=== PATIENT | female | born 1970 | race Caucasian/White ===

== ENCOUNTER 2018-06-18 10:34 | Inpatient (IN) ==
[2018-06-18 13:28] LABS: BASOPHILS % (AUTO) 0.4 % (0.2-1.0); EOSINOPHILS % (AUTO) 0.3 % (0.9-2.9); HEMATOCRIT 45.6 % (36.0-47.0); HEMOGLOBIN 15.3 g/dL (12.0-16.0); LYMPHOCYTES # (AUTO) 1.8 X10^3/uL (1.3-2.9); LYMPHOCYTES % (AUTO) 13.6 % (21.0-51.0); MEAN CORPUSCULAR HEMOGLOBIN 29.4 pg (27.0-34.0); MEAN CORPUSCULAR HGB CONC 33.5 g/dL (33.0-35.0); MEAN CORPUSCULAR VOLUME 87.7 fL (80.0-100.0); MEAN PLATELET VOLUME 9.3 fL (7.4-11.0); MONOCYTES # (AUTO) 0.7 x10^3/uL (0.3-0.8); MONOCYTES % (AUTO) 5.8 % (0.0-13.0); NEUTROPHILS # (AUTO) 10.3 x10^3/uL (2.2-4.8); NEUTROPHILS % (AUTO) 79.9 % (42.0-75.0); PLATELET COUNT 192 X10^3/uL (150.0-450.0); RED CELL DISTRIBUTION WIDTH 14.4 % (11.6-16.5); WHITE BLOOD COUNT 12.9 X10^3/uL (3.6-10.0)
[2018-06-18] MEDS ORDERED: VALIUM INJ IM ONE (13:30)
[2018-06-18 13:42] LABS: ALANINE AMINOTRANSFERASE 41 Units/L (12-78); ALBUMIN 3.5 g/dL (3.4-5.0); ALKALINE PHOSPHATASE 144 Units/L (46-116); ASPARTATE AMINO TRANSFERASE 19 Units/L (15-37); BLOOD UREA NITROGEN 15 mg/dL (7-18); CALCIUM 10.2 mg/dL (8.5-10.1); CARBON DIOXIDE 26.1 mmol/L (21-32); CHLORIDE 99 mmol/L (98-107); COR NA(FOR HYPERGLY) 141 mmol/L (136-145); CREATININE 0.62 mg/dL (0.55-1.02); SODIUM 135 mmol/L (136-145); TOTAL PROTEIN 7.3 g/dL (6.4-8.2); eGFR NON BLACK RACES > 60 (>60)
[2018-06-18 13:51] LABS: BILIRUBIN,URINE NEGATIVE (NEGATIVE); BLOOD/HEMOGLOBIN,URINE NEGATIVE (NEGATIVE); GLUCOSE, URINE 4+ (NEGATIVE); KETONES,URINE NEGATIVE (NEGATIVE); LEUKOCYTE ESTERASE ,URINE NEGATIVE (NEGATIVE); NITRITES,URINE NEGATIVE (NEGATIVE); PROTEIN,URINE NEGATIVE (NEGATIVE); UROBILINOGEN,URINE NORMAL (NORMAL)
[2018-06-18 13:53] LABS: APPEARANCE,URINE CLEAR (CLEAR); COLOR,URINE YELLOW (YELLOW)
[2018-06-18] MEDS: NICOTINE PATCH TD SCH (13:56)
--- NOTE | 2018-06-18 14:46 | RAD ---
History: Multiple falls and unsteady gait Study: PA and lateral chest Comparison: None Findings: The lungs are clear and the heart and mediastinum are unremarkable. There is no edema or effusion. No significant bony abnormality is demonstrated. Impression: Negative Reported By:
--- NOTE | 2018-06-18 14:49 | CT ---
Exam: Head CT without contrast History: 48-year-old female with altered mental status. Comparison: None Technique: Axial imaging was performed from the vertex to the base the skull without intravenous contrast being administered. Sagittal and coronal reformations were generated. Automated exposure control techniques were used for this exam. Findings: The posterior fossa and supratentorial region are unremarkable with no intracranial hemorrhage or extracerebral fluid collections. Ventricles are symmetric in size and position with no mass effect seen. On the bone windows, no acute abnormality is seen. Visualized aspect of the paranasal sinuses and mastoid air cells are clear. Impression: No acute intracranial abnormality is seen on this exam Reported By:
--- NOTE | 2018-06-18 15:17 | CT ---
CT lumbar spine without contrast Indication: Multiple falls, unsteady gait Comparison: None Technique: CT images of the lumbar spine were obtained without contrast. Automatic exposure control was utilized. Findings: The lumbar spine alignment is normal. No acute fracture or subluxation is identified. There is mild multilevel discogenic and facet degenerative disease, which is worst at the lumbosacral junction. No significant osseous spinal canal or neural foraminal narrowing is observed. There is mild right-sided hydroureteronephrosis, without identifiable radiopaque urinary stone, although the inferior most portions of the ureters were not included and a UVJ stone cannot be excluded. Impression: No acute osseous abnormality of the lumbar spine. Mild spondylosis. Mild right-sided hydronephrosis. No ureteral calculus is identified, although the lower ureter was not included. Reported By:
[2018-06-18] MEDS: NS 1000 ML 1,000 ML IV SCH (16:24)
[2018-06-18] MEDS: PROVERA PO SCH (18:33)
[2018-06-18] MEDS: MOBIC TAB 15 MG PO SCH (18:33)
[2018-06-18] MEDS: ZOLOFT PO SCH (21:06)
[2018-06-18] MEDS: ANCEF VIAL 1 GRAM IVP SCH (21:07)
[2018-06-18] MEDS: SNACK - Diabetic Appropriate PO SCH (21:16)
[2018-06-19] MEDS: NS 1000 ML 1,000 ML IV SCH ×2 (03:45→17:38)
[2018-06-19 05:25] LABS: BASOPHILS % (AUTO) 0.4 % (0.2-1.0); EOSINOPHILS # (AUTO) 0.1 x10^3/uL (0.0-0.2); EOSINOPHILS % (AUTO) 0.6 % (0.9-2.9); HEMATOCRIT 41.8 % (36.0-47.0); HEMOGLOBIN 13.9 g/dL (12.0-16.0); LYMPHOCYTES # (AUTO) 2.1 X10^3/uL (1.3-2.9); LYMPHOCYTES % (AUTO) 19.3 % (21.0-51.0); MEAN CORPUSCULAR HEMOGLOBIN 29.4 pg (27.0-34.0); MEAN CORPUSCULAR HGB CONC 33.2 g/dL (33.0-35.0); MEAN CORPUSCULAR VOLUME 88.6 fL (80.0-100.0); MEAN PLATELET VOLUME 9.5 fL (7.4-11.0); MONOCYTES # (AUTO) 0.9 x10^3/uL (0.3-0.8); MONOCYTES % (AUTO) 8.3 % (0.0-13.0); NEUTROPHILS # (AUTO) 7.9 x10^3/uL (2.2-4.8); NEUTROPHILS % (AUTO) 71.4 % (42.0-75.0); PLATELET COUNT 185 X10^3/uL (150.0-450.0); RED BLOOD COUNT 4.72 X10^6/uL (3.5-5.4); RED CELL DISTRIBUTION WIDTH 14.6 % (11.6-16.5)
[2018-06-19 05:47] LABS: ALANINE AMINOTRANSFERASE 33 Units/L (12-78); ALBUMIN 3.2 g/dL (3.4-5.0); ALKALINE PHOSPHATASE 184 Units/L (46-116); ASPARTATE AMINO TRANSFERASE 15 Units/L (15-37); BLOOD UREA NITROGEN 17 mg/dL (7-18); CARBON DIOXIDE 24.6 mmol/L (21-32); CHLORIDE 103 mmol/L (98-107); COR CA(FOR HYPOALB) 9.6 mg/dL (8.5-10.1); COR NA(FOR HYPERGLY) 143 mmol/L (136-145); CREATININE 0.66 mg/dL (0.55-1.02); SODIUM 137 mmol/L (136-145); TOTAL PROTEIN 6.6 g/dL (6.4-8.2); eGFR NON BLACK RACES > 60 (>60)
[2018-06-19] MEDS: ANCEF VIAL 1 GRAM IVP SCH ×3 (06:15→22:00)
[2018-06-19] MEDS: AMARYL TAB 4 MG PO SCH ×2 (06:16→17:38)
[2018-06-19] MEDS: HumuLIN R SC PRN ×2 (06:16→17:39)
--- NOTE | 2018-06-19 07:41 | DR.PROGNOT ---
Hospital Progress Notes - Progress Note for Day of: Progress Note Date: 06/19/18 - Chief Complaint Chief Complaint: pt was seen with infected pilonidal cyst noted few days ago with occasional. drainage and pain . long standing h/o of skin dimple on the lower spine,, - Past Medical Family Social History Past Med/Fam/Surg Hx: No changes since H&P Allergies: Allergies aripiprazole [From Abilify] Adverse Reaction (Verified 06/18/18 12:59) bupropion [From Wellbutrin] Adverse Reaction (Verified 06/18/18 18:05) donepezil [From Aricept] Adverse Reaction (Verified 06/18/18 12:59) moxifloxacin [From Avelox] Adverse Reaction (Verified 06/18/18 18:05) olanzapine [From Zyprexa] Adverse Reaction (Verified 06/18/18 12:59) promethazine [From Phenergan] Adverse Reaction (Verified 06/18/18 12:59) venlafaxine [From Effexor] Adverse Reaction (Verified 06/18/18 12:59) - Review Of Systems ROS: No change since H&P - Vital Signs Vital Signs: Temperature 98.4 F Pulse Rate [Right Brachial] 85 Respiratory Rate 18 Blood Pressure [Right Arm] 120/63 Blood Pressure [Left Arm] 110/56 Blood Pressure 143/63 O2 Sat by Pulse Oximetry 95 - Physical Exam Oriented: Normal Eyes: Normal Ear: Normal Respiratory: Normal Cardiovascular: Normal GI:Auscultation: Normal GI:Palpation: Normal GI: Tenderness: Normal Skin: Other (pilonidal sinus with erythema and tenderness . no abscess now.) Speech Pattern: Clear, Appropriate - Laboratory and Diagnostics Result Diagrams: 06/19/18 04:11 06/19/18 04:11 Labs: Laboratory WBC 11.0 X10^3/uL (3.6-10.0) H 06/19/18 04:11 RBC 4.72 X10^6/uL (3.5-5.4) 06/19/18 04:11 Hgb 13.9 g/dL (12.0-16.0) 06/19/18 04:11 Hct 41.8 % (36.0-47.0) 06/19/18 04:11 MCV 88.6 fL (80.0-100.0) 06/19/18 04:11 MCH 29.4 pg (27.0-34.0) 06/19/18 04:11 MCHC 33.2 g/dL (33.0-35.0) 06/19/18 04:11 RDW 14.6 % (11.6-16.5) 06/19/18 04:11 Plt Count 185 X10^3/uL (150.0-450.0) 06/19/18 04:11 Plt Count Comment Cancelled 06/18/18 13:00 MPV 9.5 fL (7.4-11.0) 06/19/18 04:11 Neut % (Auto) 71.4 % (42.0-75.0) 06/19/18 04:11 Lymph % (Auto) 19.3 % (21.0-51.0) L 06/19/18 04:11 [place] % (Auto) 8.3 % (0.0-13.0) 06/19/18 04:11 Eos % (Auto) 0.6 % (0.9-2.9) L 06/19/18 04:11 Baso % (Auto) 0.4 % (0.2-1.0) 06/19/18 04:11 Neut # (Auto) 7.9 x10^3/uL (2.2-4.8) H 06/19/18 04:11 Lymph # (Auto) 2.1 X10^3/uL (1.3-2.9) 06/19/18 04:11 [place] # (Auto) 0.9 x10^3/uL (0.3-0.8) H 06/19/18 04:11 Eos # (Auto) 0.1 x10^3/uL (0.0-0.2) 06/19/18 04:11 Baso # (Auto) 0.0 X10^3/uL (0.0-0.1) 06/19/18 04:11 Absolute Nucleated RBC 0.0 /100WBC 06/19/18 04:11 Nucleated RBCs Cancelled 06/18/18 13:00 Atypical Lymphocytes Cancelled 06/18/18 13:00 Blast Cells Cancelled 06/18/18 13:00 Smudge Cells Cancelled 06/18/18 13:00 Toxic Granulation Cancelled 06/18/18 13:00 Dohle Bodies Cancelled 06/18/18 13:00 Naomie Rods Cancelled 06/18/18 13:00 Plt Clumps, EDTA Cancelled 06/18/18 13:00 Giant Platelets Cancelled 06/18/18 13:00 Plt Morphology Comment Cancelled 06/18/18 13:00 RBC Morphology Cancelled 06/18/18 13:00 Dimorphic RBCs Cancelled 06/18/18 13:00 Polychromasia Cancelled 06/18/18 13:00 Hypochromasia Cancelled 06/18/18 13:00 Poikilocytosis Cancelled 06/18/18 13:00 Basophilic Stippling Cancelled 06/18/18 13:00 Anisocytosis Cancelled 06/18/18 13:00 Microcytosis Cancelled 06/18/18 13:00 Macrocytosis Cancelled 06/18/18 13:00 Spherocytes Cancelled 06/18/18 13:00 Pappenheimer Bodies Cancelled 06/18/18 13:00 Sickle Cells Cancelled 06/18/18 13:00 Target Cells Cancelled 06/18/18 13:00 Tear Drop Cells Cancelled 06/18/18 13:00 Ovalocytes Cancelled 06/18/18 13:00 Stomatocytes Cancelled 06/18/18 13:00 Helmet Cells Cancelled 06/18/18 13:00 [place] Bodies Cancelled 06/18/18 13:00 [place] Rings Cancelled 06/18/18 13:00 Lisbeth Cells Cancelled 06/18/18 13:00 Crenated Cell Cancelled 06/18/18 13:00 Acanthocytes (Spur) Cancelled 06/18/18 13:00 Rouleaux Cancelled 06/18/18 13:00 Schistocytes Cancelled 06/18/18 13:00 Sodium 137 mmol/L (136-145) 06/19/18 04:11 Corrected Sodium 143 mmol/L (136-145) 06/19/18 04:11 Potassium 4.3 mmol/L (3.5-5.1) 06/19/18 04:11 Chloride 103 mmol/L (98-107) 06/19/18 04:11 Carbon Dioxide 24.6 mmol/L (21-32) 06/19/18 04:11 BUN 17 mg/dL (7-18) 06/19/18 04:11 Creatinine 0.66 mg/dL (0.55-1.02) 06/19/18 04:11 Est GFR (MDRD) Af Amer > 60 (>60) 06/19/18 04:11 Est GFR (MDRD) Non-Af > 60 (>60) 06/19/18 04:11 Glucose 361 mg/dL (65-99) H 06/19/18 04:11 Calcium 9.0 mg/dL (8.5-10.1) 06/19/18 04:11 Corrected Calcium 9.6 mg/dL (8.5-10.1) 06/19/18 04:11 Total Bilirubin 0.30 mg/dL (0.2-1.0) 06/19/18 04:11 AST 15 Units/L (15-37) 06/19/18 04:11 ALT 33 Units/L (12-78) 06/19/18 04:11 Alkaline Phosphatase 184 Units/L (46-116) H 06/19/18 04:11 Total Protein 6.6 g/dL (6.4-8.2) 06/19/18 04:11 Albumin 3.2 g/dL (3.4-5.0) L 06/19/18 04:11 Globulin 3.4 g/dL (2.5-4.5) 06/19/18 04:11 Albumin/Globulin Ratio 0.9 Ratio (1.1-2.1) L 06/19/18 04:11 Specimen Type Clean catch urine 06/18/18 13:26 Urine Color Yellow (YELLOW) 06/18/18 13:26 Urine Appearance Clear (CLEAR) 06/18/18 13:26 Urine pH 5.0 (5.0 - 8.0) 06/18/18 13:26 Ur Specific [place] 1.005 (1.000-1.030) 06/18/18 13:26 Urine Protein Negative (NEGATIVE) 06/18/18 13:26 Urine Glucose (UA) 4+ (NEGATIVE) 06/18/18 13:26 Urine Ketones Negative (NEGATIVE) 06/18/18 13:26 Urine Occult Blood Negative (NEGATIVE) 06/18/18 13:26 Urine Nitrite Negative (NEGATIVE) 06/18/18 13:26 Urine Bilirubin Negative (NEGATIVE) 06/18/18 13:26 Urine Urobilinogen Normal (NORMAL) 06/18/18 13:26 Ur Leukocyte Esterase Negative (NEGATIVE) 06/18/18 13:26 - Assessment and Plan 1: infected pilonidal cyst and sinus ,. no need for surgery now . will obtain culture and start IV ATB ane observe . surgical excision with recurrence or prsistent infection .
[2018-06-19 09:09] VITALS: BMI 23.5
[2018-06-19] MEDS: PROVERA PO SCH (09:09)
[2018-06-19] MEDS: MOBIC TAB 15 MG PO SCH (09:09)
[2018-06-19] MEDS: ZOLOFT PO SCH ×3 (09:09→21:10)
[2018-06-19] MEDS: NICOTINE PATCH TD SCH (09:10)
--- NOTE | 2018-06-19 10:23 | DR.UPDATE ---
H&P Update History and Physical Update: WAS SEEN IN THE OFFICE TODAY FOR WEAKNESS, UNSTEADY GAIT, FALLS, ALTERED MENTAL STATUS, AND BACK AND LEG PAIN. SHE WAS ADMITTED FOR FURTHER EVALUATION AND TREATMENT. A H&P WAS COMPLETED PRIOR TO ADMISSION. PATIENT HAS BEEN SEEN AND EXAMINED WITH NO CHANGES NOTED TO H&P. Changes noted: Yes with the following: IS ALSO BEING FOLLOWED BY FOR AN INFECTED PILONIDAL CYST TO THE LOWER SPINE. THERE IS DRAINAGE NOTED TO THE SITE WELL ERYTHEMA TO THE AREA SURROUNDING THE SITE. SHE REPORTS THAT SHE HAS HAD A FEVER AT HOME. A CULTURE WILL BE OBTAINED AND SHE WILL BE STARTED ON ANCEF 1GM IV Q8H.
--- NOTE | 2018-06-19 10:57 | PCM.PROG ---
Progress Note - Progress Note for Day of Date of Exam: 06/19/18 - Subjective Subjective: WAS ADMITTED FOR AMS, WEAKNESS, FALLS, AND CELLULITIS DUE TO AN INFECTED PILONIDAL CYST TO THE LOWER SPINE. TODAY, SHE CONTINUES WITH GENERALIZED WEAKNESS. SHE REPORTS THAT SHE HAS NOT RESTED WELL. ON EXAMINATION, HEART IS REGULAR IN RATE AND RHYTHM. BILATERAL LUNGS CLEAR THROUGHOUT. ABDOMEN IS ROUND, SOFT, AND NON-TENDER WITH NORMAL BOWEL SOUNDS NOTED IN ALL QUADRANTS. THERE IS ERYTHEMA AND EDEMA NOTED TO LOWER BACK SURROUNDING CYST. NO DRAINAGE NOTED AT THIS TIME. HER VITALS THIS MORNING ARE 97.6-86-20-98%-144/74. LABS WERE OBTAINED. ABNORMAL LAB VALUES INCLUDE THE FOLLOWING: WBC 11.0, GLUCOSE 361, ALK PHOS 184, ALBUMIN 3.2. LUMBAR SPINE CT OBTAINED ON ADMISSION REVEALED: No acute osseous abnormality of the lumbar spine. Mild spondylosis. Mild right-sided hydronephrosis. No ureteral calculus is identified, although the lower ureter was not included. SHE IS CURRENTLY RECEIVING IV HYDRATION AND IV ANTIBIOTICS. WE WILL CONTINUE WITH CURRENT PLAN OF CARE TODAY. SHE WAS RECEIVING MULTIPLE MEDICATIONS AT HOME THAT COULD CONTRIBUTE TO HER DROWSINESS AND ALTERED MENTAL STATUS. TODAY, WE WILL DISCONTINUE THE XANAX AND QUETIAPINE THAT SHE WAS TAKING AT HOME. OTHERWISE, WE WILL FOLLOW UP WITH AM LABS AND CONTINUE TO MONITOR. - Past Medical Family Social History Past Med/Fam/Surg Hx: No changes since H&P Allergies: Allergies aripiprazole [From Abilify] Adverse Reaction (Verified 06/18/18 12:59) bupropion [From Wellbutrin] Adverse Reaction (Verified 06/18/18 18:05) donepezil [From Aricept] Adverse Reaction (Verified 06/18/18 12:59) moxifloxacin [From Avelox] Adverse Reaction (Verified 06/18/18 18:05) olanzapine [From Zyprexa] Adverse Reaction (Verified 06/18/18 12:59) promethazine [From Phenergan] Adverse Reaction (Verified 06/18/18 12:59) venlafaxine [From Effexor] Adverse Reaction (Verified 06/18/18 12:59) - Review of Systems ROS: No change since H&P - Vital Signs and I&O's Vital Signs: Temperature 97.6 F Pulse Rate [Right Brachial] 86 Respiratory Rate 20 Blood Pressure [Right Arm] 144/74 Blood Pressure [Left Arm] 110/56 Blood Pressure 143/63 O2 Sat by Pulse Oximetry 98 Intake and Output: Intake & Output 06/16/18 06/17/18 06/18/18 06/19/18 11:59 11:59 11:59 11:59 Intake Total 2523 / 2523 Output Total 100 / 100 Balance 2423 / 2423 - Physical Exam Oriented: Normal Eyes: Normal Ear: Normal Nose: Normal Throat: Normal Respiratory: Normal Cardiovascular: Normal Auscultation: Bowel Sounds: Normal Tenderness: Normal Skin: Red, Tender, Other (pilonidal sinus with erythema and tenderness ) Musculoskeletal: Normal Psychiatric: Normal Mood Description: Calm Affect: Normal Speech Pattern: Clear, Appropriate - Laboratory and Diagnostics Result Diagrams: 06/19/18 04:11 06/19/18 04:11 Labs: 06/18/18 13:26 Urine,Clean Catch Urine Culture - Preliminary Laboratory WBC 11.0 X10^3/uL (3.6-10.0) H 06/19/18 04:11 RBC 4.72 X10^6/uL (3.5-5.4) 06/19/18 04:11 Hgb 13.9 g/dL (12.0-16.0) 06/19/18 04:11 Hct 41.8 % (36.0-47.0) 06/19/18 04:11 MCV 88.6 fL (80.0-100.0) 06/19/18 04:11 MCH 29.4 pg (27.0-34.0) 06/19/18 04:11 MCHC 33.2 g/dL (33.0-35.0) 06/19/18 04:11 RDW 14.6 % (11.6-16.5) 06/19/18 04:11 Plt Count 185 X10^3/uL (150.0-450.0) 06/19/18 04:11 Plt Count Comment Cancelled 06/18/18 13:00 MPV 9.5 fL (7.4-11.0) 06/19/18 04:11 Neut % (Auto) 71.4 % (42.0-75.0) 06/19/18 04:11 Lymph % (Auto) 19.3 % (21.0-51.0) L 06/19/18 04:11 [place] % (Auto) 8.3 % (0.0-13.0) 06/19/18 04:11 Eos % (Auto) 0.6 % (0.9-2.9) L 06/19/18 04:11 Baso % (Auto) 0.4 % (0.2-1.0) 06/19/18 04:11 Neut # (Auto) 7.9 x10^3/uL (2.2-4.8) H 06/19/18 04:11 Lymph # (Auto) 2.1 X10^3/uL (1.3-2.9) 06/19/18 04:11 [place] # (Auto) 0.9 x10^3/uL (0.3-0.8) H 06/19/18 04:11 Eos # (Auto) 0.1 x10^3/uL (0.0-0.2) 06/19/18 04:11 Baso # (Auto) 0.0 X10^3/uL (0.0-0.1) 06/19/18 04:11 Absolute Nucleated RBC 0.0 /100WBC 06/19/18 04:11 Nucleated RBCs Cancelled 06/18/18 13:00 Atypical Lymphocytes Cancelled 06/18/18 13:00 Blast Cells Cancelled 06/18/18 13:00 Smudge Cells Cancelled 06/18/18 13:00 Toxic Granulation Cancelled 06/18/18 13:00 Dohle Bodies Cancelled 06/18/18 13:00 Naomie Rods Cancelled 06/18/18 13:00 Plt Clumps, EDTA Cancelled 06/18/18 13:00 Giant Platelets Cancelled 06/18/18 13:00 Plt Morphology Comment Cancelled 06/18/18 13:00 RBC Morphology Cancelled 06/18/18 13:00 Dimorphic RBCs Cancelled 06/18/18 13:00 Polychromasia Cancelled 06/18/18 13:00 Hypochromasia Cancelled 06/18/18 13:00 Poikilocytosis Cancelled 06/18/18 13:00 Basophilic Stippling Cancelled 06/18/18 13:00 Anisocytosis Cancelled 06/18/18 13:00 Microcytosis Cancelled 06/18/18 13:00 Macrocytosis Cancelled 06/18/18 13:00 Spherocytes Cancelled 06/18/18 13:00 Pappenheimer Bodies Cancelled 06/18/18 13:00 Sickle Cells Cancelled 06/18/18 13:00 Target Cells Cancelled 06/18/18 13:00 Tear Drop Cells Cancelled 06/18/18 13:00 Ovalocytes Cancelled 06/18/18 13:00 Stomatocytes Cancelled 06/18/18 13:00 Helmet Cells Cancelled 06/18/18 13:00 [place] Bodies Cancelled 06/18/18 13:00 [place] Rings Cancelled 06/18/18 13:00 Lisbeth Cells Cancelled 06/18/18 13:00 Crenated Cell Cancelled 06/18/18 13:00 Acanthocytes (Spur) Cancelled 06/18/18 13:00 Rouleaux Cancelled 06/18/18 13:00 Schistocytes Cancelled 06/18/18 13:00 Sodium 137 mmol/L (136-145) 06/19/18 04:11 Corrected Sodium 143 mmol/L (136-145) 06/19/18 04:11 Potassium 4.3 mmol/L (3.5-5.1) 06/19/18 04:11 Chloride 103 mmol/L (98-107) 06/19/18 04:11 Carbon Dioxide 24.6 mmol/L (21-32) 06/19/18 04:11 BUN 17 mg/dL (7-18) 06/19/18 04:11 Creatinine 0.66 mg/dL (0.55-1.02) 06/19/18 04:11 Est GFR (MDRD) Af Amer > 60 (>60) 06/19/18 04:11 Est GFR (MDRD) Non-Af > 60 (>60) 06/19/18 04:11 Glucose 361 mg/dL (65-99) H 06/19/18 04:11 Calcium 9.0 mg/dL (8.5-10.1) 06/19/18 04:11 Corrected Calcium 9.6 mg/dL (8.5-10.1) 06/19/18 04:11 Total Bilirubin 0.30 mg/dL (0.2-1.0) 06/19/18 04:11 AST 15 Units/L (15-37) 06/19/18 04:11 ALT 33 Units/L (12-78) 06/19/18 04:11 Alkaline Phosphatase 184 Units/L (46-116) H 06/19/18 04:11 Total Protein 6.6 g/dL (6.4-8.2) 06/19/18 04:11 Albumin 3.2 g/dL (3.4-5.0) L 06/19/18 04:11 Globulin 3.4 g/dL (2.5-4.5) 06/19/18 04:11 Albumin/Globulin Ratio 0.9 Ratio (1.1-2.1) L 06/19/18 04:11 Specimen Type Clean catch urine 06/18/18 13:26 Urine Color Yellow (YELLOW) 06/18/18 13:26 Urine Appearance Clear (CLEAR) 06/18/18 13:26 Urine pH 5.0 (5.0 - 8.0) 06/18/18 13:26 Ur Specific [place] 1.005 (1.000-1.030) 06/18/18 13:26 Urine Protein Negative (NEGATIVE) 06/18/18 13:26 Urine Glucose (UA) 4+ (NEGATIVE) 06/18/18 13:26 Urine Ketones Negative (NEGATIVE) 06/18/18 13:26 Urine Occult Blood Negative (NEGATIVE) 06/18/18 13:26 Urine Nitrite Negative (NEGATIVE) 06/18/18 13:26 Urine Bilirubin Negative (NEGATIVE) 06/18/18 13:26 Urine Urobilinogen Normal (NORMAL) 06/18/18 13:26 Ur Leukocyte Esterase Negative (NEGATIVE) 06/18/18 13:26 - Plan (1) Cellulitis and abscess of buttock Status: Acute Plan: IV ANCEF 1GM IV TID, WOUND CARE, CONTINUE TO MONITOR (2) Altered mental status Status: Acute Qualifiers: Altered mental status type: transient alteration of awareness Qualified Code(s): R40.4 - Transient alteration of awareness (3) Weakness generalized Status: Acute
[2018-06-19] MEDS: RisperDAL TAB 1 MG PO SCH ×3 (11:37→21:09)
[2018-06-19] MEDS: SNACK - Diabetic Appropriate PO SCH (20:00)
[2018-06-19] MEDS: RESTORIL CAP 30 MG PO SCH (21:09)
[2018-06-19] MEDS: XALATAN AFFEYE SCH (21:10)
[2018-06-20 05:36] LABS: BASOPHILS % (AUTO) 0.4 % (0.2-1.0); EOSINOPHILS % (AUTO) 0.4 % (0.9-2.9); HEMATOCRIT 41.7 % (36.0-47.0); HEMOGLOBIN 13.8 g/dL (12.0-16.0); LYMPHOCYTES # (AUTO) 2.1 X10^3/uL (1.3-2.9); LYMPHOCYTES % (AUTO) 21.3 % (21.0-51.0); MEAN CORPUSCULAR HEMOGLOBIN 29.2 pg (27.0-34.0); MEAN CORPUSCULAR HGB CONC 33.1 g/dL (33.0-35.0); MEAN CORPUSCULAR VOLUME 88.2 fL (80.0-100.0); MEAN PLATELET VOLUME 9.9 fL (7.4-11.0); MONOCYTES # (AUTO) 0.7 x10^3/uL (0.3-0.8); MONOCYTES % (AUTO) 7.7 % (0.0-13.0); NEUTROPHILS # (AUTO) 6.8 x10^3/uL (2.2-4.8); NEUTROPHILS % (AUTO) 70.2 % (42.0-75.0); PLATELET COUNT 177 X10^3/uL (150.0-450.0); RED BLOOD COUNT 4.73 X10^6/uL (3.5-5.4); RED CELL DISTRIBUTION WIDTH 14.9 % (11.6-16.5); WHITE BLOOD COUNT 9.7 X10^3/uL (3.6-10.0)
[2018-06-20] MEDS: RisperDAL TAB 1 MG PO SCH ×3 (05:42→21:30)
[2018-06-20] MEDS: ANCEF VIAL 1 GRAM IVP SCH (05:42)
[2018-06-20 05:51] LABS: ALANINE AMINOTRANSFERASE 29 Units/L (12-78); ALBUMIN 3.1 g/dL (3.4-5.0); ALKALINE PHOSPHATASE 110 Units/L (46-116); ASPARTATE AMINO TRANSFERASE 21 Units/L (15-37); BLOOD UREA NITROGEN 10 mg/dL (7-18); CALCIUM 8.8 mg/dL (8.5-10.1); CARBON DIOXIDE 21.3 mmol/L (21-32); CHLORIDE 106 mmol/L (98-107); COR CA(FOR HYPOALB) 9.5 mg/dL (8.5-10.1); CREATININE 0.55 mg/dL (0.55-1.02); SODIUM 139 mmol/L (136-145); TOTAL PROTEIN 6.4 g/dL (6.4-8.2); eGFR NON BLACK RACES > 60 (>60)
[2018-06-20] MEDS: AMARYL TAB 4 MG PO SCH ×2 (06:30→17:04)
[2018-06-20] MEDS: PROVERA PO SCH (08:47)
[2018-06-20] MEDS: NICOTINE PATCH TD SCH (08:47)
[2018-06-20] MEDS: ZOLOFT PO SCH ×2 (08:51→21:30)
[2018-06-20] MEDS: MOBIC TAB 15 MG PO SCH (08:52)
[2018-06-20] MEDS: NS 1000 ML 1,000 ML IV SCH (11:48)
[2018-06-20] MEDS: HumuLIN R SC PRN ×3 (11:49→22:00)
[2018-06-20] MEDS ORDERED: DEPAKOTE D.R. TAB PO ONE (13:18)
[2018-06-20] MEDS: ANCEF 1 GRAM IV PREMIX IV SCH ×2 (14:35→21:31)
[2018-06-20] MEDS: SNACK - Diabetic Appropriate PO SCH (20:00)
--- NOTE | 2018-06-20 20:40 | PCM.PROG ---
Progress Note - Progress Note for Day of Date of Exam: 06/20/18 - Subjective Subjective: WAS ADMITTED FOR AMS, WEAKNESS, FALLS, AND CELLULITIS DUE TO AN INFECTED PILONIDAL CYST TO THE LOWER SPINE. TODAY, SHE CONTINUES WITH GENERALIZED WEAKNESS, BUT REPORTS IMPROVEMENT SINCE YESTERDAY. SHE REPORTS RESTING BETTER, HOWEVER, FAMILY REPORTS THAT PATIENT HAS SEEMED MORE ANXIOUS AND AGITATED TODAY. . ON EXAMINATION, HEART IS REGULAR IN RATE AND RHYTHM. BILATERAL LUNGS CLEAR THROUGHOUT. ABDOMEN IS ROUND, SOFT, AND NON-TENDER WITH NORMAL BOWEL SOUNDS NOTED IN ALL QUADRANTS. THERE IS ERYTHEMA AND EDEMA NOTED TO LOWER BACK SURROUNDING CYST, IMPROVED SINCE YESTERDAY. NO DRAINAGE NOTED AT THIS TIME. HER VITALS THIS MORNING ARE 97.9-90-18-97%-145/70. LABS WERE OBTAINED. ABNORMAL LAB VALUES INCLUDE THE FOLLOWING: GLUCOSE 103, ALBUMIN 3.1. A URINE CULTURE REPORTED GROWHT OF E.COLI. IT IS SENSITIVE TO THE ANCEF THAT SHE IS CURRENTLY RECEIVING. WE WILL CONTINUE WITH CURRENT PLAN OF CARE TODAY AND START DEPAKOTE 250MG PO HS. OTHERWISE, WE WILL FOLLOW UP WITH AM LABS AND CONTINUE TO MONITOR. - Past Medical Family Social History Past Med/Fam/Surg Hx: No changes since H&P Allergies: Allergies aripiprazole [From Abilify] Adverse Reaction (Verified 06/18/18 12:59) bupropion [From Wellbutrin] Adverse Reaction (Verified 06/18/18 18:05) donepezil [From Aricept] Adverse Reaction (Verified 06/18/18 12:59) moxifloxacin [From Avelox] Adverse Reaction (Verified 06/18/18 18:05) olanzapine [From Zyprexa] Adverse Reaction (Verified 06/18/18 12:59) promethazine [From Phenergan] Adverse Reaction (Verified 06/18/18 12:59) venlafaxine [From Effexor] Adverse Reaction (Verified 06/18/18 12:59) - Review of Systems ROS: No change since H&P - Vital Signs and I&O's Vital Signs: Temperature 98.9 F Pulse Rate [Right Brachial] 68 Respiratory Rate 18 Blood Pressure [Right Arm] 172/79 Blood Pressure [Left Arm] 110/56 Blood Pressure 143/63 O2 Sat by Pulse Oximetry 100 Intake and Output: Intake & Output 0106/19/18 06/20/18 06/21/18 11:59 11:59 11:59 11:59 Intake Total 2523 / 2523 2840 / 2840 700 / 700 Output Total 100 / 100 Balance 2423 / 2423 2840 / 2840 700 / 700 - Physical Exam Oriented: Normal Eyes: Normal Ear: Normal Nose: Normal Throat: Normal Respiratory: Normal Cardiovascular: Normal Auscultation: Bowel Sounds: Normal Palpation: Normal Tenderness: Normal Skin: Red, Tender, Other (pilonidal sinus with erythema and tenderness ) Musculoskeletal: Normal Psychiatric: Normal Mood Description: Calm Affect: Normal Speech Pattern: Clear, Appropriate - Laboratory and Diagnostics Result Diagrams: 06/21/18 04:20 06/21/18 04:20 Labs: 06/18/18 13:15 Blood Blood Culture - Preliminary 06/18/18 13:00 Blood Blood Culture - Preliminary 06/18/18 13:26 Urine,Clean Catch Urine Culture - Final Escherichia Coli Laboratory WBC 9.7 X10^3/uL (3.6-10.0) 06/20/18 04:28 RBC 4.73 X10^6/uL (3.5-5.4) 06/20/18 04:28 Hgb 13.8 g/dL (12.0-16.0) 06/20/18 04:28 Hct 41.7 % (36.0-47.0) 06/20/18 04:28 MCV 88.2 fL (80.0-100.0) 06/20/18 04:28 MCH 29.2 pg (27.0-34.0) 06/20/18 04:28 MCHC 33.1 g/dL (33.0-35.0) 06/20/18 04:28 RDW 14.9 % (11.6-16.5) 06/20/18 04:28 Plt Count 177 X10^3/uL (150.0-450.0) 06/20/18 04:28 Plt Count Comment Cancelled 06/18/18 13:00 MPV 9.9 fL (7.4-11.0) 06/20/18 04:28 Neut % (Auto) 70.2 % (42.0-75.0) 06/20/18 04:28 Lymph % (Auto) 21.3 % (21.0-51.0) 06/20/18 04:28 [place] % (Auto) 7.7 % (0.0-13.0) 06/20/18 04:28 Eos % (Auto) 0.4 % (0.9-2.9) L 06/20/18 04:28 Baso % (Auto) 0.4 % (0.2-1.0) 06/20/18 04:28 Neut # (Auto) 6.8 x10^3/uL (2.2-4.8) H 06/20/18 04:28 Lymph # (Auto) 2.1 X10^3/uL (1.3-2.9) 06/20/18 04:28 [place] # (Auto) 0.7 x10^3/uL (0.3-0.8) 06/20/18 04:28 Eos # (Auto) 0.0 x10^3/uL (0.0-0.2) 06/20/18 04:28 Baso # (Auto) 0.0 X10^3/uL (0.0-0.1) 06/20/18 04:28 Absolute Nucleated RBC 0.1 /100WBC 06/20/18 04:28 Nucleated RBCs Cancelled 06/18/18 13:00 Atypical Lymphocytes Cancelled 06/18/18 13:00 Blast Cells Cancelled 06/18/18 13:00 Smudge Cells Cancelled 06/18/18 13:00 Toxic Granulation Cancelled 06/18/18 13:00 Dohle Bodies Cancelled 06/18/18 13:00 Naomie Rods Cancelled 06/18/18 13:00 Plt Clumps, EDTA Cancelled 06/18/18 13:00 Giant Platelets Cancelled 06/18/18 13:00 Plt Morphology Comment Cancelled 06/18/18 13:00 RBC Morphology Cancelled 06/18/18 13:00 Dimorphic RBCs Cancelled 06/18/18 13:00 Polychromasia Cancelled 06/18/18 13:00 Hypochromasia Cancelled 06/18/18 13:00 Poikilocytosis Cancelled 06/18/18 13:00 Basophilic Stippling Cancelled 06/18/18 13:00 Anisocytosis Cancelled 06/18/18 13:00 Microcytosis Cancelled 06/18/18 13:00 Macrocytosis Cancelled 06/18/18 13:00 Spherocytes Cancelled 06/18/18 13:00 Pappenheimer Bodies Cancelled 06/18/18 13:00 Sickle Cells Cancelled 06/18/18 13:00 Target Cells Cancelled 06/18/18 13:00 Tear Drop Cells Cancelled 06/18/18 13:00 Ovalocytes Cancelled 06/18/18 13:00 Stomatocytes Cancelled 06/18/18 13:00 Helmet Cells Cancelled 06/18/18 13:00 [place] Bodies Cancelled 06/18/18 13:00 [place] Rings Cancelled 06/18/18 13:00 [place] Cells Cancelled 06/18/18 13:00 Crenated Cell Cancelled 06/18/18 13:00 Acanthocytes (Spur) Cancelled 06/18/18 13:00 Rouleaux Cancelled 06/18/18 13:00 Schistocytes Cancelled 06/18/18 13:00 Sodium 139 mmol/L (136-145) 06/20/18 04:28 Corrected Sodium TNP 06/20/18 04:28 Potassium 4.0 mmol/L (3.5-5.1) 06/20/18 04:28 Chloride 106 mmol/L (98-107) 06/20/18 04:28 Carbon Dioxide 21.3 mmol/L (21-32) 06/20/18 04:28 BUN 10 mg/dL (7-18) 06/20/18 04:28 Creatinine 0.55 mg/dL (0.55-1.02) 06/20/18 04:28 Est GFR (MDRD) Af Amer > 60 (>60) 06/20/18 04:28 Est GFR (MDRD) Non-Af > 60 (>60) 06/20/18 04:28 Glucose 103 mg/dL (65-99) H 06/20/18 04:28 POC Glucose (mg/dL) 111 mg/dL (65-99) H 06/20/18 05:24 Calcium 8.8 mg/dL (8.5-10.1) 06/20/18 04:28 Corrected Calcium 9.5 mg/dL (8.5-10.1) 06/20/18 04:28 Total Bilirubin 0.40 mg/dL (0.2-1.0) 06/20/18 04:28 AST 21 Units/L (15-37) 06/20/18 04:28 ALT 29 Units/L (12-78) 06/20/18 04:28 Alkaline Phosphatase 110 Units/L (46-116) 06/20/18 04:28 Total Protein 6.4 g/dL (6.4-8.2) 06/20/18 04:28 Albumin 3.1 g/dL (3.4-5.0) L 06/20/18 04:28 Globulin 3.3 g/dL (2.5-4.5) 06/20/18 04:28 Albumin/Globulin Ratio 0.9 Ratio (1.1-2.1) L 06/20/18 04:28 Specimen Type Clean catch urine 06/18/18 13:26 Urine Color Yellow (YELLOW) 06/18/18 13:26 Urine Appearance Clear (CLEAR) 06/18/18 13:26 Urine pH 5.0 (5.0 - 8.0) 06/18/18 13:26 Ur Specific [place] 1.005 (1.000-1.030) 06/18/18 13:26 Urine Protein Negative (NEGATIVE) 06/18/18 13:26 Urine Glucose (UA) 4+ (NEGATIVE) 06/18/18 13:26 Urine Ketones Negative (NEGATIVE) 06/18/18 13:26 Urine Occult Blood Negative (NEGATIVE) 06/18/18 13:26 Urine Nitrite Negative (NEGATIVE) 06/18/18 13:26 Urine Bilirubin Negative (NEGATIVE) 06/18/18 13:26 Urine Urobilinogen Normal (NORMAL) 06/18/18 13:26 Ur Leukocyte Esterase Negative (NEGATIVE) 06/18/18 13:26 - Plan (1) Cellulitis and abscess of buttock Status: Acute Plan: IV ANCEF 1GM IV TID, WOUND CARE, CONTINUE TO MONITOR (2) Altered mental status Status: Acute Qualifiers: Altered mental status type: transient alteration of awareness Qualified Code(s): R40.4 - Transient alteration of awareness (3) Weakness generalized Status: Acute (4) E. coli urinary tract infection Status: Acute Plan: IV ANCEF, CONTINUE TO MONITOR
[2018-06-20] MEDS ORDERED: DEPAKOTE D.R. TAB PO SCH (21:00)
[2018-06-20] MEDS: RESTORIL CAP 30 MG PO SCH (21:30)
[2018-06-20] MEDS: XALATAN AFFEYE SCH (21:31)
[2018-06-21] MEDS: NS 1000 ML 1,000 ML IV SCH ×3 (01:11→17:13)
[2018-06-21] MEDS: ANCEF 1 GRAM IV PREMIX IV SCH ×4 (05:15→21:07)
[2018-06-21] MEDS: RisperDAL TAB 1 MG PO SCH ×4 (05:15→21:07)
[2018-06-21 05:35] LABS: BASOPHILS # (AUTO) 0.1 X10^3/uL (0.0-0.1); BASOPHILS % (AUTO) 0.6 % (0.2-1.0); EOSINOPHILS % (AUTO) 0.3 % (0.9-2.9); HEMATOCRIT 38.6 % (36.0-47.0); HEMOGLOBIN 12.8 g/dL (12.0-16.0); LYMPHOCYTES # (AUTO) 2.3 X10^3/uL (1.3-2.9); LYMPHOCYTES % (AUTO) 20.5 % (21.0-51.0); MEAN CORPUSCULAR HEMOGLOBIN 29.1 pg (27.0-34.0); MEAN CORPUSCULAR HGB CONC 33.1 g/dL (33.0-35.0); MEAN CORPUSCULAR VOLUME 87.8 fL (80.0-100.0); MEAN PLATELET VOLUME 9.9 fL (7.4-11.0); MONOCYTES # (AUTO) 0.8 x10^3/uL (0.3-0.8); MONOCYTES % (AUTO) 7.5 % (0.0-13.0); NEUTROPHILS # (AUTO) 7.9 x10^3/uL (2.2-4.8); NEUTROPHILS % (AUTO) 71.1 % (42.0-75.0); PLATELET COUNT 151 X10^3/uL (150.0-450.0); RED CELL DISTRIBUTION WIDTH 14.7 % (11.6-16.5); WHITE BLOOD COUNT 11.2 X10^3/uL (3.6-10.0)
[2018-06-21 05:47] LABS: ALANINE AMINOTRANSFERASE 26 Units/L (12-78); ALBUMIN 2.8 g/dL (3.4-5.0); ALKALINE PHOSPHATASE 107 Units/L (46-116); ASPARTATE AMINO TRANSFERASE 16 Units/L (15-37); BLOOD UREA NITROGEN 12 mg/dL (7-18); CALCIUM 8.5 mg/dL (8.5-10.1); CARBON DIOXIDE 20.4 mmol/L (21-32); CHLORIDE 105 mmol/L (98-107); COR CA(FOR HYPOALB) 9.5 mg/dL (8.5-10.1); COR NA(FOR HYPERGLY) 139 mmol/L (136-145); CREATININE 0.64 mg/dL (0.55-1.02); SODIUM 136 mmol/L (136-145); TOTAL PROTEIN 6.1 g/dL (6.4-8.2); eGFR NON BLACK RACES > 60 (>60)
[2018-06-21] MEDS: HumuLIN R SC PRN ×2 (06:28→12:50)
[2018-06-21] MEDS: AMARYL TAB 4 MG PO SCH ×2 (06:38→17:13)
[2018-06-21] MEDS: NICOTINE PATCH TD SCH (09:30)
[2018-06-21] MEDS: PROVERA PO SCH (09:30)
[2018-06-21] MEDS: MOBIC TAB 15 MG PO SCH (09:30)
[2018-06-21] MEDS: ZOLOFT PO SCH ×2 (09:30→21:06)
[2018-06-21] MEDS: DEPAKOTE D.R. TAB PO SCH ×2 (12:52→21:07)
[2018-06-21] MEDS: SNACK - Diabetic Appropriate PO SCH (20:00)
[2018-06-21] MEDS: RESTORIL CAP 30 MG PO SCH (21:06)
[2018-06-21] MEDS: XALATAN AFFEYE SCH (21:07)
--- NOTE | 2018-06-21 21:47 | PCM.PROG ---
Progress Note - Progress Note for Day of Date of Exam: 06/21/18 - Subjective Subjective: WAS ADMITTED FOR AMS, WEAKNESS, FALLS, AND CELLULITIS DUE TO AN INFECTED PILONIDAL CYST TO THE LOWER SPINE. TODAY, SHE CONTINUES WITH GENERALIZED WEAKNESS, BUT CONTINUES TO REPORT IMPROVEMENT. SHE IS EMOTIONAL AND CRYING THIS MORNING. PATIENT REPORTS THAT SHE JUST WANTS TO GO HOME. ON EXAMINATION, HEART IS REGULAR IN RATE AND RHYTHM. BILATERAL LUNGS CLEAR THROUGHOUT. ABDOMEN IS ROUND, SOFT, AND NON-TENDER WITH NORMAL BOWEL SOUNDS NOTED IN ALL QUADRANTS. THERE IS ERYTHEMA AND EDEMA NOTED TO LOWER BACK SURROUNDING CYST, IMPROVED SINCE YESTERDAY. NO DRAINAGE NOTED AT THIS TIME. HER VITALS THIS MORNING ARE 97.6-96-20-100%-164/79. LABS WERE OBTAINED. ABNORMAL LAB VALUES INCLUDE THE FOLLOWING: WBC 11.2, CARBON DIOXIDE 20.4, GLUCOSE 221, TOTAL PROTEIN 6.1, ALBUMIN 2.8. A URINE CULTURE REPORTED GROWTH OF E.COLI. IT IS SENSITIVE TO THE ANCEF THAT SHE IS CURRENTLY RECEIVING. WE WILL INCREASE HER DEPAKOTE TO 250MG PO BID TODAY. OTHERWISE, WE WILL FOLLOW UP WITH AM LABS AND CONTINUE TO MONITOR. - Past Medical Family Social History Past Med/Fam/Surg Hx: No changes since H&P Allergies: Allergies aripiprazole [From Abilify] Adverse Reaction (Verified 06/18/18 12:59) bupropion [From Wellbutrin] Adverse Reaction (Verified 06/18/18 18:05) donepezil [From Aricept] Adverse Reaction (Verified 06/18/18 12:59) moxifloxacin [From Avelox] Adverse Reaction (Verified 06/18/18 18:05) olanzapine [From Zyprexa] Adverse Reaction (Verified 06/18/18 12:59) promethazine [From Phenergan] Adverse Reaction (Verified 06/18/18 12:59) venlafaxine [From Effexor] Adverse Reaction (Verified 06/18/18 12:59) - Review of Systems ROS: No change since H&P - Vital Signs and I&O's Vital Signs: Temperature 97.5 F Pulse Rate [Right Brachial] 94 Respiratory Rate 18 Blood Pressure [Right Arm] 172/79 Blood Pressure [Left Arm] 156/79 Blood Pressure 143/63 O2 Sat by Pulse Oximetry 96 Intake and Output: Intake & Output 06/19/18 06/20/18 06/21/18 06/22/18 11:59 11:59 11:59 11:59 Intake Total 2523 / 2523 2840 / 2840 2540 / 2540 680 / 680 Output Total 100 / 100 Balance 2423 / 2423 2840 / 2840 2540 / 2540 680 / 680 - Physical Exam Oriented: Normal Eyes: Normal Ear: Normal Nose: Normal Throat: Normal Respiratory: Normal Cardiovascular: Normal Auscultation: Bowel Sounds: Normal Tenderness: Normal Skin: Red, Tender, Other (pilonidal sinus with erythema and tenderness ) Musculoskeletal: Normal Psychiatric: Normal Mood Description: Calm Affect: Normal Speech Pattern: Clear, Appropriate - Laboratory and Diagnostics Result Diagrams: 06/21/18 04:20 06/21/18 04:20 Labs: 06/18/18 13:15 Blood Blood Culture - Preliminary 06/18/18 13:00 Blood Blood Culture - Preliminary 06/18/18 13:26 Urine,Clean Catch Urine Culture - Final Escherichia Coli Laboratory WBC 11.2 X10^3/uL (3.6-10.0) H 06/21/18 04:20 RBC 4.40 X10^6/uL (3.5-5.4) 06/21/18 04:20 Hgb 12.8 g/dL (12.0-16.0) 06/21/18 04:20 Hct 38.6 % (36.0-47.0) 06/21/18 04:20 MCV 87.8 fL (80.0-100.0) 06/21/18 04:20 MCH 29.1 pg (27.0-34.0) 06/21/18 04:20 MCHC 33.1 g/dL (33.0-35.0) 06/21/18 04:20 RDW 14.7 % (11.6-16.5) 06/21/18 04:20 Plt Count 151 X10^3/uL (150.0-450.0) 06/21/18 04:20 Plt Count Comment Cancelled 06/18/18 13:00 MPV 9.9 fL (7.4-11.0) 06/21/18 04:20 Neut % (Auto) 71.1 % (42.0-75.0) 06/21/18 04:20 Lymph % (Auto) 20.5 % (21.0-51.0) L 06/21/18 04:20 [place] % (Auto) 7.5 % (0.0-13.0) 06/21/18 04:20 Eos % (Auto) 0.3 % (0.9-2.9) L 06/21/18 04:20 Baso % (Auto) 0.6 % (0.2-1.0) 06/21/18 04:20 Neut # (Auto) 7.9 x10^3/uL (2.2-4.8) H 06/21/18 04:20 Lymph # (Auto) 2.3 X10^3/uL (1.3-2.9) 06/21/18 04:20 [place] # (Auto) 0.8 x10^3/uL (0.3-0.8) 06/21/18 04:20 Eos # (Auto) 0.0 x10^3/uL (0.0-0.2) 06/21/18 04:20 Baso # (Auto) 0.1 X10^3/uL (0.0-0.1) 06/21/18 04:20 Absolute Nucleated RBC 0.0 /100WBC 06/21/18 04:20 Nucleated RBCs Cancelled 06/18/18 13:00 Atypical Lymphocytes Cancelled 06/18/18 13:00 Blast Cells Cancelled 06/18/18 13:00 Smudge Cells Cancelled 06/18/18 13:00 Toxic Granulation Cancelled 06/18/18 13:00 Dohle Bodies Cancelled 06/18/18 13:00 Naomie Rods Cancelled 06/18/18 13:00 Plt Clumps, EDTA Cancelled 06/18/18 13:00 Giant Platelets Cancelled 06/18/18 13:00 Plt Morphology Comment Cancelled 06/18/18 13:00 RBC Morphology Cancelled 06/18/18 13:00 Dimorphic RBCs Cancelled 06/18/18 13:00 Polychromasia Cancelled 06/18/18 13:00 Hypochromasia Cancelled 06/18/18 13:00 Poikilocytosis Cancelled 06/18/18 13:00 Basophilic Stippling Cancelled 06/18/18 13:00 Anisocytosis Cancelled 06/18/18 13:00 Microcytosis Cancelled 06/18/18 13:00 Macrocytosis Cancelled 06/18/18 13:00 Spherocytes Cancelled 06/18/18 13:00 Pappenheimer Bodies Cancelled 06/18/18 13:00 Sickle Cells Cancelled 06/18/18 13:00 Target Cells Cancelled 06/18/18 13:00 Tear Drop Cells Cancelled 06/18/18 13:00 Ovalocytes Cancelled 06/18/18 13:00 Stomatocytes Cancelled 06/18/18 13:00 Helmet Cells Cancelled 06/18/18 13:00 [place] Bodies Cancelled 06/18/18 13:00 [place] Rings Cancelled 06/18/18 13:00 [place] Cells Cancelled 06/18/18 13:00 Crenated Cell Cancelled 06/18/18 13:00 Acanthocytes (Spur) Cancelled 06/18/18 13:00 Rouleaux Cancelled 06/18/18 13:00 Schistocytes Cancelled 06/18/18 13:00 Sodium 136 mmol/L (136-145) 06/21/18 04:20 Corrected Sodium 139 mmol/L (136-145) 06/21/18 04:20 Potassium 4.5 mmol/L (3.5-5.1) 06/21/18 04:20 Chloride 105 mmol/L (98-107) 06/21/18 04:20 Carbon Dioxide 20.4 mmol/L (21-32) L 06/21/18 04:20 BUN 12 mg/dL (7-18) 06/21/18 04:20 Creatinine 0.64 mg/dL (0.55-1.02) 06/21/18 04:20 Est GFR (MDRD) Af Amer > 60 (>60) 06/21/18 04:20 Est GFR (MDRD) Non-Af > 60 (>60) 06/21/18 04:20 Glucose 221 mg/dL (65-99) H 06/21/18 04:20 POC Glucose (mg/dL) 78 mg/dL (65-99) 06/21/18 17:20 Calcium 8.5 mg/dL (8.5-10.1) 06/21/18 04:20 Corrected Calcium 9.5 mg/dL (8.5-10.1) 06/21/18 04:20 Total Bilirubin 0.30 mg/dL (0.2-1.0) 06/21/18 04:20 AST 16 Units/L (15-37) 06/21/18 04:20 ALT 26 Units/L (12-78) 06/21/18 04:20 Alkaline Phosphatase 107 Units/L (46-116) 06/21/18 04:20 Total Protein 6.1 g/dL (6.4-8.2) L 06/21/18 04:20 Albumin 2.8 g/dL (3.4-5.0) L 06/21/18 04:20 Globulin 3.3 g/dL (2.5-4.5) 06/21/18 04:20 Albumin/Globulin Ratio 0.8 Ratio (1.1-2.1) L 06/21/18 04:20 Specimen Type Clean catch urine 06/18/18 13:26 Urine Color Yellow (YELLOW) 06/18/18 13:26 Urine Appearance Clear (CLEAR) 06/18/18 13:26 Urine pH 5.0 (5.0 - 8.0) 06/18/18 13:26 Ur Specific [place] 1.005 (1.000-1.030) 06/18/18 13:26 Urine Protein Negative (NEGATIVE) 06/18/18 13:26 Urine Glucose (UA) 4+ (NEGATIVE) 06/18/18 13:26 Urine Ketones Negative (NEGATIVE) 06/18/18 13:26 Urine Occult Blood Negative (NEGATIVE) 06/18/18 13:26 Urine Nitrite Negative (NEGATIVE) 06/18/18 13:26 Urine Bilirubin Negative (NEGATIVE) 06/18/18 13:26 Urine Urobilinogen Normal (NORMAL) 06/18/18 13:26 Ur Leukocyte Esterase Negative (NEGATIVE) 06/18/18 13:26 - Plan (1) Cellulitis and abscess of buttock Status: Acute Plan: IV ANCEF 1GM IV TID, WOUND CARE, CONTINUE TO MONITOR (2) Altered mental status Status: Acute Qualifiers: Altered mental status type: transient alteration of awareness Qualified Code(s): R40.4 - Transient alteration of awareness (3) Weakness generalized Status: Acute (4) E. coli urinary tract infection Status: Acute Plan: IV ANCEF, CONTINUE TO MONITOR
[2018-06-22] MEDS: NS 1000 ML 1,000 ML IV SCH (02:42)
[2018-06-22 05:20] LABS: BASOPHILS % (AUTO) 0.3 % (0.2-1.0); EOSINOPHILS % (AUTO) 0.4 % (0.9-2.9); HEMATOCRIT 37.7 % (36.0-47.0); HEMOGLOBIN 12.6 g/dL (12.0-16.0); LYMPHOCYTES # (AUTO) 2.1 X10^3/uL (1.3-2.9); MEAN CORPUSCULAR HEMOGLOBIN 29.6 pg (27.0-34.0); MEAN CORPUSCULAR HGB CONC 33.5 g/dL (33.0-35.0); MEAN CORPUSCULAR VOLUME 88.2 fL (80.0-100.0); MEAN PLATELET VOLUME 9.5 fL (7.4-11.0); MONOCYTES # (AUTO) 0.8 x10^3/uL (0.3-0.8); MONOCYTES % (AUTO) 7.6 % (0.0-13.0); NEUTROPHILS # (AUTO) 7.9 x10^3/uL (2.2-4.8); NEUTROPHILS % (AUTO) 72.7 % (42.0-75.0); PLATELET COUNT 161 X10^3/uL (150.0-450.0); RED BLOOD COUNT 4.27 X10^6/uL (3.5-5.4); RED CELL DISTRIBUTION WIDTH 14.3 % (11.6-16.5); WHITE BLOOD COUNT 10.8 X10^3/uL (3.6-10.0)
[2018-06-22 05:30] LABS: ALANINE AMINOTRANSFERASE 21 Units/L (12-78); ALBUMIN 2.8 g/dL (3.4-5.0); ALKALINE PHOSPHATASE 100 Units/L (46-116); ASPARTATE AMINO TRANSFERASE 16 Units/L (15-37); BLOOD UREA NITROGEN 11 mg/dL (7-18); CALCIUM 8.6 mg/dL (8.5-10.1); CARBON DIOXIDE 21.3 mmol/L (21-32); CHLORIDE 107 mmol/L (98-107); COR CA(FOR HYPOALB) 9.6 mg/dL (8.5-10.1); CREATININE 0.59 mg/dL (0.55-1.02); SODIUM 140 mmol/L (136-145); eGFR NON BLACK RACES > 60 (>60)
[2018-06-22] MEDS: RisperDAL TAB 1 MG PO SCH ×2 (06:29→12:51)
[2018-06-22] MEDS: ANCEF 1 GRAM IV PREMIX IV SCH ×2 (06:29→12:51)
[2018-06-22] MEDS: AMARYL TAB 4 MG PO SCH (06:29)
[2018-06-22] MEDS: MOBIC TAB 15 MG PO SCH (08:40)
[2018-06-22] MEDS: PROVERA PO SCH (08:41)
[2018-06-22] MEDS: ZOLOFT PO SCH (08:41)
[2018-06-22] MEDS: DEPAKOTE D.R. TAB PO SCH (08:42)
[2018-06-22] MEDS: NICOTINE PATCH TD SCH (08:55)
[2018-06-22] MEDS ORDERED: VALIUM PO SCH (09:00)
[2018-06-22 13:18] VITALS: BP 157/81
== END 2018-06-22 14:00 | DRG 603 ==
LOC: MED/SURG
PROVIDERS: ADMIT Internal Medicine; ATTEND Internal Medicine
DX: R40.4 Transient alteration of awareness; L05.01 Pilonidal cyst with abscess; N39.0 Urinary tract infection, site not specified; L03.317 Cellulitis of buttock; R13.12 Dysphagia, oropharyngeal phase; E11.65 Type 2 diabetes mellitus with hyperglycemia; R29.6 Repeated falls; R53.1 Weakness; R41.0 Disorientation, unspecified; R26.81 Unsteadiness on feet; R41.3 Other amnesia; B96.29 Other Escherichia coli [E. coli] as the cause of diseases classified elsewhere
CPT/HCPCS: 36415; 70450; 71020; 71046; 72131; 80053; 81003; 85025; 87040; 87086; 87088; 87186; 92526; 92610; 97110; 97116; 97162; 97166; 97530; 97535; A4222; G0378; J0690; J1815; J3360; J7030

== ENCOUNTER 2018-12-20 09:00 | Inpatient (IN) ==
[~2018-12-20 09:00] MED LIST: FORTAZ or TAZICEF VIAL INJ IVP ONE; LEVAQUIN PREMIX IV 500 MG IV ONE; NS 1/2 1000 ML IV IV ONE; ROBITUSSIN DM PO ONE
[2018-12-20] MEDS ORDERED: FLONASE NASAL SPRAY ENOSTRIL ONE (10:43)
[2018-12-20] MEDS ORDERED: K-DUR TAB 20 MEQ PO ONE (10:43)
[2018-12-20] MEDS ORDERED: MAXZIDE 37.5/25 MG PO ONE (10:43)
[2018-12-20] MEDS ORDERED: PROVERA PO ONE (10:43)
[2018-12-20] MEDS ORDERED: XALATAN EACHEYE ONE (10:43)
[2018-12-20] MEDS ORDERED: DEPAKOTE SPRINKLE PO ONE ×2 (10:43→21:30)
[2018-12-20] MEDS ORDERED: TAB-A-VITE PO ONE (10:43)
[2018-12-20] MEDS ORDERED: CHRONULAC PO ONE (11:52)
[2018-12-20] MEDS ORDERED: HumuLIN R SUBCUT ONE ×3 (12:50→21:02)
[2018-12-20] MEDS ORDERED: ROBITUSSIN DM PO ONE ×3 (13:00→21:30)
[2018-12-20] MEDS ORDERED: RisperDAL TAB 1 MG PO ONE ×2 (13:11→21:30)
[2018-12-20] MEDS ORDERED: FORTAZ or TAZICEF VIAL INJ IVP ONE ×2 (14:00→21:30)
[2018-12-20] MEDS ORDERED: DESYREL PO ONE (21:30)
[2018-12-20] MEDS ORDERED: XARELTO PO ONE (21:30)
[2018-12-20] MEDS ORDERED: XANAX PO ONE (21:30)
[2018-12-20] MEDS ORDERED: NS 1/2 1000 ML IV IV ONE (21:30)
[2018-12-21] MEDS ORDERED: CHRONULAC PO PRN (05:48)
[2018-12-21 06:12] LABS: BASOPHILS % (AUTO) 0.2 % (0.2-1.0); EOSINOPHILS % (AUTO) 0.1 % (0.9-2.9); HEMATOCRIT 31.3 % (36.0-47.0); HEMOGLOBIN 11.1 g/dL (12.0-16.0); LYMPHOCYTES # (AUTO) 1.9 X10^3/uL (1.3-2.9); LYMPHOCYTES % (AUTO) 24.8 % (21.0-51.0); MEAN CORPUSCULAR HEMOGLOBIN 31.5 pg (27.0-34.0); MEAN CORPUSCULAR HGB CONC 35.4 g/dL (33.0-35.0); MEAN PLATELET VOLUME 9.4 fL (7.4-11.0); NEUTROPHILS # (AUTO) 4.8 x10^3/uL (2.2-4.8); NEUTROPHILS % (AUTO) 61.9 % (42.0-75.0); PLATELET COUNT 133 X10^3/uL (150.0-450.0); RED BLOOD COUNT 3.51 X10^6/uL (3.5-5.4); RED CELL DISTRIBUTION WIDTH 15.4 % (11.6-16.5); WHITE BLOOD COUNT 7.8 X10^3/uL (3.6-10.0)
[2018-12-21 06:20] LABS: BLOOD UREA NITROGEN 9 mg/dL (7-18); CALCIUM 8.9 mg/dL (8.5-10.1); CARBON DIOXIDE 27.8 mmol/L (21-32); CHLORIDE 106 mmol/L (98-107); COR NA(FOR HYPERGLY) 146 mmol/L (136-145); CREATININE 0.63 mg/dL (0.55-1.02); SODIUM 142 mmol/L (136-145); eGFR NON BLACK RACES > 60 (>60)
[2018-12-21] MEDS ORDERED: ULTRAM PO PRN (07:11)
[2018-12-21] MEDS ORDERED: XANAX PO PRN (07:12)
[2018-12-21 08:15] LABS: SODIUM 134 mmol/L (136-145)
[2018-12-21 08:16] LABS: ALANINE AMINOTRANSFERASE 12 Units/L (12-78); ALBUMIN 2.7 g/dL (3.4-5.0); ALKALINE PHOSPHATASE 112 Units/L (46-116); ASPARTATE AMINO TRANSFERASE 12 Units/L (15-37); BLOOD UREA NITROGEN 15 mg/dL (7-18); CALCIUM 8.8 mg/dL (8.5-10.1); CARBON DIOXIDE 30.2 mmol/L (21-32); CHLORIDE 97 mmol/L (98-107); COR CA(FOR HYPOALB) 9.8 mg/dL (8.5-10.1); COR NA(FOR HYPERGLY) 138 mmol/L (136-145); CREATININE 0.84 mg/dL (0.55-1.02); TOTAL PROTEIN 6.8 g/dL (6.4-8.2); eGFR NON BLACK RACES > 60 (>60)
[2018-12-21 08:17] LABS: HEMATOCRIT 33.4 % (36.0-47.0); HEMOGLOBIN 11.6 g/dL (12.0-16.0); MEAN CORPUSCULAR HEMOGLOBIN 31.3 pg (27.0-34.0); MEAN CORPUSCULAR HGB CONC 34.9 g/dL (33.0-35.0); MEAN CORPUSCULAR VOLUME 89.6 fL (80.0-100.0); PLATELET COUNT 129 X10^3/uL (150.0-450.0); RED BLOOD COUNT 3.73 X10^6/uL (3.5-5.4); RED CELL DISTRIBUTION WIDTH 15.5 % (11.6-16.5); WHITE BLOOD COUNT 7.2 X10^3/uL (3.6-10.0)
[2018-12-21 08:18] LABS: BASOPHILS % (AUTO) 0.3 % (0.2-1.0); EOSINOPHILS % (AUTO) 0.4 % (0.9-2.9); LYMPHOCYTES # (AUTO) 1.8 X10^3/uL (1.3-2.9); LYMPHOCYTES % (AUTO) 24.4 % (21.0-51.0); MONOCYTES # (AUTO) 0.9 x10^3/uL (0.3-0.8); MONOCYTES % (AUTO) 13.1 % (0.0-13.0); NEUTROPHILS # (AUTO) 4.4 x10^3/uL (2.2-4.8); NEUTROPHILS % (AUTO) 61.8 % (42.0-75.0)
[2018-12-21] MEDS: NS 1/2 1000 ML IV 1,000 ML IV SCH ×2 (14:42→21:25)
[2018-12-21] MEDS: ZINC SULFATE PO SCH (14:43)
[2018-12-21] MEDS: XALATAN EACHEYE SCH ×2 (14:43→21:27)
[2018-12-21] MEDS: RisperDAL TAB 1 MG PO SCH ×2 (14:43→21:27)
[2018-12-21] MEDS: ZOLOFT PO SCH (14:43)
[2018-12-21] MEDS: FORTAZ or TAZICEF VIAL INJ IVP SCH ×2 (14:43→21:26)
[2018-12-21] MEDS: TAB-A-VITE PO SCH (14:44)
[2018-12-21] MEDS: ROBITUSSIN DM PO SCH ×3 (14:44→21:26)
[2018-12-21] MEDS: VSL#3 PO SCH (14:44)
[2018-12-21] MEDS: VITAMIN C PO SCH (14:44)
[2018-12-21] MEDS: DEPAKOTE SPRINKLE PO SCH ×2 (14:45→21:27)
[2018-12-21] MEDS: FLONASE NASAL SPRAY ENOSTRIL SCH ×2 (14:45→21:27)
[2018-12-21] MEDS: PROVERA PO SCH (14:45)
[2018-12-21] MEDS: K-DUR TAB 20 MEQ PO SCH (14:45)
[2018-12-21] MEDS: DESYREL PO SCH (14:45)
[2018-12-21] MEDS: MAXZIDE 37.5/25 MG PO SCH (14:46)
[2018-12-21] MEDS: LEVAQUIN PREMIX IV 500 MG 500 MG/100 ML BAG IV SCH (14:46)
[2018-12-21] MEDS: HumuLIN R SUBCUT PRN ×2 (17:00→21:28)
[2018-12-21] MEDS ORDERED: POTASSIUM CHLORIDE LIQ 20 MEQ UDC PO PRN (17:20)
[2018-12-21] MEDS ORDERED: K-RIDER 10 MEQ/NS 100 ML 10 MEQ/100 ML BAG IV PRN (17:20)
[2018-12-21] MEDS ORDERED: KLOR-CON PO PRN (17:20)
[2018-12-21] MEDS ORDERED: POTASSIUM CHL 60 MEQ/NS 0.45% 500 ML IV PRN (17:20)
[2018-12-21] MEDS ORDERED: POTASSIUM CHL 40 MEQ/NS 0.45% 500 ML IV PRN (17:20)
[2018-12-21] MEDS ORDERED: MICRO K EXTEN CAP 10 MEQ PO PRN (17:20)
[2018-12-21] MEDS ORDERED: K-DUR TAB 20 MEQ PO PRN (17:20)
[2018-12-21] MEDS: MAGNESIUM SULFATE 1 GRAM/100 mL PREMIX 1 GM/100 ML BAG IV PRN ×2 (17:57→21:34)
[2018-12-21] MEDS: DUONEB 0.5 MG/3 MG NEB SCH (20:20)
[2018-12-21] MEDS ORDERED: LIPITOR TAB 20 MG PO SCH (21:00)
[2018-12-21] MEDS: XARELTO PO SCH ×2 (21:26→21:27)
--- NOTE | 2018-12-21 23:27 | PCM.PROG ---
Progress Note - Progress Note for Day of Date of Exam: 12/20/18 - Subjective Subjective: The patient is a 48-year-old white female who was admitted secondary to pneumonia. Denies productive cough. Patient does complain of constipation with no bowel movement in 2 weeks. Does have a history of spina bifida. Patient at present doesn't complain of abdominal distention but denies any nausea or vomiting. - Past Medical Family Social History Past Med/Fam/Surg Hx: No changes since H&P Allergies: Allergies quetiapine [From Seroquel] Allergy (Verified 10/31/18 13:15) aripiprazole [From Abilify] Adverse Reaction (Verified 10/31/18 13:15) bupropion [From Wellbutrin] Adverse Reaction (Verified 10/31/18 13:15) donepezil [From Aricept] Adverse Reaction (Verified 10/31/18 13:15) moxifloxacin [From Avelox] Adverse Reaction (Verified 10/31/18 13:15) olanzapine [From Zyprexa] Adverse Reaction (Verified 10/31/18 13:15) promethazine [From Phenergan] Adverse Reaction (Verified 10/31/18 13:15) venlafaxine [From Effexor] Adverse Reaction (Verified 10/31/18 13:15) - Review of Systems ROS: No change since H&P - Vital Signs and I&O's Vital Signs: Temperature 98.3 F Pulse Rate [Right Brachial] 109 Pulse Rate 98 Respiratory Rate 20 Blood Pressure [Right Arm] 116/58 Blood Pressure [Left Arm] 113/55 Blood Pressure 113/55 O2 Sat by Pulse Oximetry 100 Intake and Output: Intake & Output 12/18/18 12/19/18 12/20/18 12/21/18 23:59 23:59 23:59 23:59 Intake Total 1140 / 1140 Balance 1140 / 1140 - Physical Exam Oriented: Normal Eyes: Normal Ear: Normal Nose: Normal Throat: Normal Respiratory: Normal Cardiovascular: Normal : Normal Auscultation: Bowel Sounds: Increased Palpation: Normal Tenderness: Diffuse Skin: Normal Musculoskeletal: Motor Deficit (Spina Bifida) Psychiatric: Normal Mood Description: Calm Affect: Normal Speech Pattern: Clear - Laboratory and Diagnostics Result Diagrams: 12/21/18 04:24 12/21/18 04:24 Labs: 12/19/18 17:42 Blood Blood Culture - Preliminary 12/19/18 17:42 Blood Blood Culture - Preliminary Laboratory WBC 7.8 X10^3/uL (3.6-10.0) 12/21/18 04:24 RBC 3.51 X10^6/uL (3.5-5.4) 12/21/18 04:24 Hgb 11.1 g/dL (12.0-16.0) L 12/21/18 04:24 Hct 31.3 % (36.0-47.0) L 12/21/18 04:24 MCV 89.0 fL (80.0-100.0) 12/21/18 04:24 MCH 31.5 pg (27.0-34.0) 12/21/18 04:24 MCHC 35.4 g/dL (33.0-35.0) H 12/21/18 04:24 RDW 15.4 % (11.6-16.5) 12/21/18 04:24 Plt Count 133 X10^3/uL (150.0-450.0) L 12/21/18 04:24 MPV 9.4 fL (7.4-11.0) 12/21/18 04:24 Neut % (Auto) 61.9 % (42.0-75.0) 12/21/18 04:24 Lymph % (Auto) 24.8 % (21.0-51.0) 12/21/18 04:24 [place] % (Auto) 13.0 % (0.0-13.0) 12/21/18 04:24 Eos % (Auto) 0.1 % (0.9-2.9) L 12/21/18 04:24 Baso % (Auto) 0.2 % (0.2-1.0) 12/21/18 04:24 Neut # (Auto) 4.8 x10^3/uL (2.2-4.8) 12/21/18 04:24 Lymph # (Auto) 1.9 X10^3/uL (1.3-2.9) 12/21/18 04:24 [place] # (Auto) 1.0 x10^3/uL (0.3-0.8) H 12/21/18 04:24 Eos # (Auto) 0.0 x10^3/uL (0.0-0.2) 12/21/18 04:24 Baso # (Auto) 0.0 X10^3/uL (0.0-0.1) 12/21/18 04:24 Absolute Nucleated RBC 0.0 /100WBC 12/21/18 04:24 Sodium 142 mmol/L (136-145) 12/21/18 04:24 Corrected Sodium 146 mmol/L (136-145) H 12/21/18 04:24 Potassium 3.2 mmol/L (3.5-5.1) L 12/21/18 04:24 Chloride 106 mmol/L (98-107) 12/21/18 04:24 Carbon Dioxide 27.8 mmol/L (21-32) 12/21/18 04:24 BUN 9 mg/dL (7-18) 12/21/18 04:24 Creatinine 0.63 mg/dL (0.55-1.02) 12/21/18 04:24 Est GFR (MDRD) Af Amer > 60 (>60) 12/21/18 04:24 Est GFR (MDRD) Non-Af > 60 (>60) 12/21/18 04:24 Glucose 273 mg/dL (65-99) H 12/21/18 04:24 Calcium 8.9 mg/dL (8.5-10.1) 12/21/18 04:24 Corrected Calcium 9.8 mg/dL (8.5-10.1) 12/20/18 04:14 Magnesium 1.6 mg/dL (1.7-2.9) L 12/21/18 04:24 Total Bilirubin 0.30 mg/dL (0.2-1.0) 12/20/18 04:14 AST 12 Units/L (15-37) L 12/20/18 04:14 ALT 12 Units/L (12-78) 12/20/18 04:14 Alkaline Phosphatase 112 Units/L (46-116) 12/20/18 04:14 Total Protein 6.8 g/dL (6.4-8.2) 12/20/18 04:14 Albumin 2.7 g/dL (3.4-5.0) L 12/20/18 04:14 Globulin 4.1 g/dL (2.5-4.5) 12/20/18 04:14 Albumin/Globulin Ratio 0.7 Ratio (1.1-2.1) L 12/20/18 04:14 Radiology Reviewed: Yes - Plan (1) Pneumonia Status: Acute Plan: IV antibiotics, nebulizer treatments, chest x-ray (2) Spina bifida Status: Acute (3) Constipation Status: Acute Plan: Lactulose 30 g every 6 hours as needed
--- NOTE | 2018-12-21 23:31 | PCM.PROG ---
Progress Note - Progress Note for Day of Date of Exam: 12/21/18 - Subjective Subjective: The patient is a 48-year-old white female who was admitted secondary to pneumonia. Denies productive cough. Does have a history of spina bifida. Patient had previous complaint of constipation yesterday but has had multiple large bowel movements today. Patient is noted to be more sedated today and states it's secondary to medication. Father at bedside. denies any other complaints. - Past Medical Family Social History Past Med/Fam/Surg Hx: No changes since H&P Allergies: Allergies quetiapine [From Seroquel] Allergy (Verified 10/31/18 13:15) aripiprazole [From Abilify] Adverse Reaction (Verified 10/31/18 13:15) bupropion [From Wellbutrin] Adverse Reaction (Verified 10/31/18 13:15) donepezil [From Aricept] Adverse Reaction (Verified 10/31/18 13:15) moxifloxacin [From Avelox] Adverse Reaction (Verified 10/31/18 13:15) olanzapine [From Zyprexa] Adverse Reaction (Verified 10/31/18 13:15) promethazine [From Phenergan] Adverse Reaction (Verified 10/31/18 13:15) venlafaxine [From Effexor] Adverse Reaction (Verified 10/31/18 13:15) - Review of Systems ROS: No change since H&P - Vital Signs and I&O's Vital Signs: Temperature 98.3 F Pulse Rate [Right Brachial] 109 Pulse Rate 98 Respiratory Rate 20 Blood Pressure [Right Arm] 116/58 Blood Pressure [Left Arm] 113/55 Blood Pressure 113/55 O2 Sat by Pulse Oximetry 100 Intake and Output: Intake & Output 12/18/18 12/19/18 12/20/18 12/21/18 23:59 23:59 23:59 23:59 Intake Total 1140 / 1140 Balance 1140 / 1140 - Physical Exam Oriented: Normal Eyes: Normal Ear: Normal Nose: Normal Throat: Normal Respiratory: Normal Cardiovascular: Normal : Normal Auscultation: Bowel Sounds: Increased Tenderness: Diffuse Skin: Normal Musculoskeletal: Motor Deficit (Spina Bifida) Psychiatric: Normal Mood Description: Calm Affect: Normal Speech Pattern: Clear - Laboratory and Diagnostics Result Diagrams: 12/21/18 04:24 12/21/18 04:24 Labs: 12/19/18 17:42 Blood Blood Culture - Preliminary 12/19/18 17:42 Blood Blood Culture - Preliminary Laboratory WBC 7.8 X10^3/uL (3.6-10.0) 12/21/18 04:24 RBC 3.51 X10^6/uL (3.5-5.4) 12/21/18 04:24 Hgb 11.1 g/dL (12.0-16.0) L 12/21/18 04:24 Hct 31.3 % (36.0-47.0) L 12/21/18 04:24 MCV 89.0 fL (80.0-100.0) 12/21/18 04:24 MCH 31.5 pg (27.0-34.0) 12/21/18 04:24 MCHC 35.4 g/dL (33.0-35.0) H 12/21/18 04:24 RDW 15.4 % (11.6-16.5) 12/21/18 04:24 Plt Count 133 X10^3/uL (150.0-450.0) L 12/21/18 04:24 MPV 9.4 fL (7.4-11.0) 12/21/18 04:24 Neut % (Auto) 61.9 % (42.0-75.0) 12/21/18 04:24 Lymph % (Auto) 24.8 % (21.0-51.0) 12/21/18 04:24 [place] % (Auto) 13.0 % (0.0-13.0) 12/21/18 04:24 Eos % (Auto) 0.1 % (0.9-2.9) L 12/21/18 04:24 Baso % (Auto) 0.2 % (0.2-1.0) 12/21/18 04:24 Neut # (Auto) 4.8 x10^3/uL (2.2-4.8) 12/21/18 04:24 Lymph # (Auto) 1.9 X10^3/uL (1.3-2.9) 12/21/18 04:24 [place] # (Auto) 1.0 x10^3/uL (0.3-0.8) H 12/21/18 04:24 Eos # (Auto) 0.0 x10^3/uL (0.0-0.2) 12/21/18 04:24 Baso # (Auto) 0.0 X10^3/uL (0.0-0.1) 12/21/18 04:24 Absolute Nucleated RBC 0.0 /100WBC 12/21/18 04:24 Sodium 142 mmol/L (136-145) 12/21/18 04:24 Corrected Sodium 146 mmol/L (136-145) H 12/21/18 04:24 Potassium 3.2 mmol/L (3.5-5.1) L 12/21/18 04:24 Chloride 106 mmol/L (98-107) 12/21/18 04:24 Carbon Dioxide 27.8 mmol/L (21-32) 12/21/18 04:24 BUN 9 mg/dL (7-18) 12/21/18 04:24 Creatinine 0.63 mg/dL (0.55-1.02) 12/21/18 04:24 Est GFR (MDRD) Af Amer > 60 (>60) 12/21/18 04:24 Est GFR (MDRD) Non-Af > 60 (>60) 12/21/18 04:24 Glucose 273 mg/dL (65-99) H 12/21/18 04:24 Calcium 8.9 mg/dL (8.5-10.1) 12/21/18 04:24 Corrected Calcium 9.8 mg/dL (8.5-10.1) 12/20/18 04:14 Magnesium 1.6 mg/dL (1.7-2.9) L 12/21/18 04:24 Total Bilirubin 0.30 mg/dL (0.2-1.0) 12/20/18 04:14 AST 12 Units/L (15-37) L 12/20/18 04:14 ALT 12 Units/L (12-78) 12/20/18 04:14 Alkaline Phosphatase 112 Units/L (46-116) 12/20/18 04:14 Total Protein 6.8 g/dL (6.4-8.2) 12/20/18 04:14 Albumin 2.7 g/dL (3.4-5.0) L 12/20/18 04:14 Globulin 4.1 g/dL (2.5-4.5) 12/20/18 04:14 Albumin/Globulin Ratio 0.7 Ratio (1.1-2.1) L 12/20/18 04:14 - Plan (1) Pneumonia Status: Acute Plan: IV antibiotics, nebulizer treatments, chest x-ray (2) Spina bifida Status: Acute (3) Constipation Status: Resolved Plan: monitor bowel movements
[2018-12-22 05:20] LABS: BASOPHILS % (AUTO) 0.4 % (0.2-1.0); EOSINOPHILS % (AUTO) 0.5 % (0.9-2.9); HEMATOCRIT 31.9 % (36.0-47.0); HEMOGLOBIN 11.1 g/dL (12.0-16.0); LYMPHOCYTES # (AUTO) 2.1 X10^3/uL (1.3-2.9); MEAN CORPUSCULAR HEMOGLOBIN 31.9 pg (27.0-34.0); MEAN CORPUSCULAR HGB CONC 34.8 g/dL (33.0-35.0); MEAN CORPUSCULAR VOLUME 91.4 fL (80.0-100.0); MEAN PLATELET VOLUME 9.8 fL (7.4-11.0); MONOCYTES # (AUTO) 0.8 x10^3/uL (0.3-0.8); MONOCYTES % (AUTO) 10.9 % (0.0-13.0); NEUTROPHILS # (AUTO) 4.1 x10^3/uL (2.2-4.8); NEUTROPHILS % (AUTO) 58.2 % (42.0-75.0); PLATELET COUNT 135 X10^3/uL (150.0-450.0); RED BLOOD COUNT 3.49 X10^6/uL (3.5-5.4); RED CELL DISTRIBUTION WIDTH 16.2 % (11.6-16.5)
[2018-12-22 05:26] LABS: BLOOD UREA NITROGEN 14 mg/dL (7-18); CALCIUM 8.8 mg/dL (8.5-10.1); CARBON DIOXIDE 25.8 mmol/L (21-32); CHLORIDE 103 mmol/L (98-107); COR NA(FOR HYPERGLY) 141 mmol/L (136-145); CREATININE 0.69 mg/dL (0.55-1.02); SODIUM 138 mmol/L (136-145); eGFR NON BLACK RACES > 60 (>60)
[2018-12-22] MEDS: FORTAZ or TAZICEF VIAL INJ IVP SCH (06:14)
[2018-12-22] MEDS: HumuLIN R SUBCUT PRN (06:15)
[2018-12-22] MEDS: RisperDAL TAB 1 MG PO SCH (06:15)
[2018-12-22] MEDS: MAGNESIUM SULFATE 1 GRAM/100 mL PREMIX 1 GM/100 ML BAG IV PRN (06:21)
[2018-12-22] MEDS: DEPAKOTE SPRINKLE PO SCH (09:00)
[2018-12-22] MEDS: ROBITUSSIN DM PO SCH (09:00)
[2018-12-22] MEDS: ZINC SULFATE PO SCH (09:00)
[2018-12-22] MEDS: VSL#3 PO SCH (09:00)
[2018-12-22] MEDS: TAB-A-VITE PO SCH (09:00)
[2018-12-22] MEDS: PROVERA PO SCH (09:00)
[2018-12-22] MEDS: XALATAN EACHEYE SCH (09:00)
[2018-12-22] MEDS: ZOLOFT PO SCH (09:00)
[2018-12-22] MEDS: LEVAQUIN PREMIX IV 500 MG 500 MG/100 ML BAG IV SCH (09:00)
[2018-12-22] MEDS: DESYREL PO SCH (09:00)
[2018-12-22] MEDS: MAXZIDE 37.5/25 MG PO SCH (09:00)
[2018-12-22] MEDS: VITAMIN C PO SCH (09:00)
[2018-12-22] MEDS: K-DUR TAB 20 MEQ PO SCH (09:00)
[2018-12-22] MEDS: FLONASE NASAL SPRAY ENOSTRIL SCH (09:00)
[2018-12-22] MEDS: XARELTO PO SCH (09:00)
[2018-12-22] MEDS: DUONEB 0.5 MG/3 MG NEB SCH (09:08)
[2018-12-22 09:18] VITALS: BP 132/67
== END 2018-12-22 10:51 | disposition home or self-care (01) | DRG 195 ==
LOC: MED/SURG
PROVIDERS: ADMIT Internal Medicine; ATTEND Internal Medicine
DX: Q05.9 Spina bifida, unspecified; E11.65 Type 2 diabetes mellitus with hyperglycemia; K59.09 Other constipation; R09.89 Other specified symptoms and signs involving the circulatory and respiratory systems; R26.89 Other abnormalities of gait and mobility; R53.1 Weakness; J18.8 Other pneumonia, unspecified organism; R09.02 Hypoxemia; R06.02 Shortness of breath
CPT/HCPCS: 36415; 71010; 71045; 74000; 74018; 80048; 80053; 82947; 83735; 85025; 87040; 94640; 94760; 97162; 97166; A4222; G0378; J0713; J1815; J1956; J3475; J7620

== ENCOUNTER 2021-08-13 09:09 | Inpatient (IN) ==
[2021-08-13 09:46] LABS: BASOPHILS % (AUTO) 0.3 % (0.2-1.0); HEMATOCRIT 28.2 % (36.0-47.0); HEMOGLOBIN 9.2 g/dL (12.0-16.0); LYMPHOCYTES # (AUTO) 1.4 X10^3/uL (1.3-2.9); LYMPHOCYTES % (AUTO) 8.1 % (21.0-51.0); MEAN CORPUSCULAR HEMOGLOBIN 23.3 pg (27.0-34.0); MEAN CORPUSCULAR HGB CONC 32.6 g/dL (33.0-35.0); MEAN CORPUSCULAR VOLUME 71.5 fL (80.0-100.0); MEAN PLATELET VOLUME 8.1 fL (7.4-11.0); MONOCYTES # (AUTO) 1.8 x10^3/uL (0.3-0.8); MONOCYTES % (AUTO) 10.9 % (0.0-13.0); NEUTROPHILS # (AUTO) 13.6 x10^3/uL (2.2-4.8); NEUTROPHILS % (AUTO) 80.7 % (42.0-75.0); RED BLOOD COUNT 3.95 X10^6/uL (3.5-5.4); RED CELL DISTRIBUTION WIDTH 18.2 % (11.6-16.5); WHITE BLOOD COUNT 16.9 X10^3/uL (3.6-10.0)
[2021-08-13 09:58] LABS: ALANINE AMINOTRANSFERASE 15 Units/L (12-78); ALBUMIN 2.2 g/dL (3.4-5.0); ALKALINE PHOSPHATASE 115 Units/L (46-116); ASPARTATE AMINO TRANSFERASE 15 Units/L (15-37); BLOOD UREA NITROGEN 12 mg/dL (7-18); CALCIUM 8.6 mg/dL (8.5-10.1); CARBON DIOXIDE 25.1 mmol/L (21-32); CHLORIDE 98 mmol/L (98-107); COR NA(FOR HYPERGLY) 138 mmol/L (136-145); SODIUM 134 mmol/L (136-145); TOTAL PROTEIN 7.4 g/dL (6.4-8.2); eGFR NON BLACK RACES > 60 (>60)
[2021-08-13 10:08] LABS: HYPOCHROMASIA 1+; PLATELET MORPHOLOGY COMMENT NORMAL (NORMAL)
[2021-08-13 10:09] LABS: ANISOCYTOSIS SLIGHT; MICROCYTOSIS SLIGHT; STOMATOCYTES SLIGHT; TARGET CELLS SLIGHT
[2021-08-13] MEDS: INVanz INJ 1 GRAM VIAL 1 G in NS 100 ML IV 100 ML IV SCH (16:31)
[2021-08-13] MEDS: NS 1,000 ML IV 1,000 ML IV SCH (16:31)
[2021-08-13] MEDS ORDERED: BUTT CREAM (COMPOUND) ONE (19:46)
[2021-08-14] MEDS: NS 1,000 ML IV 1,000 ML IV SCH (04:45)
[2021-08-14 06:28] LABS: BASOPHILS # (AUTO) 0.1 X10^3/uL (0.0-0.1); HEMATOCRIT 23.8 % (36.0-47.0); HEMOGLOBIN 7.8 g/dL (12.0-16.0); LYMPHOCYTES # (AUTO) 3.1 X10^3/uL (1.3-2.9); MEAN CORPUSCULAR HGB CONC 32.8 g/dL (33.0-35.0); MEAN PLATELET VOLUME 8.4 fL (7.4-11.0); NEUTROPHILS % (AUTO) 69.3 % (42.0-75.0)
[2021-08-14 06:30] LABS: BASOPHILS % (AUTO) 0.6 % (0.2-1.0); EOSINOPHILS % (AUTO) 0.1 % (0.9-2.9); LYMPHOCYTES % (AUTO) 18.3 % (21.0-51.0); MEAN CORPUSCULAR HEMOGLOBIN 24.2 pg (27.0-34.0); MEAN CORPUSCULAR VOLUME 73.7 fL (80.0-100.0); MONOCYTES % (AUTO) 11.7 % (0.0-13.0); NEUTROPHILS # (AUTO) 11.7 x10^3/uL (2.2-4.8); RED BLOOD COUNT 3.22 X10^6/uL (3.5-5.4); WHITE BLOOD COUNT 16.9 X10^3/uL (3.6-10.0)
[2021-08-14 06:52] LABS: ALANINE AMINOTRANSFERASE 18 Units/L (12-78); ALBUMIN 2.1 g/dL (3.4-5.0); ALKALINE PHOSPHATASE 109 Units/L (46-116); ASPARTATE AMINO TRANSFERASE 18 Units/L (15-37); BLOOD UREA NITROGEN 11 mg/dL (7-18); CALCIUM 8.3 mg/dL (8.5-10.1); CHLORIDE 100 mmol/L (98-107); COR CA(FOR HYPOALB) 9.8 mg/dL (8.5-10.1); COR NA(FOR HYPERGLY) 136 mmol/L (136-145); CREATININE 0.66 mg/dL (0.55-1.02); SODIUM 134 mmol/L (136-145); eGFR NON BLACK RACES > 60 (>60)
[2021-08-14 07:34] LABS: PLATELET MORPHOLOGY COMMENT NORMAL (NORMAL)
[2021-08-14 07:35] LABS: ANISOCYTOSIS SLIGHT; HYPOCHROMASIA SLIGHT; MICROCYTOSIS SLIGHT
[2021-08-14] MEDS: INVanz INJ 1 GRAM VIAL 1 G in NS 100 ML IV 100 ML IV SCH (09:00)
--- NOTE | 2021-08-14 09:03 | DR.H&P ---
H&P - History & Physical for Day of: H&P Date: 08/13/21 - Chief Complaint Chief Complaint: FEVER, LOWER ABDOMINAL PAIN, WEAKNESS, DECREASED APPETITE - History of Present Illness History of Present Illness: IS A 51 YEAR OLD PATIENT OF OURS. SHE IS A RESIDENT OF [facility] [place]. PATIENT HAS HAD FEVER, LOWER ABDOMINAL PAIN, WEAKNESS, AND DECREASED APPETITE FOR THE PAST 3-4 DAYS. SHE WAS SEEN IN THE ER ON 08/12. AT THAT TIME, HER WBC WAS 18.2, HGB 8.4, POTASSIUM 3.1. A URINALYSIS ON THAT DATE REVEALED TNTC WBC. A URINE CULTURE WAS SET UP. SHE WAS GIVEN ROCEPHIN 1G IV DAILY AND DISCHARGED TO THE HALF-WAY. PATIENT CONTINUES TO HAVE FEVER OF UP TO 103. WE ADMITTED PATIENT TO THE HOSPITAL FOR FURTHER EVALUATION AND TREATMENT. ON ARRIVAL TO THE HOSPITAL, VITALS WERE 97.8-107-18-98%-107/58. LABS WERE OBTAINED. WBC 16.9, HGB 9.2, HCT 28.2, SODIUM 134, POTASSIUM 3.9, CHLORIDE 98, BUN 12, CREATININE 0.80, GLUCOSE 262, AST 15, ALT 15, ALK PHOS 115, TOTAL PROTEIN 7.4, ALBUMIN 2.2, LACTIC ADIC 2.9. BLOOD CULTURES WERE SET UP. WOUND CULTURE OF RIGHT BUTTOCK WOUND WAS OBTAINED WELL. PRELIMINARY URINE CULTURE REPORTS FROM 08/12/21 REVEAL GROWTH OF GRAM NEGATIVE RODS. SHE WAS STARTED ON NORMAL SALINE AT 80 ML/HR, INVANZ 1G IV DAILY, ALBUMIN 25% IV DAILY. WE WILL REVIEW HER HOME MEDICATIONS AND RESUME APPROPRIATE. OTHERWISE, WE PLAN TO FOLLOW UP WITH AM LABS AND CONTINUE TO MONITOR. TIME SPENT ON CLINICAL ASSESSMENT, REVIEWING LABS AND IMAGING, DECISION MAKING, AND DOCUMENTATION GREATER THAN 75 MINUTES. 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 - Family History Family Medical History: Hypertension - Social History Type of Tobacco Use: None Does any household member use tobacco: No Alcohol Use: None Drug Use: None - Medications Home Medications: quetiapine [From Seroquel] Allergy (Verified 08/13/21 14:56) aripiprazole [From Abilify] Adverse Reaction (Verified 08/13/21 14:56) bupropion [From Wellbutrin] Adverse Reaction (Verified 08/13/21 14:56) donepezil [From Aricept] Adverse Reaction (Verified 08/13/21 14:56) moxifloxacin [From Avelox] Adverse Reaction (Verified 08/13/21 14:56) olanzapine [From Zyprexa] Adverse Reaction (Verified 08/13/21 14:56) promethazine [From Phenergan] Adverse Reaction (Verified 08/13/21 14:56) venlafaxine [From Effexor] Adverse Reaction (Verified 08/13/21 14:56) CONTINUE taking the following medications furosemide 20 mg PO BID 08/13/21 [History] nut.tx.gluc.intol,lac-free,soy [Glucerna] 1 ea PO DAILY 08/13/21 [History] - Review of Systems Constitutional: Fever, Weakness Eyes: No Symptoms Reported ENT: No Symptoms Reported Respiratory: No Symptoms Reported Cardiovascular: No Symptoms Reported Gastrointestinal: See HPI, Nausea, Abdominal Pain Genitourinary: Dysuria Musculoskeletal: No Symptoms Reported Skin: No Symptoms Reported Neurological: Weakness - Physical Exam Vital Signs: Temperature 99.1 F Pulse Rate [Right] 113 Respiratory Rate 16 Blood Pressure [Right Arm] 112/66 Blood Pressure [Left Arm] 101/57 Blood Pressure 125/63 O2 Sat by Pulse Oximetry 88 Oriented: Normal Eyes: Normal Ear: Normal Nose: Normal Throat: Normal Respiratory: Clear Throughout Cardiovascular: Tachycardia : Dysuria Auscultation: Bowel Sounds: Normal Palpation: Normal Tenderness: Suprapubic, Mild Skin: Normal Musculoskeletal: Normal Psychiatric: Normal Mood Description: Calm Affect: Normal Speech Pattern: Clear - Assessment/Plan (1) Urinary tract infection Qualifiers: Urinary tract infection type: acute cystitis Hematuria presence: with hematuria Qualified Code(s): N30.01 - Acute cystitis with hematuria Status: Acute Plan: ADMIT, NORMAL SALINE AT 80 ML/HR, INVANZ 1G IV DAILY, ALBUMIN 25% IV DAILY. REVIEW HOME MEDICATIONS. MONITOR DAILY LABS (2) Sepsis due to urinary tract infection Status: Acute (3) Altered mental status Qualifiers: Altered mental status type: transient alteration of awareness Status: Acute (4) Hypoalbuminemia Status: Acute - Allergies Allergies/Adverse Reactions: Allergies Allergy/AdvReac Type Severity Reaction Status Date / Time quetiapine [From Seroquel] Allergy Verified 08/13/21 14:56 aripiprazole [From Abilify] AdvReac Verified 08/13/21 14:56 bupropion [From Wellbutrin] AdvReac Verified 08/13/21 14:56 donepezil [From Aricept] AdvReac Verified 08/13/21 14:56 moxifloxacin [From Avelox] AdvReac Verified 08/13/21 14:56 olanzapine [From Zyprexa] AdvReac Verified 08/13/21 14:56 promethazine [From Phenergan] AdvReac Verified 08/13/21 14:56 venlafaxine [From Effexor] AdvReac Verified 08/13/21 14:56
[2021-08-14] MEDS: ALBUMIN HUMAN 25%- 100 ML 100 ML IV SCH (10:00)
[2021-08-14] MEDS ORDERED: K-DUR TAB 20 MEQ PO PRN (16:15)
[2021-08-14] MEDS ORDERED: MICRO K EXTEN CAP 10 MEQ PO PRN (16:15)
[2021-08-14] MEDS ORDERED: POTASSIUM CHLORIDE LIQ 20 MEQ UDC PO PRN (16:15)
[2021-08-14] MEDS ORDERED: PATIENT'S HOME MEDICATION (Nut.Tx.Gluc.Intol,Lac-Free,Soy [Glucerna] Liquid) PO SCH (17:15)
--- NOTE | 2021-08-14 17:26 | RAD ---
HISTORYCHEST PAIN/SOB Relevant Clinical InformationSTUDYCHEST, 1 [id number] trachea is midline. There is mild cardiomegaly. There are new interstitial and alveolar radiopacities involving the right upper lobe and the right lower lobe. No dominant pleural effusion or pneumothorax.IMPRESSIONInterstitial and alveolar radiopacities involving the right lung could represent pneumonia, clinical correlation is recommended.Electronically signed by: Melody Arguelles (Aug 14, 2021 17:25:32)
[2021-08-14 17:48] LABS: CKMB % 8.3 % (<4); CREATINE KINASE 12 Units/L (26-192); CREATINE KINASE MB < 1.0 ng/mL (0-4.0)
[2021-08-14] MEDS ORDERED: GLUCOPHAGE ONE (18:24)
[2021-08-14] MEDS ORDERED: ZOLOFT PO ONE (18:25)
[2021-08-14] MEDS ORDERED: ZyrTEC TAB 10 MG ONE (18:25)
[2021-08-14] MEDS: DESYREL PO SCH (18:29)
[2021-08-14] MEDS: GLUCOPHAGE PO SCH (18:30)
[2021-08-14] MEDS: ZyrTEC TAB 10 MG PO SCH (18:31)
[2021-08-14] MEDS: ZOLOFT PO SCH (18:32)
[2021-08-14] MEDS: VITAMIN C PO SCH (18:34)
[2021-08-14] MEDS: POTASSIUM CHLORIDE LIQ 20 MEQ UDC PO SCH (18:34)
[2021-08-14] MEDS: VSL#3 PO SCH (18:35)
[2021-08-14 19:01] VITALS: BMI 26.4
[2021-08-14] MEDS: SNACK - Diabetic Appropriate PO SCH (20:30)
[2021-08-14] MEDS ORDERED: ASTELIN NASAL SPRAY ENOSTRIL ONE (20:42)
[2021-08-14] MEDS ORDERED: AMINO ACIDS PROTEIN HYDROLYS PO SCH (21:00)
[2021-08-14] MEDS ORDERED: SODIUM CHLORIDE PO SCH (21:00)
[2021-08-14] MEDS: ASTELIN NASAL SPRAY ENOSTRIL SCH (21:05)
[2021-08-14] MEDS: COLACE CAP 100 MG PO SCH (21:05)
[2021-08-14] MEDS: PROVERA PO SCH (21:05)
[2021-08-14] MEDS: DEPAKOTE D.R. TAB PO SCH (21:06)
[2021-08-14] MEDS: LASIX PO SCH (21:06)
[2021-08-14] MEDS: FLONASE NASAL SPRAY ENOSTRIL SCH (21:06)
[2021-08-14] MEDS: RisperDAL TAB 1 MG PO SCH (21:07)
[2021-08-14] MEDS: LIPITOR TAB 20 MG PO SCH (21:07)
[2021-08-14] MEDS: ULTRAM PO SCH (21:08)
[2021-08-14] MEDS: XANAX PO SCH (21:10)
[2021-08-14] MEDS: XARELTO PO SCH (21:10)
[2021-08-14] MEDS: XALATAN OP SCH (21:10)
[2021-08-14] MEDS: ZANAFLEX PO SCH (21:12)
[2021-08-14] MEDS: PULMICORT NEB TX 0.5 MG NEB SCH (21:14)
[2021-08-14] MEDS: DUONEB 0.5 MG/3 MG (3 mL) NEB SCH (21:14)
[2021-08-14] MEDS: NovoLIN R (or HumuLIN R) SUBCUT PRN (21:40)
--- NOTE | 2021-08-15 05:27 | RAD ---
PROCEDURE: Chest X-ray 1 View .HISTORY: Dyspnea with sepsis and fever.TECHNIQUE: AP portable done at 5:47 a.m..COMPARISON: 08/14/2021.TECHNICAL QUALITY: Satisfactory .FINDINGS:Normal size heart for AP lordotic positioning.Normal central vascularity.Consolidation both lung davila consistent with pneumonia increased on the left and unchanged on the right. No pleural fluid or pneumothorax.IMPRESSION:Increasing pneumonia on the left and unchanged on the right.Electronically signed by: John Harp (Aug 15, 2021 05:26:10)
[2021-08-15] MEDS: NovoLIN R (or HumuLIN R) SUBCUT PRN ×2 (05:41→22:07)
[2021-08-15 06:32] LABS: BASOPHILS % (AUTO) 0.2 % (0.2-1.0); HEMATOCRIT 20.8 % (36.0-47.0); LYMPHOCYTES # (AUTO) 1.6 X10^3/uL (1.3-2.9); LYMPHOCYTES % (AUTO) 13.4 % (21.0-51.0); MEAN CORPUSCULAR HEMOGLOBIN 23.6 pg (27.0-34.0); MEAN CORPUSCULAR HGB CONC 32.8 g/dL (33.0-35.0); MEAN PLATELET VOLUME 8.4 fL (7.4-11.0); MONOCYTES # (AUTO) 1.3 x10^3/uL (0.3-0.8); MONOCYTES % (AUTO) 10.9 % (0.0-13.0); NEUTROPHILS # (AUTO) 8.9 x10^3/uL (2.2-4.8); NEUTROPHILS % (AUTO) 75.5 % (42.0-75.0); RED BLOOD COUNT 2.89 X10^6/uL (3.5-5.4); RED CELL DISTRIBUTION WIDTH 18.2 % (11.6-16.5); WHITE BLOOD COUNT 11.8 X10^3/uL (3.6-10.0)
[2021-08-15 06:40] LABS: HEMOGLOBIN 6.8 g/dL (12.0-16.0)
[2021-08-15 06:47] LABS: ALANINE AMINOTRANSFERASE 44 Units/L (12-78); ALBUMIN 2.6 g/dL (3.4-5.0); ALKALINE PHOSPHATASE 104 Units/L (46-116); ASPARTATE AMINO TRANSFERASE 45 Units/L (15-37); BLOOD UREA NITROGEN 12 mg/dL (7-18); CARBON DIOXIDE 20.1 mmol/L (21-32); CHLORIDE 104 mmol/L (98-107); COR CA(FOR HYPOALB) 9.1 mg/dL (8.5-10.1); COR NA(FOR HYPERGLY) 140 mmol/L (136-145); CREATININE 0.58 mg/dL (0.55-1.02); SODIUM 137 mmol/L (136-145); TOTAL PROTEIN 6.2 g/dL (6.4-8.2); eGFR NON BLACK RACES > 60 (>60)
[2021-08-15 07:32] LABS: ANISOCYTOSIS SLIGHT; HYPOCHROMASIA 1+; MICROCYTOSIS SLIGHT; PLATELET MORPHOLOGY COMMENT NORMAL (NORMAL)
[2021-08-15] MEDS ORDERED: GLUCOPHAGE ONE (08:52)
[2021-08-15] MEDS: DUONEB 0.5 MG/3 MG (3 mL) NEB SCH ×4 (09:14→20:20)
[2021-08-15] MEDS: PULMICORT NEB TX 0.5 MG NEB SCH ×2 (09:14→20:20)
[2021-08-15] MEDS: ALBUMIN HUMAN 25%- 100 ML 100 ML IV SCH (10:00)
[2021-08-15] MEDS: THERMOTABS PO SCH ×4 (10:03→21:30)
[2021-08-15] MEDS: VSL#3 PO SCH (10:03)
[2021-08-15] MEDS: XANAX PO SCH ×2 (10:04→21:09)
[2021-08-15] MEDS: VITAMIN C PO SCH (10:04)
[2021-08-15] MEDS: COLACE CAP 100 MG PO SCH ×2 (10:04→21:04)
[2021-08-15] MEDS: PROVERA PO SCH (10:04)
[2021-08-15] MEDS: XARELTO PO SCH ×2 (10:05→21:08)
[2021-08-15] MEDS: DESYREL PO SCH (10:05)
[2021-08-15] MEDS: DEPAKOTE D.R. TAB PO SCH ×2 (10:06→21:05)
[2021-08-15] MEDS: ZyrTEC TAB 10 MG PO SCH (10:06)
[2021-08-15] MEDS: GLUCOPHAGE PO SCH ×2 (10:06→17:31)
[2021-08-15] MEDS: ZINC SULFATE PO SCH (10:07)
[2021-08-15] MEDS: ULTRAM PO SCH ×2 (10:08→21:07)
[2021-08-15] MEDS ORDERED: TYLENOL 325 MG TAB PO PRN (10:34)
[2021-08-15] MEDS ORDERED: NS 500 ML IV 500 ML IV ONE (10:34)
[2021-08-15] MEDS: TAB-A-VITE PO SCH (10:45)
[2021-08-15] MEDS: XALATAN OP SCH ×2 (10:45→21:08)
[2021-08-15] MEDS: ZOLOFT PO SCH (10:45)
[2021-08-15] MEDS: LASIX PO SCH ×2 (10:45→21:06)
[2021-08-15] MEDS: FLONASE NASAL SPRAY ENOSTRIL SCH ×2 (10:45→21:05)
[2021-08-15] MEDS: RisperDAL TAB 1 MG PO SCH ×3 (10:45→21:07)
[2021-08-15] MEDS: INVanz INJ 1 GRAM VIAL 1 G in NS 100 ML IV 100 ML IV SCH (10:47)
[2021-08-15] MEDS: ASTELIN NASAL SPRAY ENOSTRIL SCH (10:48)
[2021-08-15] MEDS: POTASSIUM CHLORIDE LIQ 20 MEQ UDC PO SCH (11:32)
[2021-08-15] MEDS: GENTAMICIN TOPICAL OINT TOP SCH ×2 (11:32→21:06)
[2021-08-15] MEDS: BENADRYL INJ 50 MG VIAL IVP PRN (11:32)
[2021-08-15] MEDS: NS 1,000 ML IV 1,000 ML IV SCH (11:37)
[2021-08-15] MEDS: ZANAFLEX PO SCH (21:06)
[2021-08-15] MEDS: LIPITOR TAB 20 MG PO SCH (21:07)
[2021-08-15] MEDS ORDERED: LASIX IVP ONE ×2 (21:54→21:57)
[2021-08-16] MEDS ORDERED: LOPRESSOR INJ 5 MG AMP IVP ONE (00:48)
[2021-08-16 03:56] LABS: ABG BASE EXCESS -2.3 mmol/L (-2.0-2.0); ABG HCO3 25.3 mmol/L (22-26)
[2021-08-16 03:57] LABS: ABG ALLEN TEST POS
[2021-08-16] MEDS ORDERED: SOLU-Medrol 125 MG VIAL IVP ONE (04:16)
[2021-08-16] MEDS ORDERED: SODIUM BICARBONATE 8.4% INJ ADULT IVP ONE (04:16)
[2021-08-16 05:19] LABS: ABG BASE EXCESS 0.7 mmol/L (-2.0-2.0); ABG HCO3 28.7 mmol/L (22-26)
[2021-08-16 05:20] LABS: ABG ALLEN TEST POS
[2021-08-16] MEDS: NovoLIN R (or HumuLIN R) SUBCUT PRN ×3 (05:36→16:19)
--- NOTE | 2021-08-16 05:46 | RAD ---
PROCEDURE: Chest X-ray 1 View .HISTORY: Dyspnea.TECHNIQUE: AP view .COMPARISON: 08/15/2021.TECHNICAL QUALITY: Satisfactory .FINDINGS:Unchanged start size upper limits of normal.Normal central vascularity.Unchanged moderate consolidation throughout both lung davila. No pleural fluid or pneumothorax.IMPRESSION:Unchanged moderate bilateral pneumonia.Electronically signed by: John Harp (Aug 16, 2021 05:45:54)
[2021-08-16 06:20] LABS: BASOPHILS % (AUTO) 0.1 % (0.2-1.0); HEMATOCRIT 32.3 % (36.0-47.0); HEMOGLOBIN 10.8 g/dL (12.0-16.0); LYMPHOCYTES # (AUTO) 0.6 X10^3/uL (1.3-2.9); LYMPHOCYTES % (AUTO) 3.4 % (21.0-51.0); MEAN CORPUSCULAR HEMOGLOBIN 27.3 pg (27.0-34.0); MEAN CORPUSCULAR HGB CONC 33.5 g/dL (33.0-35.0); MEAN CORPUSCULAR VOLUME 81.4 fL (80.0-100.0); MEAN PLATELET VOLUME 8.4 fL (7.4-11.0); MONOCYTES # (AUTO) 1.1 x10^3/uL (0.3-0.8); MONOCYTES % (AUTO) 6.6 % (0.0-13.0); NEUTROPHILS # (AUTO) 15.5 x10^3/uL (2.2-4.8); NEUTROPHILS % (AUTO) 89.9 % (42.0-75.0); RED BLOOD COUNT 3.97 X10^6/uL (3.5-5.4); RED CELL DISTRIBUTION WIDTH 21.9 % (11.6-16.5); WHITE BLOOD COUNT 17.2 X10^3/uL (3.6-10.0)
[2021-08-16] MEDS: XOPENEX 1.25 MG/3 ML NEBULE NEB SCH ×3 (06:24→20:15)
[2021-08-16 06:46] LABS: ALANINE AMINOTRANSFERASE 41 Units/L (12-78); ALBUMIN 2.9 g/dL (3.4-5.0); ALKALINE PHOSPHATASE 118 Units/L (46-116); ASPARTATE AMINO TRANSFERASE 28 Units/L (15-37); BLOOD UREA NITROGEN 9 mg/dL (7-18); CALCIUM 8.5 mg/dL (8.5-10.1); CARBON DIOXIDE 24.9 mmol/L (21-32); CHLORIDE 100 mmol/L (98-107); COR CA(FOR HYPOALB) 9.4 mg/dL (8.5-10.1); COR NA(FOR HYPERGLY) 140 mmol/L (136-145); CREATININE 0.55 mg/dL (0.55-1.02); SODIUM 137 mmol/L (136-145); TOTAL PROTEIN 7.4 g/dL (6.4-8.2); eGFR NON BLACK RACES > 60 (>60)
[2021-08-16 07:16] LABS: PLATELET MORPHOLOGY COMMENT NORMAL (NORMAL)
[2021-08-16] MEDS: NS 1,000 ML IV 1,000 ML IV SCH ×4 (07:16→21:21)
[2021-08-16 07:17] LABS: ANISOCYTOSIS 1+
[2021-08-16] MEDS: PULMICORT NEB TX 0.5 MG NEB SCH ×2 (08:39→20:15)
[2021-08-16] MEDS ORDERED: GLUCOPHAGE ONE ×2 (09:49→16:11)
[2021-08-16] MEDS: SNACK - Diabetic Appropriate PO SCH ×2 (09:57→21:16)
[2021-08-16] MEDS: ALBUMIN HUMAN 25%- 100 ML 100 ML IV SCH (09:57)
[2021-08-16] MEDS: DEPAKOTE D.R. TAB PO SCH ×2 (10:02→21:18)
[2021-08-16] MEDS: XANAX PO SCH ×2 (10:03→21:20)
[2021-08-16] MEDS: ULTRAM PO SCH ×2 (10:05→21:20)
[2021-08-16] MEDS: ZOLOFT PO SCH (10:06)
[2021-08-16] MEDS: LASIX PO SCH (10:06)
[2021-08-16] MEDS: COLACE CAP 100 MG PO SCH ×2 (10:07→21:18)
[2021-08-16] MEDS: XARELTO PO SCH ×2 (10:07→21:21)
[2021-08-16] MEDS: GLUCOPHAGE PO SCH ×3 (10:08→17:01)
[2021-08-16] MEDS: DESYREL PO SCH (10:08)
[2021-08-16] MEDS: PROVERA PO SCH (10:09)
[2021-08-16] MEDS: ZINC SULFATE PO SCH ×2 (10:10→10:20)
[2021-08-16] MEDS: ZyrTEC TAB 10 MG PO SCH (10:10)
[2021-08-16] MEDS: ASTELIN NASAL SPRAY ENOSTRIL SCH (10:13)
[2021-08-16] MEDS: GENTAMICIN TOPICAL OINT TOP SCH ×2 (10:14→21:18)
[2021-08-16] MEDS: FLONASE NASAL SPRAY ENOSTRIL SCH ×2 (10:14→21:19)
[2021-08-16] MEDS: RisperDAL TAB 1 MG PO SCH ×3 (10:16→21:19)
[2021-08-16] MEDS: XALATAN OP SCH ×2 (10:17→21:20)
[2021-08-16] MEDS: VSL#3 PO SCH (10:20)
[2021-08-16] MEDS: POTASSIUM CHLORIDE LIQ 20 MEQ UDC PO SCH (10:20)
[2021-08-16] MEDS: TAB-A-VITE PO SCH (10:20)
[2021-08-16] MEDS: THERMOTABS PO SCH ×4 (10:20→21:20)
[2021-08-16] MEDS: VITAMIN C PO SCH (10:21)
[2021-08-16] MEDS: INVanz INJ 1 GRAM VIAL 1 G in NS 100 ML IV 100 ML IV SCH (10:28)
[2021-08-16] MEDS: SOLU-Medrol 40 MG VIAL IVP SCH ×3 (11:02→21:17)
[2021-08-16] MEDS: CIPRO IV 400 MG PREMIX* 400 MG/200 ML IV.SOLN. IV SCH ×2 (11:30→21:17)
[2021-08-16] MEDS: LASIX IVP SCH ×2 (11:46→22:21)
--- NOTE | 2021-08-16 14:26 | PCM.PROG ---
Progress Note - Progress Note for Day of Date of Exam: 08/15/21 - Subjective Subjective: IS CURRENTLY BEING TREATED FOR UTI, PNEUMONIA, SEPSIS, AMS, AND HYPOALBUMINEMIA. TODAY, SHE IS ALERT AND ORIENTED, LYING IN BED ON MORNING ROUNDS. SHE CONTINUES WITH WEAKNESS AND SHORTNESS OF BREATH TODAY. SHE IS CURRENTLY UTILIZING OXYGEN VIA NASAL CANNULA AT 3-4 LPM. SATURATIONS HAVE BEEN 92-97% THIS MORNING AND THROUGHOUT THE NIGHT. ON EXAMINATION, HEART IS REGULAR IN RATE AND RHYTHM. BILATERAL LUNGS NOTED WITH SCATTERED RHONCHI, DIMINISHED. ABDOMEN IS ROUND, SOFT, AND NON-TENDER WITH NORMAL BOWEL SOUNDS NOTED IN ALL QUADRANTS. THERE IS AN OPEN WOUND TO THE FOLD OF RIGHT BUTTOCK. THERE IS DRAINAGE WITH FOULD ODOR FROM WOUND. WOUND CULTURES HAVE BEEN SET UP. HER VITALS THIS MORNING ARE: 97.7-96-20-97%-115/68. LABS WERE OBTAINED. WBC 11.8, RBC 2.89, HGB 6.8, HCT 20.8, SODIUM 137, POTASSIUM 4.8, CARBON DIOXIDE 20.1, BUN 12, CREATININE 0.58, GLUCOSE 222, CALCIUM 8.0, AST 45, BNP 533, TOTAL PROTEIN 6.2, ALBUMIN 2.6. BLOOD AND WOUND CULTURES ARE PENDING. URINE CULTURE FROM HER 08/12 ER VISIT REPORTS GROWTH OF E.COLI. A CHEST XRAY WAS OBTAINED AND REVEALED: Increasing pneumonia on the left and unchanged on the right. SHE IS CURRENTLY RECEIVING NORMAL SALINE AT 80 ML/HR, INVANZ 1G IV DAILY, ALBUMIN 25% IV DAILY, XOPENEX NEBS TID, PULMICORT NEBS BID, AND HER HOME MEDICATIONS WERE RESUMED. TODAY, WE WILL ADMINISTER TWO UNITS OF PRBC. WE WILL ADD GENTAMICIN OINTMENT TO SACRAL WOUND BID. WE WILL CONSULT TO LOOK AT SACRAL WOUND. OTHERWISE, WE PLAN TO FOLLOW UP WITH AM LABS AND CONTINUE TO MONITOR. TIME SPENT ON CLINICAL ASSESSMENT, REVIEWING LABS AND IMAGING, DECISION MAKING, AND DOCUMENTATION GREATER THAN 45 MINUTES. - Past Medical Family Social History Past Med/Fam/Surg Hx: No changes since H&P Allergies: Allergies quetiapine [From Seroquel] Allergy (Verified 08/13/21 14:56) aripiprazole [From Abilify] Adverse Reaction (Verified 08/13/21 14:56) bupropion [From Wellbutrin] Adverse Reaction (Verified 08/13/21 14:56) donepezil [From Aricept] Adverse Reaction (Verified 08/13/21 14:56) moxifloxacin [From Avelox] Adverse Reaction (Verified 08/13/21 14:56) olanzapine [From Zyprexa] Adverse Reaction (Verified 08/13/21 14:56) promethazine [From Phenergan] Adverse Reaction (Verified 08/13/21 14:56) venlafaxine [From Effexor] Adverse Reaction (Verified 08/13/21 14:56) - Review of Systems ROS: No change since H&P - Vital Signs and I&O's Vital Signs: Temperature 97.6 F Pulse Rate [Left Brachial] 113 Pulse Rate [Right] 101 Pulse Rate 101 Respiratory Rate 20 Blood Pressure [Right Arm] 136/83 Blood Pressure [Left Arm] 132/77 Blood Pressure 182/85 O2 Sat by Pulse Oximetry 95 Intake and Output: Intake & Output 08/14/21 08/15/21 08/16/21 08/17/21 11:59 11:59 11:59 11:59 Intake Total 1690 / 1690 1929 / 1929 815 / 815 849 / 849 Balance 1690 / 1690 815 / 815 849 / 849 - Physical Exam Oriented: Normal Eyes: Normal Ear: Normal Nose: Normal Throat: Normal Respiratory: Diminished Cardiovascular: Normal : Dysuria Auscultation: Bowel Sounds: Normal Tenderness: Suprapubic, Mild Skin: Normal Musculoskeletal: Normal Psychiatric: Normal Mood Description: Calm Affect: Normal Speech Pattern: Appropriate - Laboratory and Diagnostics Result Diagrams: 08/17/21 05:30 08/17/21 05:30 Labs: 08/13/21 18:47 Buttock Wound Gram Stain - Final 08/13/21 18:47 Buttock Wound Culture - Final Escherichia Coli Proteus Mirabilis 08/13/21 15:45 Blood Blood Culture - Preliminary 08/13/21 15:39 Blood Blood Culture - Preliminary Laboratory WBC 17.2 X10^3/uL (3.6-10.0) H 08/16/21 05:45 RBC 3.97 X10^6/uL (3.5-5.4) 08/16/21 05:45 Hgb 10.8 g/dL (12.0-16.0) L 08/16/21 05:45 Hct 32.3 % (36.0-47.0) L 08/16/21 05:45 MCV 81.4 fL (80.0-100.0) 08/16/21 05:45 MCH 27.3 pg (27.0-34.0) 08/16/21 05:45 MCHC 33.5 g/dL (33.0-35.0) 08/16/21 05:45 RDW 21.9 % (11.6-16.5) H 08/16/21 05:45 Plt Count 295 X10^3/uL (150.0-450.0) 08/16/21 05:45 Plt Count Comment Adequate (ADEQUATE) 08/16/21 05:45 MPV 8.4 fL (7.4-11.0) 08/16/21 05:45 Neut % (Auto) 89.9 % (42.0-75.0) H 08/16/21 05:45 Lymph % (Auto) 3.4 % (21.0-51.0) L 08/16/21 05:45 [place] % (Auto) 6.6 % (0.0-13.0) 08/16/21 05:45 Eos % (Auto) 0.0 % (0.9-2.9) L 08/16/21 05:45 Baso % (Auto) 0.1 % (0.2-1.0) L 08/16/21 05:45 Neut # (Auto) 15.5 x10^3/uL (2.2-4.8) H 08/16/21 05:45 Lymph # (Auto) 0.6 X10^3/uL (1.3-2.9) L 08/16/21 05:45 [place] # (Auto) 1.1 x10^3/uL (0.3-0.8) H 08/16/21 05:45 Eos # (Auto) 0.0 x10^3/uL (0.0-0.2) 08/16/21 05:45 Baso # (Auto) 0.0 X10^3/uL (0.0-0.1) 08/16/21 05:45 Absolute Nucleated RBC 0.0 /100WBC 08/16/21 05:45 Total Counted 100 08/14/21 06:01 Neutrophils % (Manual) 66 % (39-76) 08/14/21 06:01 Lymphocytes % (Manual) 23 % (13-43) 08/14/21 06:01 Monocytes % (Manual) 11 % (4-9) H 08/14/21 06:01 Plt Morphology Comment Normal (NORMAL) 08/16/21 05:45 RBC Morphology Abnormal (NORMAL) A 08/16/21 05:45 Hypochromasia 1+ A 08/15/21 05:19 Anisocytosis 1+ A 08/16/21 05:45 Microcytosis Slight A 08/15/21 05:19 Target Cells Slight A 08/13/21 09:30 Stomatocytes Slight A 08/13/21 09:30 Sample Site Rrad 08/16/21 05:15 ABG pH 7.280 (7.35-7.45) L 08/16/21 05:15 ABG pCO2 61.0 mmHg (35.0-45.0) H* 08/16/21 05:15 ABG pO2 93.0 mmHg (80.0-100.0) 08/16/21 05:15 ABG HCO3 28.7 mmol/L (22-26) H 08/16/21 05:15 ABG O2 Saturation 96.0 % (90-100) 08/16/21 05:15 ABG Base Excess 0.7 mmol/L (-2.0-2.0) 08/16/21 05:15 Satish Test Pos 08/16/21 05:15 A-a Gradient 544.0 mmHg 08/16/21 05:15 FiO2 100.0 08/16/21 05:15 Blood Gas Comments Jaye well ms 08/16/21 05:15 Sodium 137 mmol/L (136-145) 08/16/21 05:45 Corrected Sodium 140 mmol/L (136-145) 08/16/21 05:45 Potassium 3.9 mmol/L (3.5-5.1) 08/16/21 05:45 Chloride 100 mmol/L (98-107) 08/16/21 05:45 Carbon Dioxide 24.9 mmol/L (21-32) 08/16/21 05:45 BUN 9 mg/dL (7-18) 08/16/21 05:45 Creatinine 0.55 mg/dL (0.55-1.02) 08/16/21 05:45 Est GFR (MDRD) Af Amer > 60 (>60) 08/16/21 05:45 Est GFR (MDRD) Non-Af > 60 (>60) 08/16/21 05:45 Glucose 234 mg/dL (65-99) H 08/16/21 05:45 POC Glucose (mg/dL) 218 mg/dL (65-99) H 08/16/21 11:17 Lactic Acid 1.2 mmol/L (0.4-2.0) 08/14/21 18:55 Calcium 8.5 mg/dL (8.5-10.1) 08/16/21 05:45 Corrected Calcium 9.4 mg/dL (8.5-10.1) 08/16/21 05:45 Magnesium 2.0 mg/dL (1.7-2.9) 08/15/21 05:19 Total Bilirubin 0.50 mg/dL (0.2-1.0) 08/16/21 05:45 AST 28 Units/L (15-37) 08/16/21 05:45 ALT 41 Units/L (12-78) 08/16/21 05:45 Alkaline Phosphatase 118 Units/L (46-116) H 08/16/21 05:45 Creatine Kinase 12 Units/L (26-192) L 08/14/21 17:17 CK-MB (CK-2) < 1.0 ng/mL (0-4.0) 08/14/21 17:17 CK/CKMB % Calc 8.3 % (<4) 08/14/21 17:17 Troponin I High Sens < 4.0 ng/L (4.0-60.0) L 08/14/21 17:17 C-Reactive Protein 279.70 mg/L (0-3.0) H 08/16/21 05:45 B-Natriuretic Peptide 604 pg/mL (0-79) H* 08/16/21 05:45 Total Protein 7.4 g/dL (6.4-8.2) 08/16/21 05:45 Albumin 2.9 g/dL (3.4-5.0) L 08/16/21 05:45 Globulin 4.5 g/dL (2.5-4.5) 08/16/21 05:45 Albumin/Globulin Ratio 0.6 Ratio (1.1-2.1) L 08/16/21 05:45 Stool Description 20g loose/mucoid brn 08/16/21 03:31 Stl Occult Blood (IFOB) Negative (NEGATIVE) 08/16/21 03:31 Blood Type O POSITIVE 08/15/21 07:07 Antibody Screen Negative 08/15/21 07:07 Crossmatch See Detail 08/15/21 07:07 - Plan (1) Pneumonia Status: Acute Qualifiers: Pneumonia type: due to unspecified organism Laterality: bilateral Lung location: unspecified part of lung Qualified Code(s): J18.9 - Pneumonia, unspecified organism Plan: SUPPLEMENTAL OXYGEN, NORMAL SALINE AT 80 ML/HR, INVANZ 1G IV DAILY, N EBULIZER TREATMENTS, ALBUMIN 25% IV DAILY. RESUMED HOME MEDICATIONS. MONITOR DAILY LABS AND CHEST XRAY (2) Urinary tract infection Status: Acute Qualifiers: Urinary tract infection type: acute cystitis Hematuria presence: with hematuria Qualified Code(s): N30.01 - Acute cystitis with hematuria (3) Sepsis due to urinary tract infection Status: Acute (4) Altered mental status Status: Acute Qualifiers: Altered mental status type: transient alteration of awareness Qualified Code(s): R40.4 - Transient alteration of awareness (5) Hypoalbuminemia Status: Acute
[2021-08-16] MEDS: LIPITOR TAB 20 MG PO SCH (21:19)
[2021-08-16] MEDS: ZANAFLEX PO SCH (21:21)
[2021-08-17] MEDS: XOPENEX 1.25 MG/3 ML NEBULE NEB SCH ×3 (05:05→20:20)
--- NOTE | 2021-08-17 05:23 | RAD ---
PROCEDURE: Chest X-ray 1 View .HISTORY: Dyspnea.TECHNIQUE: AP view .COMPARISON: 08/16/2021.TECHNICAL QUALITY: Satisfactory .FINDINGS:Unchanged start size upper limits of normal.Normal central vascularity.Moderate consolidation throughout both lung davila similar to previous study with no pleural fluid or pneumothorax.IMPRESSION:Unchanged bilateral pneumonia.Electronically signed by: John Harp (Aug 17, 2021 05:22:50)
[2021-08-17] MEDS: SOLU-Medrol 40 MG VIAL IVP SCH ×3 (05:40→20:59)
[2021-08-17] MEDS: NovoLIN R (or HumuLIN R) SUBCUT PRN ×3 (05:41→16:45)
[2021-08-17 06:12] LABS: BASOPHILS % (AUTO) 0.1 % (0.2-1.0); EOSINOPHILS % (AUTO) 0.1 % (0.9-2.9); HEMATOCRIT 32.5 % (36.0-47.0); HEMOGLOBIN 10.9 g/dL (12.0-16.0); LYMPHOCYTES # (AUTO) 0.8 X10^3/uL (1.3-2.9); LYMPHOCYTES % (AUTO) 7.1 % (21.0-51.0); MEAN CORPUSCULAR HEMOGLOBIN 26.7 pg (27.0-34.0); MEAN CORPUSCULAR HGB CONC 33.5 g/dL (33.0-35.0); MEAN CORPUSCULAR VOLUME 79.7 fL (80.0-100.0); MEAN PLATELET VOLUME 8.7 fL (7.4-11.0); MONOCYTES # (AUTO) 0.7 x10^3/uL (0.3-0.8); MONOCYTES % (AUTO) 6.3 % (0.0-13.0); NEUTROPHILS # (AUTO) 10.1 x10^3/uL (2.2-4.8); NEUTROPHILS % (AUTO) 86.4 % (42.0-75.0); RED BLOOD COUNT 4.08 X10^6/uL (3.5-5.4); WHITE BLOOD COUNT 11.6 X10^3/uL (3.6-10.0)
[2021-08-17 06:23] LABS: ALANINE AMINOTRANSFERASE 36 Units/L (12-78); ALKALINE PHOSPHATASE 101 Units/L (46-116); ASPARTATE AMINO TRANSFERASE 23 Units/L (15-37); BLOOD UREA NITROGEN 13 mg/dL (7-18); CALCIUM 9.2 mg/dL (8.5-10.1); CARBON DIOXIDE 25.7 mmol/L (21-32); CHLORIDE 101 mmol/L (98-107); COR NA(FOR HYPERGLY) 142 mmol/L (136-145); CREATININE 0.56 mg/dL (0.55-1.02); SODIUM 138 mmol/L (136-145); TOTAL PROTEIN 7.3 g/dL (6.4-8.2); eGFR NON BLACK RACES > 60 (>60)
[2021-08-17 07:20] LABS: HYPOCHROMASIA SLIGHT; PLATELET MORPHOLOGY COMMENT NORMAL (NORMAL)
[2021-08-17 07:21] LABS: ANISOCYTOSIS 1+
[2021-08-17] MEDS: PULMICORT NEB TX 0.5 MG NEB SCH ×2 (09:24→20:20)
[2021-08-17] MEDS ORDERED: GLUCOPHAGE ONE ×2 (09:58→16:51)
[2021-08-17] MEDS: ALBUMIN HUMAN 25%- 100 ML 100 ML IV SCH (10:02)
[2021-08-17] MEDS: RisperDAL TAB 1 MG PO SCH ×4 (10:07→20:43)
[2021-08-17] MEDS: XANAX PO SCH ×2 (10:07→20:44)
[2021-08-17] MEDS: DEPAKOTE D.R. TAB PO SCH ×2 (10:08→20:44)
[2021-08-17] MEDS: PROVERA PO SCH (10:11)
[2021-08-17] MEDS: XARELTO PO SCH (10:11)
[2021-08-17] MEDS: ZOLOFT PO SCH (10:11)
[2021-08-17] MEDS: ULTRAM PO SCH ×2 (10:12→20:44)
[2021-08-17] MEDS: ASTELIN NASAL SPRAY ENOSTRIL SCH (10:12)
[2021-08-17] MEDS: ZyrTEC TAB 10 MG PO SCH (10:14)
[2021-08-17] MEDS: GLUCOPHAGE PO SCH ×2 (10:14→16:48)
[2021-08-17] MEDS: GENTAMICIN TOPICAL OINT TOP SCH ×2 (10:15→20:58)
[2021-08-17] MEDS: ZINC SULFATE PO SCH (10:15)
[2021-08-17] MEDS: COLACE CAP 100 MG PO SCH ×2 (10:15→20:42)
[2021-08-17] MEDS: THERMOTABS PO SCH ×4 (10:16→20:58)
[2021-08-17] MEDS: POTASSIUM CHLORIDE LIQ 20 MEQ UDC PO SCH (10:16)
[2021-08-17] MEDS: FLONASE NASAL SPRAY ENOSTRIL SCH ×2 (10:16→20:57)
[2021-08-17] MEDS: TAB-A-VITE PO SCH (10:16)
[2021-08-17] MEDS: XALATAN OP SCH ×2 (10:17→20:58)
[2021-08-17] MEDS: VSL#3 PO SCH (10:17)
[2021-08-17] MEDS: NS 1,000 ML IV 1,000 ML IV SCH (10:18)
[2021-08-17] MEDS: VITAMIN C PO SCH (10:18)
[2021-08-17] MEDS: LASIX IVP SCH ×2 (10:21→22:00)
[2021-08-17] MEDS: INVanz INJ 1 GRAM VIAL 1 G in NS 100 ML IV 100 ML IV SCH (10:34)
[2021-08-17] MEDS: CIPRO IV 400 MG PREMIX* 400 MG/200 ML IV.SOLN. IV SCH ×2 (11:33→20:40)
[2021-08-17] MEDS ORDERED: K-RIDER 10 MEQ/NS 100 ML 10 MEQ/100 ML BAG IV ONE (11:53)
--- NOTE | 2021-08-17 12:07 | PCM.PROG ---
Progress Note - Progress Note for Day of Date of Exam: 08/16/21 - Subjective Subjective: IS CURRENTLY BEING TREATED FOR UTI, PNEUMONIA, SEPSIS, ANEMIA, AMS, AND HYPOALBUMINEMIA. TODAY, SHE IS LYING IN BED WITH EYES CLOSE ON MORNING ROUNDS. SHE OPENS EYES TO VERBAL STIMULI, BUT IS DROWSY. SHE CONTINUES WITH WEAKNESS AND SHORTNESS OF BREATH TODAY. SHE IS CURRENTLY UTILIZING THE BIPAP THIS MORNING. SHE WAS PLACED ON BIPAP THROUGHOUT THE NIGHT DUE TO SATURATIONS DROPPING INTO THE 70s. SATURATIONS HAVE BEEN 92-97% THIS MORNING WHILE ON THE BIPAP. ON EXAMINATION, HEART IS REGULAR IN RATE AND RHYTHM. BILATERAL LUNGS NOTED WITH SCATTERED RHONCHI, DIMINISHED. ABDOMEN IS ROUND, SOFT, AND NON-TENDER WITH NORMAL BOWEL SOUNDS NOTED IN ALL QUADRANTS. THERE IS AN OPEN WOUND TO THE FOLD OF RIGHT BUTTOCK. DRESSING IS CURRENTLY DRY AND INTACT. WOUND CULTURES HAVE BEEN SET UP. HER VITALS THIS MORNING ARE: 97.8-79-20-99%-133/72. LABS WERE OBTAINED. WBC 17.2, HGB 10.8, HCT 32.3, GLUCOSE 234, ALK PHOS 118, CRP 279.70, BNP 604, ALBUMIN 2.9. BLOOD AND WOUND CULTURES ARE PENDING. URINE CULTURE FROM HER 08/12 ER VISIT REPORTS GROWTH OF E.COLI. A CHEST XRAY WAS OBTAINED AND REVEALED: Unchanged moderate bilateral pneumonia. SHE IS CURRENTLY RECEIVING NORMAL SALINE AT 80 ML/HR, INVANZ 1G IV DAILY, ALBUMIN 25% IV DAILY, XOPENEX NEBS TID, PULMICORT NEBS BID, AND HER HOME MEDICATIONS WERE RESUMED. TODAY, WE WILL ADMINISTER TWO UNITS OF PRBC. WE WILL ADD CIPRO 400MG IV Q12H TODAY. WE WILL ALSO ADD SOLU-MEDROL 40MG IV Q8H AND AND LASIX 20MG IV Q12H. OTHERWISE, WE PLAN TO FOLLOW UP WITH AM LABS AND CHEST XRAY AND CONTINUE TO MONITOR. TIME SPENT ON CLINICAL ASSESSMENT, REVIEWING LABS AND IMAGING, DECISION MAKING, AND DOCUMENTATION GREATER THAN 45 MINUTES. - Past Medical Family Social History Past Med/Fam/Surg Hx: No changes since H&P Allergies: Allergies quetiapine [From Seroquel] Allergy (Verified 08/13/21 14:56) aripiprazole [From Abilify] Adverse Reaction (Verified 08/13/21 14:56) bupropion [From Wellbutrin] Adverse Reaction (Verified 08/13/21 14:56) donepezil [From Aricept] Adverse Reaction (Verified 08/13/21 14:56) moxifloxacin [From Avelox] Adverse Reaction (Verified 08/13/21 14:56) olanzapine [From Zyprexa] Adverse Reaction (Verified 08/13/21 14:56) promethazine [From Phenergan] Adverse Reaction (Verified 08/13/21 14:56) venlafaxine [From Effexor] Adverse Reaction (Verified 08/13/21 14:56) - Review of Systems ROS: No change since H&P - Vital Signs and I&O's Vital Signs: Temperature 97.8 F Pulse Rate [Left Brachial] 79 Pulse Rate [Right] 101 Pulse Rate 78 Respiratory Rate 20 Blood Pressure [Right Arm] 136/83 Blood Pressure [Left Arm] 133/72 Blood Pressure 182/85 O2 Sat by Pulse Oximetry 98 Intake and Output: Intake & Output 08/15/21 08/16/21 08/17/21 08/18/21 11:59 11:59 11:59 11:59 Intake Total 1929 815 / 815 1382 / 1382 Balance 1929 815 / 815 1382 / 1382 - Physical Exam Oriented: Person, Place Eyes: Normal Ear: Normal Nose: Normal Throat: Normal Respiratory: Diminished, Rhonchi Cardiovascular: Normal : Dysuria Auscultation: Bowel Sounds: Normal Palpation: Normal Tenderness: Suprapubic, Mild Skin: Normal Musculoskeletal: Normal Psychiatric: Normal Mood Description: Calm Affect: Flat, Normal Speech Pattern: Appropriate - Laboratory and Diagnostics Result Diagrams: 08/17/21 05:30 08/17/21 05:30 Labs: 08/13/21 18:47 Buttock Wound Gram Stain - Final 08/13/21 18:47 Buttock Wound Culture - Final Escherichia Coli Proteus Mirabilis 08/13/21 15:45 Blood Blood Culture - Preliminary 08/13/21 15:39 Blood Blood Culture - Preliminary Laboratory WBC 11.6 X10^3/uL (3.6-10.0) H 08/17/21 05:30 RBC 4.08 X10^6/uL (3.5-5.4) 08/17/21 05:30 Hgb 10.9 g/dL (12.0-16.0) L 08/17/21 05:30 Hct 32.5 % (36.0-47.0) L 08/17/21 05:30 MCV 79.7 fL (80.0-100.0) L 08/17/21 05:30 MCH 26.7 pg (27.0-34.0) L 08/17/21 05:30 MCHC 33.5 g/dL (33.0-35.0) 08/17/21 05:30 RDW 22.0 % (11.6-16.5) H 08/17/21 05:30 Plt Count 310 X10^3/uL (150.0-450.0) 08/17/21 05:30 Plt Count Comment Adequate (ADEQUATE) 08/17/21 05:30 MPV 8.7 fL (7.4-11.0) 08/17/21 05:30 Neut % (Auto) 86.4 % (42.0-75.0) H 08/17/21 05:30 Lymph % (Auto) 7.1 % (21.0-51.0) L 08/17/21 05:30 [place] % (Auto) 6.3 % (0.0-13.0) 08/17/21 05:30 Eos % (Auto) 0.1 % (0.9-2.9) L 08/17/21 05:30 Baso % (Auto) 0.1 % (0.2-1.0) L 08/17/21 05:30 Neut # (Auto) 10.1 x10^3/uL (2.2-4.8) H 08/17/21 05:30 Lymph # (Auto) 0.8 X10^3/uL (1.3-2.9) L 08/17/21 05:30 [place] # (Auto) 0.7 x10^3/uL (0.3-0.8) 08/17/21 05:30 Eos # (Auto) 0.0 x10^3/uL (0.0-0.2) 08/17/21 05:30 Baso # (Auto) 0.0 X10^3/uL (0.0-0.1) 08/17/21 05:30 Absolute Nucleated RBC 0.0 /100WBC 08/17/21 05:30 Total Counted 100 08/14/21 06:01 Neutrophils % (Manual) 66 % (39-76) 08/14/21 06:01 Lymphocytes % (Manual) 23 % (13-43) 08/14/21 06:01 Monocytes % (Manual) 11 % (4-9) H 08/14/21 06:01 Plt Morphology Comment Normal (NORMAL) 08/17/21 05:30 RBC Morphology Abnormal (NORMAL) A 08/17/21 05:30 Hypochromasia Slight A 08/17/21 05:30 Anisocytosis 1+ A 08/17/21 05:30 Microcytosis Slight A 08/15/21 05:19 Target Cells Slight A 08/13/21 09:30 Stomatocytes Slight A 08/13/21 09:30 Sample Site Rrad 08/16/21 05:15 ABG pH 7.280 (7.35-7.45) L 08/16/21 05:15 ABG pCO2 61.0 mmHg (35.0-45.0) H* 08/16/21 05:15 ABG pO2 93.0 mmHg (80.0-100.0) 08/16/21 05:15 ABG HCO3 28.7 mmol/L (22-26) H 08/16/21 05:15 ABG O2 Saturation 96.0 % (90-100) 08/16/21 05:15 ABG Base Excess 0.7 mmol/L (-2.0-2.0) 08/16/21 05:15 Satish Test Pos 08/16/21 05:15 A-a Gradient 544.0 mmHg 08/16/21 05:15 FiO2 100.0 08/16/21 05:15 Blood Gas Comments Jaye well ms 08/16/21 05:15 Sodium 138 mmol/L (136-145) 08/17/21 05:30 Corrected Sodium 142 mmol/L (136-145) 08/17/21 05:30 Potassium 3.4 mmol/L (3.5-5.1) L 08/17/21 05:30 Chloride 101 mmol/L (98-107) 08/17/21 05:30 Carbon Dioxide 25.7 mmol/L (21-32) 08/17/21 05:30 BUN 13 mg/dL (7-18) 08/17/21 05:30 Creatinine 0.56 mg/dL (0.55-1.02) 08/17/21 05:30 Est GFR (MDRD) Af Amer > 60 (>60) 08/17/21 05:30 Est GFR (MDRD) Non-Af > 60 (>60) 08/17/21 05:30 Glucose 257 mg/dL (65-99) H 08/17/21 05:30 POC Glucose (mg/dL) 259 mg/dL (65-99) H 08/17/21 11:47 Lactic Acid 1.2 mmol/L (0.4-2.0) 08/14/21 18:55 Calcium 9.2 mg/dL (8.5-10.1) 08/17/21 05:30 Corrected Calcium 10.0 mg/dL (8.5-10.1) 08/17/21 05:30 Magnesium 2.0 mg/dL (1.7-2.9) 08/15/21 05:19 Total Bilirubin 0.40 mg/dL (0.2-1.0) 08/17/21 05:30 AST 23 Units/L (15-37) 08/17/21 05:30 ALT 36 Units/L (12-78) 08/17/21 05:30 Alkaline Phosphatase 101 Units/L (46-116) 08/17/21 05:30 Creatine Kinase 12 Units/L (26-192) L 08/14/21 17:17 CK-MB (CK-2) < 1.0 ng/mL (0-4.0) 08/14/21 17:17 CK/CKMB % Calc 8.3 % (<4) 08/14/21 17:17 Troponin I High Sens < 4.0 ng/L (4.0-60.0) L 08/14/21 17:17 C-Reactive Protein 245.00 mg/L (0-3.0) H 08/17/21 05:30 B-Natriuretic Peptide 312 pg/mL (0-79) H 08/17/21 05:30 Total Protein 7.3 g/dL (6.4-8.2) 08/17/21 05:30 Albumin 3.0 g/dL (3.4-5.0) L 08/17/21 05:30 Globulin 4.3 g/dL (2.5-4.5) 08/17/21 05:30 Albumin/Globulin Ratio 0.7 Ratio (1.1-2.1) L 08/17/21 05:30 Stool Description 20g loose/mucoid brn 08/16/21 03:31 Stl Occult Blood (IFOB) Negative (NEGATIVE) 08/16/21 03:31 Blood Type O POSITIVE 08/15/21 07:07 Antibody Screen Negative 08/15/21 07:07 Crossmatch See Detail 08/15/21 07:07 - Plan (1) Pneumonia Status: Acute Qualifiers: Pneumonia type: due to unspecified organism Laterality: bilateral Lung location: unspecified part of lung Qualified Code(s): J18.9 - Pneumonia, unspecified organism Plan: SUPPLEMENTAL OXYGEN, NORMAL SALINE AT 80 ML/HR, INVANZ 1G IV DAILY, CIPRO 400MG IV Q12H, LASIX 20MG IV Q124, SOLU-MEDROL 40MG IV Q12H, NEBULIZER TREATMENTS, ALBUMIN 25% IV DAILY. RESUMED HOME MEDICATIONS. MONITOR DAILY LABS AND CHEST XRAY (2) Urinary tract infection Status: Acute Qualifiers: Urinary tract infection type: acute cystitis Hematuria presence: with hematuria Qualified Code(s): N30.01 - Acute cystitis with hematuria Plan: ADMIT, NORMAL SALINE AT 80 ML/HR, INVANZ 1G IV DAILY, ALBUMIN 25% IV DAILY. REVIEW HOME MEDICATIONS. MONITOR DAILY LABS (3) Sepsis due to urinary tract infection Status: Acute (4) Altered mental status Status: Acute Qualifiers: Altered mental status type: transient alteration of awareness Qualified Code(s): R40.4 - Transient alteration of awareness (5) Hypoalbuminemia Status: Acute
[2021-08-17] MEDS: K-RIDER 10 MEQ/NS 100 ML 10 MEQ/100 ML BAG IV PRN ×2 (13:22→14:59)
[2021-08-17] MEDS: DESYREL PO SCH (20:42)
[2021-08-17] MEDS: LIPITOR TAB 20 MG PO SCH (20:43)
[2021-08-17] MEDS: ZANAFLEX PO SCH (20:45)
[2021-08-17] MEDS: LOVENOX INJ 40 MG SYR SC SCH (20:46)
[2021-08-17] MEDS: SNACK - Diabetic Appropriate PO SCH (20:57)
[2021-08-18 05:09] LABS: ABG ALLEN TEST POS; ABG BASE EXCESS 4.3 mmol/L (-2.0-2.0); ABG HCO3 29.8 mmol/L (22-26)
[2021-08-18] MEDS: XOPENEX 1.25 MG/3 ML NEBULE NEB SCH ×3 (05:12→20:00)
[2021-08-18] MEDS: NS 1,000 ML IV 1,000 ML IV SCH ×2 (05:41→18:03)
[2021-08-18] MEDS: NovoLIN R (or HumuLIN R) SUBCUT PRN ×4 (05:42→21:35)
[2021-08-18] MEDS: SOLU-Medrol 40 MG VIAL IVP SCH ×3 (05:42→21:54)
[2021-08-18 06:13] LABS: BASOPHILS % (AUTO) 0.1 % (0.2-1.0); HEMATOCRIT 34.1 % (36.0-47.0); HEMOGLOBIN 11.3 g/dL (12.0-16.0); LYMPHOCYTES # (AUTO) 1.6 X10^3/uL (1.3-2.9); LYMPHOCYTES % (AUTO) 11.8 % (21.0-51.0); MEAN CORPUSCULAR HEMOGLOBIN 26.3 pg (27.0-34.0); MEAN CORPUSCULAR HGB CONC 33.1 g/dL (33.0-35.0); MEAN CORPUSCULAR VOLUME 79.5 fL (80.0-100.0); MEAN PLATELET VOLUME 8.6 fL (7.4-11.0); MONOCYTES # (AUTO) 0.8 x10^3/uL (0.3-0.8); NEUTROPHILS # (AUTO) 10.8 x10^3/uL (2.2-4.8); NEUTROPHILS % (AUTO) 82.1 % (42.0-75.0); RED BLOOD COUNT 4.29 X10^6/uL (3.5-5.4); RED CELL DISTRIBUTION WIDTH 23.1 % (11.6-16.5); WHITE BLOOD COUNT 13.2 X10^3/uL (3.6-10.0)
--- NOTE | 2021-08-18 06:14 | RAD ---
HISTORYShortness of breathSTUDYChest AP [id number] heart is enlarged. No congestive heart failure is noted. Bilateral upper and lower lobe alveolar infiltrates are present and unchanged. No definite pleural effusion identified. Bony thorax is unremarkable.IMPRESSIONNo change cardiomegaly without congestive heart failureNo change bilateral upper and lower lobe fill traits and areas of consolidationElectronically signed by: JOAN MARTINO (Aug 18, 2021 06:13:19)
[2021-08-18 06:26] LABS: ALANINE AMINOTRANSFERASE 35 Units/L (12-78); ALBUMIN 3.3 g/dL (3.4-5.0); ALKALINE PHOSPHATASE 96 Units/L (46-116); ASPARTATE AMINO TRANSFERASE 17 Units/L (15-37); BLOOD UREA NITROGEN 23 mg/dL (7-18); CALCIUM 9.1 mg/dL (8.5-10.1); CARBON DIOXIDE 26.8 mmol/L (21-32); CHLORIDE 99 mmol/L (98-107); COR CA(FOR HYPOALB) 9.7 mg/dL (8.5-10.1); COR NA(FOR HYPERGLY) 141 mmol/L (136-145); CREATININE 0.71 mg/dL (0.55-1.02); MAGNESIUM 1.7 mg/dL (1.7-2.9); SODIUM 136 mmol/L (136-145); eGFR NON BLACK RACES > 60 (>60)
[2021-08-18 06:50] LABS: ANISOCYTOSIS 2+; HYPOCHROMASIA SLIGHT; PLATELET MORPHOLOGY COMMENT NORMAL (NORMAL)
[2021-08-18 06:51] LABS: TARGET CELLS PRESENT
[2021-08-18] MEDS ORDERED: GLUCOPHAGE ONE ×2 (07:34→16:53)
[2021-08-18] MEDS: PULMICORT NEB TX 0.5 MG NEB SCH ×2 (08:26→20:00)
[2021-08-18] MEDS: VITAMIN C PO SCH (09:02)
[2021-08-18] MEDS: ZOLOFT PO SCH (09:03)
[2021-08-18] MEDS: DEPAKOTE D.R. TAB PO SCH ×2 (09:04→21:50)
[2021-08-18] MEDS: XANAX PO SCH ×2 (09:05→21:53)
[2021-08-18] MEDS: PROVERA PO SCH (09:05)
[2021-08-18] MEDS: RisperDAL TAB 1 MG PO SCH ×3 (09:05→21:52)
[2021-08-18] MEDS: ULTRAM PO SCH ×2 (09:06→21:53)
[2021-08-18] MEDS: GLUCOPHAGE PO SCH ×2 (09:07→17:14)
[2021-08-18] MEDS: ALBUMIN HUMAN 25%- 100 ML 100 ML IV SCH (09:08)
[2021-08-18] MEDS: CIPRO IV 400 MG PREMIX* 400 MG/200 ML IV.SOLN. IV SCH ×2 (09:09→21:48)
[2021-08-18] MEDS: INVanz INJ 1 GRAM VIAL 1 G in NS 100 ML IV 100 ML IV SCH (09:09)
[2021-08-18] MEDS: COLACE CAP 100 MG PO SCH ×2 (11:00→21:49)
[2021-08-18] MEDS: XALATAN OP SCH ×2 (11:46→21:53)
[2021-08-18] MEDS: LASIX IVP SCH ×2 (11:46→22:55)
[2021-08-18] MEDS: ASTELIN NASAL SPRAY ENOSTRIL SCH (11:46)
[2021-08-18] MEDS: FLONASE NASAL SPRAY ENOSTRIL SCH ×2 (11:46→21:51)
[2021-08-18] MEDS: GENTAMICIN TOPICAL OINT TOP SCH ×2 (12:00→21:50)
--- NOTE | 2021-08-18 12:06 | PCM.PROG ---
Progress Note - Progress Note for Day of Date of Exam: 08/17/21 - Subjective Subjective: IS CURRENTLY BEING TREATED FOR UTI, PNEUMONIA, SEPSIS, ANEMIA, AMS, AND HYPOALBUMINEMIA. SHE HAS RECEIVED 1 UNIT OF PRBC SINCE ADMISSION. TODAY, SHE IS LYING IN BED WITH EYES CLOSE ON MORNING ROUNDS. SHE OPENS EYES TO VERBAL STIMULI, BUT IS DROWSY. SHE IS CURRENTLY UTILIZING THE BIPA P THIS MORNING. SATURATIONS HAVE BEEN 92-97% THIS MORNING WHILE ON THE BIPAP. NURSING STAFF REPORTS THAT SHE HAS BEEN TOO LETHARGIC TO TAKE HER ORAL MEDICATIONS. ON EXAMINATION, HEART IS REGULAR IN RATE AND RHYTHM. BILATERAL LUNGS NOTED WITH SCATTERED RHONCHI, DIMINISHED. ABDOMEN IS ROUND, SOFT, AND NON- TENDER WITH NORMAL BOWEL SOUNDS NOTED IN ALL QUADRANTS. THERE IS AN OPEN WOUND TO THE FOLD OF RIGHT BUTTOCK. DRESSING IS CURRENTLY DRY AND INTACT. HER VITALS THIS MORNING ARE: 97.0-88-18-99%-140/80. LABS WERE OBTAINED. WBC 11.6, HGB 10.9, HCT 32.5, SODIUM 138, POTASSIUM 3.4, BUN 13, CREATININE 0.56, GLUCOSE 257, CRP 245, BUN 312, TOTAL PROTEIN 7.3, ALBUMIN 3.0. WOUND CULTURES REPORT GROWTH OF E.COLI AND PROTEUS MIRABILIS. URINE CULTURE FROM HER 08/12 ER VISIT REPORTS GROWTH OF E.COLI. A CHEST XRAY WAS OBTAINED AND REVEALED: UNCHANGED BILATERAL PNEUMONIA. SHE IS CURRENTLY RECEIVING NORMAL SALINE AT 80 ML/HR, INVANZ 1G IV DAILY, CIPRO 400MG IV Q12H, SOLU-MEDROL 40MG IV Q8H, ALBUMIN 25% IV DAILY, XOPENEX NEBS TID, PULMICORT NEBS BID, AND HER HOME MEDICATIONS WERE RESUMED. WE WILL HAVE SPEECH THERAPY EVALUATE FOR SAFE SWALLOWING TODAY. OTHERWISE, WE PLAN TO FOLLOW UP WITH AM LABS AND CHEST XRAY AND CONTINUE TO MONITOR. TIME SPENT ON CLINICAL ASSESSMENT, REVIEWING LABS AND IMAGING, DECISION MAKING, AND DOCUMENTATION GREATER THAN 45 MINUTES. - Past Medical Family Social History Past Med/Fam/Surg Hx: No changes since H&P Allergies: Allergies quetiapine [From Seroquel] Allergy (Verified 08/13/21 14:56) aripiprazole [From Abilify] Adverse Reaction (Verified 08/13/21 14:56) bupropion [From Wellbutrin] Adverse Reaction (Verified 08/13/21 14:56) donepezil [From Aricept] Adverse Reaction (Verified 08/13/21 14:56) moxifloxacin [From Avelox] Adverse Reaction (Verified 08/13/21 14:56) olanzapine [From Zyprexa] Adverse Reaction (Verified 08/13/21 14:56) promethazine [From Phenergan] Adverse Reaction (Verified 08/13/21 14:56) venlafaxine [From Effexor] Adverse Reaction (Verified 08/13/21 14:56) - Review of Systems ROS: No change since H&P - Vital Signs and I&O's Vital Signs: Temperature 97.6 F Pulse Rate [Left Brachial] 81 Pulse Rate [Right] 101 Pulse Rate 101 Respiratory Rate 22 Blood Pressure [Right Arm] 136/83 Blood Pressure [Left Arm] 143/78 Blood Pressure 182/85 O2 Sat by Pulse Oximetry 98 Intake and Output: Intake & Output 08/16/21 08/17/21 08/18/21 08/19/21 11:59 11:59 11:59 11:59 Intake Total 815 / 815 1382 / 1382 1545 / 1545 Balance 815 / 815 1382 / 1382 1545 / 1545 - Physical Exam Oriented: Unable to test Eyes: Normal Ear: Normal Nose: Normal Throat: Normal Respiratory: Diminished, Rhonchi Cardiovascular: Normal : Dysuria Auscultation: Bowel Sounds: Normal Palpation: Normal Tenderness: Normal Skin: Normal Musculoskeletal: Normal Psychiatric: Normal Mood Description: Calm Affect: Flat - Laboratory and Diagnostics Result Diagrams: 08/18/21 05:35 08/18/21 11:20 Labs: 08/13/21 18:47 Buttock Wound Gram Stain - Final 08/13/21 18:47 Buttock Wound Culture - Final Escherichia Coli Proteus Mirabilis 08/13/21 15:45 Blood Blood Culture - Preliminary 08/13/21 15:39 Blood Blood Culture - Preliminary Laboratory WBC 13.2 X10^3/uL (3.6-10.0) H 08/18/21 05:35 RBC 4.29 X10^6/uL (3.5-5.4) 08/18/21 05:35 Hgb 11.3 g/dL (12.0-16.0) L 08/18/21 05:35 Hct 34.1 % (36.0-47.0) L 08/18/21 05:35 MCV 79.5 fL (80.0-100.0) L 08/18/21 05:35 MCH 26.3 pg (27.0-34.0) L 08/18/21 05:35 MCHC 33.1 g/dL (33.0-35.0) 08/18/21 05:35 RDW 23.1 % (11.6-16.5) H 08/18/21 05:35 Plt Count 379 X10^3/uL (150.0-450.0) 08/18/21 05:35 Plt Count Comment Adequate (ADEQUATE) 08/18/21 05:35 MPV 8.6 fL (7.4-11.0) 08/18/21 05:35 Neut % (Auto) 82.1 % (42.0-75.0) H 08/18/21 05:35 Lymph % (Auto) 11.8 % (21.0-51.0) L 08/18/21 05:35 [place] % (Auto) 6.0 % (0.0-13.0) 08/18/21 05:35 Eos % (Auto) 0.0 % (0.9-2.9) L 08/18/21 05:35 Baso % (Auto) 0.1 % (0.2-1.0) L 08/18/21 05:35 Neut # (Auto) 10.8 x10^3/uL (2.2-4.8) H 08/18/21 05:35 Lymph # (Auto) 1.6 X10^3/uL (1.3-2.9) 08/18/21 05:35 [place] # (Auto) 0.8 x10^3/uL (0.3-0.8) 08/18/21 05:35 Eos # (Auto) 0.0 x10^3/uL (0.0-0.2) 08/18/21 05:35 Baso # (Auto) 0.0 X10^3/uL (0.0-0.1) 08/18/21 05:35 Absolute Nucleated RBC 0.0 /100WBC 08/18/21 05:35 Total Counted 100 08/14/21 06:01 Neutrophils % (Manual) 66 % (39-76) 08/14/21 06:01 Lymphocytes % (Manual) 23 % (13-43) 08/14/21 06:01 Monocytes % (Manual) 11 % (4-9) H 08/14/21 06:01 Plt Morphology Comment Normal (NORMAL) 08/18/21 05:35 RBC Morphology Abnormal (NORMAL) A 08/18/21 05:35 Hypochromasia Slight A 08/18/21 05:35 Anisocytosis 2+ A 08/18/21 05:35 Microcytosis Slight A 08/15/21 05:19 Target Cells Present 08/18/21 05:35 Stomatocytes Slight A 08/13/21 09:30 Sample Site Lr 08/18/21 05:03 ABG pH 7.410 (7.35-7.45) 08/18/21 05:03 ABG pCO2 47.0 mmHg (35.0-45.0) H 08/18/21 05:03 ABG pO2 119.0 mmHg (80.0-100.0) H 08/18/21 05:03 ABG HCO3 29.8 mmol/L (22-26) H 08/18/21 05:03 ABG O2 Saturation 99.0 % (90-100) 08/18/21 05:03 ABG Base Excess 4.3 mmol/L (-2.0-2.0) H 08/18/21 05:03 Satish Test Pos 08/18/21 05:03 A-a Gradient 179.0 mmHg 08/18/21 05:03 FiO2 50.0 08/18/21 05:03 Blood Gas Comments Jaye well ae 08/18/21 05:03 Sodium 136 mmol/L (136-145) 08/18/21 05:35 Corrected Sodium 141 mmol/L (136-145) 08/18/21 05:35 Potassium 3.7 mmol/L (3.5-5.1) 08/18/21 05:35 Chloride 99 mmol/L (98-107) 08/18/21 05:35 Carbon Dioxide 26.8 mmol/L (21-32) 08/18/21 05:35 BUN 23 mg/dL (7-18) H 08/18/21 05:35 Creatinine 0.71 mg/dL (0.55-1.02) 08/18/21 05:35 Est GFR (MDRD) Af Amer > 60 (>60) 08/18/21 05:35 Est GFR (MDRD) Non-Af > 60 (>60) 08/18/21 05:35 Glucose 462 mg/dL (65-99) H 08/18/21 11:20 POC Glucose (mg/dL) 470 mg/dL (65-99) H 08/18/21 10:41 Lactic Acid 1.2 mmol/L (0.4-2.0) 08/14/21 18:55 Calcium 9.1 mg/dL (8.5-10.1) 08/18/21 05:35 Corrected Calcium 9.7 mg/dL (8.5-10.1) 08/18/21 05:35 Magnesium 1.7 mg/dL (1.7-2.9) 08/18/21 05:35 Total Bilirubin 0.40 mg/dL (0.2-1.0) 08/18/21 05:35 AST 17 Units/L (15-37) 08/18/21 05:35 ALT 35 Units/L (12-78) 08/18/21 05:35 Alkaline Phosphatase 96 Units/L (46-116) 08/18/21 05:35 Creatine Kinase 12 Units/L (26-192) L 08/14/21 17:17 CK-MB (CK-2) < 1.0 ng/mL (0-4.0) 08/14/21 17:17 CK/CKMB % Calc 8.3 % (<4) 08/14/21 17:17 Troponin I High Sens < 4.0 ng/L (4.0-60.0) L 08/14/21 17:17 C-Reactive Protein 113.00 mg/L (0-3.0) H 08/18/21 05:35 B-Natriuretic Peptide 219 pg/mL (0-79) H 08/18/21 05:35 Total Protein 7.0 g/dL (6.4-8.2) 08/18/21 05:35 Albumin 3.3 g/dL (3.4-5.0) L 08/18/21 05:35 Globulin 3.7 g/dL (2.5-4.5) 08/18/21 05:35 Albumin/Globulin Ratio 0.9 Ratio (1.1-2.1) L 08/18/21 05:35 Stool Description 20g loose/mucoid brn 08/16/21 03:31 Stl Occult Blood (IFOB) Negative (NEGATIVE) 08/16/21 03:31 Blood Type O POSITIVE 08/15/21 07:07 Antibody Screen Negative 08/15/21 07:07 Crossmatch See Detail 08/15/21 07:07 - Plan (1) Pneumonia Status: Acute Qualifiers: Pneumonia type: due to unspecified organism Laterality: bilateral Lung location: unspecified part of lung Qualified Code(s): J18.9 - Pneumonia, unspecified organism Plan: SUPPLEMENTAL OXYGEN, NORMAL SALINE AT 80 ML/HR, INVANZ 1G IV DAILY, CIPRO 400MG IV Q12H, LASIX 20MG IV Q12H, SOLU-MEDROL 40MG IV Q12H, NEBULIZER TREATMENTS, ALBUMIN 25% IV DAILY. RESUMED HOME MEDICATIONS. MONITOR DAILY LABS AND CHEST XRAY (2) Urinary tract infection Status: Acute Qualifiers: Urinary tract infection type: acute cystitis Hematuria presence: with hematuria Qualified Code(s): N30.01 - Acute cystitis with hematuria (3) Sepsis due to urinary tract infection Status: Acute (4) Altered mental status Status: Acute Qualifiers: Altered mental status type: transient alteration of awareness Qualified Code(s): R40.4 - Transient alteration of awareness (5) Hypoalbuminemia Status: Acute (6) DM II (diabetes mellitus, type II), controlled Status: Chronic Qualifiers: Diabetes mellitus retirement insulin use: with termite treater helper use Diabetes mellitus complication status: with hyperglycemia Qualified Code(s): E11.65 - Type 2 diabetes mellitus with hyperglycemia; Z79.4 - terminologist (current) use of insulin (7) CHF (congestive heart failure) Status: Chronic Qualifiers: Heart failure type: unspecified Heart failure chronicity: unspecified Qualified Code(s): I50.9 - Heart failure, unspecified
--- NOTE | 2021-08-18 12:11 | PCM.PROG ---
Progress Note - Progress Note for Day of Date of Exam: 08/18/21 - Subjective Subjective: IS CURRENTLY BEING TREATED FOR UTI, PNEUMONIA, SEPSIS, ANEMIA, AMS, AND HYPOALBUMINEMIA. SHE HAS RECEIVED 1 UNIT OF PRBC SINCE ADMISSION. TODAY, SHE IS ALERT, LYING IN BED ON MORNING ROUNDS. SHE IS ORIENTED TO PERSON, PLACE, AND SITUATION. SHE CONTINUES WITH COMPLAINTS OF SHORTNESS OF BREATH AT TIMES AND WEAKNESS. SHE IS CURRENTLY UTILIZING OXYGEN VIA NASAL CANNULA AT 5 LPM THIS MORNING. SHE HAS BEEN ABLE TO TAKE HER ORAL MEDICATIONS. ON EXAMINATION, HEART IS REGULAR IN RATE AND RHYTHM. BILATERAL LUNGS NOTED WITH SCATTERED RHONCHI, DIMINISHED. ABDOMEN IS ROUND, SOFT, AND NON-TENDER WITH NORMAL BOWEL SOUNDS NOTED IN ALL QUADRANTS. THERE IS AN OPEN WOUND TO THE FOLD OF RIGHT BUTTOCK. DRESSING IS CURRENTLY DRY AND INTACT. HER VITALS THIS MORNING ARE: 97.6-81-20-96%-143/78. LABS WERE OBTAINED. WBC 13.2, HGB 11.3, HCT 34.1, SODIUM 136, POTASSIUM 3.7, BUN 23, CREATININE 0.71, GLUCOSE 309, CRP 113, BNP 219, ALBUMIN 3.3. WOUND CULTURES REPORT GROWTH OF E.COLI AND PROTEUS MIRABILIS. URINE CULTURE FROM HER 08/12 ER VISIT REPORTS GROWTH OF E.COLI. A CHEST XRAY WAS OBTAINED AND REVEALED: No change cardiomegaly without congestive heart failure. No change bilateral upper and lower lobe fill traits and areas of consolidation. SHE IS CURRENTLY RECEIVING NORMAL SALINE AT 80 ML/HR, INVANZ 1G IV DAILY, CIPRO 400MG IV Q12H, SOLU-MEDROL 40MG IV Q8H, LASIX 20MG IV BID, ALBUMIN 25% IV DAILY, XOPENEX NEBS TID, PULMICORT NEBS BID, AND HER HOME MEDICATIONS WERE RESUMED. WE WILL CONTINUE WITH CURRENT PLAN OF CARE TODAY. OTHERWISE, WE PLAN TO FOLLOW UP WITH AM LABS AND CHEST XRAY AND CONTINUE TO MONITOR. TIME SPENT ON CLINICAL ASSESSMENT, REVIEWING LABS AND IMAGING, DECISION MAKING, AND DOCUMENTATION GREATER THAN 45 MINUTES. - Past Medical Family Social History Past Med/Fam/Surg Hx: No changes since H&P Allergies: Allergies quetiapine [From Seroquel] Allergy (Verified 08/13/21 14:56) aripiprazole [From Abilify] Adverse Reaction (Verified 08/13/21 14:56) bupropion [From Wellbutrin] Adverse Reaction (Verified 08/13/21 14:56) donepezil [From Aricept] Adverse Reaction (Verified 08/13/21 14:56) moxifloxacin [From Avelox] Adverse Reaction (Verified 08/13/21 14:56) olanzapine [From Zyprexa] Adverse Reaction (Verified 08/13/21 14:56) promethazine [From Phenergan] Adverse Reaction (Verified 08/13/21 14:56) venlafaxine [From Effexor] Adverse Reaction (Verified 08/13/21 14:56) - Review of Systems ROS: No change since H&P - Vital Signs and I&O's Vital Signs: Temperature 97.6 F Pulse Rate [Left Brachial] 81 Pulse Rate [Right] 101 Pulse Rate 101 Respiratory Rate 20 Blood Pressure [Right Arm] 136/83 Blood Pressure [Left Arm] 143/78 Blood Pressure 182/85 O2 Sat by Pulse Oximetry 98 Intake and Output: Intake & Output 08/16/21 08/17/21 08/18/21 08/19/21 11:59 11:59 11:59 11:59 Intake Total 815 / 815 1382 / 1382 1545 / 1545 Balance 815 / 815 1382 / 1382 1545 / 1545 - Physical Exam Oriented: Person, Place Eyes: Normal Ear: Normal Nose: Normal Throat: Normal Respiratory: Diminished, Rhonchi Cardiovascular: Normal : Dysuria Auscultation: Bowel Sounds: Normal Tenderness: Normal Skin: Normal Musculoskeletal: Normal Psychiatric: Normal Mood Description: Calm Affect: Normal Speech Pattern: Appropriate - Laboratory and Diagnostics Result Diagrams: 08/18/21 05:35 08/18/21 11:20 Labs: 08/13/21 18:47 Buttock Wound Gram Stain - Final 08/13/21 18:47 Buttock Wound Culture - Final Escherichia Coli Proteus Mirabilis 08/13/21 15:45 Blood Blood Culture - Preliminary 08/13/21 15:39 Blood Blood Culture - Preliminary Laboratory WBC 13.2 X10^3/uL (3.6-10.0) H 08/18/21 05:35 RBC 4.29 X10^6/uL (3.5-5.4) 08/18/21 05:35 Hgb 11.3 g/dL (12.0-16.0) L 08/18/21 05:35 Hct 34.1 % (36.0-47.0) L 08/18/21 05:35 MCV 79.5 fL (80.0-100.0) L 08/18/21 05:35 MCH 26.3 pg (27.0-34.0) L 08/18/21 05:35 MCHC 33.1 g/dL (33.0-35.0) 08/18/21 05:35 RDW 23.1 % (11.6-16.5) H 08/18/21 05:35 Plt Count 379 X10^3/uL (150.0-450.0) 08/18/21 05:35 Plt Count Comment Adequate (ADEQUATE) 08/18/21 05:35 MPV 8.6 fL (7.4-11.0) 08/18/21 05:35 Neut % (Auto) 82.1 % (42.0-75.0) H 08/18/21 05:35 Lymph % (Auto) 11.8 % (21.0-51.0) L 08/18/21 05:35 [place] % (Auto) 6.0 % (0.0-13.0) 08/18/21 05:35 Eos % (Auto) 0.0 % (0.9-2.9) L 08/18/21 05:35 Baso % (Auto) 0.1 % (0.2-1.0) L 08/18/21 05:35 Neut # (Auto) 10.8 x10^3/uL (2.2-4.8) H 08/18/21 05:35 Lymph # (Auto) 1.6 X10^3/uL (1.3-2.9) 08/18/21 05:35 [place] # (Auto) 0.8 x10^3/uL (0.3-0.8) 08/18/21 05:35 Eos # (Auto) 0.0 x10^3/uL (0.0-0.2) 08/18/21 05:35 Baso # (Auto) 0.0 X10^3/uL (0.0-0.1) 08/18/21 05:35 Absolute Nucleated RBC 0.0 /100WBC 08/18/21 05:35 Total Counted 100 08/14/21 06:01 Neutrophils % (Manual) 66 % (39-76) 08/14/21 06:01 Lymphocytes % (Manual) 23 % (13-43) 08/14/21 06:01 Monocytes % (Manual) 11 % (4-9) H 08/14/21 06:01 Plt Morphology Comment Normal (NORMAL) 08/18/21 05:35 RBC Morphology Abnormal (NORMAL) A 08/18/21 05:35 Hypochromasia Slight A 08/18/21 05:35 Anisocytosis 2+ A 08/18/21 05:35 Microcytosis Slight A 08/15/21 05:19 Target Cells Present 08/18/21 05:35 Stomatocytes Slight A 08/13/21 09:30 Sample Site Lr 08/18/21 05:03 ABG pH 7.410 (7.35-7.45) 08/18/21 05:03 ABG pCO2 47.0 mmHg (35.0-45.0) H 08/18/21 05:03 ABG pO2 119.0 mmHg (80.0-100.0) H 08/18/21 05:03 ABG HCO3 29.8 mmol/L (22-26) H 08/18/21 05:03 ABG O2 Saturation 99.0 % (90-100) 08/18/21 05:03 ABG Base Excess 4.3 mmol/L (-2.0-2.0) H 08/18/21 05:03 Satish Test Pos 08/18/21 05:03 A-a Gradient 179.0 mmHg 08/18/21 05:03 FiO2 50.0 08/18/21 05:03 Blood Gas Comments Jaye well ae 08/18/21 05:03 Sodium 136 mmol/L (136-145) 08/18/21 05:35 Corrected Sodium 141 mmol/L (136-145) 08/18/21 05:35 Potassium 3.7 mmol/L (3.5-5.1) 08/18/21 05:35 Chloride 99 mmol/L (98-107) 08/18/21 05:35 Carbon Dioxide 26.8 mmol/L (21-32) 08/18/21 05:35 BUN 23 mg/dL (7-18) H 08/18/21 05:35 Creatinine 0.71 mg/dL (0.55-1.02) 08/18/21 05:35 Est GFR (MDRD) Af Amer > 60 (>60) 08/18/21 05:35 Est GFR (MDRD) Non-Af > 60 (>60) 08/18/21 05:35 Glucose 462 mg/dL (65-99) H 08/18/21 11:20 POC Glucose (mg/dL) 470 mg/dL (65-99) H 08/18/21 10:41 Lactic Acid 1.2 mmol/L (0.4-2.0) 08/14/21 18:55 Calcium 9.1 mg/dL (8.5-10.1) 08/18/21 05:35 Corrected Calcium 9.7 mg/dL (8.5-10.1) 08/18/21 05:35 Magnesium 1.7 mg/dL (1.7-2.9) 08/18/21 05:35 Total Bilirubin 0.40 mg/dL (0.2-1.0) 08/18/21 05:35 AST 17 Units/L (15-37) 08/18/21 05:35 ALT 35 Units/L (12-78) 08/18/21 05:35 Alkaline Phosphatase 96 Units/L (46-116) 08/18/21 05:35 Creatine Kinase 12 Units/L (26-192) L 08/14/21 17:17 CK-MB (CK-2) < 1.0 ng/mL (0-4.0) 08/14/21 17:17 CK/CKMB % Calc 8.3 % (<4) 08/14/21 17:17 Troponin I High Sens < 4.0 ng/L (4.0-60.0) L 08/14/21 17:17 C-Reactive Protein 113.00 mg/L (0-3.0) H 08/18/21 05:35 B-Natriuretic Peptide 219 pg/mL (0-79) H 08/18/21 05:35 Total Protein 7.0 g/dL (6.4-8.2) 08/18/21 05:35 Albumin 3.3 g/dL (3.4-5.0) L 08/18/21 05:35 Globulin 3.7 g/dL (2.5-4.5) 08/18/21 05:35 Albumin/Globulin Ratio 0.9 Ratio (1.1-2.1) L 08/18/21 05:35 Stool Description 20g loose/mucoid brn 08/16/21 03:31 Stl Occult Blood (IFOB) Negative (NEGATIVE) 08/16/21 03:31 Blood Type O POSITIVE 08/15/21 07:07 Antibody Screen Negative 08/15/21 07:07 Crossmatch See Detail 08/15/21 07:07 - Plan (1) Pneumonia Status: Acute Qualifiers: Pneumonia type: due to unspecified organism Laterality: bilateral Lung location: unspecified part of lung Qualified Code(s): J18.9 - Pneumonia, unspecified organism Plan: SUPPLEMENTAL OXYGEN, NORMAL SALINE AT 80 ML/HR, INVANZ 1G IV DAILY, CIPRO 400MG IV Q12H, LASIX 20MG IV Q12H, SOLU-MEDROL 40MG IV Q12H, NEBULIZER TREATMENTS, ALBUMIN 25% IV DAILY. RESUMED HOME MEDICATIONS. MONITOR DAILY LABS AND CHEST XRAY (2) Urinary tract infection Status: Acute Qualifiers: Urinary tract infection type: acute cystitis Hematuria presence: with hematuria Qualified Code(s): N30.01 - Acute cystitis with hematuria Plan: ADMIT, NORMAL SALINE AT 80 ML/HR, INVANZ 1G IV DAILY, ALBUMIN 25% IV DAILY. REVIEW HOME MEDICATIONS. MONITOR DAILY LABS (3) Sepsis due to urinary tract infection Status: Acute (4) Altered mental status Status: Acute Qualifiers: Altered mental status type: transient alteration of awareness Qualified Code(s): R40.4 - Transient alteration of awareness (5) Hypoalbuminemia Status: Acute (6) DM II (diabetes mellitus, type II), controlled Status: Chronic Qualifiers: Diabetes mellitus fdc insulin use: with watermaster use Diabetes mellitus complication status: with hyperglycemia Qualified Code(s): E11.65 - Type 2 diabetes mellitus with hyperglycemia; Z79.4 - CHCF (current) use of insulin (7) CHF (congestive heart failure) Status: Chronic Qualifiers: Heart failure type: unspecified Heart failure chronicity: unspecified Qualified Code(s): I50.9 - Heart failure, unspecified
[2021-08-18] MEDS: ZINC SULFATE PO SCH (14:00)
[2021-08-18] MEDS: TAB-A-VITE PO SCH (14:00)
[2021-08-18] MEDS: VSL#3 PO SCH (14:00)
[2021-08-18] MEDS: THERMOTABS PO SCH ×4 (14:00→21:55)
[2021-08-18] MEDS: ZyrTEC TAB 10 MG PO SCH (15:03)
[2021-08-18] MEDS: POTASSIUM CHLORIDE LIQ 20 MEQ UDC PO SCH (15:05)
[2021-08-18] MEDS: SNACK - Diabetic Appropriate PO SCH (20:20)
[2021-08-18] MEDS: DESYREL PO SCH (21:50)
[2021-08-18] MEDS: LIPITOR TAB 20 MG PO SCH (21:50)
[2021-08-18] MEDS: LOVENOX INJ 40 MG SYR SC SCH (21:51)
[2021-08-18] MEDS: ZANAFLEX PO SCH (21:53)
[2021-08-19] MEDS: NS 1,000 ML IV 1,000 ML IV SCH ×2 (04:38→17:28)
[2021-08-19] MEDS ORDERED: GLUCOPHAGE ONE ×2 (04:43→17:35)
[2021-08-19] MEDS: SOLU-Medrol 40 MG VIAL IVP SCH ×3 (05:33→21:30)
[2021-08-19] MEDS: XOPENEX 1.25 MG/3 ML NEBULE NEB SCH ×3 (05:35→20:35)
[2021-08-19] MEDS: GLUCOPHAGE PO SCH ×2 (06:07→17:43)
[2021-08-19 06:18] LABS: BASOPHILS % (AUTO) 0.2 % (0.2-1.0); HEMATOCRIT 33.6 % (36.0-47.0); HEMOGLOBIN 11.2 g/dL (12.0-16.0); LYMPHOCYTES # (AUTO) 1.5 X10^3/uL (1.3-2.9); LYMPHOCYTES % (AUTO) 11.8 % (21.0-51.0); MEAN CORPUSCULAR HEMOGLOBIN 26.1 pg (27.0-34.0); MEAN CORPUSCULAR HGB CONC 33.3 g/dL (33.0-35.0); MEAN CORPUSCULAR VOLUME 78.3 fL (80.0-100.0); MEAN PLATELET VOLUME 8.1 fL (7.4-11.0); MONOCYTES # (AUTO) 0.9 x10^3/uL (0.3-0.8); MONOCYTES % (AUTO) 7.2 % (0.0-13.0); NEUTROPHILS # (AUTO) 10.1 x10^3/uL (2.2-4.8); NEUTROPHILS % (AUTO) 80.8 % (42.0-75.0); RED BLOOD COUNT 4.29 X10^6/uL (3.5-5.4); RED CELL DISTRIBUTION WIDTH 23.7 % (11.6-16.5); WHITE BLOOD COUNT 12.4 X10^3/uL (3.6-10.0)
[2021-08-19 06:33] LABS: ALANINE AMINOTRANSFERASE 27 Units/L (12-78); ALBUMIN 3.7 g/dL (3.4-5.0); ALKALINE PHOSPHATASE 82 Units/L (46-116); ASPARTATE AMINO TRANSFERASE 12 Units/L (15-37); BLOOD UREA NITROGEN 27 mg/dL (7-18); CALCIUM 8.8 mg/dL (8.5-10.1); CARBON DIOXIDE 27.4 mmol/L (21-32); CHLORIDE 99 mmol/L (98-107); COR NA(FOR HYPERGLY) 140 mmol/L (136-145); CREATININE 0.79 mg/dL (0.55-1.02); SODIUM 138 mmol/L (136-145); TOTAL PROTEIN 7.2 g/dL (6.4-8.2); eGFR NON BLACK RACES > 60 (>60)
[2021-08-19 06:45] LABS: PLATELET MORPHOLOGY COMMENT NORMAL (NORMAL)
--- NOTE | 2021-08-19 06:45 | RAD ---
HISTORYShortness of breathSTUDYChest AP [id number] t size difficult to assess due to obscuration of the left heart border. Bilateral upper and lower lobe alveolar infiltrates are present and unchanged. Small right pleural effusion is likely present. Left pleural effusion is also likely present. Bony thorax is unremarkable.IMPRESSIONNo change bilateral lung infiltrates and areas of consolidationElectronically signed by: JOAN MARTINO (Aug 19, 2021 06:44:43)
[2021-08-19 06:46] LABS: ANISOCYTOSIS 2+
[2021-08-19] MEDS: ASTELIN NASAL SPRAY ENOSTRIL SCH (08:29)
[2021-08-19] MEDS: ALBUMIN HUMAN 25%- 100 ML 100 ML IV SCH (08:29)
[2021-08-19] MEDS: CIPRO IV 400 MG PREMIX* 400 MG/200 ML IV.SOLN. IV SCH ×2 (08:29→21:30)
[2021-08-19] MEDS: DEPAKOTE D.R. TAB PO SCH ×2 (08:30→21:31)
[2021-08-19] MEDS: COLACE CAP 100 MG PO SCH ×2 (08:30→21:31)
[2021-08-19] MEDS: POTASSIUM CHLORIDE LIQ 20 MEQ UDC PO SCH ×2 (08:31→09:10)
[2021-08-19] MEDS: PROVERA PO SCH (08:31)
[2021-08-19] MEDS: FLONASE NASAL SPRAY ENOSTRIL SCH ×2 (08:31→21:33)
[2021-08-19] MEDS: INVanz INJ 1 GRAM VIAL 1 G in NS 100 ML IV 100 ML IV SCH (08:31)
[2021-08-19] MEDS: GENTAMICIN TOPICAL OINT TOP SCH (08:31)
[2021-08-19] MEDS: ULTRAM PO SCH ×2 (08:32→21:30)
[2021-08-19] MEDS: TAB-A-VITE PO SCH ×2 (08:32→09:10)
[2021-08-19] MEDS: VSL#3 PO SCH ×2 (08:33→09:10)
[2021-08-19] MEDS: VITAMIN C PO SCH ×2 (08:33→09:10)
[2021-08-19] MEDS: ZOLOFT PO SCH (08:34)
[2021-08-19] MEDS: ZyrTEC TAB 10 MG PO SCH (08:34)
[2021-08-19] MEDS: XANAX PO SCH ×2 (08:34→21:35)
[2021-08-19] MEDS: ZINC SULFATE PO SCH ×2 (08:35→09:10)
[2021-08-19] MEDS: XALATAN OP SCH ×2 (08:36→21:34)
[2021-08-19] MEDS: RisperDAL TAB 1 MG PO SCH ×3 (08:41→21:34)
[2021-08-19] MEDS: THERMOTABS PO SCH ×4 (09:07→21:35)
[2021-08-19] MEDS: PULMICORT NEB TX 0.5 MG NEB SCH ×2 (09:44→20:35)
[2021-08-19] MEDS: NovoLIN R (or HumuLIN R) SUBCUT PRN ×3 (11:23→21:30)
--- NOTE | 2021-08-19 12:21 | PCM.PROG ---
Progress Note - Progress Note for Day of Date of Exam: 08/19/21 - Subjective Subjective: IS CURRENTLY BEING TREATED FOR UTI, PNEUMONIA, SEPSIS, ANEMIA, AMS, AND HYPOALBUMINEMIA. SHE HAS RECEIVED 1 UNIT OF PRBC SINCE ADMISSION. TODAY, SHE IS ALERT, LYING IN BED ON MORNING ROUNDS. SHE IS ORIENTED TO PERSON, PLACE, AND SITUATION. SHE CONTINUES WITH COMPLAINTS OF SHORTNESS OF BREATH AT TIMES AND WEAKNESS. SHE IS CURRENTLY UTILIZING OXYGEN VIA NASAL CANNULA AT 4-5 LPM THIS MORNING. SHE HAS BEEN ABLE TO TAKE HER ORAL MEDICATIONS. ON EXAMINATION, HEART IS REGULAR IN RATE AND RHYTHM. BILATERAL LUNGS NOTED WITH SCATTERED RHONCHI, DIMINISHED. ABDOMEN IS ROUND, SOFT, AND NON-TENDER WITH NORMAL BOWEL SOUNDS NOTED IN ALL QUADRANTS. THERE IS AN OPEN WOUND TO THE FOLD OF RIGHT BUTTOCK. DRESSING IS CURRENTLY DRY AND INTACT. HER VITALS THIS MORNING ARE: 97.8-100-20-97%-117/68. LABS WERE OBTAINED. WBC 12.4, HGB 11.2, HCT 33.6, SODIUM 138, POTASSIUM 3.2, BUN 27, CREATININE 0.79, GLUCOSE 169, CALCIUM 8.8, AST 12, CRP 64.20, BNP 291. WOUND CULTURES REPORT GROWTH OF E.COLI AND PROTEUS MIRABILIS. URINE CULTURE FROM HER 08/12 ER VISIT REPORTS GROWTH OF E.COLI. A CHEST XRAY WAS OBTAINED AND REVEALED: No change bilateral lung infiltrates and areas of consolidation. SHE IS CURRENTLY RECEIVING NORMAL SALINE AT 80 ML/HR, INVANZ 1G IV DAILY, CIPRO 400MG IV Q12H, SOLU-MEDROL 40MG IV Q8H, LASIX 20MG IV BID, ALBUMIN 25% IV DAILY, XOPENEX NEBS TID, PULMICORT NEBS BID, AND HER HOME ME DICATIONS WERE RESUMED. WE WILL CONTINUE WITH CURRENT PLAN OF CARE TODAY. PLANS TO TAKE HER TO THE OR FOR DEBRIDEMENT OF WOUNDS. WE ARE IN AGREEMTN WITH PLANS. OTHERWISE, WE PLAN TO FOLLOW UP WITH AM LABS AND CHEST XRAY AND CONTINUE TO MONITOR. TIME SPENT ON CLINICAL ASSESSMENT, REVIEWING LABS AND IMAGING, DECISION MAKING, AND DOCUMENTATION GREATER THAN 45 MINUTES. - Past Medical Family Social History Past Med/Fam/Surg Hx: No changes since H&P Allergies: Allergies quetiapine [From Seroquel] Allergy (Verified 08/13/21 14:56) aripiprazole [From Abilify] Adverse Reaction (Verified 08/13/21 14:56) bupropion [From Wellbutrin] Adverse Reaction (Verified 08/13/21 14:56) donepezil [From Aricept] Adverse Reaction (Verified 08/13/21 14:56) moxifloxacin [From Avelox] Adverse Reaction (Verified 08/13/21 14:56) olanzapine [From Zyprexa] Adverse Reaction (Verified 08/13/21 14:56) promethazine [From Phenergan] Adverse Reaction (Verified 08/13/21 14:56) venlafaxine [From Effexor] Adverse Reaction (Verified 08/13/21 14:56) - Review of Systems ROS: No change since H&P - Vital Signs and I&O's Vital Signs: Temperature 97.8 F Pulse Rate [Left Brachial] 104 Pulse Rate [Right] 101 Pulse Rate 92 Respiratory Rate 20 Blood Pressure [Right Arm] 136/83 Blood Pressure [Left Arm] 117/68 Blood Pressure 182/85 O2 Sat by Pulse Oximetry 95 Intake and Output: Intake & Output 08/17/21 08/18/21 08/19/21 08/20/21 11:59 11:59 11:59 11:59 Intake Total 1382 / 1382 1545 / 1545 1839 / 1839 Balance 1382 / 1382 1545 / 1545 1839 / 1839 - Physical Exam Oriented: Person, Place Eyes: Normal Ear: Normal Nose: Normal Throat: Normal Respiratory: Diminished, Rhonchi Cardiovascular: Normal : Dysuria Auscultation: Bowel Sounds: Normal Palpation: Normal Tenderness: Normal Skin: Normal Musculoskeletal: Normal Psychiatric: Normal Mood Description: Calm Affect: Normal Speech Pattern: Appropriate - Laboratory and Diagnostics Result Diagrams: 08/19/21 05:50 08/19/21 05:50 Labs: 08/13/21 15:45 Blood Blood Culture - Final 08/13/21 15:39 Blood Blood Culture - Final 08/13/21 18:47 Buttock Wound Gram Stain - Final 08/13/21 18:47 Buttock Wound Culture - Final Escherichia Coli Proteus Mirabilis Laboratory WBC 12.4 X10^3/uL (3.6-10.0) H 08/19/21 05:50 RBC 4.29 X10^6/uL (3.5-5.4) 08/19/21 05:50 Hgb 11.2 g/dL (12.0-16.0) L 08/19/21 05:50 Hct 33.6 % (36.0-47.0) L 08/19/21 05:50 MCV 78.3 fL (80.0-100.0) L 08/19/21 05:50 MCH 26.1 pg (27.0-34.0) L 08/19/21 05:50 MCHC 33.3 g/dL (33.0-35.0) 08/19/21 05:50 RDW 23.7 % (11.6-16.5) H 08/19/21 05:50 Plt Count 348 X10^3/uL (150.0-450.0) 08/19/21 05:50 Plt Count Comment Adequate (ADEQUATE) 08/19/21 05:50 MPV 8.1 fL (7.4-11.0) 08/19/21 05:50 Neut % (Auto) 80.8 % (42.0-75.0) H 08/19/21 05:50 Lymph % (Auto) 11.8 % (21.0-51.0) L 08/19/21 05:50 Alfalfa % (Auto) 7.2 % (0.0-13.0) 08/19/21 05:50 Eos % (Auto) 0.0 % (0.9-2.9) L 08/19/21 05:50 Baso % (Auto) 0.2 % (0.2-1.0) 08/19/21 05:50 Neut # (Auto) 10.1 x10^3/uL (2.2-4.8) H 08/19/21 05:50 Lymph # (Auto) 1.5 X10^3/uL (1.3-2.9) 08/19/21 05:50 [place]a # (Auto) 0.9 x10^3/uL (0.3-0.8) H 08/19/21 05:50 Eos # (Auto) 0.0 x10^3/uL (0.0-0.2) 08/19/21 05:50 Baso # (Auto) 0.0 X10^3/uL (0.0-0.1) 08/19/21 05:50 Absolute Nucleated RBC 0.0 /100WBC 08/19/21 05:50 Total Counted 100 08/14/21 06:01 Neutrophils % (Manual) 66 % (39-76) 08/14/21 06:01 Lymphocytes % (Manual) 23 % (13-43) 08/14/21 06:01 Monocytes % (Manual) 11 % (4-9) H 08/14/21 06:01 Plt Morphology Comment Normal (NORMAL) 08/19/21 05:50 RBC Morphology Abnormal (NORMAL) A 08/19/21 05:50 Hypochromasia Slight A 08/18/21 05:35 Anisocytosis 2+ A 08/19/21 05:50 Microcytosis Slight A 08/15/21 05:19 Target Cells Present 08/18/21 05:35 Stomatocytes Slight A 08/13/21 09:30 Sample Site Lr 08/18/21 05:03 ABG pH 7.410 (7.35-7.45) 08/18/21 05:03 ABG pCO2 47.0 mmHg (35.0-45.0) H 08/18/21 05:03 ABG pO2 119.0 mmHg (80.0-100.0) H 08/18/21 05:03 ABG HCO3 29.8 mmol/L (22-26) H 08/18/21 05:03 ABG O2 Saturation 99.0 % (90-100) 08/18/21 05:03 ABG Base Excess 4.3 mmol/L (-2.0-2.0) H 08/18/21 05:03 Satish Test Pos 08/18/21 05:03 A-a Gradient 179.0 mmHg 08/18/21 05:03 FiO2 50.0 08/18/21 05:03 Blood Gas Comments Jaye well ae 08/18/21 05:03 Sodium 138 mmol/L (136-145) 08/19/21 05:50 Corrected Sodium 140 mmol/L (136-145) 08/19/21 05:50 Potassium 3.2 mmol/L (3.5-5.1) L 08/19/21 05:50 Chloride 99 mmol/L (98-107) 08/19/21 05:50 Carbon Dioxide 27.4 mmol/L (21-32) 08/19/21 05:50 BUN 27 mg/dL (7-18) H 08/19/21 05:50 Creatinine 0.79 mg/dL (0.55-1.02) 08/19/21 05:50 Est GFR (MDRD) Af Amer > 60 (>60) 08/19/21 05:50 Est GFR (MDRD) Non-Af > 60 (>60) 08/19/21 05:50 Glucose 169 mg/dL (65-99) H 08/19/21 05:50 POC Glucose (mg/dL) 261 mg/dL (65-99) H 08/19/21 11:08 Lactic Acid 1.2 mmol/L (0.4-2.0) 08/14/21 18:55 Calcium 8.8 mg/dL (8.5-10.1) 08/19/21 05:50 Corrected Calcium TNP 08/19/21 05:50 Magnesium 1.7 mg/dL (1.7-2.9) 08/18/21 05:35 Total Bilirubin 0.40 mg/dL (0.2-1.0) 08/19/21 05:50 AST 12 Units/L (15-37) L 08/19/21 05:50 ALT 27 Units/L (12-78) 08/19/21 05:50 Alkaline Phosphatase 82 Units/L (46-116) 08/19/21 05:50 Creatine Kinase 12 Units/L (26-192) L 08/14/21 17:17 CK-MB (CK-2) < 1.0 ng/mL (0-4.0) 08/14/21 17:17 CK/CKMB % Calc 8.3 % (<4) 08/14/21 17:17 Troponin I High Sens < 4.0 ng/L (4.0-60.0) L 08/14/21 17:17 C-Reactive Protein 64.20 mg/L (0-3.0) H 08/19/21 05:50 B-Natriuretic Peptide 291 pg/mL (0-79) H 08/19/21 05:50 Total Protein 7.2 g/dL (6.4-8.2) 08/19/21 05:50 Albumin 3.7 g/dL (3.4-5.0) 08/19/21 05:50 Globulin 3.5 g/dL (2.5-4.5) 08/19/21 05:50 Albumin/Globulin Ratio 1.1 Ratio (1.1-2.1) 08/19/21 05:50 Stool Description 20g loose/mucoid brn 08/16/21 03:31 Stl Occult Blood (IFOB) Negative (NEGATIVE) 08/16/21 03:31 Blood Type O POSITIVE 08/15/21 07:07 Antibody Screen Negative 08/15/21 07:07 Crossmatch See Detail 08/15/21 07:07 - Plan (1) Pneumonia Status: Acute Qualifiers: Pneumonia type: due to unspecified organism Laterality: bilateral Lung location: unspecified part of lung Qualified Code(s): J18.9 - Pneumonia, u nspecified organism Plan: SUPPLEMENTAL OXYGEN, NORMAL SALINE AT 80 ML/HR, INVANZ 1G IV DAILY, CIPRO 400MG IV Q12H, LASIX 20MG IV Q12H, SOLU-MEDROL 40MG IV Q12H, NEBULIZER T REATMENTS, ALBUMIN 25% IV DAILY. RESUMED HOME MEDICATIONS. MONITOR DAILY LABS AND CHEST XRAY (2) Urinary tract infection Status: Acute Qualifiers: Urinary tract infection type: acute cystitis Hematuria presence: with hematuria Qualified Code(s): N30.01 - Acute cystitis with hematuria (3) Sepsis due to urinary tract infection Status: Acute (4) Altered mental status Status: Acute Qualifiers: Altered mental status type: transient alteration of awareness Qualified Code(s): R40.4 - Transient alteration of awareness (5) Hypoalbuminemia Status: Acute (6) DM II (diabetes mellitus, type II), controlled Status: Chronic Qualifiers: Diabetes mellitus intermediate designer insulin use: with long-term use Diabetes mellitus complication status: with hyperglycemia Qualified Code(s): E11.65 - Type 2 diabetes mellitus with hyperglycemia; Z79.4 - intermediate frame tender (current) use of insulin (7) CHF (congestive heart failure) Status: Chronic Qualifiers: Heart failure type: unspecified Heart failure chronicity: unspecified Qualified Code(s): I50.9 - Heart failure, unspecified
[2021-08-19] MEDS ORDERED: XYLOCAINE 1 % (PLAIN) ONE (13:13)
[2021-08-19] MEDS ORDERED: BETADINE SOLN ONE (13:27)
[2021-08-19] MEDS ORDERED: POLYMYXIN B SULFATE ONE (13:49)
[2021-08-19] MEDS ORDERED: ANCEF VIAL 1 GRAM ONE (13:49)
[2021-08-19] MEDS ORDERED: DILAUDID INJ ONE (13:50)
[2021-08-19] MEDS: LASIX IVP SCH ×2 (14:54→21:30)
[2021-08-19] MEDS: TORADOL 30 MG VIAL IVP PRN (17:44)
[2021-08-19] MEDS: SNACK - Diabetic Appropriate PO SCH (20:34)
[2021-08-19] MEDS: ZANAFLEX PO SCH (21:32)
[2021-08-19] MEDS: LIPITOR TAB 20 MG PO SCH (21:32)
[2021-08-19] MEDS: DESYREL PO SCH (21:33)
[2021-08-19] MEDS: LOVENOX INJ 40 MG SYR SC SCH (21:33)
[2021-08-20] MEDS: GENTAMICIN TOPICAL OINT TOP SCH ×2 (00:33→16:35)
[2021-08-20] MEDS: MAGNESIUM SULFATE 1 GRAM/100 mL PREMIX 1 G/100 ML BAG IV PRN ×2 (01:08→04:15)
[2021-08-20] MEDS ORDERED: GLUCOPHAGE ONE ×2 (04:37→16:30)
[2021-08-20] MEDS: SOLU-Medrol 40 MG VIAL IVP SCH ×3 (05:25→21:25)
[2021-08-20] MEDS: NovoLIN R (or HumuLIN R) SUBCUT PRN ×2 (05:43→12:08)
[2021-08-20] MEDS: XOPENEX 1.25 MG/3 ML NEBULE NEB SCH ×3 (05:45→20:06)
[2021-08-20] MEDS: GLUCOPHAGE PO SCH ×2 (06:19→16:39)
[2021-08-20 06:25] LABS: BASOPHILS % (AUTO) 0.1 % (0.2-1.0); HEMOGLOBIN 11.2 g/dL (12.0-16.0); LYMPHOCYTES # (AUTO) 1.5 X10^3/uL (1.3-2.9); LYMPHOCYTES % (AUTO) 15.9 % (21.0-51.0); MEAN CORPUSCULAR HGB CONC 33.1 g/dL (33.0-35.0); MEAN CORPUSCULAR VOLUME 78.6 fL (80.0-100.0); MEAN PLATELET VOLUME 8.1 fL (7.4-11.0); MONOCYTES # (AUTO) 0.8 x10^3/uL (0.3-0.8); MONOCYTES % (AUTO) 8.8 % (0.0-13.0); NEUTROPHILS % (AUTO) 75.2 % (42.0-75.0); RED BLOOD COUNT 4.33 X10^6/uL (3.5-5.4); RED CELL DISTRIBUTION WIDTH 24.2 % (11.6-16.5); WHITE BLOOD COUNT 9.3 X10^3/uL (3.6-10.0)
[2021-08-20 06:40] LABS: ALANINE AMINOTRANSFERASE 21 Units/L (12-78); ALBUMIN 3.9 g/dL (3.4-5.0); ALKALINE PHOSPHATASE 78 Units/L (46-116); ASPARTATE AMINO TRANSFERASE 10 Units/L (15-37); BLOOD UREA NITROGEN 25 mg/dL (7-18); CALCIUM 8.8 mg/dL (8.5-10.1); CHLORIDE 99 mmol/L (98-107); COR NA(FOR HYPERGLY) 141 mmol/L (136-145); CREATININE 0.79 mg/dL (0.55-1.02); SODIUM 138 mmol/L (136-145); TOTAL PROTEIN 7.1 g/dL (6.4-8.2); eGFR NON BLACK RACES > 60 (>60)
[2021-08-20 07:21] LABS: ANISOCYTOSIS 3+; PLATELET MORPHOLOGY COMMENT NORMAL (NORMAL); TARGET CELLS PRESENT
[2021-08-20] MEDS: PULMICORT NEB TX 0.5 MG NEB SCH ×2 (08:50→20:06)
--- NOTE | 2021-08-20 08:52 | DR.PROGNOT ---
Hospital Progress Notes - Progress Note for Day of: Progress Note Date: 08/20/21 - Chief Complaint Chief Complaint: s/p debridement of Lt hip ulcer . doing fairly well . - Past Medical Family Social History Past Med/Fam/Surg Hx: No changes since H&P Allergies: Allergies quetiapine [From Seroquel] Allergy (Verified 08/13/21 14:56) aripiprazole [From Abilify] Adverse Reaction (Verified 08/13/21 14:56) bupropion [From Wellbutrin] Adverse Reaction (Verified 08/13/21 14:56) donepezil [From Aricept] Adverse Reaction (Verified 08/13/21 14:56) moxifloxacin [From Avelox] Adverse Reaction (Verified 08/13/21 14:56) olanzapine [From Zyprexa] Adverse Reaction (Verified 08/13/21 14:56) promethazine [From Phenergan] Adverse Reaction (Verified 08/13/21 14:56) venlafaxine [From Effexor] Adverse Reaction (Verified 08/13/21 14:56) - Review Of Systems ROS: No change since H&P - Vital Signs Vital Signs: Temperature 97.9 F Pulse Rate [Left Brachial] 93 Pulse Rate [Right] 101 Pulse Rate 111 Respiratory Rate 18 Blood Pressure [Right Arm] 139/84 Blood Pressure [Left Arm] 158/84 Blood Pressure 173/93 O2 Sat by Pulse Oximetry 100 - Physical Exam Oriented: Person, Place Eyes: Normal Ear: Normal Nose: Normal Throat: Normal Respiratory: Diminished, Rhonchi Cardiovascular: Normal : Dysuria GI:Auscultation: Normal GI:Palpation: Normal GI: Tenderness: Normal Skin: Normal, Other (decubitus ulcer Lt hip 2 x 2 cm and 2 cm deep ) Musculoskeletal: Normal Psychiatric: Normal Mood Description: Calm Affect: Normal Speech Pattern: Appropriate - Laboratory and Diagnostics Result Diagrams: 08/20/21 05:35 08/20/21 05:35 Labs: 08/19/21 14:11 Hip - Left Wound Gram Stain - Final 08/13/21 15:45 Blood Blood Culture - Final 08/13/21 15:39 Blood Blood Culture - Final 08/13/21 18:47 Buttock Wound Gram Stain - Final 08/13/21 18:47 Buttock Wound Culture - Final Escherichia Coli Proteus Mirabilis Laboratory WBC 9.3 X10^3/uL (3.6-10.0) 08/20/21 05:35 RBC 4.33 X10^6/uL (3.5-5.4) 08/20/21 05:35 Hgb 11.2 g/dL (12.0-16.0) L 08/20/21 05:35 Hct 34.0 % (36.0-47.0) L 08/20/21 05:35 MCV 78.6 fL (80.0-100.0) L 08/20/21 05:35 MCH 26.0 pg (27.0-34.0) L 08/20/21 05:35 MCHC 33.1 g/dL (33.0-35.0) 08/20/21 05:35 RDW 24.2 % (11.6-16.5) H 08/20/21 05:35 Plt Count 338 X10^3/uL (150.0-450.0) 08/20/21 05:35 Plt Count Comment Adequate (ADEQUATE) 08/20/21 05:35 MPV 8.1 fL (7.4-11.0) 08/20/21 05:35 Neut % (Auto) 75.2 % (42.0-75.0) H 08/20/21 05:35 Lymph % (Auto) 15.9 % (21.0-51.0) L 08/20/21 05:35 [place] % (Auto) 8.8 % (0.0-13.0) 08/20/21 05:35 Eos % (Auto) 0.0 % (0.9-2.9) L 08/20/21 05:35 Baso % (Auto) 0.1 % (0.2-1.0) L 08/20/21 05:35 Neut # (Auto) 7.0 x10^3/uL (2.2-4.8) H 08/20/21 05:35 Lymph # (Auto) 1.5 X10^3/uL (1.3-2.9) 08/20/21 05:35 [place] # (Auto) 0.8 x10^3/uL (0.3-0.8) 08/20/21 05:35 Eos # (Auto) 0.0 x10^3/uL (0.0-0.2) 08/20/21 05:35 Baso # (Auto) 0.0 X10^3/uL (0.0-0.1) 08/20/21 05:35 Absolute Nucleated RBC 0.2 /100WBC 08/20/21 05:35 Total Counted 100 08/14/21 06:01 Neutrophils % (Manual) 66 % (39-76) 08/14/21 06:01 Lymphocytes % (Manual) 23 % (13-43) 08/14/21 06:01 Monocytes % (Manual) 11 % (4-9) H 08/14/21 06:01 Plt Morphology Comment Normal (NORMAL) 08/20/21 05:35 RBC Morphology Abnormal (NORMAL) A 08/20/21 05:35 Hypochromasia Slight A 08/18/21 05:35 Anisocytosis 3+ A 08/20/21 05:35 Microcytosis Slight A 08/15/21 05:19 Target Cells Present 08/20/21 05:35 Stomatocytes Slight A 08/13/21 09:30 Sample Site Lr 08/18/21 05:03 ABG pH 7.410 (7.35-7.45) 08/18/21 05:03 ABG pCO2 47.0 mmHg (35.0-45.0) H 08/18/21 05:03 ABG pO2 119.0 mmHg (80.0-100.0) H 08/18/21 05:03 ABG HCO3 29.8 mmol/L (22-26) H 08/18/21 05:03 ABG O2 Saturation 99.0 % (90-100) 08/18/21 05:03 ABG Base Excess 4.3 mmol/L (-2.0-2.0) H 08/18/21 05:03 Satish Test Pos 08/18/21 05:03 A-a Gradient 179.0 mmHg 08/18/21 05:03 FiO2 50.0 08/18/21 05:03 Blood Gas Comments Jaye well ae 08/18/21 05:03 Sodium 138 mmol/L (136-145) 08/20/21 05:35 Corrected Sodium 141 mmol/L (136-145) 08/20/21 05:35 Potassium 3.1 mmol/L (3.5-5.1) L 08/20/21 05:35 Chloride 99 mmol/L (98-107) 08/20/21 05:35 Carbon Dioxide 31.0 mmol/L (21-32) 08/20/21 05:35 BUN 25 mg/dL (7-18) H 08/20/21 05:35 Creatinine 0.79 mg/dL (0.55-1.02) 08/20/21 05:35 Est GFR (MDRD) Af Amer > 60 (>60) 08/20/21 05:35 Est GFR (MDRD) Non-Af > 60 (>60) 08/20/21 05:35 Glucose 219 mg/dL (65-99) H 08/20/21 05:35 POC Glucose (mg/dL) 195 mg/dL (65-99) H 08/20/21 05:20 Lactic Acid 1.2 mmol/L (0.4-2.0) 08/14/21 18:55 Calcium 8.8 mg/dL (8.5-10.1) 08/20/21 05:35 Corrected Calcium TNP 08/20/21 05:35 Magnesium 2.1 mg/dL (1.7-2.9) 08/20/21 05:35 Total Bilirubin 0.50 mg/dL (0.2-1.0) 08/20/21 05:35 AST 10 Units/L (15-37) L 08/20/21 05:35 ALT 21 Units/L (12-78) 08/20/21 05:35 Alkaline Phosphatase 78 Units/L (46-116) 08/20/21 05:35 Creatine Kinase 12 Units/L (26-192) L 08/14/21 17:17 CK-MB (CK-2) < 1.0 ng/mL (0-4.0) 08/14/21 17:17 CK/CKMB % Calc 8.3 % (<4) 08/14/21 17:17 Troponin I High Sens < 4.0 ng/L (4.0-60.0) L 08/14/21 17:17 C-Reactive Protein 44.30 mg/L (0-3.0) H 08/20/21 05:35 B-Natriuretic Peptide 302 pg/mL (0-79) H 08/20/21 05:35 Total Protein 7.1 g/dL (6.4-8.2) 08/20/21 05:35 Albumin 3.9 g/dL (3.4-5.0) 08/20/21 05:35 Globulin 3.2 g/dL (2.5-4.5) 08/20/21 05:35 Albumin/Globulin Ratio 1.2 Ratio (1.1-2.1) 08/20/21 05:35 Stool Description 20g loose/mucoid brn 08/16/21 03:31 Stl Occult Blood (IFOB) Negative (NEGATIVE) 08/16/21 03:31 Tissue Pathology To follow 08/19/21 14:16 Blood Type O POSITIVE 08/15/21 07:07 Antibody Screen Negative 08/15/21 07:07 Crossmatch See Detail 08/15/21 07:07 - Assessment and Plan 1: Lt hip decubitus ulcer s/p excisional debridement . same local care with packing with Iodoform daily .. to follow as out Pt .. future wound Vac - Problem Patient Problems: Patient Problems Altered mental status (Acute) R41.82 CHF (congestive heart failure) (Chronic) I50.9 Pneumonia (Acute) J18.9 Urinary tract infection (Acute) N39.0 Sepsis due to urinary tract infection (Acute) A41.9, N39.0 Hypoalbuminemia (Acute) E88.09 DM II (diabetes mellitus, type II), controlled (Chronic) E11.9
[2021-08-20] MEDS: ZyrTEC TAB 10 MG PO SCH (08:55)
[2021-08-20] MEDS: TAB-A-VITE PO SCH (08:55)
[2021-08-20] MEDS: ZOLOFT PO SCH (08:55)
[2021-08-20] MEDS: PROVERA PO SCH (08:56)
[2021-08-20] MEDS: CIPRO IV 400 MG PREMIX* 400 MG/200 ML IV.SOLN. IV SCH ×2 (08:56→21:15)
[2021-08-20] MEDS: ASTELIN NASAL SPRAY ENOSTRIL SCH (08:56)
[2021-08-20] MEDS: POTASSIUM CHLORIDE LIQ 20 MEQ UDC PO SCH (08:56)
[2021-08-20] MEDS: VITAMIN C PO SCH (08:56)
[2021-08-20] MEDS: VSL#3 PO SCH (08:57)
[2021-08-20] MEDS: ULTRAM PO SCH ×2 (08:57→21:20)
[2021-08-20] MEDS: RisperDAL TAB 1 MG PO SCH ×3 (08:57→21:20)
[2021-08-20] MEDS: THERMOTABS PO SCH ×4 (08:58→21:15)
[2021-08-20] MEDS: COLACE CAP 100 MG PO SCH ×2 (08:58→21:15)
[2021-08-20] MEDS: ZINC SULFATE PO SCH (08:58)
[2021-08-20] MEDS: XANAX PO SCH ×2 (08:58→21:20)
[2021-08-20] MEDS: DEPAKOTE D.R. TAB PO SCH ×2 (08:58→21:15)
[2021-08-20] MEDS: FLONASE NASAL SPRAY ENOSTRIL SCH ×2 (08:59→21:15)
[2021-08-20] MEDS: XALATAN OP SCH ×2 (09:00→21:20)
[2021-08-20] MEDS: INVanz INJ 1 GRAM VIAL 1 G in NS 100 ML IV 100 ML IV SCH (10:16)
--- NOTE | 2021-08-20 11:28 | RAD ---
HISTORYPNEUMONIASTUDYCHEST x-ray, 1 VIEWCOMPARISONX-ray 08/19/2021FINDINGSBilateral lung infiltrates persist. Moderate to large left pleural effusion is unchanged. There is probable cardiomegaly and CHF. No right pleural effusion or pneumothorax is seen.IMPRESSIONAppearance of the chest is unchanged.Electronically signed by: Rajinder Pham (Aug 20, 2021 11:28:34)
[2021-08-20] MEDS: ALBUMIN HUMAN 25%- 100 ML 100 ML IV SCH (11:40)
[2021-08-20] MEDS: LASIX IVP SCH ×2 (11:45→22:34)
[2021-08-20] MEDS: BENADRYL INJ 50 MG VIAL IVP PRN (12:27)
[2021-08-20] MEDS: LIPITOR TAB 20 MG PO SCH (21:15)
[2021-08-20] MEDS: SNACK - Diabetic Appropriate PO SCH (21:15)
[2021-08-20] MEDS: DESYREL PO SCH (21:15)
[2021-08-20] MEDS: LOVENOX INJ 40 MG SYR SC SCH (21:20)
[2021-08-20] MEDS: ZANAFLEX PO SCH (21:20)
[2021-08-21] MEDS ORDERED: GLUCOPHAGE ONE ×2 (04:37→17:26)
[2021-08-21] MEDS: NS 1,000 ML IV 1,000 ML IV SCH ×5 (04:44→20:38)
[2021-08-21] MEDS: SOLU-Medrol 40 MG VIAL IVP SCH ×3 (05:55→21:04)
[2021-08-21] MEDS: XOPENEX 1.25 MG/3 ML NEBULE NEB SCH ×3 (06:11→20:45)
--- NOTE | 2021-08-21 06:25 | RAD ---
HISTORYPNEUMONIASTUDYCHEST, 1 [id number]/25/2022FINDINGSThe trachea is midline. The cardiac silhouette is enlarged similar to the comparison study. There are patchy interstitial and airspace opacities throughout both lungs with left basilar consolidation and likely underlying left pleural effusion. The bony structures are grossly unchanged.IMPRESSIONUnchanged exam compared with the previous day.Electronically signed by: HILARIO MCFADDEN (Aug 21, 2021 06:24:44)
[2021-08-21] MEDS: GLUCOPHAGE PO SCH ×2 (06:35→17:46)
[2021-08-21 07:02] LABS: BASOPHILS % (AUTO) 0.1 % (0.2-1.0); HEMOGLOBIN 11.1 g/dL (12.0-16.0); LYMPHOCYTES # (AUTO) 2.3 X10^3/uL (1.3-2.9)
[2021-08-21 07:10] LABS: HEMATOCRIT 33.3 % (36.0-47.0); LYMPHOCYTES % (AUTO) 19.4 % (21.0-51.0); MEAN CORPUSCULAR HEMOGLOBIN 25.9 pg (27.0-34.0); MEAN CORPUSCULAR HGB CONC 33.3 g/dL (33.0-35.0); MEAN CORPUSCULAR VOLUME 77.9 fL (80.0-100.0); MONOCYTES % (AUTO) 8.7 % (0.0-13.0); NEUTROPHILS # (AUTO) 8.6 x10^3/uL (2.2-4.8); NEUTROPHILS % (AUTO) 71.8 % (42.0-75.0); RED BLOOD COUNT 4.28 X10^6/uL (3.5-5.4); RED CELL DISTRIBUTION WIDTH 24.2 % (11.6-16.5)
[2021-08-21 07:17] LABS: ALANINE AMINOTRANSFERASE 19 Units/L (12-78); ALKALINE PHOSPHATASE 77 Units/L (46-116); ASPARTATE AMINO TRANSFERASE 11 Units/L (15-37); BLOOD UREA NITROGEN 22 mg/dL (7-18); CALCIUM 8.8 mg/dL (8.5-10.1); CARBON DIOXIDE 33.7 mmol/L (21-32); CHLORIDE 95 mmol/L (98-107); COR NA(FOR HYPERGLY) 140 mmol/L (136-145); CREATININE 0.75 mg/dL (0.55-1.02); SODIUM 138 mmol/L (136-145); TOTAL PROTEIN 7.2 g/dL (6.4-8.2); eGFR NON BLACK RACES > 60 (>60)
[2021-08-21] MEDS: PULMICORT NEB TX 0.5 MG NEB SCH ×2 (08:50→20:45)
[2021-08-21 08:51] LABS: ANISOCYTOSIS 3+; PLATELET MORPHOLOGY COMMENT NORMAL (NORMAL); STOMATOCYTES SLIGHT; TARGET CELLS 1+
[2021-08-21] MEDS: ALBUMIN HUMAN 25%- 100 ML 100 ML IV SCH (09:18)
[2021-08-21] MEDS: ASTELIN NASAL SPRAY ENOSTRIL SCH (09:18)
[2021-08-21] MEDS: DEPAKOTE D.R. TAB PO SCH ×2 (09:19→20:44)
[2021-08-21] MEDS: COLACE CAP 100 MG PO SCH ×2 (09:19→20:44)
[2021-08-21] MEDS: CIPRO IV 400 MG PREMIX* 400 MG/200 ML IV.SOLN. IV SCH ×2 (09:19→20:39)
[2021-08-21] MEDS: FLONASE NASAL SPRAY ENOSTRIL SCH ×2 (09:20→20:45)
[2021-08-21] MEDS: INVanz INJ 1 GRAM VIAL 1 G in NS 100 ML IV 100 ML IV SCH (09:20)
[2021-08-21] MEDS: POTASSIUM CHLORIDE LIQ 20 MEQ UDC PO SCH (09:21)
[2021-08-21] MEDS: THERMOTABS PO SCH ×4 (09:21→20:43)
[2021-08-21] MEDS: TAB-A-VITE PO SCH (09:21)
[2021-08-21] MEDS: PROVERA PO SCH (09:21)
[2021-08-21] MEDS: RisperDAL TAB 1 MG PO SCH ×3 (09:21→20:58)
[2021-08-21] MEDS: ULTRAM PO SCH ×2 (09:22→20:42)
[2021-08-21] MEDS: VSL#3 PO SCH (09:22)
[2021-08-21] MEDS: VITAMIN C PO SCH (09:22)
[2021-08-21] MEDS: XANAX PO SCH ×2 (09:23→20:44)
[2021-08-21] MEDS: ZINC SULFATE PO SCH (09:23)
[2021-08-21] MEDS: ZOLOFT PO SCH (09:23)
[2021-08-21] MEDS: XALATAN OP SCH ×2 (09:23→20:46)
[2021-08-21] MEDS: ZyrTEC TAB 10 MG PO SCH (09:24)
[2021-08-21] MEDS: LASIX IVP SCH ×2 (11:16→22:28)
[2021-08-21] MEDS: NovoLIN R (or HumuLIN R) SUBCUT PRN ×3 (11:40→20:40)
[2021-08-21] MEDS: LOVENOX INJ 40 MG SYR SC SCH (20:39)
[2021-08-21] MEDS: SNACK - Diabetic Appropriate PO SCH (20:39)
[2021-08-21] MEDS: DESYREL PO SCH (20:42)
[2021-08-21] MEDS: LIPITOR TAB 20 MG PO SCH (20:42)
[2021-08-21] MEDS: ZANAFLEX PO SCH (20:44)
[2021-08-21] MEDS: KLOR-CON PO PRN (22:28)
[2021-08-22] MEDS ORDERED: GLUCOPHAGE ONE ×2 (05:11→16:38)
[2021-08-22] MEDS: SOLU-Medrol 40 MG VIAL IVP SCH ×3 (05:48→21:21)
[2021-08-22] MEDS: NovoLIN R (or HumuLIN R) SUBCUT PRN ×4 (05:50→21:22)
[2021-08-22] MEDS: XOPENEX 1.25 MG/3 ML NEBULE NEB SCH ×3 (06:20→20:26)
[2021-08-22 06:36] LABS: BASOPHILS % (AUTO) 0.2 % (0.2-1.0); EOSINOPHILS % (AUTO) 0.1 % (0.9-2.9); HEMATOCRIT 32.6 % (36.0-47.0); HEMOGLOBIN 10.7 g/dL (12.0-16.0); LYMPHOCYTES # (AUTO) 1.8 X10^3/uL (1.3-2.9); LYMPHOCYTES % (AUTO) 12.9 % (21.0-51.0); MEAN CORPUSCULAR HEMOGLOBIN 25.8 pg (27.0-34.0); MEAN CORPUSCULAR HGB CONC 32.7 g/dL (33.0-35.0); MEAN CORPUSCULAR VOLUME 78.8 fL (80.0-100.0); MEAN PLATELET VOLUME 8.5 fL (7.4-11.0); NEUTROPHILS % (AUTO) 79.8 % (42.0-75.0); RED BLOOD COUNT 4.14 X10^6/uL (3.5-5.4); RED CELL DISTRIBUTION WIDTH 24.5 % (11.6-16.5); WHITE BLOOD COUNT 13.8 X10^3/uL (3.6-10.0)
[2021-08-22] MEDS: GLUCOPHAGE PO SCH ×2 (06:43→16:46)
[2021-08-22 07:02] LABS: ALANINE AMINOTRANSFERASE 16 Units/L (12-78); ALKALINE PHOSPHATASE 73 Units/L (46-116); ASPARTATE AMINO TRANSFERASE 10 Units/L (15-37); BLOOD UREA NITROGEN 25 mg/dL (7-18); CALCIUM 8.5 mg/dL (8.5-10.1); CHLORIDE 96 mmol/L (98-107); COR NA(FOR HYPERGLY) 141 mmol/L (136-145); CREATININE 0.87 mg/dL (0.55-1.02); SODIUM 138 mmol/L (136-145); eGFR NON BLACK RACES > 60 (>60)
[2021-08-22 07:45] LABS: ANISOCYTOSIS 3+; PLATELET MORPHOLOGY COMMENT NORMAL (NORMAL); TARGET CELLS FEW
[2021-08-22] MEDS: NS 1,000 ML IV 1,000 ML IV SCH ×2 (08:37→21:18)
[2021-08-22] MEDS: ALBUMIN HUMAN 25%- 100 ML 100 ML IV SCH (08:37)
[2021-08-22] MEDS: CIPRO IV 400 MG PREMIX* 400 MG/200 ML IV.SOLN. IV SCH ×2 (08:38→21:14)
[2021-08-22] MEDS: COLACE CAP 100 MG PO SCH ×2 (08:38→21:15)
[2021-08-22] MEDS: DEPAKOTE D.R. TAB PO SCH ×2 (08:38→21:15)
[2021-08-22] MEDS: ASTELIN NASAL SPRAY ENOSTRIL SCH (08:38)
[2021-08-22] MEDS: FLONASE NASAL SPRAY ENOSTRIL SCH ×2 (08:40→21:17)
[2021-08-22] MEDS: POTASSIUM CHLORIDE LIQ 20 MEQ UDC PO SCH (08:40)
[2021-08-22] MEDS: INVanz INJ 1 GRAM VIAL 1 G in NS 100 ML IV 100 ML IV SCH (08:40)
[2021-08-22] MEDS: THERMOTABS PO SCH ×4 (08:41→21:19)
[2021-08-22] MEDS: ULTRAM PO SCH ×2 (08:41→21:16)
[2021-08-22] MEDS: RisperDAL TAB 1 MG PO SCH ×3 (08:41→21:19)
[2021-08-22] MEDS: PROVERA PO SCH (08:41)
[2021-08-22] MEDS: TAB-A-VITE PO SCH (08:41)
[2021-08-22] MEDS: VSL#3 PO SCH (08:42)
[2021-08-22] MEDS: VITAMIN C PO SCH (08:42)
[2021-08-22] MEDS: ZINC SULFATE PO SCH (08:43)
[2021-08-22] MEDS: XANAX PO SCH ×2 (08:43→21:16)
[2021-08-22] MEDS: XALATAN OP SCH ×2 (08:43→21:20)
[2021-08-22] MEDS: ZOLOFT PO SCH (08:43)
[2021-08-22] MEDS: ZyrTEC TAB 10 MG PO SCH (08:44)
[2021-08-22] MEDS: PULMICORT NEB TX 0.5 MG NEB SCH ×2 (09:15→20:26)
[2021-08-22] MEDS: LASIX IVP SCH ×2 (12:09→22:00)
[2021-08-22] MEDS: TORADOL 30 MG VIAL IVP PRN (18:15)
[2021-08-22 19:03] LABS: CKMB % 2.6 % (<4); CREATINE KINASE 39 Units/L (26-192); CREATINE KINASE MB < 1.0 ng/mL (0-4.0)
[2021-08-22] MEDS: SNACK - Diabetic Appropriate PO SCH (20:06)
[2021-08-22] MEDS: LIPITOR TAB 20 MG PO SCH (21:15)
[2021-08-22] MEDS: DESYREL PO SCH (21:15)
[2021-08-22] MEDS: ZANAFLEX PO SCH (21:16)
[2021-08-22] MEDS: LOVENOX INJ 40 MG SYR SC SCH (21:17)
[2021-08-22 23:46] LABS: ABG BASE EXCESS 12.7 mmol/L (-2.0-2.0)
[2021-08-22 23:47] LABS: ABG ALLEN TEST POS; ABG HCO3 39.6 mmol/L (22-26)
--- NOTE | 2021-08-23 00:26 | RAD ---
EXAM: CHEST X-RAYHISTORY: Hypoxia. Diminished breath sounds.TECHNIQUE: AP CXR dated August 22, 2021 at 11:56 PM.COMPARISON: CXR dated August 21, 2021.FINDINGS:There is evidence for cardiomegaly. There is again evidence for severe diffuse bilateral lung infiltrates, especially prominent in the left middle and lower lung davila, in keeping with severe cardiogenic or noncardiogenic pulmonary edema and/or severe bilateral acute multilobar pneumonia.There is increased opacity in the left lower lung field with loss of definition of the left hemidiaphragm in keeping with consolidative infiltrate and/or pleural effusion. There is no pneumothorax seen. The visualized bony structures are within normal limits.IMPRESSION:1. Again evidence for severe diffuse bilateral lung infiltrates, especially prominent in the left middle and lower lung davila, in keeping with severe cardiogenic or noncardiogenic pulmonary edema and/or severe bilateral acute multilobar pneumonia (left pleural effusion may be present). Overall, mild progression of infiltrates noted.2. Recommend clinical correlation and appropriate follow-up CXR evaluation (consider CT) to assess interval change as clinically warranted.Electronically signed by: Naomi Muro (Aug 23, 2021 00:26:36)
[2021-08-23] MEDS: XOPENEX 1.25 MG/3 ML NEBULE NEB SCH ×3 (05:14→20:21)
[2021-08-23] MEDS ORDERED: GLUCOPHAGE ONE ×2 (05:54→17:50)
[2021-08-23 06:18] LABS: BASOPHILS % (AUTO) 0.1 % (0.2-1.0); HEMATOCRIT 34.5 % (36.0-47.0); HEMOGLOBIN 11.3 g/dL (12.0-16.0); LYMPHOCYTES # (AUTO) 1.3 X10^3/uL (1.3-2.9); LYMPHOCYTES % (AUTO) 5.1 % (21.0-51.0); MEAN CORPUSCULAR HEMOGLOBIN 25.7 pg (27.0-34.0); MEAN CORPUSCULAR HGB CONC 32.7 g/dL (33.0-35.0); MEAN CORPUSCULAR VOLUME 78.6 fL (80.0-100.0); MEAN PLATELET VOLUME 8.3 fL (7.4-11.0); MONOCYTES # (AUTO) 1.3 x10^3/uL (0.3-0.8); MONOCYTES % (AUTO) 5.1 % (0.0-13.0); NEUTROPHILS # (AUTO) 22.7 x10^3/uL (2.2-4.8); NEUTROPHILS % (AUTO) 89.7 % (42.0-75.0); RED BLOOD COUNT 4.39 X10^6/uL (3.5-5.4); RED CELL DISTRIBUTION WIDTH 24.7 % (11.6-16.5)
[2021-08-23] MEDS: SOLU-Medrol 40 MG VIAL IVP SCH ×3 (06:20→22:39)
[2021-08-23] MEDS: GLUCOPHAGE PO SCH ×2 (06:21→17:29)
[2021-08-23] MEDS: NovoLIN R (or HumuLIN R) SUBCUT PRN ×2 (06:21→17:30)
[2021-08-23 06:36] LABS: ALANINE AMINOTRANSFERASE 22 Units/L (12-78); ALBUMIN 4.2 g/dL (3.4-5.0); ALKALINE PHOSPHATASE 99 Units/L (46-116); ASPARTATE AMINO TRANSFERASE 19 Units/L (15-37); BLOOD UREA NITROGEN 26 mg/dL (7-18); CALCIUM 8.7 mg/dL (8.5-10.1); CARBON DIOXIDE 33.2 mmol/L (21-32); CHLORIDE 97 mmol/L (98-107); COR NA(FOR HYPERGLY) 140 mmol/L (136-145); CREATININE 0.69 mg/dL (0.55-1.02); SODIUM 138 mmol/L (136-145); TOTAL PROTEIN 7.5 g/dL (6.4-8.2); eGFR NON BLACK RACES > 60 (>60)
[2021-08-23 06:49] LABS: WHITE BLOOD COUNT 25.4 X10^3/uL (3.6-10.0)
[2021-08-23 06:52] LABS: ANISOCYTOSIS 3+; HYPOCHROMASIA SLIGHT; MICROCYTOSIS SLIGHT; PLATELET MORPHOLOGY COMMENT NORMAL (NORMAL); TARGET CELLS PRESENT
--- NOTE | 2021-08-23 07:32 | RAD ---
HISTORYShortness of breathSTUDYChest AP [id number]/27/2022FINDINGSPati ent is rotated to the left. Heart remains enlarged. Bilateral perihilar alveolar filling has increased even considering a difference in film technique. Findings suggest worsening congestive heart failure. Left pleural effusion likely present also. Bony thorax is unremarkable.IMPRESSIONCardiomegaly with worsening congestive heart failureElectronically signed by: JOAN MARTINO (Aug 23, 2021 07:31:46)
[2021-08-23] MEDS: ALBUMIN HUMAN 25%- 100 ML 100 ML IV SCH ×2 (07:48→08:11)
[2021-08-23] MEDS: XANAX PO SCH ×3 (07:56→20:30)
[2021-08-23] MEDS: ZyrTEC TAB 10 MG PO SCH (07:59)
[2021-08-23] MEDS: PROVERA PO SCH (07:59)
[2021-08-23] MEDS: DEPAKOTE D.R. TAB PO SCH ×2 (07:59→20:29)
[2021-08-23] MEDS: COLACE CAP 100 MG PO SCH ×2 (07:59→20:28)
[2021-08-23] MEDS: ZOLOFT PO SCH (08:00)
[2021-08-23] MEDS: TAB-A-VITE PO SCH (08:00)
[2021-08-23] MEDS: VSL#3 PO SCH (08:00)
[2021-08-23] MEDS: VITAMIN C PO SCH (08:00)
[2021-08-23] MEDS: ZINC SULFATE PO SCH (08:00)
[2021-08-23] MEDS: RisperDAL TAB 1 MG PO SCH ×3 (08:10→20:34)
[2021-08-23] MEDS: ULTRAM PO SCH ×2 (08:10→20:33)
[2021-08-23] MEDS: XALATAN OP SCH ×2 (08:10→20:31)
[2021-08-23] MEDS: THERMOTABS PO SCH ×4 (08:11→23:38)
[2021-08-23] MEDS: FLONASE NASAL SPRAY ENOSTRIL SCH ×2 (08:12→20:31)
[2021-08-23] MEDS: PULMICORT NEB TX 0.5 MG NEB SCH ×2 (08:25→20:21)
[2021-08-23] MEDS: INVanz INJ 1 GRAM VIAL 1 G in NS 100 ML IV 100 ML IV SCH (09:35)
[2021-08-23] MEDS: POTASSIUM CHLORIDE LIQ 20 MEQ UDC PO SCH (10:00)
[2021-08-23] MEDS: ASTELIN NASAL SPRAY ENOSTRIL SCH (10:00)
[2021-08-23] MEDS: CIPRO IV 400 MG PREMIX* 400 MG/200 ML IV.SOLN. IV SCH ×2 (10:00→20:27)
[2021-08-23] MEDS ORDERED: HALDOL INJ IM PRN (10:55)
--- NOTE | 2021-08-23 11:21 | PCM.PROG ---
Progress Note - Progress Note for Day of Date of Exam: 08/20/21 - Subjective Subjective: IS CURRENTLY BEING TREATED FOR UTI, PNEUMONIA, SEPSIS, ANEMIA, AMS, AND HYPOALBUMINEMIA. SHE IS STATUS POST DEBRIDEMENT OF SACRAL WOUND. SHE HAS RECEIVED 1 UNIT OF PRBC SINCE ADMISSION. TODAY, SHE IS ALERT, LYING IN BED ON MORNING ROUNDS. SHE IS ORIENTED TO PERSON, PLACE, AND SITUATION. SHE CONTINUES WITH COMPLAINTS OF SHORTNESS OF BREATH AT TIMES AND WEAKNESS, BUT DOES REPORT TO IMPROVEMENT SINCE YESTERDAY. SHE IS CURRENTLY UTILIZING OXYGEN VIA NASAL CANNULA AT 4-5 LPM THIS MORNING. SHE HAS BEEN ABLE TO TAKE HER ORAL MEDICATIONS. ON EXAMINATION, HEART IS REGULAR IN RATE AND RHYTHM. BILATERAL LUNGS NOTED WITH SCATTERED RHONCHI, DIMINISHED. ABDOMEN IS ROUND, SOFT, AND NON-TENDER WITH NORMAL BOWEL SOUNDS NOTED IN ALL QUADRANTS. THERE IS AN OPEN WOUND TO THE FOLD OF RIGHT BUTTOCK. DRESSING IS CURRENTLY DRY AND INTACT. HER VITALS THIS MORNING ARE: 97.5-86-18-97%-153/87. LABS WERE OBTAINED. WBC 9.3, HGB 11.2, HCT 34, SODIUM 138, POTASSIUM 3.1, BUN 25, CREATININE 0.79, GLUCOSE 219, CALCIUM 8.8, AST 10, ALT 21, ALK PHOS 78, CRP 44.30, BNP 302. SACRAL WOUND CULTURES REPORT GROWTH OF E.COLI AND PROTEUS MIRABILIS. LEFT HIP WOUND CULTURE IS PENDING. URINE CULTURE FROM HER 08/12 ER VISIT REPORTS GROWTH OF E.COLI. A CHEST XRAY WAS OBTAINED AND REVEALED: Bilateral lung infiltrates persist. Moderate to large left pleural effusion is unchanged. There is probable cardiomegaly and CHF. No right pleural effusion or pneumothorax is seen. SHE IS CURRENTLY RECEIVING NORMAL SALINE AT 80 ML/HR, INVANZ 1G IV DAILY, CIPRO 400MG IV Q12H, SOLU-MEDROL 40MG IV Q8H, LASIX 20MG IV BID, ALBUMIN 25% IV DAILY, XOPENEX NEBS TID, PULMICORT NEBS BID, AND HER HOME MEDICATIONS WERE RESUMED. WE WILL CONTINUE WITH CURRENT PLAN OF CARE TODAY. OTHERWISE, WE PLAN TO FOLLOW UP WITH AM LABS AND CHEST XRAY AND CONTINUE TO MONITOR. TIME SPENT ON CLINICAL ASSESSMENT, REVIEWING LABS AND IMAGING, DECISION MAKING, AND DOCUMENTATION GREATER THAN 45 MINUTES. - Past Medical Family Social History Past Med/Fam/Surg Hx: No changes since H&P Allergies: Allergies quetiapine [From Seroquel] Allergy (Verified 08/13/21 14:56) aripiprazole [From Abilify] Adverse Reaction (Verified 08/13/21 14:56) bupropion [From Wellbutrin] Adverse Reaction (Verified 08/13/21 14:56) donepezil [From Aricept] Adverse Reaction (Verified 08/13/21 14:56) moxifloxacin [From Avelox] Adverse Reaction (Verified 08/13/21 14:56) olanzapine [From Zyprexa] Adverse Reaction (Verified 08/13/21 14:56) promethazine [From Phenergan] Adverse Reaction (Verified 08/13/21 14:56) venlafaxine [From Effexor] Adverse Reaction (Verified 08/13/21 14:56) - Review of Systems ROS: No change since H&P - Vital Signs and I&O's Vital Signs: Temperature 97.3 F Pulse Rate [Left Brachial] 132 Pulse Rate [Right] 101 Pulse Rate 125 Respiratory Rate 18 Blood Pressure [Right Arm] 188/99 Blood Pressure [Left Arm] 165/99 Blood Pressure 173/93 O2 Sat by Pulse Oximetry 92 Intake and Output: Intake & Output 08/20/21 08/21/21 08/22/21 08/23/21 11:59 11:59 11:59 11:59 Intake Total 1294 / 1294 1150 / 1150 1760 / 1760 1700 / 1700 Output Total 45 / 45 Balance 1249 / 1249 1150 / 1150 1760 / 1760 1700 / 1700 - Physical Exam Oriented: Person, Place Eyes: Normal Ear: Normal Nose: Normal Throat: Normal Respiratory: Diminished, Rhonchi Cardiovascular: Normal : Dysuria Auscultation: Bowel Sounds: Normal Palpation: Normal Tenderness: Normal Skin: Normal, Other (decubitus ulcer Lt hip 2 x 2 cm and 2 cm deep ) Musculoskeletal: Normal Psychiatric: Normal Mood Description: Calm Affect: Normal Speech Pattern: Appropriate - Laboratory and Diagnostics Result Diagrams: 08/23/21 05:48 08/23/21 05:48 Labs: 08/19/21 14:11 Hip - Left Wound Gram Stain - Final 08/19/21 14:11 Hip - Left Wound Culture - Preliminary 08/13/21 15:45 Blood Blood Culture - Final 08/13/21 15:39 Blood Blood Culture - Final 08/13/21 18:47 Buttock Wound Gram Stain - Final 08/13/21 18:47 Buttock Wound Culture - Final Escherichia Coli Proteus Mirabilis Laboratory WBC 25.4 X10^3/uL (3.6-10.0) H D 08/23/21 05:48 RBC 4.39 X10^6/uL (3.5-5.4) 08/23/21 05:48 Hgb 11.3 g/dL (12.0-16.0) L 08/23/21 05:48 Hct 34.5 % (36.0-47.0) L 08/23/21 05:48 MCV 78.6 fL (80.0-100.0) L 08/23/21 05:48 MCH 25.7 pg (27.0-34.0) L 08/23/21 05:48 MCHC 32.7 g/dL (33.0-35.0) L 08/23/21 05:48 RDW 24.7 % (11.6-16.5) H 08/23/21 05:48 Plt Count 306 X10^3/uL (150.0-450.0) 08/23/21 05:48 Plt Count Comment Adequate (ADEQUATE) 08/23/21 05:48 MPV 8.3 fL (7.4-11.0) 08/23/21 05:48 Neut % (Auto) 89.7 % (42.0-75.0) H 08/23/21 05:48 Lymph % (Auto) 5.1 % (21.0-51.0) L 08/23/21 05:48 [place] % (Auto) 5.1 % (0.0-13.0) 08/23/21 05:48 Eos % (Auto) 0.0 % (0.9-2.9) L 08/23/21 05:48 Baso % (Auto) 0.1 % (0.2-1.0) L 08/23/21 05:48 Neut # (Auto) 22.7 x10^3/uL (2.2-4.8) H 08/23/21 05:48 Lymph # (Auto) 1.3 X10^3/uL (1.3-2.9) 08/23/21 05:48 [place] # (Auto) 1.3 x10^3/uL (0.3-0.8) H 08/23/21 05:48 Eos # (Auto) 0.0 x10^3/uL (0.0-0.2) 08/23/21 05:48 Baso # (Auto) 0.0 X10^3/uL (0.0-0.1) 08/23/21 05:48 Absolute Nucleated RBC 0.0 /100WBC 08/23/21 05:48 Total Counted 100 08/23/21 05:48 Neutrophils % (Manual) 86 % (39-76) H 08/23/21 05:48 Lymphocytes % (Manual) 8 % (13-43) L 08/23/21 05:48 Monocytes % (Manual) 6 % (4-9) 08/23/21 05:48 Plt Morphology Comment Normal (NORMAL) 08/23/21 05:48 RBC Morphology Abnormal (NORMAL) A 08/23/21 05:48 Hypochromasia Slight A 08/23/21 05:48 Anisocytosis 3+ A 08/23/21 05:48 Microcytosis Slight A 08/23/21 05:48 Target Cells Present 08/23/21 05:48 Stomatocytes Slight A 08/21/21 05:39 Sample Site Lr 08/22/21 23:39 ABG pH 7.420 (7.35-7.45) 08/22/21 23:39 ABG pCO2 61.0 mmHg (35.0-45.0) H* 08/22/21 23:39 ABG pO2 108.0 mmHg (80.0-100.0) H 08/22/21 23:39 ABG HCO3 39.6 mmol/L (22-26) H* 08/22/21 23:39 ABG O2 Saturation 98.0 % (90-100) 08/22/21 23:39 ABG Base Excess 12.7 mmol/L (-2.0-2.0) H 08/22/21 23:39 Satish Test Pos 08/22/21 23:39 A-a Gradient 529.0 mmHg 08/22/21 23:39 FiO2 100.0 08/22/21 23:39 Blood Gas Comments Jaye well ae 08/22/21 23:39 Sodium 138 mmol/L (136-145) 08/23/21 05:48 Corrected Sodium 140 mmol/L (136-145) 08/23/21 05:48 Potassium 4.0 mmol/L (3.5-5.1) 08/23/21 05:48 Chloride 97 mmol/L (98-107) L 08/23/21 05:48 Carbon Dioxide 33.2 mmol/L (21-32) H 08/23/21 05:48 BUN 26 mg/dL (7-18) H 08/23/21 05:48 Creatinine 0.69 mg/dL (0.55-1.02) 08/23/21 05:48 Est GFR (MDRD) Af Amer > 60 (>60) 08/23/21 05:48 Est GFR (MDRD) Non-Af > 60 (>60) 08/23/21 05:48 Glucose 190 mg/dL (65-99) H 08/23/21 05:48 POC Glucose (mg/dL) 173 mg/dL (65-99) H 08/23/21 05:22 Lactic Acid 1.2 mmol/L (0.4-2.0) 08/14/21 18:55 Calcium 8.7 mg/dL (8.5-10.1) 08/23/21 05:48 Corrected Calcium TNP 08/23/21 05:48 Magnesium 2.1 mg/dL (1.7-2.9) 08/20/21 05:35 Total Bilirubin 0.50 mg/dL (0.2-1.0) 08/23/21 05:48 AST 19 Units/L (15-37) 08/23/21 05:48 ALT 22 Units/L (12-78) 08/23/21 05:48 Alkaline Phosphatase 99 Units/L (46-116) 08/23/21 05:48 Creatine Kinase 39 Units/L (26-192) 08/22/21 18:23 CK-MB (CK-2) < 1.0 ng/mL (0-4.0) 08/22/21 18:23 CK/CKMB % Calc 2.6 % (<4) 08/22/21 18:23 Troponin I High Sens 12.9 ng/L (4.0-60.0) 08/22/21 18:23 C-Reactive Protein 62.80 mg/L (0-3.0) H 08/23/21 05:48 B-Natriuretic Peptide 343 pg/mL (0-79) H 08/23/21 05:48 Total Protein 7.5 g/dL (6.4-8.2) 08/23/21 05:48 Albumin 4.2 g/dL (3.4-5.0) 08/23/21 05:48 Globulin 3.3 g/dL (2.5-4.5) 08/23/21 05:48 Albumin/Globulin Ratio 1.3 Ratio (1.1-2.1) 08/23/21 05:48 Stool Description 20g loose/mucoid brn 08/16/21 03:31 Stl Occult Blood (IFOB) Negative (NEGATIVE) 08/16/21 03:31 Stl C. diff Tox B Gene Negative (NEGATIVE) 08/22/21 11:50 Stl C. diff [id number] Presumptive negative (NEGATIVE) 08/22/21 11:50 Tissue Pathology To follow 08/19/21 14:16 Blood Type O POSITIVE 08/15/21 07:07 Antibody Screen Negative 08/15/21 07:07 Crossmatch See Detail 08/15/21 07:07 - Plan (1) Pneumonia Status: Acute Qualifiers: Pneumonia type: due to unspecified organism Laterality: bilateral Lung location: unspecified part of lung Qualified Code(s): J18.9 - Pneumonia, uns pecified organism Plan: SUPPLEMENTAL OXYGEN, NORMAL SALINE AT 80 ML/HR, INVANZ 1G IV DAILY, CIPRO 400MG IV Q12H, LASIX 20MG IV Q12H, SOLU-MEDROL 40MG IV Q12H, NEBULIZER BILL ATMENTS, ALBUMIN 25% IV DAILY. RESUMED HOME MEDICATIONS. MONITOR DAILY LABS AND CHEST XRAY (2) Urinary tract infection Status: Acute Qualifiers: Urinary tract infection type: acute cystitis Hematuria presence: with hematuria Qualified Code(s): N30.01 - Acute cystitis with hematuria (3) Sepsis due to urinary tract infection Status: Acute (4) Altered mental status Status: Acute Qualifiers: Altered mental status type: transient alteration of awareness Qualified Code(s): R40.4 - Transient alteration of awareness (5) Hypoalbuminemia Status: Acute (6) DM II (diabetes mellitus, type II), controlled Status: Chronic Qualifiers: Diabetes mellitus bed bug exterminator insulin use: with skilled nursing use Diabetes m ellitus complication status: with hyperglycemia Qualified Code(s): E11.65 - Type 2 diabetes mellitus with hyperglycemia; Z79.4 - [facility] (current) use of insulin (7) CHF (congestive heart failure) Status: Chronic Qualifiers: Heart failure type: unspecified Heart failure chronicity: unspecified Qualified Code(s): I50.9 - Heart failure, unspecified
[2021-08-23] MEDS: CORTISPORIN OTIC SUSP RIGHT EAR SCH ×3 (11:30→22:38)
[2021-08-23] MEDS: LASIX IVP SCH ×2 (11:30→22:39)
[2021-08-23] MEDS: NS 1,000 ML IV 1,000 ML IV SCH ×3 (12:02→23:39)
[2021-08-23] MEDS: DESYREL PO SCH (20:29)
[2021-08-23] MEDS: ZANAFLEX PO SCH (20:30)
[2021-08-23] MEDS: LIPITOR TAB 20 MG PO SCH (20:34)
[2021-08-23] MEDS: SNACK - Diabetic Appropriate PO SCH (23:35)
[2021-08-23] MEDS: LOVENOX INJ 40 MG SYR SC SCH (23:36)
[2021-08-24] MEDS ORDERED: GLUCOPHAGE ONE ×2 (05:28→17:40)
[2021-08-24] MEDS: CORTISPORIN OTIC SUSP RIGHT EAR SCH ×3 (05:43→21:50)
[2021-08-24] MEDS: SOLU-Medrol 40 MG VIAL IVP SCH ×3 (05:44→21:50)
--- NOTE | 2021-08-24 06:04 | RAD ---
HISTORYShortness of breathSTUDYChest AP [id number] ent is rotated to the left. The heart remains enlarged. Bilateral perihilar alveolar filling is again identified and is unchanged. Findings suggest pulmonary edema which could be cardiogenic or noncardiogenic in origin. Left pleural effusion is likely also present. There is increased density in the retrocardiac area of the left lower lobe obscuring the left hemidiaphragm which could be on the basis of atelectasis, consolidation, or pleural effusion or combination. Bony thorax is unremarkable.IMPRESSIONNo change diffuse bilateral perihilar alveolar filling most consistent with pulmonary edema which could be cardiogenic or noncardiogenic in originNo change cardiomegalyNo change increased density retrocardiac area left lower lobe. Differential diagnosis as aboveElectronically signed by: JOAN MARTINO (Aug 24, 2021 06:03:24)
[2021-08-24] MEDS: GLUCOPHAGE PO SCH ×2 (06:08→17:52)
[2021-08-24 06:16] LABS: BASOPHILS % (AUTO) 0.1 % (0.2-1.0); HEMATOCRIT 32.9 % (36.0-47.0); HEMOGLOBIN 10.7 g/dL (12.0-16.0); LYMPHOCYTES # (AUTO) 0.9 X10^3/uL (1.3-2.9); LYMPHOCYTES % (AUTO) 3.5 % (21.0-51.0); MEAN CORPUSCULAR HEMOGLOBIN 25.8 pg (27.0-34.0); MEAN CORPUSCULAR HGB CONC 32.5 g/dL (33.0-35.0); MEAN CORPUSCULAR VOLUME 79.6 fL (80.0-100.0); MEAN PLATELET VOLUME 8.7 fL (7.4-11.0); MONOCYTES # (AUTO) 0.8 x10^3/uL (0.3-0.8); MONOCYTES % (AUTO) 3.1 % (0.0-13.0); NEUTROPHILS % (AUTO) 93.3 % (42.0-75.0); RED BLOOD COUNT 4.13 X10^6/uL (3.5-5.4); RED CELL DISTRIBUTION WIDTH 25.2 % (11.6-16.5); WHITE BLOOD COUNT 26.8 X10^3/uL (3.6-10.0)
[2021-08-24] MEDS: NovoLIN R (or HumuLIN R) SUBCUT PRN ×3 (06:34→21:51)
[2021-08-24 06:37] LABS: BLOOD UREA NITROGEN 25 mg/dL (7-18); CALCIUM 8.7 mg/dL (8.5-10.1); eGFR NON BLACK RACES > 60 (>60)
[2021-08-24 06:55] LABS: ALANINE AMINOTRANSFERASE 25 Units/L (12-78); ALKALINE PHOSPHATASE 85 Units/L (46-116); ASPARTATE AMINO TRANSFERASE 15 Units/L (15-37); CARBON DIOXIDE 31.5 mmol/L (21-32); CHLORIDE 96 mmol/L (98-107); COR NA(FOR HYPERGLY) 140 mmol/L (136-145); CREATININE 0.71 mg/dL (0.55-1.02); SODIUM 138 mmol/L (136-145); TOTAL PROTEIN 7.1 g/dL (6.4-8.2)
[2021-08-24 07:24] LABS: ANISOCYTOSIS 3+; BAND NEUTROPHILS % 3 % (0-10); PLATELET MORPHOLOGY COMMENT NORMAL (NORMAL)
[2021-08-24] MEDS: ALBUMIN HUMAN 25%- 100 ML 100 ML IV SCH (09:17)
[2021-08-24] MEDS: CIPRO IV 400 MG PREMIX* 400 MG/200 ML IV.SOLN. IV SCH ×2 (09:18→21:47)
[2021-08-24] MEDS: ASTELIN NASAL SPRAY ENOSTRIL SCH (09:18)
[2021-08-24] MEDS: DEPAKOTE D.R. TAB PO SCH ×2 (09:19→21:48)
[2021-08-24] MEDS: COLACE CAP 100 MG PO SCH ×2 (09:19→21:48)
[2021-08-24] MEDS: PULMICORT NEB TX 0.5 MG NEB SCH ×2 (09:20→21:03)
[2021-08-24] MEDS: INVanz INJ 1 GRAM VIAL 1 G in NS 100 ML IV 100 ML IV SCH (09:20)
[2021-08-24] MEDS: FLONASE NASAL SPRAY ENOSTRIL SCH ×2 (09:20→21:48)
[2021-08-24] MEDS: POTASSIUM CHLORIDE LIQ 20 MEQ UDC PO SCH (09:20)
[2021-08-24] MEDS: PROVERA PO SCH (09:21)
[2021-08-24] MEDS: TAB-A-VITE PO SCH (09:21)
[2021-08-24] MEDS: THERMOTABS PO SCH ×4 (09:21→21:49)
[2021-08-24] MEDS: ULTRAM PO SCH ×2 (09:21→21:49)
[2021-08-24] MEDS: RisperDAL TAB 1 MG PO SCH ×3 (09:21→21:49)
[2021-08-24] MEDS: VITAMIN C PO SCH (09:22)
[2021-08-24] MEDS: ZOLOFT PO SCH (09:22)
[2021-08-24] MEDS: XANAX PO SCH ×2 (09:22→21:50)
[2021-08-24] MEDS: VSL#3 PO SCH (09:22)
[2021-08-24] MEDS: XALATAN OP SCH ×2 (09:23→21:50)
[2021-08-24] MEDS: ZINC SULFATE PO SCH (09:23)
[2021-08-24] MEDS: ZyrTEC TAB 10 MG PO SCH (09:23)
[2021-08-24] MEDS: XOPENEX 1.25 MG/3 ML NEBULE NEB SCH ×3 (09:30→21:03)
[2021-08-24] MEDS ORDERED: PHARMACY CONSULT - VANCOMYCIN XX SCH (10:00)
[2021-08-24] MEDS: LASIX IVP SCH ×2 (10:52→22:44)
--- NOTE | 2021-08-24 12:51 | PCM.PROG ---
Progress Note - Progress Note for Day of Date of Exam: 08/23/21 - Subjective Subjective: IS CURRENTLY BEING TREATED FOR UTI, PNEUMONIA, SEPSIS, ANEMIA, AN AMS. SHE IS STATUS POST DEBRIDEMENT OF SACRAL WOUND. SHE HAS RECEIVED 1 UNIT OF PRBC SINCE ADMISSION. TODAY, SHE IS ALERT, LYING IN BED ON MORNING ROUNDS. SHE IS ORIENTED TO PERSON, PLACE, AND SITUATION. FAMILY REPORTS THAT SHE HAS BEEN ANXIOUS AND AGITATED THIS MORNING AND THROUGHOUT THE NIGHT. SHE CONTINUES WITH COMPLAINTS OF SHORTNESS OF BREATH AT TIMES AND WEAKNESS. SHE IS CURRENTLY UTILIZING OXYGEN VIA NASAL CANNULA AT 5 LPM. SHE DID UTILIZE THE BIPAP THROUGHOUT THE NIGHT DUE TO SATURATIONS DROPPING INTO THE 70s MULTIPLE TIMES THROUGHOUT THE NIGHT. SATURATIONS HAVE BEEN IN THE 90s THIS MORNING. ON EXAMINAT ION, THERE IS BLOODY DRAINAGE FROM THE RIGHT EAR. SHE IS TACHYCARDIC WITH HR IN THE 120s. BILATERAL LUNGS NOTED WITH SCATTERED RHONCHI, DIMINISHED. ABDOMEN IS ROUND, SOFT, AND NON-TENDER WITH NORMAL BOWEL SOUNDS NOTED IN ALL QUADRANTS. THERE IS AN OPEN WOUND TO THE FOLD OF RIGHT BUTTOCK. DRESSING IS CURRENTLY DRY AND INTACT. SHE WILL REQUIRE A WOUND VAC WHEN IT IS AVAILABLE. HER VITALS THIS MORNING ARE: 97.2-120-22-87%-188/99. LABS WERE OBTAINED. WBC 25.4, RBC 4.39, HGB 11.3, HCT 34.5, SODIUM 138, POTASSIUM 4.0, CHLORIDE 97, BUN 26, CREATININE 0.69, GLUCOSE 190, CALCIUM 8.7, AST 19, ALT 22, ALK PHOS 99, CRP 62.80, BNP 343, TOTAL PROTEIN 7.5, ALBUMIN 4.2. SACRAL WOUND CULTURES REPORT GROWTH OF E.COLI AND PROTEUS MIRABILIS. LEFT HIP WOUND CULTURE IS PENDING. URINE CULTURE FROM HER 08/12 ER VISIT REPORTS GROWTH OF E.COLI. A CHEST XRAY WAS OBTAINED AND REVEALED: Cardiomegaly with worsening congestive heart failure. SHE IS CURRENTLY RECEIVING NORMAL SALINE AT 80 ML/HR, INVANZ 1G IV DAILY, CIPRO 400MG IV Q12H, SOLU-MEDROL 40MG IV Q8H, LASIX 20MG IV BID, ALBUMIN 25% IV DAILY, XOPENEX NEBS TID, PULMICORT NEBS BID, AND HER HOME MEDICATIONS WERE RESUMED. WE WILL INCREASE LASIX TO 40MG IV BID AND ADD CORTISPORIN EAR DROPS TO RIGHT TID. OTHERWISE, WE WILL CONTINUE WITH CURRENT PLAN OF CARE TODAY. WE PLAN TO FOLLOW UP WITH AM LABS AND CHEST XRAY AND CONTINUE TO MONITOR. TIME SPENT ON CLINICAL ASSESSMENT, REVIEWING LABS AND IMAGING, DECISION MAKING, AND DOCUMENTATION GREATER THAN 45 MINUTES. - Past Medical Family Social History Past Med/Fam/Surg Hx: No changes since H&P Allergies: Allergies quetiapine [From Seroquel] Allergy (Verified 08/13/21 14:56) aripiprazole [From Abilify] Adverse Reaction (Verified 08/13/21 14:56) bupropion [From Wellbutrin] Adverse Reaction (Verified 08/13/21 14:56) donepezil [From Aricept] Adverse Reaction (Verified 08/13/21 14:56) moxifloxacin [From Avelox] Adverse Reaction (Verified 08/13/21 14:56) olanzapine [From Zyprexa] Adverse Reaction (Verified 08/13/21 14:56) promethazine [From Phenergan] Adverse Reaction (Verified 08/13/21 14:56) venlafaxine [From Effexor] Adverse Reaction (Verified 08/13/21 14:56) - Review of Systems ROS: No change since H&P - Vital Signs and I&O's Vital Signs: Temperature 97.8 F Pulse Rate [Left Brachial] 115 Pulse Rate [Right] 101 Pulse Rate 118 Respiratory Rate 24 Blood Pressure [Right Arm] 135/82 Blood Pressure [Left Arm] 184/86 Blood Pressure 173/93 O2 Sat by Pulse Oximetry 97 Intake and Output: Intake & Output 08/22/21 08/23/21 08/24/21 08/25/21 11:59 11:59 11:59 11:59 Intake Total 1760 / 1760 1700 / 1700 1002 / 1002 Balance 1760 / 1760 1700 / 1700 1002 / 1002 - Physical Exam Oriented: Person, Place Eyes: Normal Ear: Normal Nose: Normal Throat: Normal Respiratory: Diminished, Rhonchi Cardiovascular: Tachycardia : Dysuria Auscultation: Bowel Sounds: Normal Tenderness: Normal Skin: Normal, Other (decubitus ulcer Lt hip 2 x 2 cm and 2 cm deep ) Musculoskeletal: Normal Psychiatric: Anxiety, Agitation Mood Description: Anxious Affect: Anxious Speech Pattern: Appropriate - Laboratory and Diagnostics Result Diagrams: 08/24/21 05:27 08/24/21 05:27 Labs: 08/19/21 14:11 Hip - Left Wound Gram Stain - Final 08/19/21 14:11 Hip - Left Wound Culture - Preliminary Proteus Mirabilis 08/13/21 15:45 Blood Blood Culture - Final 08/13/21 15:39 Blood Blood Culture - Final 08/13/21 18:47 Buttock Wound Gram Stain - Final 08/13/21 18:47 Buttock Wound Culture - Final Escherichia Coli Proteus Mirabilis Laboratory WBC 26.8 X10^3/uL (3.6-10.0) H 08/24/21 05:27 RBC 4.13 X10^6/uL (3.5-5.4) 08/24/21 05:27 Hgb 10.7 g/dL (12.0-16.0) L 08/24/21 05:27 Hct 32.9 % (36.0-47.0) L 08/24/21 05:27 MCV 79.6 fL (80.0-100.0) L 08/24/21 05:27 MCH 25.8 pg (27.0-34.0) L 08/24/21 05:27 MCHC 32.5 g/dL (33.0-35.0) L 08/24/21 05:27 RDW 25.2 % (11.6-16.5) H 08/24/21 05:27 Plt Count 246 X10^3/uL (150.0-450.0) 08/24/21 05:27 Plt Count Comment Adequate (ADEQUATE) 08/24/21 05:27 MPV 8.7 fL (7.4-11.0) 08/24/21 05:27 Neut % (Auto) 93.3 % (42.0-75.0) H 08/24/21 05:27 Lymph % (Auto) 3.5 % (21.0-51.0) L 08/24/21 05:27 [place] % (Auto) 3.1 % (0.0-13.0) 08/24/21 05:27 Eos % (Auto) 0.0 % (0.9-2.9) L 08/24/21 05:27 Baso % (Auto) 0.1 % (0.2-1.0) L 08/24/21 05:27 Neut # (Auto) 25.0 x10^3/uL (2.2-4.8) H 08/24/21 05:27 Lymph # (Auto) 0.9 X10^3/uL (1.3-2.9) L 08/24/21 05:27 [place] # (Auto) 0.8 x10^3/uL (0.3-0.8) 08/24/21 05:27 Eos # (Auto) 0.0 x10^3/uL (0.0-0.2) 08/24/21 05:27 Baso # (Auto) 0.0 X10^3/uL (0.0-0.1) 08/24/21 05:27 Absolute Nucleated RBC 0.1 /100WBC 08/24/21 05:27 Total Counted 100 08/24/21 05:27 Neutrophils % (Manual) 95 % (39-76) H 08/24/21 05:27 Band Neutrophils % 3 % (0-10) 08/24/21 05:27 Lymphocytes % (Manual) 1 % (13-43) L 08/24/21 05:27 Monocytes % (Manual) 1 % (4-9) L 08/24/21 05:27 Plt Morphology Comment Normal (NORMAL) 08/24/21 05:27 RBC Morphology Abnormal (NORMAL) A 08/24/21 05:27 Hypochromasia Slight A 08/23/21 05:48 Anisocytosis 3+ A 08/24/21 05:27 Microcytosis Slight A 08/23/21 05:48 Target Cells Present 08/23/21 05:48 Stomatocytes Slight A 08/21/21 05:39 Sample Site Lr 08/22/21 23:39 ABG pH 7.420 (7.35-7.45) 08/22/21 23:39 ABG pCO2 61.0 mmHg (35.0-45.0) H* 08/22/21 23:39 ABG pO2 108.0 mmHg (80.0-100.0) H 08/22/21 23:39 ABG HCO3 39.6 mmol/L (22-26) H* 08/22/21 23:39 ABG O2 Saturation 98.0 % (90-100) 08/22/21 23:39 ABG Base Excess 12.7 mmol/L (-2.0-2.0) H 08/22/21 23:39 Satish Test Pos 08/22/21 23:39 A-a Gradient 529.0 mmHg 08/22/21 23:39 FiO2 100.0 08/22/21 23:39 Blood Gas Comments Jaye well ae 08/22/21 23:39 Sodium 138 mmol/L (136-145) 08/24/21 05:27 Corrected Sodium 140 mmol/L (136-145) 08/24/21 05:27 Potassium 3.5 mmol/L (3.5-5.1) 08/24/21 05:27 Chloride 96 mmol/L (98-107) L 08/24/21 05:27 Carbon Dioxide 31.5 mmol/L (21-32) 08/24/21 05:27 BUN 25 mg/dL (7-18) H 08/24/21 05:27 Creatinine 0.71 mg/dL (0.55-1.02) 08/24/21 05:27 Est GFR (MDRD) Af Amer > 60 (>60) 08/24/21 05:27 Est GFR (MDRD) Non-Af > 60 (>60) 08/24/21 05:27 Glucose 204 mg/dL (65-99) H 08/24/21 05:27 POC Glucose (mg/dL) 222 mg/dL (65-99) H 08/24/21 10:53 Lactic Acid 1.2 mmol/L (0.4-2.0) 08/14/21 18:55 Calcium 8.7 mg/dL (8.5-10.1) 08/24/21 05:27 Corrected Calcium TNP 08/24/21 05:27 Magnesium 2.1 mg/dL (1.7-2.9) 08/20/21 05:35 Total Bilirubin 0.50 mg/dL (0.2-1.0) 08/24/21 05:27 AST 15 Units/L (15-37) 08/24/21 05:27 ALT 25 Units/L (12-78) 08/24/21 05:27 Alkaline Phosphatase 85 Units/L (46-116) 08/24/21 05:27 Creatine Kinase 39 Units/L (26-192) 08/22/21 18:23 CK-MB (CK-2) < 1.0 ng/mL (0-4.0) 08/22/21 18:23 CK/CKMB % Calc 2.6 % (<4) 08/22/21 18:23 Troponin I High Sens 12.9 ng/L (4.0-60.0) 08/22/21 18:23 C-Reactive Protein 62.80 mg/L (0-3.0) H 08/23/21 05:48 B-Natriuretic Peptide 194 pg/mL (0-79) H 08/24/21 05:27 Total Protein 7.1 g/dL (6.4-8.2) 08/24/21 05:27 Albumin 4.0 g/dL (3.4-5.0) 08/24/21 05:27 Globulin 3.1 g/dL (2.5-4.5) 08/24/21 05:27 Albumin/Globulin Ratio 1.3 Ratio (1.1-2.1) 08/24/21 05:27 Stool Description 20g loose/mucoid brn 08/16/21 03:31 Stl Occult Blood (IFOB) Negative (NEGATIVE) 08/16/21 03:31 Stl C. diff Tox B Gene Negative (NEGATIVE) 08/22/21 11:50 Stl C. diff [id number] Presumptive negative (NEGATIVE) 08/22/21 11:50 Tissue Pathology To follow 08/19/21 14:16 Blood Type O POSITIVE 08/15/21 07:07 Antibody Screen Negative 08/15/21 07:07 Crossmatch See Detail 08/15/21 07:07 - Plan (1) Pneumonia Status: Acute Qualifiers: Pneumonia type: due to unspecified organism Laterality: bilateral Lung location: unspecified part of lung Qualified Code(s): J18.9 - Pneumonia, unspecified organism Plan: SUPPLEMENTAL OXYGEN, NORMAL SALINE AT 80 ML/HR, INVANZ 1G IV DAILY, CIPRO 400MG IV Q12H, LASIX 40MG IV Q12H, SOLU-MEDROL 40MG IV Q12H, NEBULIZER TREATMENTS, ALBUMIN 25% IV DAILY. RESUMED HOME MEDICATIONS. MONITOR DAILY LABS AND CHEST XRAY (2) Urinary tract infection Status: Acute Qualifiers: Urinary tract infection type: acute cystitis Hematuria presence: with hemat uria Qualified Code(s): N30.01 - Acute cystitis with hematuria (3) Sepsis due to urinary tract infection Status: Acute (4) Altered mental status Status: Acute Qualifiers: Altered mental status type: transient alteration of awareness Qualified Code(s): R40.4 - Transient alteration of awareness (5) Hypoalbuminemia Status: Acute (6) DM II (diabetes mellitus, type II), controlled Status: Chronic Qualifiers: Diabetes mellitus usp insulin use: with usp use Diabetes mellitus complication status: with hyperglycemia Qualified Code(s): E11.65 - Type 2 diabetes mellitus with hyperglycemia; Z79.4 - [facility] (current) use of insulin (7) CHF (congestive heart failure) Status: Chronic Qualifiers: Heart failure type: unspecified Heart failure chronicity: unspecified Qualified Code(s): I50.9 - Heart failure, unspecified
[2021-08-24] MEDS: VANCOMYCIN IV *PREMIX 750 mg/150 ML BAG 750 MG/150 ML PIGGYBACK IV SCH ×2 (13:37→21:50)
[2021-08-24] MEDS: SNACK - Diabetic Appropriate PO SCH (21:47)
[2021-08-24] MEDS: DESYREL PO SCH (21:48)
[2021-08-24] MEDS: LOVENOX INJ 40 MG SYR SC SCH (21:48)
[2021-08-24] MEDS: LIPITOR TAB 20 MG PO SCH (21:48)
[2021-08-24] MEDS: ZANAFLEX PO SCH (21:50)
[2021-08-25] MEDS ORDERED: GLUCOPHAGE ONE ×2 (04:57→16:34)
[2021-08-25] MEDS: NS 1,000 ML IV 1,000 ML IV SCH (05:10)
[2021-08-25] MEDS: SOLU-Medrol 40 MG VIAL IVP SCH ×3 (05:11→22:06)
[2021-08-25] MEDS: CORTISPORIN OTIC SUSP RIGHT EAR SCH ×3 (05:11→22:06)
[2021-08-25] MEDS: VANCOMYCIN IV *PREMIX 750 mg/150 ML BAG 750 MG/150 ML PIGGYBACK IV SCH ×3 (05:11→16:55)
[2021-08-25 05:36] LABS: BASOPHILS % (AUTO) 0.1 % (0.2-1.0); HEMATOCRIT 29.4 % (36.0-47.0); HEMOGLOBIN 9.3 g/dL (12.0-16.0); LYMPHOCYTES # (AUTO) 1.2 X10^3/uL (1.3-2.9); LYMPHOCYTES % (AUTO) 6.3 % (21.0-51.0); MEAN CORPUSCULAR HEMOGLOBIN 24.8 pg (27.0-34.0); MEAN CORPUSCULAR HGB CONC 31.7 g/dL (33.0-35.0); MEAN CORPUSCULAR VOLUME 78.2 fL (80.0-100.0); MEAN PLATELET VOLUME 8.8 fL (7.4-11.0); MONOCYTES # (AUTO) 0.8 x10^3/uL (0.3-0.8); MONOCYTES % (AUTO) 4.4 % (0.0-13.0); NEUTROPHILS # (AUTO) 16.7 x10^3/uL (2.2-4.8); NEUTROPHILS % (AUTO) 89.2 % (42.0-75.0); RED BLOOD COUNT 3.76 X10^6/uL (3.5-5.4)
[2021-08-25 05:41] LABS: ALANINE AMINOTRANSFERASE 20 Units/L (12-78); ALBUMIN 3.8 g/dL (3.4-5.0); ALKALINE PHOSPHATASE 85 Units/L (46-116); ASPARTATE AMINO TRANSFERASE 6 Units/L (15-37); BLOOD UREA NITROGEN 32 mg/dL (7-18); CALCIUM 8.7 mg/dL (8.5-10.1); CARBON DIOXIDE 35.7 mmol/L (21-32); CHLORIDE 97 mmol/L (98-107); COR NA(FOR HYPERGLY) 144 mmol/L (136-145); CREATININE 0.98 mg/dL (0.55-1.02); SODIUM 139 mmol/L (136-145); TOTAL PROTEIN 6.6 g/dL (6.4-8.2); eGFR NON BLACK RACES > 60 (>60)
[2021-08-25] MEDS: NovoLIN R (or HumuLIN R) SUBCUT PRN ×3 (05:41→22:07)
--- NOTE | 2021-08-25 05:50 | RAD ---
PROCEDURE: Chest X-ray 1 View .HISTORY: Dyspnea.TECHNIQUE: AP view .COMPARISON: 08/24/2021.TECHNICAL QUALITY: Satisfactory .FINDINGS:Heart size upper limits of normal and unchanged.Normal central vascularity.Moderate consolidation throughout both lung davila that is unchanged consistent with pneumonia. No pleural fluid or pneumothorax.IMPRESSION:Unchanged moderate bilateral pneumonia.Electronically signed by: John Harp (Aug 25, 2021 05:49:51)
[2021-08-25] MEDS: XOPENEX 1.25 MG/3 ML NEBULE NEB SCH ×3 (05:54→20:40)
[2021-08-25] MEDS: KLOR-CON PO PRN (05:56)
[2021-08-25 06:08] LABS: WHITE BLOOD COUNT 18.7 X10^3/uL (3.6-10.0)
[2021-08-25 06:11] LABS: ANISOCYTOSIS 3+; HYPOCHROMASIA SLIGHT; MICROCYTOSIS SLIGHT; PLATELET MORPHOLOGY COMMENT NORMAL (NORMAL); TARGET CELLS PRESENT
[2021-08-25] MEDS: MAGNESIUM SULFATE 1 GRAM/100 mL PREMIX 1 G/100 ML BAG IV PRN ×2 (06:34→14:00)
[2021-08-25] MEDS: GLUCOPHAGE PO SCH ×2 (06:50→16:53)
[2021-08-25] MEDS: PULMICORT NEB TX 0.5 MG NEB SCH ×2 (08:40→20:40)
[2021-08-25] MEDS: LASIX IVP SCH ×2 (10:01→22:06)
[2021-08-25] MEDS: VITAMIN C PO SCH (10:02)
[2021-08-25] MEDS: VSL#3 PO SCH (10:02)
[2021-08-25] MEDS: ZyrTEC TAB 10 MG PO SCH (10:02)
[2021-08-25] MEDS: ZOLOFT PO SCH (10:02)
[2021-08-25] MEDS: XANAX PO SCH ×2 (10:02→22:05)
[2021-08-25] MEDS: ZINC SULFATE PO SCH (10:02)
[2021-08-25] MEDS: THERMOTABS PO SCH ×4 (10:03→22:05)
[2021-08-25] MEDS: XALATAN OP SCH ×2 (10:03→22:05)
[2021-08-25] MEDS: TAB-A-VITE PO SCH (10:03)
[2021-08-25] MEDS: PROVERA PO SCH (10:04)
[2021-08-25] MEDS: INVanz INJ 1 GRAM VIAL 1 G in NS 100 ML IV 100 ML IV SCH (10:04)
[2021-08-25] MEDS: RisperDAL TAB 1 MG PO SCH ×3 (10:04→22:05)
[2021-08-25] MEDS: ALBUMIN HUMAN 25%- 100 ML 100 ML IV SCH (10:04)
[2021-08-25] MEDS: ASTELIN NASAL SPRAY ENOSTRIL SCH (10:06)
[2021-08-25] MEDS: FLONASE NASAL SPRAY ENOSTRIL SCH ×2 (10:06→22:03)
[2021-08-25] MEDS: POTASSIUM CHLORIDE LIQ 20 MEQ UDC PO SCH (10:06)
[2021-08-25] MEDS: COLACE CAP 100 MG PO SCH ×2 (10:06→22:03)
[2021-08-25] MEDS: ULTRAM PO SCH ×2 (10:07→22:05)
[2021-08-25] MEDS: DEPAKOTE D.R. TAB PO SCH ×2 (10:07→22:03)
[2021-08-25] MEDS: CIPRO IV 400 MG PREMIX* 400 MG/200 ML IV.SOLN. IV SCH ×2 (10:07→22:03)
--- NOTE | 2021-08-25 11:49 | PCM.PROG ---
Progress Note - Progress Note for Day of Date of Exam: 08/24/21 - Subjective Subjective: IS CURRENTLY BEING TREATED FOR UTI, PNEUMONIA, SEPSIS, ANEMIA, AND AMS. SHE IS STATUS POST DEBRIDEMENT OF SACRAL WOUND. SHE HAS RECEIVED 1 UNIT OF PRBC SINCE ADMISSION. TODAY, SHE IS ALERT, LYING IN BED ON MORNING ROUNDS. SHE IS ORIENTED TO PERSON, PLACE, AND SITUATION. FAMILY REPORTS THAT SHE HAS BEEN LESS AGITATED THROUGHOUT THE NIGHT AND THIS MORNING. SHE CONTINUES WITH COMPLAINTS OF SHORTNESS OF BREATH AT TIMES AND WEAKNESS. SHE IS CURRENTLY UTILIZING OXYGEN VIA NASAL CANNULA AT 5 LPM. SATURATIONS HAVE BEEN IN THE 90s THIS MORNING. ON EXAMINATION, HEART IS REGULAR IN RATE AND RHYTHM. BILATERAL LUNGS NOTED WITH SCATTERED RHONCHI, DIMINISHED. ABDOMEN IS ROUND, SOFT, AND NON-TENDER WITH NORMAL BOWEL SOUNDS NOTED IN ALL QUADRANTS. THERE IS AN OPEN WOUND TO THE FOLD OF RIGHT BUTTOCK. DRESSING IS CURRENTLY DRY AND INTACT. SHE WILL REQUIRE A WOUND VAC WHEN IT IS AVAILABLE. HER VITALS THIS MORNING ARE: 97.7-100-20-99%-140/76. LABS WERE OBTAINED. WBC INCREASED TO 26.8, HGB 10.7, HCT 32.9, SODIUM 138, POTASSIUM 3.5, CHLORIDE 96, BUN 25, CREATININE 0.71, GLUCOSE 204, CALCIUM 8.7, AST 15, ALT 25, ALK PHOS 85, BNP 194, TOTAL PROTEIN 7.1. SACRAL WOUND CULTURES REPORT GROWTH OF E.COLI AND PROTEUS MIRABILIS. LEFT HIP WOUND CULTURE IS PENDING. URINE CULTURE FROM HER 08/12 ER SIT REPORTS GROWTH OF E.COLI. A CHEST XRAY WAS OBTAINED AND REVEALED: Patient is rotated to the left. The heart remains enlarged. Bilateral perihilar alveolar filling is again identified and is unchanged. Findings suggest pulmonary edema which could be cardiogenic or noncardiogenic in origin. Left pleural effusion is likely also present. There is increased density in the retrocardiac area of the left lower lobe obscuring the left hemidiaphragm which could be on the basis of atelectasis, consolidation, or pleural effusion or combination. Bony thorax is unremarkable. SHE IS CURRENTLY RECEIVING NORMAL SALINE AT 80 ML/HR, INVANZ 1G IV DAILY, CIPRO 400MG IV Q12H, SOLU-MEDROL 40MG IV Q8H, LASIX 40MG IV BID, ALBUMIN 25% IV DAILY, XOPENEX NEBS TID, PULMICORT NEBS BID, CORTISPORIN EAR DROPS TO RIGHT TID, AND HER HOME MEDICATIONS WERE RESUMED. TODAY, WE WILL DECREASE SOLU- MEDROL TO 20MG IV Q8H AND ADD VANCOMYCIN IV. OTHERWISE, WE WILL CONTINUE WITH CURRENT PLAN OF CARE TODAY. WE PLAN TO FOLLOW UP WITH AM LABS AND CHEST XRAY AND CONTINUE TO MONITOR. TIME SPENT ON CLINICAL ASSESSMENT, REVIEWING LABS AND IMAGING, DECISION MAKING, AND DOCUMENTATION GREATER THAN 45 MINUTES. - Past Medical Family Social History Past Med/Fam/Surg Hx: No changes since H&P Allergies: Allergies quetiapine [From Seroquel] Allergy (Verified 08/13/21 14:56) aripiprazole [From Abilify] Adverse Reaction (Verified 08/13/21 14:56) bupropion [From Wellbutrin] Adverse Reaction (Verified 08/13/21 14:56) donepezil [From Aricept] Adverse Reaction (Verified 08/13/21 14:56) moxifloxacin [From Avelox] Adverse Reaction (Verified 08/13/21 14:56) olanzapine [From Zyprexa] Adverse Reaction (Verified 08/13/21 14:56) promethazine [From Phenergan] Adverse Reaction (Verified 08/13/21 14:56) venlafaxine [From Effexor] Adverse Reaction (Verified 08/13/21 14:56) - Review of Systems ROS: No change since H&P - Vital Signs and I&O's Vital Signs: Temperature 97.6 F Pulse Rate [Left Brachial] 89 Pulse Rate [Right] 101 Pulse Rate 122 Respiratory Rate 20 Blood Pressure [Right Arm] 124/65 Blood Pressure [Left Arm] 120/65 Blood Pressure 173/93 O2 Sat by Pulse Oximetry 99 Intake and Output: Intake & Output 08/22/21 08/23/21 08/24/21 08/25/21 11:59 11:59 11:59 11:59 Intake Total 1760 / 1760 1700 / 1700 1002 / 1002 1439 / 1439 Balance 1760 / 1760 1700 / 1700 1002 / 1002 1439 / 1439 - Physical Exam Oriented: Person, Place Eyes: Normal Ear: Normal Nose: Normal Throat: Normal Respiratory: Diminished, Rhonchi Cardiovascular: Tachycardia : Dysuria Auscultation: Bowel Sounds: Normal Palpation: Normal Tenderness: Normal Skin: Normal, Other (decubitus ulcer Lt hip 2 x 2 cm and 2 cm deep ) Musculoskeletal: Normal Psychiatric: Anxiety, Agitation Mood Description: Anxious Affect: Anxious Speech Pattern: Appropriate - Laboratory and Diagnostics Result Diagrams: 08/25/21 05:15 08/25/21 08:13 Labs: 08/19/21 14:11 Hip - Left Wound Gram Stain - Final 08/19/21 14:11 Hip - Left Wound Culture - Preliminary Proteus Mirabilis 08/13/21 15:45 Blood Blood Culture - Final 08/13/21 15:39 Blood Blood Culture - Final 08/13/21 18:47 Buttock Wound Gram Stain - Final 08/13/21 18:47 Buttock Wound Culture - Final Escherichia Coli Proteus Mirabilis Laboratory WBC 18.7 X10^3/uL (3.6-10.0) H D 08/25/21 05:15 RBC 3.76 X10^6/uL (3.5-5.4) 08/25/21 05:15 Hgb 9.3 g/dL (12.0-16.0) L 08/25/21 05:15 Hct 29.4 % (36.0-47.0) L 08/25/21 05:15 MCV 78.2 fL (80.0-100.0) L 08/25/21 05:15 MCH 24.8 pg (27.0-34.0) L 08/25/21 05:15 MCHC 31.7 g/dL (33.0-35.0) L 08/25/21 05:15 RDW 25.0 % (11.6-16.5) H 08/25/21 05:15 Plt Count 230 X10^3/uL (150.0-450.0) 08/25/21 05:15 Plt Count Comment Adequate (ADEQUATE) 08/25/21 05:15 MPV 8.8 fL (7.4-11.0) 08/25/21 05:15 Neut % (Auto) 89.2 % (42.0-75.0) H 08/25/21 05:15 Lymph % (Auto) 6.3 % (21.0-51.0) L 08/25/21 05:15 [place] % (Auto) 4.4 % (0.0-13.0) 08/25/21 05:15 Eos % (Auto) 0.0 % (0.9-2.9) L 08/25/21 05:15 Baso % (Auto) 0.1 % (0.2-1.0) L 08/25/21 05:15 Neut # (Auto) 16.7 x10^3/uL (2.2-4.8) H 08/25/21 05:15 Lymph # (Auto) 1.2 X10^3/uL (1.3-2.9) L 08/25/21 05:15 [place] # (Auto) 0.8 x10^3/uL (0.3-0.8) 08/25/21 05:15 Eos # (Auto) 0.0 x10^3/uL (0.0-0.2) 08/25/21 05:15 Baso # (Auto) 0.0 X10^3/uL (0.0-0.1) 08/25/21 05:15 Absolute Nucleated RBC 0.0 /100WBC 08/25/21 05:15 Total Counted 100 08/24/21 05:27 Neutrophils % (Manual) 95 % (39-76) H 08/24/21 05:27 Band Neutrophils % 3 % (0-10) 08/24/21 05:27 Lymphocytes % (Manual) 1 % (13-43) L 08/24/21 05:27 Monocytes % (Manual) 1 % (4-9) L 08/24/21 05:27 Plt Morphology Comment Normal (NORMAL) 08/25/21 05:15 RBC Morphology Abnormal (NORMAL) A 08/25/21 05:15 Hypochromasia Slight A 08/25/21 05:15 Anisocytosis 3+ A 08/25/21 05:15 Microcytosis Slight A 08/25/21 05:15 Target Cells Present 08/25/21 05:15 Stomatocytes Slight A 08/21/21 05:39 Sample Site Lr 08/22/21 23:39 ABG pH 7.420 (7.35-7.45) 08/22/21 23:39 ABG pCO2 61.0 mmHg (35.0-45.0) H* 08/22/21 23:39 ABG pO2 108.0 mmHg (80.0-100.0) H 08/22/21 23:39 ABG HCO3 39.6 mmol/L (22-26) H* 08/22/21 23:39 ABG O2 Saturation 98.0 % (90-100) 08/22/21 23:39 ABG Base Excess 12.7 mmol/L (-2.0-2.0) H 08/22/21 23:39 Satish Test Pos 08/22/21 23:39 A-a Gradient 529.0 mmHg 08/22/21 23:39 FiO2 100.0 08/22/21 23:39 Blood Gas Comments Jaye well ae 08/22/21 23:39 Sodium 139 mmol/L (136-145) 08/25/21 05:15 Corrected Sodium 144 mmol/L (136-145) 08/25/21 05:15 Potassium 4.8 mmol/L (3.5-5.1) 08/25/21 08:13 Chloride 97 mmol/L (98-107) L 08/25/21 05:15 Carbon Dioxide 35.7 mmol/L (21-32) H 08/25/21 05:15 BUN 32 mg/dL (7-18) H 08/25/21 05:15 Creatinine 0.98 mg/dL (0.55-1.02) 08/25/21 05:15 Est GFR (MDRD) Af Amer > 60 (>60) 08/25/21 05:15 Est GFR (MDRD) Non-Af > 60 (>60) 08/25/21 05:15 Glucose 305 mg/dL (65-99) H 08/25/21 05:15 POC Glucose (mg/dL) 317 mg/dL (65-99) H 08/25/21 11:28 Lactic Acid 1.2 mmol/L (0.4-2.0) 08/14/21 18:55 Calcium 8.7 mg/dL (8.5-10.1) 08/25/21 05:15 Corrected Calcium TNP 08/25/21 05:15 Magnesium 1.3 mg/dL (1.7-2.9) L 08/25/21 05:15 Total Bilirubin 0.40 mg/dL (0.2-1.0) 08/25/21 05:15 AST 6 Units/L (15-37) L 08/25/21 05:15 ALT 20 Units/L (12-78) 08/25/21 05:15 Alkaline Phosphatase 85 Units/L (46-116) 08/25/21 05:15 Creatine Kinase 39 Units/L (26-192) 08/22/21 18:23 CK-MB (CK-2) < 1.0 ng/mL (0-4.0) 08/22/21 18:23 CK/CKMB % Calc 2.6 % (<4) 08/22/21 18:23 Troponin I High Sens 12.9 ng/L (4.0-60.0) 08/22/21 18:23 C-Reactive Protein 100.20 mg/L (0-3.0) H 08/25/21 08:13 B-Natriuretic Peptide 229 pg/mL (0-79) H 08/25/21 05:15 Total Protein 6.6 g/dL (6.4-8.2) 08/25/21 05:15 Albumin 3.8 g/dL (3.4-5.0) 08/25/21 05:15 Globulin 2.8 g/dL (2.5-4.5) 08/25/21 05:15 Albumin/Globulin Ratio 1.4 Ratio (1.1-2.1) 08/25/21 05:15 Stool Description 20g loose/mucoid brn 08/16/21 03:31 Stl Occult Blood (IFOB) Negative (NEGATIVE) 08/16/21 03:31 Stl C. diff Tox B Gene Negative (NEGATIVE) 08/22/21 11:50 Stl C. diff [id number] Presumptive negative (NEGATIVE) 08/22/21 11:50 Tissue Pathology To follow 08/19/21 14:16 Blood Type O POSITIVE 08/15/21 07:07 Antibody Screen Negative 08/15/21 07:07 Crossmatch See Detail 08/15/21 07:07 - Plan (1) Pneumonia Status: Acute Qualifiers: Pneumonia type: due to unspecified organism Laterality: bilateral Lung location: unspecified part of lung Qualified Code(s): J18.9 - Pneumonia, unspecified organism Plan: SUPPLEMENTAL OXYGEN, NORMAL SALINE AT 80 ML/HR, INVANZ 1G IV DAILY, CIPRO 400MG IV Q12H, VANCOMYCIN, LASIX 40MG IV Q12H, SOLU-MEDROL 20MG IV Q12H, NEBULIZER TREATMENTS, ALBUMIN 25% IV DAILY. RESUMED HOME MEDICATIONS. MONITOR DAILY LABS AND CHEST XRAY (2) Urinary tract infection Status: Acute Qualifiers: Urinary tract infection type: acute cystitis Hematuria presence: with hematuria Qualified Code(s): N30.01 - Acute cystitis with hematuria (3) Sepsis due to urinary tract infection Status: Acute (4) Altered mental status Status: Resolved Qualifiers: Altered mental status type: transient alteration of awareness Qualified Code(s): R40.4 - Transient alteration of awareness (5) Hypoalbuminemia Status: Acute (6) DM II (diabetes mellitus, type II), controlled Status: Chronic Qualifiers: Diabetes mellitus medical terminologist insulin use: with medical terminologist use Diabetes mellitus complication status: with hyperglycemia Qualified Code(s): E11.65 - Type 2 diabetes mellitus with hyperglycemia; Z79.4 - nursing home (current) use of insulin (7) CHF (congestive heart failure) Status: Chronic Qualifiers: Heart failure type: unspecified Heart failure chronicity: unspecified Qualified Code(s): I50.9 - Heart failure, unspecified
--- NOTE | 2021-08-25 11:53 | PCM.PROG ---
Progress Note - Progress Note for Day of Date of Exam: 08/25/21 - Subjective Subjective: IS CURRENTLY BEING TREATED FOR UTI, PNEUMONIA, SEPSIS, ANEMIA, AND AMS. SHE IS STATUS POST DEBRIDEMENT OF SACRAL WOUND. SHE HAS RECEIVED 1 UNIT OF PRBC SINCE ADMISSION. TODAY, SHE IS ALERT, LYING IN BED ON MORNING ROUNDS. SHE IS ORIENTED TO PERSON, PLACE, AND SITUATION. SHE CONTINUES WITH COMPLAINTS OF SHORTNESS OF BREATH AT TIMES AND WEAKNESS. SHE IS CURRENTLY UTILIZING OXYGEN VIA NASAL CANNULA AT 4-5 LPM. SATURATIONS HAVE BEEN IN THE 90s THIS MORNING. ON EXAMINATION, HEART IS REGULAR IN RATE AND RHYTHM. BILATERAL LUNGS NOTED WITH SCATTERED RHONCHI, DIMINISHED. ABDOMEN IS ROUND, SOFT, AND NON- TENDER WITH NORMAL BOWEL SOUNDS NOTED IN ALL QUADRANTS. THERE IS AN OPEN WOUND TO THE FOLD OF RIGHT BUTTOCK. DRESSING IS CURRENTLY DRY AND INTACT. SHE WILL REQUIRE A WOUND VAC WHEN IT IS AVAILABLE. HER VITALS THIS MORNING ARE: 97.6-89-18-96%-124/65. LABS WERE OBTAINED. WBC 18.7, HGB 9.3, HCT 29.4, POTASSIUM 2.9, CHLORIDE 97, CARBON DIOXIDE 35.7, BUN 32, GLUCOSE 305, MAGNESIUM 1.3, AST 6, BNP 229, CRP 100.20. SACRAL WOUND CULTURES REPORT GROWTH OF E.COLI AND PROTEUS MIRABILIS. LEFT HIP WOUND CULTURE IS PENDING. URINE CULTURE FROM HER 08/12 ER VISIT REPORTS GROWTH OF E.COLI. A CHEST XRAY WAS OBTAINED AND REVEALED: Patient is rotated to the left. The heart remains enlarged. Bilateral perihilar alveolar filling is again identified and is unchanged. Findings suggest pulmonary edema which could be cardiogenic or noncardiogenic in origin. Left pleural effusion is likely also present. There is increased density in the retrocardiac area of the left lower lobe obscuring the left hemidiaphragm which could be on the basis of atelectasis, consolidation, or pleural effusion or comb ination. Bony thorax is unremarkable. SHE IS CURRENTLY RECEIVING NORMAL SALINE AT 30 ML/HR, INVANZ 1G IV DAILY, CIPRO 400MG IV Q12H, VANCOMYCIN 750MG IV Q8H, SOLU-MEDROL 40MG IV Q8H, LASIX 40MG IV BID, ALBUMIN 25% IV DAILY, XOPENEX NEBS TID, PULMICORT NEBS BID, CORTISPORIN EAR DROPS TO RIGHT TID, AND HER HOME MEDICATIONS WERE RESUMED. WE WILL CONTINUE WITH CURRENT PLAN OF CARE TODAY. WE PLAN TO FOLLOW UP WITH AM LABS AND CHEST XRAY AND CONTINUE TO MONITOR. TIME SPENT ON CLINICAL ASSESSMENT, REVIEWING LABS AND IMAGING, DECISION MAKING, AND DOCUMENTATION GREATER THAN 45 MINUTES. - Past Medical Family Social History Past Med/Fam/Surg Hx: No changes since H&P Allergies: Allergies quetiapine [From Seroquel] Allergy (Verified 08/13/21 14:56) aripiprazole [From Abilify] Adverse Reaction (Verified 08/13/21 14:56) bupropion [From Wellbutrin] Adverse Reaction (Verified 08/13/21 14:56) donepezil [From Aricept] Adverse Reaction (Verified 08/13/21 14:56) moxifloxacin [From Avelox] Adverse Reaction (Verified 08/13/21 14:56) olanzapine [From Zyprexa] Adverse Reaction (Verified 08/13/21 14:56) promethazine [From Phenergan] Adverse Reaction (Verified 08/13/21 14:56) venlafaxine [From Effexor] Adverse Reaction (Verified 08/13/21 14:56) - Review of Systems ROS: No change since H&P - Vital Signs and I&O's Vital Signs: Temperature 97.6 F Pulse Rate [Left Brachial] 89 Pulse Rate [Right] 101 Pulse Rate 122 Respiratory Rate 20 Blood Pressure [Right Arm] 124/65 Blood Pressure [Left Arm] 120/65 Blood Pressure 173/93 O2 Sat by Pulse Oximetry 99 Intake and Output: Intake & Output 08/22/21 08/23/21 08/24/21 08/25/21 11:59 11:59 11:59 11:59 Intake Total 1760 / 1760 1700 / 1700 1002 / 1002 1439 / 1439 Balance 1760 / 1760 1700 / 1700 1002 / 1002 1439 / 1439 - Physical Exam Oriented: Person, Place Eyes: Normal Ear: Normal Nose: Normal Throat: Normal Respiratory: Diminished, Rhonchi Cardiovascular: Tachycardia : Dysuria Auscultation: Bowel Sounds: Normal Tenderness: Normal Skin: Normal, Other (decubitus ulcer Lt hip 2 x 2 cm and 2 cm deep ) Musculoskeletal: Normal Psychiatric: Anxiety, Agitation Mood Description: Anxious Affect: Anxious Speech Pattern: Appropriate - Laboratory and Diagnostics Result Diagrams: 08/25/21 05:15 08/25/21 08:13 Labs: 08/19/21 14:11 Hip - Left Wound Gram Stain - Final 08/19/21 14:11 Hip - Left Wound Culture - Preliminary Proteus Mirabilis 08/13/21 15:45 Blood Blood Culture - Final 08/13/21 15:39 Blood Blood Culture - Final 08/13/21 18:47 Buttock Wound Gram Stain - Final 08/13/21 18:47 Buttock Wound Culture - Final Escherichia Coli Proteus Mirabilis Laboratory WBC 18.7 X10^3/uL (3.6-10.0) H D 08/25/21 05:15 RBC 3.76 X10^6/uL (3.5-5.4) 08/25/21 05:15 Hgb 9.3 g/dL (12.0-16.0) L 08/25/21 05:15 Hct 29.4 % (36.0-47.0) L 08/25/21 05:15 MCV 78.2 fL (80.0-100.0) L 08/25/21 05:15 MCH 24.8 pg (27.0-34.0) L 08/25/21 05:15 MCHC 31.7 g/dL (33.0-35.0) L 08/25/21 05:15 RDW 25.0 % (11.6-16.5) H 08/25/21 05:15 Plt Count 230 X10^3/uL (150.0-450.0) 08/25/21 05:15 Plt Count Comment Adequate (ADEQUATE) 08/25/21 05:15 MPV 8.8 fL (7.4-11.0) 08/25/21 05:15 Neut % (Auto) 89.2 % (42.0-75.0) H 08/25/21 05:15 Lymph % (Auto) 6.3 % (21.0-51.0) L 08/25/21 05:15 [place] % (Auto) 4.4 % (0.0-13.0) 08/25/21 05:15 Eos % (Auto) 0.0 % (0.9-2.9) L 08/25/21 05:15 Baso % (Auto) 0.1 % (0.2-1.0) L 08/25/21 05:15 Neut # (Auto) 16.7 x10^3/uL (2.2-4.8) H 08/25/21 05:15 Lymph # (Auto) 1.2 X10^3/uL (1.3-2.9) L 08/25/21 05:15 [place] # (Auto) 0.8 x10^3/uL (0.3-0.8) 08/25/21 05:15 Eos # (Auto) 0.0 x10^3/uL (0.0-0.2) 08/25/21 05:15 Baso # (Auto) 0.0 X10^3/uL (0.0-0.1) 08/25/21 05:15 Absolute Nucleated RBC 0.0 /100WBC 08/25/21 05:15 Total Counted 100 08/24/21 05:27 Neutrophils % (Manual) 95 % (39-76) H 08/24/21 05:27 Band Neutrophils % 3 % (0-10) 08/24/21 05:27 Lymphocytes % (Manual) 1 % (13-43) L 08/24/21 05:27 Monocytes % (Manual) 1 % (4-9) L 08/24/21 05:27 Plt Morphology Comment Normal (NORMAL) 08/25/21 05:15 RBC Morphology Abnormal (NORMAL) A 08/25/21 05:15 Hypochromasia Slight A 08/25/21 05:15 Anisocytosis 3+ A 08/25/21 05:15 Microcytosis Slight A 08/25/21 05:15 Target Cells Present 08/25/21 05:15 Stomatocytes Slight A 08/21/21 05:39 Sample Site Lr 08/22/21 23:39 ABG pH 7.420 (7.35-7.45) 08/22/21 23:39 ABG pCO2 61.0 mmHg (35.0-45.0) H* 08/22/21 23:39 ABG pO2 108.0 mmHg (80.0-100.0) H 08/22/21 23:39 ABG HCO3 39.6 mmol/L (22-26) H* 08/22/21 23:39 ABG O2 Saturation 98.0 % (90-100) 08/22/21 23:39 ABG Base Excess 12.7 mmol/L (-2.0-2.0) H 08/22/21 23:39 Satish Test Pos 08/22/21 23:39 A-a Gradient 529.0 mmHg 08/22/21 23:39 FiO2 100.0 08/22/21 23:39 Blood Gas Comments Jaye well ae 08/22/21 23:39 Sodium 139 mmol/L (136-145) 08/25/21 05:15 Corrected Sodium 144 mmol/L (136-145) 08/25/21 05:15 Potassium 4.8 mmol/L (3.5-5.1) 08/25/21 08:13 Chloride 97 mmol/L (98-107) L 08/25/21 05:15 Carbon Dioxide 35.7 mmol/L (21-32) H 08/25/21 05:15 BUN 32 mg/dL (7-18) H 08/25/21 05:15 Creatinine 0.98 mg/dL (0.55-1.02) 08/25/21 05:15 Est GFR (MDRD) Af Amer > 60 (>60) 08/25/21 05:15 Est GFR (MDRD) Non-Af > 60 (>60) 08/25/21 05:15 Glucose 305 mg/dL (65-99) H 08/25/21 05:15 POC Glucose (mg/dL) 317 mg/dL (65-99) H 08/25/21 11:28 Lactic Acid 1.2 mmol/L (0.4-2.0) 08/14/21 18:55 Calcium 8.7 mg/dL (8.5-10.1) 08/25/21 05:15 Corrected Calcium TNP 08/25/21 05:15 Magnesium 1.3 mg/dL (1.7-2.9) L 08/25/21 05:15 Total Bilirubin 0.40 mg/dL (0.2-1.0) 08/25/21 05:15 AST 6 Units/L (15-37) L 08/25/21 05:15 ALT 20 Units/L (12-78) 08/25/21 05:15 Alkaline Phosphatase 85 Units/L (46-116) 08/25/21 05:15 Creatine Kinase 39 Units/L (26-192) 08/22/21 18:23 CK-MB (CK-2) < 1.0 ng/mL (0-4.0) 08/22/21 18:23 CK/CKMB % Calc 2.6 % (<4) 08/22/21 18:23 Troponin I High Sens 12.9 ng/L (4.0-60.0) 08/22/21 18:23 C-Reactive Protein 100.20 mg/L (0-3.0) H 08/25/21 08:13 B-Natriuretic Peptide 229 pg/mL (0-79) H 08/25/21 05:15 Total Protein 6.6 g/dL (6.4-8.2) 08/25/21 05:15 Albumin 3.8 g/dL (3.4-5.0) 08/25/21 05:15 Globulin 2.8 g/dL (2.5-4.5) 08/25/21 05:15 Albumin/Globulin Ratio 1.4 Ratio (1.1-2.1) 08/25/21 05:15 Stool Description 20g loose/mucoid brn 08/16/21 03:31 Stl Occult Blood (IFOB) Negative (NEGATIVE) 08/16/21 03:31 Stl C. diff Tox B Gene Negative (NEGATIVE) 08/22/21 11:50 Stl C. diff [id number] Presumptive negative (NEGATIVE) 08/22/21 11:50 Tissue Pathology To follow 08/19/21 14:16 Blood Type O POSITIVE 08/15/21 07:07 Antibody Screen Negative 08/15/21 07:07 Crossmatch See Detail 08/15/21 07:07 - Plan (1) Pneumonia Status: Acute Qualifiers: Pneumonia type: due to unspecified organism Laterality: bilateral Lung location: unspecified part of lung Qualified Code(s): J18.9 - Pneumonia, unspecified organism Plan: SUPPLEMENTAL OXYGEN, NORMAL SALINE AT 30 ML/HR, INVANZ 1G IV DAILY, CIPRO 400MG IV Q12H, VANCOMYCIN 750MG IV Q8H, LASIX 40MG IV Q12H, SOLU-MEDROL 20MG IV Q12H, NEBULIZER TREATMENTS, ALBUMIN 25% IV DAILY. RESUMED HOME MEDICATIONS. MONITOR DAILY LABS AND CHEST XRAY (2) Urinary tract infection Status: Acute Qualifiers: Urinary tract infection type: acute cystitis Hematuria presence: with hematuria Qualified Code(s): N30.01 - Acute cystitis with hematuria (3) Sepsis due to urinary tract infection Status: Acute (4) Altered mental status Status: Resolved Qualifiers: Altered mental status type: transient alteration of awareness Qualified Code(s): R40.4 - Transient alteration of awareness (5) Hypoalbuminemia Status: Acute (6) DM II (diabetes mellitus, type II), controlled Status: Chronic Qualifiers: Diabetes mellitus rodent exterminator insulin use: with rodent exterminator use Diabetes mellitus complication status: with hyperglycemia Qualified Code(s): E11.65 - Type 2 diabetes mellitus with hyperglycemia; Z79.4 - adjunct faculty for medical terminology (current) use of insulin (7) CHF (congestive heart failure) Status: Chronic Qualifiers: Heart failure type: unspecified Heart failure chronicity: unspecified Qualified Code(s): I50.9 - Heart failure, unspecified
[2021-08-25] MEDS ORDERED: PHARMACY COMMENT IV ONE (13:30)
[2021-08-25 16:30] LABS: CREATININE 0.93 mg/dL (0.55-1.02)
[2021-08-25 16:39] LABS: VANCOMYCIN,TROUGH 25.8 ug/mL (15-20)
[2021-08-25] MEDS: TORADOL 30 MG VIAL IVP PRN (17:50)
[2021-08-25] MEDS: MAG-OX TAB PO SCH (17:50)
[2021-08-25] MEDS: SNACK - Diabetic Appropriate PO SCH (22:02)
[2021-08-25] MEDS: DESYREL PO SCH (22:03)
[2021-08-25] MEDS: LOVENOX INJ 40 MG SYR SC SCH (22:04)
[2021-08-25] MEDS: LIPITOR TAB 20 MG PO SCH (22:04)
[2021-08-25] MEDS: ZANAFLEX PO SCH (22:06)
[2021-08-26] MEDS ORDERED: GLUCOPHAGE ONE ×2 (04:51→16:59)
[2021-08-26 05:39] LABS: BASOPHILS # (AUTO) 0.1 X10^3/uL (0.0-0.1); BASOPHILS % (AUTO) 0.3 % (0.2-1.0); HEMATOCRIT 30.7 % (36.0-47.0); HEMOGLOBIN 9.9 g/dL (12.0-16.0); LYMPHOCYTES # (AUTO) 1.7 X10^3/uL (1.3-2.9); MEAN CORPUSCULAR HEMOGLOBIN 25.3 pg (27.0-34.0); MEAN CORPUSCULAR HGB CONC 32.1 g/dL (33.0-35.0); MEAN CORPUSCULAR VOLUME 78.8 fL (80.0-100.0); MEAN PLATELET VOLUME 9.1 fL (7.4-11.0); MONOCYTES # (AUTO) 1.2 x10^3/uL (0.3-0.8); MONOCYTES % (AUTO) 5.6 % (0.0-13.0); NEUTROPHILS # (AUTO) 17.8 x10^3/uL (2.2-4.8); NEUTROPHILS % (AUTO) 86.1 % (42.0-75.0); RED CELL DISTRIBUTION WIDTH 25.2 % (11.6-16.5); WHITE BLOOD COUNT 20.6 X10^3/uL (3.6-10.0)
[2021-08-26 05:48] LABS: ALANINE AMINOTRANSFERASE 31 Units/L (12-78); ALBUMIN 4.3 g/dL (3.4-5.0); ALKALINE PHOSPHATASE 87 Units/L (46-116); ASPARTATE AMINO TRANSFERASE 16 Units/L (15-37); BLOOD UREA NITROGEN 28 mg/dL (7-18); CARBON DIOXIDE 33.9 mmol/L (21-32); CHLORIDE 98 mmol/L (98-107); COR NA(FOR HYPERGLY) 144 mmol/L (136-145); CREATININE 0.77 mg/dL (0.55-1.02); SODIUM 142 mmol/L (136-145); TOTAL PROTEIN 7.3 g/dL (6.4-8.2); eGFR NON BLACK RACES > 60 (>60)
[2021-08-26 05:49] LABS: HYPOCHROMASIA SLIGHT; PLATELET MORPHOLOGY COMMENT NORMAL (NORMAL)
[2021-08-26 05:50] LABS: ANISOCYTOSIS 3+; MICROCYTOSIS SLIGHT; TARGET CELLS PRESENT
--- NOTE | 2021-08-26 05:58 | RAD ---
PROCEDURE: Chest X-ray 1 View .HISTORY: Dyspnea.TECHNIQUE: AP view .COMPARISON: 08/25/2021.TECHNICAL QUALITY: Satisfactory .FINDINGS:Heart size upper limits of normal and unchanged.Normal central vascularity.Moderately severe patchy pneumonia both lung davila is unchanged. No pleural fluid or pneumothorax.IMPRESSION:Unchanged moderately severe bilateral pneumonia.Electronically signed by: John Harp (Aug 26, 2021 05:57:43)
[2021-08-26] MEDS: CORTISPORIN OTIC SUSP RIGHT EAR SCH ×3 (06:07→21:42)
[2021-08-26] MEDS: NS 1,000 ML IV 1,000 ML IV SCH ×2 (06:07→16:56)
[2021-08-26] MEDS: SOLU-Medrol 40 MG VIAL IVP SCH ×3 (06:08→21:42)
[2021-08-26] MEDS: GLUCOPHAGE PO SCH ×2 (06:08→17:03)
[2021-08-26] MEDS: XOPENEX 1.25 MG/3 ML NEBULE NEB SCH ×3 (06:15→20:00)
[2021-08-26] MEDS: INVanz INJ 1 GRAM VIAL 1 G in NS 100 ML IV 100 ML IV SCH ×2 (07:51→09:02)
[2021-08-26] MEDS: XALATAN OP SCH ×2 (08:45→21:42)
[2021-08-26] MEDS: CIPRO IV 400 MG PREMIX* 400 MG/200 ML IV.SOLN. IV SCH ×2 (08:52→21:38)
[2021-08-26] MEDS: POTASSIUM CHLORIDE LIQ 20 MEQ UDC PO SCH (08:54)
[2021-08-26] MEDS: DEPAKOTE D.R. TAB PO SCH ×2 (08:56→21:38)
[2021-08-26] MEDS: XANAX PO SCH ×2 (08:56→21:42)
[2021-08-26] MEDS: PROVERA PO SCH (08:57)
[2021-08-26] MEDS: ZyrTEC TAB 10 MG PO SCH (08:57)
[2021-08-26] MEDS: ULTRAM PO SCH ×2 (08:57→21:40)
[2021-08-26] MEDS: ZOLOFT PO SCH (08:58)
[2021-08-26] MEDS: COLACE CAP 100 MG PO SCH ×2 (09:00→21:38)
[2021-08-26] MEDS: VSL#3 PO SCH (09:01)
[2021-08-26] MEDS: ASTELIN NASAL SPRAY ENOSTRIL SCH (09:01)
[2021-08-26] MEDS: FLONASE NASAL SPRAY ENOSTRIL SCH ×2 (09:02→21:39)
[2021-08-26] MEDS: PULMICORT NEB TX 0.5 MG NEB SCH ×2 (09:20→20:00)
[2021-08-26] MEDS: VANCOMYCIN IV *PREMIX 750 mg/150 ML BAG 750 MG/150 ML PIGGYBACK IV SCH ×2 (09:45→21:40)
[2021-08-26] MEDS: RisperDAL TAB 1 MG PO SCH ×3 (10:00→21:39)
[2021-08-26] MEDS: MAG-OX TAB PO SCH (10:00)
[2021-08-26] MEDS: TAB-A-VITE PO SCH (10:00)
[2021-08-26] MEDS: THERMOTABS PO SCH ×4 (10:00→21:39)
[2021-08-26] MEDS: LASIX IVP SCH ×2 (11:00→22:01)
--- NOTE | 2021-08-26 12:17 | PCM.PROG ---
Progress Note - Progress Note for Day of Date of Exam: 08/26/21 - Subjective Subjective: IS CURRENTLY BEING TREATED FOR UTI, PNEUMONIA, SEPSIS, ANEMIA, AND AMS. SHE IS STATUS POST DEBRIDEMENT OF SACRAL WOUND. SHE HAS RECEIVED 1 UNIT OF PRBC SINCE ADMISSION. TODAY, SHE IS ALERT, LYING IN BED ON MORNING ROUNDS. SHE IS ORIENTED TO PERSON, PLACE, AND SITUATION. SHE CONTINUES WITH COMPLAINTS OF SHORTNESS OF BREATH AT TIMES AND WEAKNESS. SHE IS CURRENTLY UTILIZING OXYGEN VIA SIMPLE MASK AT 4-5 LPM. SATURATIONS HAVE BEEN IN THE 90s THIS MORNING. ON EXAMINATION, HEART IS REGULAR IN RATE AND RHYTHM. BILATERAL LUNGS NOTED WITH SCATTERED RHONCHI, DIMINISHED. ABDOMEN IS ROUND, SOFT, AND NON- TENDER WITH NORMAL BOWEL SOUNDS NOTED IN ALL QUADRANTS. THERE IS AN OPEN WOUND TO THE FOLD OF RIGHT BUTTOCK. DRESSING IS CURRENTLY DRY AND INTACT. SHE WILL REQUIRE A WOUND VAC WHEN IT IS AVAILABLE. HER VITALS THIS MORNING ARE: 98.3-103-24-94%-184/85. LABS WERE OBTAINED. WBC 20.6, HGB 9.9, HCT 30.7, SODIUM 142, POTASSIUM 3.8, CARBON DIOXIDE 33.9, BUN 28, CREATININE 0.77, GLUCOSE 167, CALCIUM 9.0, CRP 66.20, BNP 257, ALBUMIN 4.3. SACRAL WOUND CULTURES REPORT GROWTH OF E.COLI AND PROTEUS MIRABILIS. LEFT HIP WOUND CULTURE IS PENDING. URINE CULTURE FROM HER 08/12 ER VISIT REPORTS GROWTH OF E.COLI. A CHEST XRAY WAS OBTAINED AND REVEALED: Heart size upper limits of normal and unchanged. Normal central vascularity. Moderately severe patchy pneumonia both lung davila is unchanged. No pleural fluid or pneumothorax. SHE IS CURRENTLY RECEIVING NORMAL SALINE AT 30 ML/HR, INVANZ 1G IV DAILY, CIPRO 400MG IV Q12H, VANCOMYCIN 750MG IV Q8H, SOLU-MEDROL 40MG IV Q8H, LASIX 40MG IV BID, ALBUMIN 25% IV DAILY, XOPENEX NEBS TID, PULMICORT NEBS BID, CORTISPORIN EAR DROPS TO RIGHT TID, AND HER HOME MEDICATIONS WERE RESUMED. WE WILL CONTINUE WITH CURRENT PLAN OF CARE TODAY. WE WILL RESTRICT FLUIDS TO LESS THAN 750ML/DAY. WE WILL ALSO OBTAIN A RESPIRATORY AIT PANEL. WE PLAN TO FOLLOW UP WITH AM LABS AND CHEST XRAY AND CONTINUE TO MONITOR. TIME SPENT ON CLINICAL ASSESSMENT, REVIEWING LABS AND IMAGING, DECISION MAKING, AND DOCUMENTATION GREATER THAN 45 MINUTES. - Past Medical Family Social History Past Med/Fam/Surg Hx: No changes since H&P Allergies: Allergies quetiapine [From Seroquel] Allergy (Verified 08/13/21 14:56) aripiprazole [From Abilify] Adverse Reaction (Verified 08/13/21 14:56) bupropion [From Wellbutrin] Adverse Reaction (Verified 08/13/21 14:56) donepezil [From Aricept] Adverse Reaction (Verified 08/13/21 14:56) moxifloxacin [From Avelox] Adverse Reaction (Verified 08/13/21 14:56) olanzapine [From Zyprexa] Adverse Reaction (Verified 08/13/21 14:56) promethazine [From Phenergan] Adverse Reaction (Verified 08/13/21 14:56) venlafaxine [From Effexor] Adverse Reaction (Verified 08/13/21 14:56) - Review of Systems ROS: No change since H&P - Vital Signs and I&O's Vital Signs: Temperature 98.3 F Pulse Rate [Left Brachial] 103 Pulse Rate [Right] 101 Pulse Rate 116 Respiratory Rate 20 Blood Pressure [Right Arm] 184/85 Blood Pressure [Left Arm] 120/65 Blood Pressure 173/93 O2 Sat by Pulse Oximetry 89 Intake and Output: Intake & Output 08/24/21 08/25/21 08/26/21 08/27/21 11:59 11:59 11:59 11:59 Intake Total 1001 / 1001 1439 / 1439 1900 / 190 Balance 1001 / 1001 1439 / 1439 190 / 190 - Physical Exam Oriented: Person, Place Eyes: Normal Ear: Normal Nose: Normal Throat: Normal Respiratory: Diminished, Rhonchi Cardiovascular: Tachycardia : Dysuria Auscultation: Bowel Sounds: Normal Palpation: Normal Tenderness: Normal Skin: Normal, Other (decubitus ulcer Lt hip 2 x 2 cm and 2 cm deep ) Musculoskeletal: Normal Psychiatric: Anxiety, Agitation Mood Description: Anxious Affect: Anxious Speech Pattern: Appropriate - Laboratory and Diagnostics Result Diagrams: 08/26/21 05:23 08/26/21 05:23 Labs: 08/19/21 14:11 Hip - Left Wound Gram Stain - Final 08/19/21 14:11 Hip - Left Wound Culture - Preliminary Proteus Mirabilis 08/13/21 15:45 Blood Blood Culture - Final 08/13/21 15:39 Blood Blood Culture - Final 08/13/21 18:47 Buttock Wound Gram Stain - Final 08/13/21 18:47 Buttock Wound Culture - Final Escherichia Coli Proteus Mirabilis Laboratory WBC 20.6 X10^3/uL (3.6-10.0) H 08/26/21 05:23 RBC 3.90 X10^6/uL (3.5-5.4) 08/26/21 05:23 Hgb 9.9 g/dL (12.0-16.0) L 08/26/21 05:23 Hct 30.7 % (36.0-47.0) L 08/26/21 05:23 MCV 78.8 fL (80.0-100.0) L 08/26/21 05:23 MCH 25.3 pg (27.0-34.0) L 08/26/21 05:23 MCHC 32.1 g/dL (33.0-35.0) L 08/26/21 05:23 RDW 25.2 % (11.6-16.5) H 08/26/21 05:23 Plt Count 222 X10^3/uL (150.0-450.0) 08/26/21 05:23 Plt Count Comment Adequate (ADEQUATE) 08/26/21 05:23 MPV 9.1 fL (7.4-11.0) 08/26/21 05:23 Neut % (Auto) 86.1 % (42.0-75.0) H 08/26/21 05:23 Lymph % (Auto) 8.0 % (21.0-51.0) L 08/26/21 05:23 [place] % (Auto) 5.6 % (0.0-13.0) 08/26/21 05:23 Eos % (Auto) 0.0 % (0.9-2.9) L 08/26/21 05:23 Baso % (Auto) 0.3 % (0.2-1.0) 08/26/21 05:23 Neut # (Auto) 17.8 x10^3/uL (2.2-4.8) H 08/26/21 05:23 Lymph # (Auto) 1.7 X10^3/uL (1.3-2.9) 08/26/21 05:23 [place] # (Auto) 1.2 x10^3/uL (0.3-0.8) H 08/26/21 05:23 Eos # (Auto) 0.0 x10^3/uL (0.0-0.2) 08/26/21 05:23 Baso # (Auto) 0.1 X10^3/uL (0.0-0.1) 08/26/21 05:23 Absolute Nucleated RBC 0.0 /100WBC 08/26/21 05:23 Total Counted 100 08/24/21 05:27 Neutrophils % (Manual) 95 % (39-76) H 08/24/21 05:27 Band Neutrophils % 3 % (0-10) 08/24/21 05:27 Lymphocytes % (Manual) 1 % (13-43) L 08/24/21 05:27 Monocytes % (Manual) 1 % (4-9) L 08/24/21 05:27 Plt Morphology Comment Normal (NORMAL) 08/26/21 05:23 RBC Morphology Abnormal (NORMAL) A 08/26/21 05:23 Dimorphic RBCs Present 08/26/21 05:23 Hypochromasia Slight A 08/26/21 05:23 Anisocytosis 3+ A 08/26/21 05:23 Microcytosis Slight A 08/26/21 05:23 Target Cells Present 08/26/21 05:23 Stomatocytes Slight A 08/21/21 05:39 Sample Site Lr 08/22/21 23:39 ABG pH 7.420 (7.35-7.45) 08/22/21 23:39 ABG pCO2 61.0 mmHg (35.0-45.0) H* 08/22/21 23:39 ABG pO2 108.0 mmHg (80.0-100.0) H 08/22/21 23:39 ABG HCO3 39.6 mmol/L (22-26) H* 08/22/21 23:39 ABG O2 Saturation 98.0 % (90-100) 08/22/21 23:39 ABG Base Excess 12.7 mmol/L (-2.0-2.0) H 08/22/21 23:39 Satish Test Pos 08/22/21 23:39 A-a Gradient 529.0 mmHg 08/22/21 23:39 FiO2 100.0 08/22/21 23:39 Blood Gas Comments Jaye well ae 08/22/21 23:39 Sodium 142 mmol/L (136-145) 08/26/21 05:23 Corrected Sodium 144 mmol/L (136-145) 08/26/21 05:23 Potassium 3.8 mmol/L (3.5-5.1) 08/26/21 05:23 Chloride 98 mmol/L (98-107) 08/26/21 05:23 Carbon Dioxide 33.9 mmol/L (21-32) H 08/26/21 05:23 BUN 28 mg/dL (7-18) H 08/26/21 05:23 Creatinine 0.77 mg/dL (0.55-1.02) 08/26/21 05:23 Est GFR (MDRD) Af Amer > 60 (>60) 08/26/21 05:23 Est GFR (MDRD) Non-Af > 60 (>60) 08/26/21 05:23 Glucose 167 mg/dL (65-99) H 08/26/21 05:23 POC Glucose (mg/dL) 253 mg/dL (65-99) H 08/26/21 11:20 Lactic Acid 1.2 mmol/L (0.4-2.0) 08/14/21 18:55 Calcium 9.0 mg/dL (8.5-10.1) 08/26/21 05:23 Corrected Calcium TNP 08/26/21 05:23 Magnesium 1.3 mg/dL (1.7-2.9) L 08/25/21 05:15 Total Bilirubin 0.50 mg/dL (0.2-1.0) 08/26/21 05:23 AST 16 Units/L (15-37) 08/26/21 05:23 ALT 31 Units/L (12-78) 08/26/21 05:23 Alkaline Phosphatase 87 Units/L (46-116) 08/26/21 05:23 Creatine Kinase 39 Units/L (26-192) 08/22/21 18:23 CK-MB (CK-2) < 1.0 ng/mL (0-4.0) 08/22/21 18:23 CK/CKMB % Calc 2.6 % (<4) 08/22/21 18:23 Troponin I High Sens 12.9 ng/L (4.0-60.0) 08/22/21 18:23 C-Reactive Protein 66.20 mg/L (0-3.0) H 08/26/21 05:30 B-Natriuretic Peptide 257 pg/mL (0-79) H 08/26/21 05:23 Total Protein 7.3 g/dL (6.4-8.2) 08/26/21 05:23 Albumin 4.3 g/dL (3.4-5.0) 08/26/21 05:23 Globulin 3.0 g/dL (2.5-4.5) 08/26/21 05:23 Albumin/Globulin Ratio 1.4 Ratio (1.1-2.1) 08/26/21 05:23 Stool Description 20g loose/mucoid brn 08/16/21 03:31 Stl Occult Blood (IFOB) Negative (NEGATIVE) 08/16/21 03:31 Stl C. diff Tox B Gene Negative (NEGATIVE) 08/22/21 11:50 Stl C. diff [id number] Presumptive negative (NEGATIVE) 08/22/21 11:50 Vancomycin Trough 25.8 ug/mL (15-20) H* 08/25/21 15:46 Tissue Pathology To follow 08/19/21 14:16 Blood Type O POSITIVE 08/15/21 07:07 Antibody Screen Negative 08/15/21 07:07 Crossmatch See Detail 08/15/21 07:07 - Plan (1) Pneumonia Status: Acute Qualifiers: Pneumonia type: due to unspecified organism Laterality: bilateral Lung location: unspecified part of lung Qualified Code(s): J18.9 - Pneumonia, u nspecified organism Plan: SUPPLEMENTAL OXYGEN, NORMAL SALINE AT 30 ML/HR, INVANZ 1G IV DAILY, CIPRO 400MG IV Q12H, VANCOMYCIN 750MG IV Q8H, LASIX 40MG IV Q12H, SOLU-MEDROL 20MG IV Q12H, NEBULIZER TREATMENTS, ALBUMIN 25% IV DAILY. RESUMED HOME MEDICATIONS. MONITOR DAILY LABS AND CHEST XRAY (2) Urinary tract infection Status: Acute Qualifiers: Urinary tract infection type: acute cystitis Hematuria presence: with hematuria Qualified Code(s): N30.01 - Acute cystitis with hematuria Plan: ADMIT, NORMAL SALINE AT 80 ML/HR, INVANZ 1G IV DAILY, ALBUMIN 25% IV DAILY. REVIEW HOME MEDICATIONS. MONITOR DAILY LABS (3) Sepsis due to urinary tract infection Status: Acute (4) Altered mental status Status: Resolved Qualifiers: Altered mental status type: transient alteration of awareness Qualified Code(s): R40.4 - Transient alteration of awareness (5) Hypoalbuminemia Status: Acute (6) DM II (diabetes mellitus, type II), controlled Status: Chronic Qualifiers: Diabetes mellitus shelter insulin use: with shelter use Diabetes mellitus complication status: with hyperglycemia Qualified Code(s): E11.65 - Type 2 diabetes mellitus with hyperglycemia; Z79.4 - retirement (current) use of insulin (7) CHF (congestive heart failure) Status: Chronic Qualifiers: Heart failure type: unspecified Heart failure chronicity: unspecified Qualified Code(s): I50.9 - Heart failure, unspecified
[2021-08-26] MEDS: NovoLIN R (or HumuLIN R) SUBCUT PRN (17:05)
[2021-08-26] MEDS: SNACK - Diabetic Appropriate PO SCH (21:38)
[2021-08-26] MEDS: DESYREL PO SCH (21:38)
[2021-08-26] MEDS: LOVENOX INJ 40 MG SYR SC SCH (21:39)
[2021-08-26] MEDS: LIPITOR TAB 20 MG PO SCH (21:39)
[2021-08-26] MEDS: ZANAFLEX PO SCH (21:40)
[2021-08-27] MEDS: ALBUMIN HUMAN 25%- 100 ML 100 ML IV SCH ×2 (02:23→23:42)
[2021-08-27] MEDS: XOPENEX 1.25 MG/3 ML NEBULE NEB SCH ×3 (05:00→20:30)
[2021-08-27] MEDS ORDERED: GLUCOPHAGE ONE ×2 (05:10→17:32)
[2021-08-27] MEDS: SOLU-Medrol 40 MG VIAL IVP SCH ×3 (05:29→23:53)
[2021-08-27] MEDS: CORTISPORIN OTIC SUSP RIGHT EAR SCH ×2 (05:29→13:26)
[2021-08-27 05:32] LABS: BASOPHILS % (AUTO) 0.1 % (0.2-1.0); EOSINOPHILS % (AUTO) 0.1 % (0.9-2.9); HEMATOCRIT 28.4 % (36.0-47.0); HEMOGLOBIN 9.2 g/dL (12.0-16.0); LYMPHOCYTES # (AUTO) 1.3 X10^3/uL (1.3-2.9); LYMPHOCYTES % (AUTO) 9.3 % (21.0-51.0); MEAN CORPUSCULAR HEMOGLOBIN 25.6 pg (27.0-34.0); MEAN CORPUSCULAR HGB CONC 32.5 g/dL (33.0-35.0); MEAN CORPUSCULAR VOLUME 78.6 fL (80.0-100.0); MONOCYTES # (AUTO) 0.8 x10^3/uL (0.3-0.8); MONOCYTES % (AUTO) 5.6 % (0.0-13.0); NEUTROPHILS # (AUTO) 12.1 x10^3/uL (2.2-4.8); NEUTROPHILS % (AUTO) 84.9 % (42.0-75.0); RED BLOOD COUNT 3.62 X10^6/uL (3.5-5.4); RED CELL DISTRIBUTION WIDTH 25.3 % (11.6-16.5); WHITE BLOOD COUNT 14.3 X10^3/uL (3.6-10.0)
[2021-08-27 05:40] LABS: ALANINE AMINOTRANSFERASE 41 Units/L (12-78); ALBUMIN 4.5 g/dL (3.4-5.0); ALKALINE PHOSPHATASE 73 Units/L (46-116); ASPARTATE AMINO TRANSFERASE 17 Units/L (15-37); BLOOD UREA NITROGEN 27 mg/dL (7-18); CALCIUM 9.2 mg/dL (8.5-10.1); CARBON DIOXIDE 34.5 mmol/L (21-32); CHLORIDE 100 mmol/L (98-107); COR NA(FOR HYPERGLY) 145 mmol/L (136-145); CREATININE 0.68 mg/dL (0.55-1.02); SODIUM 144 mmol/L (136-145); TOTAL PROTEIN 7.3 g/dL (6.4-8.2); eGFR NON BLACK RACES > 60 (>60)
--- NOTE | 2021-08-27 05:49 | RAD ---
PROCEDURE: Chest X-ray 1 View .HISTORY: Dyspnea.TECHNIQUE: AP view .COMPARISON: 08/26/2021.TECHNICAL QUALITY: Satisfactory .FINDINGS:Heart size upper limits of normal and unchanged.Normal central vascularity.Moderate consolidation both lung davila is unchanged. No pleural fluid.IMPRESSION:Unchanged moderate bilateral pneumonia.Electronically signed by: John Harp (Aug 27, 2021 05:49:30)
[2021-08-27] MEDS: GLUCOPHAGE PO SCH ×2 (06:08→17:38)
[2021-08-27 06:13] LABS: ANISOCYTOSIS 3+; HYPOCHROMASIA SLIGHT; MICROCYTOSIS SLIGHT; PLATELET MORPHOLOGY COMMENT NORMAL (NORMAL); TARGET CELLS PRESENT
[2021-08-27] MEDS: INVanz INJ 1 GRAM VIAL 1 G in NS 100 ML IV 100 ML IV SCH (08:00)
[2021-08-27] MEDS: PULMICORT NEB TX 0.5 MG NEB SCH ×3 (08:45→21:51)
[2021-08-27] MEDS: COLACE CAP 100 MG PO SCH (09:18)
[2021-08-27] MEDS: ASTELIN NASAL SPRAY ENOSTRIL SCH (09:18)
[2021-08-27] MEDS: FLONASE NASAL SPRAY ENOSTRIL SCH (09:19)
[2021-08-27] MEDS: CIPRO IV 400 MG PREMIX* 400 MG/200 ML IV.SOLN. IV SCH (09:19)
[2021-08-27] MEDS: DEPAKOTE D.R. TAB PO SCH (09:19)
[2021-08-27] MEDS: POTASSIUM CHLORIDE LIQ 20 MEQ UDC PO SCH (09:21)
[2021-08-27] MEDS: ZOLOFT PO SCH (09:21)
[2021-08-27] MEDS: MAG-OX TAB PO SCH (09:21)
[2021-08-27] MEDS: VSL#3 PO SCH (09:22)
[2021-08-27] MEDS: PROVERA PO SCH (09:23)
[2021-08-27] MEDS: TAB-A-VITE PO SCH (09:24)
[2021-08-27] MEDS: ULTRAM PO SCH ×2 (09:24→23:59)
[2021-08-27] MEDS: XANAX PO SCH ×2 (09:25→23:59)
[2021-08-27] MEDS: XALATAN OP SCH (09:25)
[2021-08-27] MEDS: ZyrTEC TAB 10 MG PO SCH (09:25)
[2021-08-27] MEDS: VANCOMYCIN IV *PREMIX 750 mg/150 ML BAG 750 MG/150 ML PIGGYBACK IV SCH (10:18)
[2021-08-27] MEDS: RisperDAL TAB 1 MG PO SCH ×2 (10:18→13:25)
[2021-08-27] MEDS: THERMOTABS PO SCH ×3 (10:18→17:39)
[2021-08-27] MEDS: LASIX IVP SCH ×2 (11:32→23:53)
[2021-08-27] MEDS: NovoLIN R (or HumuLIN R) SUBCUT PRN ×4 (12:00→23:49)
[2021-08-27] MEDS: NS 1,000 ML IV 1,000 ML IV SCH (18:35)
[2021-08-27 20:17] LABS: CREATININE 0.59 mg/dL (0.55-1.02)
[2021-08-27] MEDS ORDERED: PHARMACY COMMENT IV ONE (20:30)
[2021-08-27 20:42] LABS: VANCOMYCIN,TROUGH 30.9 ug/mL (15-20)
[2021-08-27] MEDS: SNACK - Diabetic Appropriate PO SCH (23:42)
[2021-08-27] MEDS: LOVENOX INJ 40 MG SYR SC SCH (23:48)
[2021-08-27] MEDS: DESYREL PO SCH (23:59)
[2021-08-28] MEDS: ZANAFLEX PO SCH ×2 (00:01→20:34)
[2021-08-28] MEDS: LIPITOR TAB 20 MG PO SCH ×2 (00:01→20:34)
[2021-08-28] MEDS: DEPAKOTE D.R. TAB PO SCH ×3 (00:01→20:35)
[2021-08-28] MEDS: FLONASE NASAL SPRAY ENOSTRIL SCH ×3 (00:02→21:02)
[2021-08-28] MEDS: RisperDAL TAB 1 MG PO SCH ×4 (00:02→21:01)
[2021-08-28] MEDS: CIPRO IV 400 MG PREMIX* 400 MG/200 ML IV.SOLN. IV SCH ×3 (00:02→20:36)
[2021-08-28] MEDS: XALATAN OP SCH ×3 (00:04→21:09)
[2021-08-28] MEDS: THERMOTABS PO SCH ×5 (00:04→21:03)
[2021-08-28] MEDS: CORTISPORIN OTIC SUSP RIGHT EAR SCH ×4 (00:04→21:01)
[2021-08-28] MEDS ORDERED: GLUCOPHAGE ONE ×2 (06:06→16:32)
[2021-08-28] MEDS: NS 1,000 ML IV 1,000 ML IV SCH ×3 (06:13→20:35)
[2021-08-28] MEDS: NovoLIN R (or HumuLIN R) SUBCUT PRN ×3 (06:14→21:11)
[2021-08-28] MEDS: GLUCOPHAGE PO SCH ×2 (06:14→16:46)
[2021-08-28] MEDS: SOLU-Medrol 40 MG VIAL IVP SCH ×3 (06:14→21:00)
--- NOTE | 2021-08-28 06:18 | RAD ---
HISTORYSOB HX: SPINA BIFIDASTUDYCHEST, 1 [id number] trachea is midline. The cardiac silhouette is stable. A bilateral lung consolidation unchanged. There is moderate-sized left pleural effusion also unchanged. No pneumothorax.. The bony thorax is unremarkable.IMPRESSIONStable bilateral pneumonia; no change from previous 08/27/2021.Electronically signed by: Tyson Bosch (Aug 28, 2021 06:18:35)
[2021-08-28 06:31] LABS: BASOPHILS % (AUTO) 0.2 % (0.2-1.0); EOSINOPHILS % (AUTO) 0.2 % (0.9-2.9); HEMATOCRIT 31.1 % (36.0-47.0); LYMPHOCYTES # (AUTO) 1.1 X10^3/uL (1.3-2.9); LYMPHOCYTES % (AUTO) 6.9 % (21.0-51.0); MEAN CORPUSCULAR HEMOGLOBIN 25.5 pg (27.0-34.0); MEAN CORPUSCULAR HGB CONC 32.3 g/dL (33.0-35.0); MEAN PLATELET VOLUME 9.2 fL (7.4-11.0); MONOCYTES # (AUTO) 0.9 x10^3/uL (0.3-0.8); MONOCYTES % (AUTO) 5.6 % (0.0-13.0); NEUTROPHILS # (AUTO) 14.4 x10^3/uL (2.2-4.8); NEUTROPHILS % (AUTO) 87.1 % (42.0-75.0); RED BLOOD COUNT 3.94 X10^6/uL (3.5-5.4); RED CELL DISTRIBUTION WIDTH 25.3 % (11.6-16.5); WHITE BLOOD COUNT 16.5 X10^3/uL (3.6-10.0)
[2021-08-28 06:36] LABS: ALANINE AMINOTRANSFERASE 33 Units/L (12-78); ALBUMIN 4.7 g/dL (3.4-5.0); ALKALINE PHOSPHATASE 86 Units/L (46-116); ASPARTATE AMINO TRANSFERASE 15 Units/L (15-37); BLOOD UREA NITROGEN 26 mg/dL (7-18); CALCIUM 9.8 mg/dL (8.5-10.1); CARBON DIOXIDE 33.1 mmol/L (21-32); CHLORIDE 100 mmol/L (98-107); COR NA(FOR HYPERGLY) 145 mmol/L (136-145); CREATININE 0.69 mg/dL (0.55-1.02); SODIUM 143 mmol/L (136-145); TOTAL PROTEIN 7.7 g/dL (6.4-8.2); eGFR NON BLACK RACES > 60 (>60)
[2021-08-28 07:03] LABS: ANISOCYTOSIS 3+; HYPOCHROMASIA SLIGHT; MICROCYTOSIS SLIGHT; PLATELET MORPHOLOGY COMMENT NORMAL (NORMAL)
[2021-08-28 07:07] LABS: TARGET CELLS PRESENT
[2021-08-28] MEDS: INVanz INJ 1 GRAM VIAL 1 G in NS 100 ML IV 100 ML IV SCH (08:00)
--- NOTE | 2021-08-28 08:08 | PCM.PROG ---
Progress Note - Progress Note for Day of Date of Exam: 08/27/21 - Subjective Subjective: IS CURRENTLY BEING TREATED FOR UTI, PNEUMONIA, SEPSIS, ANEMIA, AND AMS. SHE IS STATUS POST DEBRIDEMENT OF SACRAL WOUND. SHE HAS RECEIVED 1 UNIT OF PRBC SINCE ADMISSION. TODAY, SHE IS ALERT, LYING IN BED ON MORNING ROUNDS. SHE IS ORIENTED TO PERSON, PLACE, AND SITUATION. SHE CONTINUES WITH COMPLAINTS OF SHORTNESS OF BREATH AT TIMES AND WEAKNESS. SHE IS CURRENTLY UTILIZING OXYGEN VIA SIMPLE MASK AT 4-5 LPM. SATURATIONS HAVE BEEN IN THE 90s THIS MORNING. ON EXAMINATION, HEART IS REGULAR IN RATE AND RHYTHM. BILATERAL LUNGS NOTED WITH SCATTERED RHONCHI, DIMINISHED. ABDOMEN IS ROUND, SOFT, AND NON- TENDER WITH NORMAL BOWEL SOUNDS NOTED IN ALL QUADRANTS. THERE IS AN OPEN WOUND TO THE FOLD OF RIGHT BUTTOCK. DRESSING IS CURRENTLY DRY AND INTACT. SHE WILL REQUIRE A WOUND VAC WHEN IT IS AVAILABLE. HER VITALS THIS MORNING ARE: 98.7-99-22-95%-183/88. LABS WERE OBTAINED. ABNORMAL LAB VALUES INCLUDE THE FOLLOWING: WBC 14.3, HGB 9.2, HCT 28.4, CARBON DIOXIDE 34.5, BUN 27, GLUCOSE 160, CRP 72.70, BNP 230. SACRAL WOUND CULTURES REPORT GROWTH OF E.COLI AND PROTEUS MIRABILIS. LEFT HIP WOUND CULTURE IS PENDING. URINE CULTURE FROM HER 08/12 ER VISIT REPORTS GROWTH OF E.COLI. A CHEST XRAY WAS OBTAINED AND REVEALED: Heart size upper limits of normal and unchanged. Normal central vascularity. Moderate consolidation both lung davila is unchanged. No pleural fluid. SHE IS CURRENTLY RECEIVING NORMAL SALINE AT 30 ML/HR, INVANZ 1G IV DAILY, CIPRO 400MG IV Q12H, VANCOMYCIN 750MG IV Q8H, SOLU-MEDROL 40MG IV Q8H, LASIX 40MG IV BID, ALBUMIN 25% IV DAILY, XOPENEX NEBS TID, PULMICORT NEBS BID, CORTISPORIN EAR DROPS TO RIGHT TID, AND HER HOME MEDICATIONS WERE RESUMED. WE WILL CONTINUE WITH CURRENT PLAN OF CARE TODAY. WE WILL RESTRICT FLUIDS TO LESS THAN 750ML/DAY. WE PLAN TO FOLLOW UP WITH AM LABS AND CHEST XRAY AND CONTINUE TO MONITOR. TIME SPENT ON CLINICAL ASSESSMENT, REVIEWING LABS AND IMAGING, DECISION MAKING, AND DOCUMENTATION GREATER THAN 45 MINUTES. - Past Medical Family Social History Past Med/Fam/Surg Hx: No changes since H&P Allergies: Allergies quetiapine [From Seroquel] Allergy (Verified 08/13/21 14:56) aripiprazole [From Abilify] Adverse Reaction (Verified 08/13/21 14:56) bupropion [From Wellbutrin] Adverse Reaction (Verified 08/13/21 14:56) donepezil [From Aricept] Adverse Reaction (Verified 08/13/21 14:56) moxifloxacin [From Avelox] Adverse Reaction (Verified 08/13/21 14:56) olanzapine [From Zyprexa] Adverse Reaction (Verified 08/13/21 14:56) promethazine [From Phenergan] Adverse Reaction (Verified 08/13/21 14:56) venlafaxine [From Effexor] Adverse Reaction (Verified 08/13/21 14:56) - Review of Systems ROS: No change since H&P - Vital Signs and I&O's Vital Signs: Temperature 98.3 F Pulse Rate [Left Brachial] 104 Pulse Rate [Right] 104 Pulse Rate 98 Respiratory Rate 20 Blood Pressure [Right Arm] 175/85 Blood Pressure [Left Arm] 155/86 Blood Pressure 173/93 O2 Sat by Pulse Oximetry 98 Intake and Output: Intake & Output 08/25/21 08/26/21 08/27/21 08/28/21 11:59 11:59 11:59 11:59 Intake Total 1439 / 1439 1900 / 1900 1496 / 1496 1760 / 1760 Balance 1439 / 1439 1900 / 1900 1496 / 1496 1760 / 1760 - Physical Exam Oriented: Person, Place Eyes: Normal Ear: Normal Nose: Normal Throat: Normal Respiratory: Diminished, Rhonchi Cardiovascular: Tachycardia : Dysuria Auscultation: Bowel Sounds: Normal Tenderness: Normal Skin: Normal, Other (decubitus ulcer Lt hip 2 x 2 cm and 2 cm deep ) Musculoskeletal: Normal Psychiatric: Anxiety, Agitation Mood Description: Anxious Affect: Anxious Speech Pattern: Appropriate - Laboratory and Diagnostics Result Diagrams: 08/28/21 05:55 08/28/21 05:55 Labs: 08/19/21 14:11 Hip - Left Wound Gram Stain - Final 08/19/21 14:11 Hip - Left Wound Culture - Preliminary Proteus Mirabilis 08/13/21 15:45 Blood Blood Culture - Final 08/13/21 15:39 Blood Blood Culture - Final 08/13/21 18:47 Buttock Wound Gram Stain - Final 08/13/21 18:47 Buttock Wound Culture - Final Escherichia Coli Proteus Mirabilis Laboratory WBC 16.5 X10^3/uL (3.6-10.0) H 08/28/21 05:55 RBC 3.94 X10^6/uL (3.5-5.4) 08/28/21 05:55 Hgb 10.0 g/dL (12.0-16.0) L 08/28/21 05:55 Hct 31.1 % (36.0-47.0) L 08/28/21 05:55 MCV 79.0 fL (80.0-100.0) L 08/28/21 05:55 MCH 25.5 pg (27.0-34.0) L 08/28/21 05:55 MCHC 32.3 g/dL (33.0-35.0) L 08/28/21 05:55 RDW 25.3 % (11.6-16.5) H 08/28/21 05:55 Plt Count 245 X10^3/uL (150.0-450.0) 08/28/21 05:55 Plt Count Comment Adequate (ADEQUATE) 08/28/21 05:55 MPV 9.2 fL (7.4-11.0) 08/28/21 05:55 Neut % (Auto) 87.1 % (42.0-75.0) H 08/28/21 05:55 Lymph % (Auto) 6.9 % (21.0-51.0) L 08/28/21 05:55 [place] % (Auto) 5.6 % (0.0-13.0) 08/28/21 05:55 Eos % (Auto) 0.2 % (0.9-2.9) L 08/28/21 05:55 Baso % (Auto) 0.2 % (0.2-1.0) 08/28/21 05:55 Neut # (Auto) 14.4 x10^3/uL (2.2-4.8) H 08/28/21 05:55 Lymph # (Auto) 1.1 X10^3/uL (1.3-2.9) L 08/28/21 05:55 [place] # (Auto) 0.9 x10^3/uL (0.3-0.8) H 08/28/21 05:55 Eos # (Auto) 0.0 x10^3/uL (0.0-0.2) 08/28/21 05:55 Baso # (Auto) 0.0 X10^3/uL (0.0-0.1) 08/28/21 05:55 Absolute Nucleated RBC 0.0 /100WBC 08/28/21 05:55 Total Counted 100 08/24/21 05:27 Neutrophils % (Manual) 95 % (39-76) H 08/24/21 05:27 Band Neutrophils % 3 % (0-10) 08/24/21 05:27 Lymphocytes % (Manual) 1 % (13-43) L 08/24/21 05:27 Monocytes % (Manual) 1 % (4-9) L 08/24/21 05:27 Plt Morphology Comment Normal (NORMAL) 08/28/21 05:55 RBC Morphology Abnormal (NORMAL) A 08/28/21 05:55 Dimorphic RBCs Present 08/26/21 05:23 Hypochromasia Slight A 08/28/21 05:55 Anisocytosis 3+ A 08/28/21 05:55 Microcytosis Slight A 08/28/21 05:55 Target Cells Present 08/28/21 05:55 Stomatocytes Slight A 08/21/21 05:39 Sample Site Lr 08/22/21 23:39 ABG pH 7.420 (7.35-7.45) 08/22/21 23:39 ABG pCO2 61.0 mmHg (35.0-45.0) H* 08/22/21 23:39 ABG pO2 108.0 mmHg (80.0-100.0) H 08/22/21 23:39 ABG HCO3 39.6 mmol/L (22-26) H* 08/22/21 23:39 ABG O2 Saturation 98.0 % (90-100) 08/22/21 23:39 ABG Base Excess 12.7 mmol/L (-2.0-2.0) H 08/22/21 23:39 Satish Test Pos 08/22/21 23:39 A-a Gradient 529.0 mmHg 08/22/21 23:39 FiO2 100.0 08/22/21 23:39 Blood Gas Comments Jaye well ae 08/22/21 23:39 Sodium 143 mmol/L (136-145) 08/28/21 05:55 Corrected Sodium 145 mmol/L (136-145) 08/28/21 05:55 Potassium 3.8 mmol/L (3.5-5.1) 08/28/21 05:55 Chloride 100 mmol/L (98-107) 08/28/21 05:55 Carbon Dioxide 33.1 mmol/L (21-32) H 08/28/21 05:55 BUN 26 mg/dL (7-18) H 08/28/21 05:55 Creatinine 0.69 mg/dL (0.55-1.02) 08/28/21 05:55 Est GFR (MDRD) Af Amer > 60 (>60) 08/28/21 05:55 Est GFR (MDRD) Non-Af > 60 (>60) 08/28/21 05:55 Glucose 188 mg/dL (65-99) H 08/28/21 05:55 POC Glucose (mg/dL) 168 mg/dL (65-99) H 08/28/21 05:48 Lactic Acid 1.2 mmol/L (0.4-2.0) 08/14/21 18:55 Calcium 9.8 mg/dL (8.5-10.1) 08/28/21 05:55 Corrected Calcium TNP 08/28/21 05:55 Magnesium 1.3 mg/dL (1.7-2.9) L 08/25/21 05:15 Total Bilirubin 0.70 mg/dL (0.2-1.0) 08/28/21 05:55 AST 15 Units/L (15-37) 08/28/21 05:55 ALT 33 Units/L (12-78) 08/28/21 05:55 Alkaline Phosphatase 86 Units/L (46-116) 08/28/21 05:55 Creatine Kinase 39 Units/L (26-192) 08/22/21 18:23 CK-MB (CK-2) < 1.0 ng/mL (0-4.0) 08/22/21 18:23 CK/CKMB % Calc 2.6 % (<4) 08/22/21 18:23 Troponin I High Sens 12.9 ng/L (4.0-60.0) 08/22/21 18:23 C-Reactive Protein 85.50 mg/L (0-3.0) H 08/28/21 05:55 B-Natriuretic Peptide 213 pg/mL (0-79) H 08/28/21 05:55 Total Protein 7.7 g/dL (6.4-8.2) 08/28/21 05:55 Albumin 4.7 g/dL (3.4-5.0) 08/28/21 05:55 Globulin 3.0 g/dL (2.5-4.5) 08/28/21 05:55 Albumin/Globulin Ratio 1.6 Ratio (1.1-2.1) 08/28/21 05:55 Stool Description 20g loose/mucoid brn 08/16/21 03:31 Stl Occult Blood (IFOB) Negative (NEGATIVE) 08/16/21 03:31 Stl C. diff Tox B Gene Negative (NEGATIVE) 08/22/21 11:50 Stl C. diff [id number] Presumptive negative (NEGATIVE) 08/22/21 11:50 Vancomycin Trough 30.9 ug/mL (15-20) H* 08/27/21 20:00 Random Vancomycin 21.0 ug/mL 08/28/21 05:55 Tissue Pathology To follow 08/19/21 14:16 Blood Type O POSITIVE 08/15/21 07:07 Antibody Screen Negative 08/15/21 07:07 Crossmatch See Detail 08/15/21 07:07 - Plan (1) Pneumonia Status: Acute Qualifiers: Pneumonia type: due to unspecified organism Laterality: bilateral Lung location: unspecified part of lung Qualified Code(s): J18.9 - Pneumonia, unspecified organism Plan: SUPPLEMENTAL OXYGEN, NORMAL SALINE AT 30 ML/HR, INVANZ 1G IV DAILY, CIPRO 400MG IV Q12H, VANCOMYCIN 750MG IV Q8H, LASIX 40MG IV Q12H, SOLU-MEDROL 20MG IV Q12H, NEBULIZER TREATMENTS, ALBUMIN 25% IV DAILY. RESUMED HOME MEDICATIONS. MONITOR DAILY LABS AND CHEST XRAY (2) Urinary tract infection Status: Acute Qualifiers: Urinary tract infection type: acute cystitis Hematuria presence: with hematuria Qualified Code(s): N30.01 - Acute cystitis with hematuria Plan: ADMIT, NORMAL SALINE AT 80 ML/HR, INVANZ 1G IV DAILY, ALBUMIN 25% IV DAILY. REVIEW HOME MEDICATIONS. MONITOR DAILY LABS (3) Sepsis due to urinary tract infection Status: Acute (4) Altered mental status Status: Resolved Qualifiers: Altered mental status type: transient alteration of awareness Qualified Code(s): R40.4 - Transient alteration of awareness (5) Hypoalbuminemia Status: Acute (6) DM II (diabetes mellitus, type II), controlled Status: Chronic Qualifiers: Diabetes mellitus shelter insulin use: with shelter use Diabetes mellitus complication status: with hyperglycemia Qualified Code(s): E11.65 - Type 2 diabetes mellitus with hyperglycemia; Z79.4 - [facility] (current) use of insulin (7) CHF (congestive heart failure) Status: Chronic Qualifiers: Heart failure type: unspecified Heart failure chronicity: unspecified Qualified Code(s): I50.9 - Heart failure, unspecified
[2021-08-28] MEDS: ULTRAM PO SCH ×2 (09:30→20:35)
[2021-08-28] MEDS: ZOLOFT PO SCH (09:30)
[2021-08-28] MEDS: TAB-A-VITE PO SCH (09:31)
[2021-08-28] MEDS: ZyrTEC TAB 10 MG PO SCH (09:31)
[2021-08-28] MEDS: COLACE CAP 100 MG PO SCH ×3 (09:31→20:36)
[2021-08-28] MEDS: XANAX PO SCH ×2 (09:31→20:35)
[2021-08-28] MEDS: PROVERA PO SCH (09:31)
[2021-08-28] MEDS: VSL#3 PO SCH (09:31)
[2021-08-28] MEDS: MAG-OX TAB PO SCH (09:32)
[2021-08-28] MEDS: POTASSIUM CHLORIDE LIQ 20 MEQ UDC PO SCH (09:33)
[2021-08-28] MEDS: ASTELIN NASAL SPRAY ENOSTRIL SCH (09:34)
[2021-08-28] MEDS: PULMICORT NEB TX 0.5 MG NEB SCH ×2 (09:55→20:52)
[2021-08-28] MEDS: LASIX IVP SCH ×2 (10:00→23:34)
--- NOTE | 2021-08-28 10:00 | PCM.PROG ---
Progress Note - Progress Note for Day of Date of Exam: 08/28/21 - Subjective Subjective: IS CURRENTLY BEING TREATED FOR UTI, PNEUMONIA, SEPSIS, ANEMIA, AND AMS. SHE IS STATUS POST DEBRIDEMENT OF SACRAL WOUND. SHE HAS RECEIVED 1 UNIT OF PRBC SINCE ADMISSION. TODAY, SHE IS LYING IN BED WITH EYES CLOSED ON MORNING ROUNDS. SHE AWAKENS TO VERBAL STIMULI. SHE IS ORIENTED TO PE RSON, PLACE, AND SITUATION. SHE CONTINUES WITH COMPLAINTS OF SHORTNESS OF BREATH AT TIMES AND WEAKNESS. SHE IS CURRENTLY UTILIZING OXYGEN VIA NASAL CANNULA AT 3 LPM. SATURATIONS HAVE BEEN IN THE 90s THIS MORNING. ON EXAMINATION, SHE IS TACHYCARDIC WIT HR 105-115. BILATERAL LUNGS NOTED WITH SCATTERED RHONCHI, DIMINISHED. ABDOMEN IS ROUND, SOFT, AND NON-TENDER WITH NORMAL BOWEL SOUNDS NOTED IN ALL QUADRANTS. THERE IS AN OPEN WOUND TO THE FOLD OF RIGHT BUTTOCK. DRESSING IS CURRENTLY DRY AND INTACT. SHE WILL REQUIRE A WOUND VAC WHEN IT IS AVAILABLE. HER VITALS THIS MORNING ARE: 98.3-113-20-98%-155/86. LABS WERE OBTAINED. ABNORMAL LAB VALUES INCLUDE THE FOLLOWING: WBC 16.5, HGB 10.0, HCT 31.1, CARBON DIOXIDE 33.1, BUN 26, GLUCOSE 188, CRP 85.50, BNP 213. SACRAL WOUND CULTURES REPORT GROWTH OF E.COLI AND PROTEUS MIRABILIS. LEFT HIP WOUND CULTURE IS PENDING. URINE CULTURE FROM HER 08/12 ER VISIT REPORTS GROWTH OF E.COLI. A CHEST XRAY WAS OBTAINED AND REVEALED: Stable bilateral pneumonia; no change from previous 08/27/2021. SHE IS CURRENTLY RECEIVING NORMAL SALINE AT 30 ML/HR, INVANZ 1G IV DAILY, CIPRO 400MG IV Q12H, VANCOMYCIN 750MG IV Q8H, SOLU-MEDROL 40MG IV Q8H, LASIX 40MG IV BID, ALBUMIN 25% IV DAILY, XOPENEX NEBS TID, PULMICORT NEBS BID, CORTISPORIN EAR DROPS TO RIGHT TID, AND HER HOME MEDICATIONS WERE RESUMED. WE WILL CONTINUE WITH CURRENT PLAN OF CARE TODAY. WE WILL RESTRICT FLUIDS TO LESS THAN 750ML/DAY. WE PLAN TO FOLLOW UP WITH AM LABS AND CHEST XRAY AND CONTINUE TO MONITOR. TIME SPENT ON CLINICAL ASSESSMENT, REVIEWING LABS AND IMAGING, DECISION MAKING, AND DOCUMENTATION GREATER THAN 45 MINUTES. - Past Medical Family Social History Past Med/Fam/Surg Hx: No changes since H&P Allergies: Allergies quetiapine [From Seroquel] Allergy (Verified 08/13/21 14:56) aripiprazole [From Abilify] Adverse Reaction (Verified 08/13/21 14:56) bupropion [From Wellbutrin] Adverse Reaction (Verified 08/13/21 14:56) donepezil [From Aricept] Adverse Reaction (Verified 08/13/21 14:56) moxifloxacin [From Avelox] Adverse Reaction (Verified 08/13/21 14:56) olanzapine [From Zyprexa] Adverse Reaction (Verified 08/13/21 14:56) promethazine [From Phenergan] Adverse Reaction (Verified 08/13/21 14:56) venlafaxine [From Effexor] Adverse Reaction (Verified 08/13/21 14:56) - Review of Systems ROS: No change since H&P - Vital Signs and I&O's Vital Signs: Temperature 98.3 F Pulse Rate [Left Brachial] 104 Pulse Rate [Right] 104 Pulse Rate 113 Respiratory Rate 22 Blood Pressure [Right Arm] 175/85 Blood Pressure [Left Arm] 155/86 Blood Pressure 173/93 O2 Sat by Pulse Oximetry 98 Intake and Output: Intake & Output 08/25/21 08/26/21 08/27/21 08/28/21 11:59 11:59 11:59 11:59 Intake Total 1439 / 1439 1900 / 1900 1496 / 1496 1760 / 1760 Balance 1439 / 1439 1900 / 1900 1496 / 1496 1760 / 1760 - Physical Exam Oriented: Person, Place Eyes: Normal Ear: Normal Nose: Normal Throat: Normal Respiratory: Diminished, Rhonchi Cardiovascular: Tachycardia : Dysuria Auscultation: Bowel Sounds: Normal Tenderness: Normal Skin: Normal, Other (decubitus ulcer Lt hip 2 x 2 cm and 2 cm deep ) Musculoskeletal: Normal Psychiatric: Anxiety, Agitation Mood Description: Anxious Affect: Anxious Speech Pattern: Appropriate - Laboratory and Diagnostics Result Diagrams: 08/28/21 05:55 08/28/21 05:55 Labs: 08/19/21 14:11 Hip - Left Wound Gram Stain - Final 08/19/21 14:11 Hip - Left Wound Culture - Final Proteus Mirabilis Kimberlee Albicans 08/13/21 15:45 Blood Blood Culture - Final 08/13/21 15:39 Blood Blood Culture - Final 08/13/21 18:47 Buttock Wound Gram Stain - Final 08/13/21 18:47 Buttock Wound Culture - Final Escherichia Coli Proteus Mirabilis Laboratory WBC 16.5 X10^3/uL (3.6-10.0) H 08/28/21 05:55 RBC 3.94 X10^6/uL (3.5-5.4) 08/28/21 05:55 Hgb 10.0 g/dL (12.0-16.0) L 08/28/21 05:55 Hct 31.1 % (36.0-47.0) L 08/28/21 05:55 MCV 79.0 fL (80.0-100.0) L 08/28/21 05:55 MCH 25.5 pg (27.0-34.0) L 08/28/21 05:55 MCHC 32.3 g/dL (33.0-35.0) L 08/28/21 05:55 RDW 25.3 % (11.6-16.5) H 08/28/21 05:55 Plt Count 245 X10^3/uL (150.0-450.0) 08/28/21 05:55 Plt Count Comment Adequate (ADEQUATE) 08/28/21 05:55 MPV 9.2 fL (7.4-11.0) 08/28/21 05:55 Neut % (Auto) 87.1 % (42.0-75.0) H 08/28/21 05:55 Lymph % (Auto) 6.9 % (21.0-51.0) L 08/28/21 05:55 [place] % (Auto) 5.6 % (0.0-13.0) 08/28/21 05:55 Eos % (Auto) 0.2 % (0.9-2.9) L 08/28/21 05:55 Baso % (Auto) 0.2 % (0.2-1.0) 08/28/21 05:55 Neut # (Auto) 14.4 x10^3/uL (2.2-4.8) H 08/28/21 05:55 Lymph # (Auto) 1.1 X10^3/uL (1.3-2.9) L 08/28/21 05:55 [place] # (Auto) 0.9 x10^3/uL (0.3-0.8) H 08/28/21 05:55 Eos # (Auto) 0.0 x10^3/uL (0.0-0.2) 08/28/21 05:55 Baso # (Auto) 0.0 X10^3/uL (0.0-0.1) 08/28/21 05:55 Absolute Nucleated RBC 0.0 /100WBC 08/28/21 05:55 Total Counted 100 08/24/21 05:27 Neutrophils % (Manual) 95 % (39-76) H 08/24/21 05:27 Band Neutrophils % 3 % (0-10) 08/24/21 05:27 Lymphocytes % (Manual) 1 % (13-43) L 08/24/21 05:27 Monocytes % (Manual) 1 % (4-9) L 08/24/21 05:27 Plt Morphology Comment Normal (NORMAL) 08/28/21 05:55 RBC Morphology Abnormal (NORMAL) A 08/28/21 05:55 Dimorphic RBCs Present 08/26/21 05:23 Hypochromasia Slight A 08/28/21 05:55 Anisocytosis 3+ A 08/28/21 05:55 Microcytosis Slight A 08/28/21 05:55 Target Cells Present 08/28/21 05:55 Stomatocytes Slight A 08/21/21 05:39 Sample Site Lr 08/22/21 23:39 ABG pH 7.420 (7.35-7.45) 08/22/21 23:39 ABG pCO2 61.0 mmHg (35.0-45.0) H* 08/22/21 23:39 ABG pO2 108.0 mmHg (80.0-100.0) H 08/22/21 23:39 ABG HCO3 39.6 mmol/L (22-26) H* 08/22/21 23:39 ABG O2 Saturation 98.0 % (90-100) 08/22/21 23:39 ABG Base Excess 12.7 mmol/L (-2.0-2.0) H 08/22/21 23:39 Satish Test Pos 08/22/21 23:39 A-a Gradient 529.0 mmHg 08/22/21 23:39 FiO2 100.0 08/22/21 23:39 Blood Gas Comments Jaye well ae 08/22/21 23:39 Sodium 143 mmol/L (136-145) 08/28/21 05:55 Corrected Sodium 145 mmol/L (136-145) 08/28/21 05:55 Potassium 3.8 mmol/L (3.5-5.1) 08/28/21 05:55 Chloride 100 mmol/L (98-107) 08/28/21 05:55 Carbon Dioxide 33.1 mmol/L (21-32) H 08/28/21 05:55 BUN 26 mg/dL (7-18) H 08/28/21 05:55 Creatinine 0.69 mg/dL (0.55-1.02) 08/28/21 05:55 Est GFR (MDRD) Af Amer > 60 (>60) 08/28/21 05:55 Est GFR (MDRD) Non-Af > 60 (>60) 08/28/21 05:55 Glucose 188 mg/dL (65-99) H 08/28/21 05:55 POC Glucose (mg/dL) 168 mg/dL (65-99) H 08/28/21 05:48 Lactic Acid 1.2 mmol/L (0.4-2.0) 08/14/21 18:55 Calcium 9.8 mg/dL (8.5-10.1) 08/28/21 05:55 Corrected Calcium TNP 08/28/21 05:55 Magnesium 1.3 mg/dL (1.7-2.9) L 08/25/21 05:15 Total Bilirubin 0.70 mg/dL (0.2-1.0) 08/28/21 05:55 AST 15 Units/L (15-37) 08/28/21 05:55 ALT 33 Units/L (12-78) 08/28/21 05:55 Alkaline Phosphatase 86 Units/L (46-116) 08/28/21 05:55 Creatine Kinase 39 Units/L (26-192) 08/22/21 18:23 CK-MB (CK-2) < 1.0 ng/mL (0-4.0) 08/22/21 18:23 CK/CKMB % Calc 2.6 % (<4) 08/22/21 18:23 Troponin I High Sens 12.9 ng/L (4.0-60.0) 08/22/21 18:23 C-Reactive Protein 85.50 mg/L (0-3.0) H 08/28/21 05:55 B-Natriuretic Peptide 213 pg/mL (0-79) H 08/28/21 05:55 Total Protein 7.7 g/dL (6.4-8.2) 08/28/21 05:55 Albumin 4.7 g/dL (3.4-5.0) 08/28/21 05:55 Globulin 3.0 g/dL (2.5-4.5) 08/28/21 05:55 Albumin/Globulin Ratio 1.6 Ratio (1.1-2.1) 08/28/21 05:55 Stool Description 20g loose/mucoid brn 08/16/21 03:31 Stl Occult Blood (IFOB) Negative (NEGATIVE) 08/16/21 03:31 Stl C. diff Tox B Gene Negative (NEGATIVE) 08/22/21 11:50 Stl C. diff [id number] Presumptive negative (NEGATIVE) 08/22/21 11:50 Vancomycin Trough 30.9 ug/mL (15-20) H* 08/27/21 20:00 Random Vancomycin 21.0 ug/mL 08/28/21 05:55 Tissue Pathology To follow 08/19/21 14:16 Blood Type O POSITIVE 08/15/21 07:07 Antibody Screen Negative 08/15/21 07:07 Crossmatch See Detail 08/15/21 07:07 - Plan (1) Pneumonia Status: Acute Qualifiers: Pneumonia type: due to unspecified organism Laterality: bilateral Lung location: unspecified part of lung Qualified Code(s): J18.9 - Pneumonia, unspecified organism Plan: SUPPLEMENTAL OXYGEN, NORMAL SALINE AT 30 ML/HR, INVANZ 1G IV DAILY, CIPRO 400MG IV Q12H, VANCOMYCIN 750MG IV Q8H, LASIX 40MG IV Q12H, SOLU-MEDROL 20MG IV Q12H, NEBULIZER TREATMENTS, ALBUMIN 25% IV DAILY. RESUMED HOME MEDICATIONS. MONITOR DAILY LABS AND CHEST XRAY (2) Urinary tract infection Status: Acute Qualifiers: Urinary tract infection type: acute cystitis Hematuria presence: with hematuria Qualified Code(s): N30.01 - Acute cystitis with hematuria Plan: ADMIT, NORMAL SALINE AT 80 ML/HR, INVANZ 1G IV DAILY, ALBUMIN 25% IV DAILY. REVIEW HOME MEDICATIONS. MONITOR DAILY LABS (3) Sepsis due to urinary tract infection Status: Acute (4) Altered mental status Status: Resolved Qualifiers: Altered mental status type: transient alteration of awareness Qualified Code(s): R40.4 - Transient alteration of awareness (5) Hypoalbuminemia Status: Acute (6) DM II (diabetes mellitus, type II), controlled Status: Chronic Qualifiers: Diabetes mellitus longterm insulin use: with longterm use Diabetes mellitus complication status: with hyperglycemia Qualified Code(s): E11.65 - Type 2 diabetes mellitus with hyperglycemia; Z79.4 - half-way (current) use of insulin (7) CHF (congestive heart failure) Status: Chronic Qualifiers: Heart failure type: unspecified Heart failure chronicity: unspecified Qualified Code(s): I50.9 - Heart failure, unspecified
[2021-08-28] MEDS: XOPENEX 1.25 MG/3 ML NEBULE NEB SCH ×3 (13:18→20:52)
[2021-08-28] MEDS: SNACK - Diabetic Appropriate PO SCH (20:03)
[2021-08-28] MEDS: DESYREL PO SCH (20:34)
[2021-08-28] MEDS: ALBUMIN HUMAN 25%- 100 ML 100 ML IV SCH (20:36)
[2021-08-28] MEDS: LOVENOX INJ 40 MG SYR SC SCH (21:05)
[2021-08-29] MEDS: SOLU-Medrol 40 MG VIAL IVP SCH ×3 (05:30→22:39)
[2021-08-29] MEDS: CORTISPORIN OTIC SUSP RIGHT EAR SCH ×3 (05:31→21:45)
[2021-08-29] MEDS ORDERED: GLUCOPHAGE ONE ×2 (05:37→16:44)
[2021-08-29] MEDS: NovoLIN R (or HumuLIN R) SUBCUT PRN ×4 (05:54→22:51)
[2021-08-29] MEDS: GLUCOPHAGE PO SCH ×2 (05:59→16:40)
[2021-08-29 06:03] LABS: BASOPHILS % (AUTO) 0.3 % (0.2-1.0); EOSINOPHILS % (AUTO) 0.3 % (0.9-2.9); HEMATOCRIT 28.7 % (36.0-47.0); HEMOGLOBIN 9.3 g/dL (12.0-16.0); LYMPHOCYTES # (AUTO) 1.3 X10^3/uL (1.3-2.9); LYMPHOCYTES % (AUTO) 9.4 % (21.0-51.0); MEAN CORPUSCULAR HEMOGLOBIN 25.4 pg (27.0-34.0); MEAN CORPUSCULAR HGB CONC 32.3 g/dL (33.0-35.0); MEAN CORPUSCULAR VOLUME 78.7 fL (80.0-100.0); MEAN PLATELET VOLUME 9.4 fL (7.4-11.0); MONOCYTES # (AUTO) 0.8 x10^3/uL (0.3-0.8); MONOCYTES % (AUTO) 6.3 % (0.0-13.0); NEUTROPHILS # (AUTO) 11.2 x10^3/uL (2.2-4.8); NEUTROPHILS % (AUTO) 83.7 % (42.0-75.0); RED BLOOD COUNT 3.64 X10^6/uL (3.5-5.4); RED CELL DISTRIBUTION WIDTH 25.3 % (11.6-16.5); WHITE BLOOD COUNT 13.4 X10^3/uL (3.6-10.0)
[2021-08-29 06:19] LABS: ALANINE AMINOTRANSFERASE 24 Units/L (12-78); ALBUMIN 4.7 g/dL (3.4-5.0); ALKALINE PHOSPHATASE 74 Units/L (46-116); ASPARTATE AMINO TRANSFERASE 12 Units/L (15-37); BLOOD UREA NITROGEN 29 mg/dL (7-18); CALCIUM 9.6 mg/dL (8.5-10.1); CARBON DIOXIDE 38.7 mmol/L (21-32); CHLORIDE 102 mmol/L (98-107); COR NA(FOR HYPERGLY) 148 mmol/L (136-145); CREATININE 0.73 mg/dL (0.55-1.02); SODIUM 146 mmol/L (136-145); TOTAL PROTEIN 7.6 g/dL (6.4-8.2); eGFR NON BLACK RACES > 60 (>60)
--- NOTE | 2021-08-29 06:25 | RAD ---
HISTORYSOB SPINA BIFIDASTUDYCHEST, 1 [id number]/02/2022 theFINDINGSThe trachea is midline. The cardiac silhouette is unremarkable. Bilateral lung consolidation unchanged. No pneumothorax.. The bony thorax is unremarkable.IMPRESSIONStable bilateral pneumonia; no change from previous 08/28/2021.Electronically signed by: Tyson Bosch (Aug 29, 2021 06:24:36)
[2021-08-29] MEDS: XOPENEX 1.25 MG/3 ML NEBULE NEB SCH ×3 (06:29→21:28)
[2021-08-29 06:44] LABS: ANISOCYTOSIS 3+; HYPOCHROMASIA SLIGHT; MICROCYTOSIS SLIGHT; PLATELET MORPHOLOGY COMMENT NORMAL (NORMAL); TARGET CELLS PRESENT
[2021-08-29] MEDS: INVanz INJ 1 GRAM VIAL 1 G in NS 100 ML IV 100 ML IV SCH (08:14)
[2021-08-29] MEDS: COLACE CAP 100 MG PO SCH ×2 (08:16→21:52)
[2021-08-29] MEDS: VSL#3 PO SCH (08:16)
[2021-08-29] MEDS: ZyrTEC TAB 10 MG PO SCH (08:16)
[2021-08-29] MEDS: PROVERA PO SCH (08:17)
[2021-08-29] MEDS: XANAX PO SCH ×2 (08:17→21:45)
[2021-08-29] MEDS: ZOLOFT PO SCH (08:17)
[2021-08-29] MEDS: DEPAKOTE D.R. TAB PO SCH ×2 (08:17→21:52)
[2021-08-29] MEDS: ULTRAM PO SCH ×2 (08:17→21:48)
[2021-08-29] MEDS: TAB-A-VITE PO SCH (08:18)
[2021-08-29] MEDS: THERMOTABS PO SCH ×4 (08:18→21:51)
[2021-08-29] MEDS: FLONASE NASAL SPRAY ENOSTRIL SCH ×2 (08:18→21:51)
[2021-08-29] MEDS: XALATAN OP SCH ×2 (08:19→21:48)
[2021-08-29] MEDS: MAG-OX TAB PO SCH (08:19)
[2021-08-29] MEDS: ASTELIN NASAL SPRAY ENOSTRIL SCH (08:19)
[2021-08-29] MEDS: RisperDAL TAB 1 MG PO SCH ×3 (08:19→21:46)
[2021-08-29] MEDS: POTASSIUM CHLORIDE LIQ 20 MEQ UDC PO SCH (08:19)
[2021-08-29] MEDS: CIPRO IV 400 MG PREMIX* 400 MG/200 ML IV.SOLN. IV SCH ×2 (09:23→21:48)
[2021-08-29] MEDS: NS 1,000 ML IV 1,000 ML IV SCH (09:23)
[2021-08-29] MEDS: PULMICORT NEB TX 0.5 MG NEB SCH ×2 (09:27→21:28)
[2021-08-29] MEDS: LASIX IVP SCH ×2 (11:23→22:39)
[2021-08-29] MEDS: DIFLUCAN PO SCH (11:23)
[2021-08-29] MEDS: SNACK - Diabetic Appropriate PO SCH (20:42)
[2021-08-29] MEDS: ALBUMIN HUMAN 25%- 100 ML 100 ML IV SCH (21:43)
[2021-08-29] MEDS: ZANAFLEX PO SCH (21:44)
[2021-08-29] MEDS: DESYREL PO SCH (21:46)
[2021-08-29] MEDS: LOVENOX INJ 40 MG SYR SC SCH (21:50)
[2021-08-29] MEDS: LIPITOR TAB 20 MG PO SCH (21:51)
[2021-08-29] MEDS ORDERED: NS 100 ML IV 100 ML ONE (23:13)
[2021-08-30 05:50] LABS: BASOPHILS % (AUTO) 0.3 % (0.2-1.0); EOSINOPHILS % (AUTO) 0.3 % (0.9-2.9); HEMATOCRIT 27.9 % (36.0-47.0); LYMPHOCYTES # (AUTO) 2.7 X10^3/uL (1.3-2.9); LYMPHOCYTES % (AUTO) 16.4 % (21.0-51.0); MEAN CORPUSCULAR HEMOGLOBIN 25.8 pg (27.0-34.0); MEAN CORPUSCULAR HGB CONC 32.4 g/dL (33.0-35.0); MEAN CORPUSCULAR VOLUME 79.5 fL (80.0-100.0); MEAN PLATELET VOLUME 9.6 fL (7.4-11.0); MONOCYTES # (AUTO) 1.1 x10^3/uL (0.3-0.8); MONOCYTES % (AUTO) 6.7 % (0.0-13.0); NEUTROPHILS # (AUTO) 12.5 x10^3/uL (2.2-4.8); NEUTROPHILS % (AUTO) 76.3 % (42.0-75.0); RED BLOOD COUNT 3.51 X10^6/uL (3.5-5.4); RED CELL DISTRIBUTION WIDTH 25.5 % (11.6-16.5); WHITE BLOOD COUNT 16.4 X10^3/uL (3.6-10.0)
[2021-08-30 06:03] LABS: ALANINE AMINOTRANSFERASE 21 Units/L (12-78); ALBUMIN 4.8 g/dL (3.4-5.0); ALKALINE PHOSPHATASE 76 Units/L (46-116); ASPARTATE AMINO TRANSFERASE 12 Units/L (15-37); BLOOD UREA NITROGEN 31 mg/dL (7-18); CALCIUM 9.7 mg/dL (8.5-10.1); CARBON DIOXIDE 37.1 mmol/L (21-32); CHLORIDE 101 mmol/L (98-107); COR NA(FOR HYPERGLY) 145 mmol/L (136-145); CREATININE 0.74 mg/dL (0.55-1.02); SODIUM 144 mmol/L (136-145); TOTAL PROTEIN 7.5 g/dL (6.4-8.2); eGFR NON BLACK RACES > 60 (>60)
[2021-08-30 06:09] LABS: HYPOCHROMASIA SLIGHT; PLATELET MORPHOLOGY COMMENT NORMAL (NORMAL)
[2021-08-30 06:10] LABS: ANISOCYTOSIS 3+; MICROCYTOSIS SLIGHT; TARGET CELLS PRESENT
[2021-08-30] MEDS: XOPENEX 1.25 MG/3 ML NEBULE NEB SCH ×3 (06:10→20:40)
[2021-08-30] MEDS: CORTISPORIN OTIC SUSP RIGHT EAR SCH ×3 (06:12→21:17)
--- NOTE | 2021-08-30 06:14 | RAD ---
HISTORYShortness of breathSTUDYChest AP [id number]/03/2022 and multiple priorFINDINGSThe images somewhat underpenetrated. The heart is mildly enlarged. Considering a difference in film technique bilateral lung infiltrates most prominently affecting the right upper and left lower lobes are unchanged. No definite pleural effusion or pneumothorax. Bony thorax is unremarkable.IMPRESSIONNo significant change bilateral infiltrate as described considering a difference in film technique.Electronically signed by: JOAN MARTINO (Aug 30, 2021 06:14:02)
[2021-08-30] MEDS: SOLU-Medrol 40 MG VIAL IVP SCH ×3 (06:15→21:17)
[2021-08-30] MEDS: INVanz INJ 1 GRAM VIAL 1 G in NS 100 ML IV 100 ML IV SCH (08:33)
[2021-08-30] MEDS: ZOLOFT PO SCH (08:33)
[2021-08-30] MEDS: COLACE CAP 100 MG PO SCH ×2 (08:34→21:14)
[2021-08-30] MEDS: TAB-A-VITE PO SCH (08:34)
[2021-08-30] MEDS: PROVERA PO SCH (08:34)
[2021-08-30] MEDS: DEPAKOTE D.R. TAB PO SCH ×2 (08:34→21:15)
[2021-08-30] MEDS: MAG-OX TAB PO SCH (08:35)
[2021-08-30] MEDS: ZyrTEC TAB 10 MG PO SCH (08:36)
[2021-08-30] MEDS: VSL#3 PO SCH (08:37)
[2021-08-30] MEDS: XANAX PO SCH ×2 (08:37→21:10)
[2021-08-30] MEDS: DIFLUCAN PO SCH (08:37)
[2021-08-30] MEDS: ULTRAM PO SCH ×2 (08:37→21:16)
[2021-08-30] MEDS: ASTELIN NASAL SPRAY ENOSTRIL SCH (08:38)
[2021-08-30] MEDS: FLONASE NASAL SPRAY ENOSTRIL SCH ×2 (08:39→21:15)
[2021-08-30] MEDS: CIPRO IV 400 MG PREMIX* 400 MG/200 ML IV.SOLN. IV SCH ×2 (08:41→21:14)
[2021-08-30] MEDS: RisperDAL TAB 1 MG PO SCH ×3 (09:14→21:16)
[2021-08-30] MEDS: POTASSIUM CHLORIDE LIQ 20 MEQ UDC PO SCH (09:35)
[2021-08-30] MEDS: THERMOTABS PO SCH ×4 (09:35→21:16)
[2021-08-30] MEDS: XALATAN OP SCH ×2 (09:35→21:17)
[2021-08-30] MEDS: PULMICORT NEB TX 0.5 MG NEB SCH ×2 (09:46→20:40)
--- NOTE | 2021-08-30 10:19 | PCM.PROG ---
Progress Note - Progress Note for Day of Date of Exam: 08/29/21 - Subjective Subjective: IS CURRENTLY BEING TREATED FOR UTI, PNEUMONIA, SEPSIS, ANEMIA, AND AMS. SHE IS STATUS POST DEBRIDEMENT OF SACRAL WOUND. SHE HAS RECEIVED 1 UNIT OF PRBC SINCE ADMISSION. TODAY, SHE IS LYING IN BED WITH EYES CLOSED ON MORNING ROUNDS. SHE AWAKENS TO VERBAL STIMULI. SHE IS ORIENTED TO PE RSON, PLACE, AND SITUATION. SHE CONTINUES WITH COMPLAINTS OF SHORTNESS OF BREATH AT TIMES AND WEAKNESS. SHE IS CURRENTLY UTILIZING OXYGEN VIA NASAL CANNULA AT 3- 4 LPM. SATURATIONS HAVE BEEN IN THE 90s THIS MORNING. ON EXAMINATION, HEART IS REGULAR IN RATE AND RHYTHM. BILATERAL LUNGS NOTED WITH SCATTERED RHONCHI, DIMINISHED. ABDOMEN IS ROUND, SOFT, AND NON-TENDER WITH NORMAL BOWEL SOUNDS NOTED IN ALL QUADRANTS. THERE IS AN OPEN WOUND TO THE FOLD OF RIGHT BUTTOCK. DRESSING IS CURRENTLY DRY AND INTACT. SHE WILL REQUIRE A WOUND VAC WHEN IT IS AVAILABLE. HER VITALS THIS MORNING ARE: 97.9-80-18-98%-174/83. LABS WERE OBTAINED. ABNORMAL LAB VALUES INCLUDE THE FOLLOWING: WBC 13.4, HGB 9.3, HCT 28.7, SODIUM 146, CARBON DIOXIDE 38.7, BUN 29, GLUCOSE 194, AST 12, CRP 77.70, BNP 170. SACRAL WOUND CULTURES REPORT GROWTH OF E.COLI AND PROTEUS MIRABILIS. LEFT HIP WOUND CULTURE IS PENDING. YEAST AND E.COLI ARE PRESENT IN URINE. A CHEST XRAY WAS OBTAINED AND REVEALED: Stable bilateral pneumonia; no change from previous 08/28/2021. SHE IS CURRENTLY RECEIVING NORMAL SALINE AT 30 ML/HR, INVANZ 1G IV DAILY, CIPRO 400MG IV Q12H, SOLU-MEDROL 40MG IV Q8H, LASIX 40MG IV BID, ALBUMIN 25% IV DAILY, XOPENEX NEBS TID, PULMICORT NEBS BID, CORTISPORIN EAR DROPS TO RIGHT TID, AND HER HOME MEDICATIONS WERE RESUMED. WE WILL ADD DIFLUCAN 100MG PO DAILY AND CONTINUE WITH CURRENT PLAN OF CARE TODAY. WE WILL CONTINUE TO RESTRICT FLUIDS TO LESS THAN 750ML/DAY. WE PLAN TO FOLLOW UP WITH AM LABS AND CHEST XRAY AND CONTINUE TO MONITOR. TIME SPENT ON CLINICAL ASSESSMENT, REVIEWING LABS AND IMAGING, DECISION MAKING, AND DOCUMENTATION GREATER THAN 45 MINUTES. - Past Medical Family Social History Past Med/Fam/Surg Hx: No changes since H&P Allergies: Allergies quetiapine [From Seroquel] Allergy (Verified 08/13/21 14:56) aripiprazole [From Abilify] Adverse Reaction (Verified 08/13/21 14:56) bupropion [From Wellbutrin] Adverse Reaction (Verified 08/13/21 14:56) donepezil [From Aricept] Adverse Reaction (Verified 08/13/21 14:56) moxifloxacin [From Avelox] Adverse Reaction (Verified 08/13/21 14:56) olanzapine [From Zyprexa] Adverse Reaction (Verified 08/13/21 14:56) promethazine [From Phenergan] Adverse Reaction (Verified 08/13/21 14:56) venlafaxine [From Effexor] Adverse Reaction (Verified 08/13/21 14:56) - Review of Systems ROS: No change since H&P - Vital Signs and I&O's Vital Signs: Temperature 98.7 F Pulse Rate [Left Brachial] 104 Pulse Rate [Right] 82 Pulse Rate 93 Respiratory Rate 23 Blood Pressure [Right Arm] 175/85 Blood Pressure [Left Arm] 133/63 Blood Pressure 173/93 O2 Sat by Pulse Oximetry 96 Intake and Output: Intake & Output 08/27/21 08/28/21 08/29/21 08/30/21 11:59 11:59 11:59 11:59 Intake Total 1496 / 1496 1760 / 1760 852 / 852 1377 / 1377 Balance 1496 / 1496 1760 / 1760 852 / 852 1377 / 1377 - Physical Exam Oriented: Person, Place Eyes: Normal Ear: Normal Nose: Normal Throat: Normal Respiratory: Diminished, Rhonchi Cardiovascular: Tachycardia : Dysuria Auscultation: Bowel Sounds: Normal Tenderness: Normal Skin: Normal, Other (decubitus ulcer Lt hip 2 x 2 cm and 2 cm deep ) Musculoskeletal: Normal Psychiatric: Anxiety, Agitation Mood Description: Anxious Affect: Anxious Speech Pattern: Appropriate - Laboratory and Diagnostics Result Diagrams: 08/30/21 05:15 08/30/21 05:15 Labs: 08/19/21 14:11 Hip - Left Wound Gram Stain - Final 08/19/21 14:11 Hip - Left Wound Culture - Final Proteus Mirabilis Kimberlee Albicans 08/13/21 15:45 Blood Blood Culture - Final 08/13/21 15:39 Blood Blood Culture - Final 08/13/21 18:47 Buttock Wound Gram Stain - Final 08/13/21 18:47 Buttock Wound Culture - Final Escherichia Coli Proteus Mirabilis Laboratory WBC 16.4 X10^3/uL (3.6-10.0) H 08/30/21 05:15 RBC 3.51 X10^6/uL (3.5-5.4) 08/30/21 05:15 Hgb 9.0 g/dL (12.0-16.0) L 08/30/21 05:15 Hct 27.9 % (36.0-47.0) L 08/30/21 05:15 MCV 79.5 fL (80.0-100.0) L 08/30/21 05:15 MCH 25.8 pg (27.0-34.0) L 08/30/21 05:15 MCHC 32.4 g/dL (33.0-35.0) L 08/30/21 05:15 RDW 25.5 % (11.6-16.5) H 08/30/21 05:15 Plt Count 217 X10^3/uL (150.0-450.0) 08/30/21 05:15 Plt Count Comment Adequate (ADEQUATE) 08/30/21 05:15 MPV 9.6 fL (7.4-11.0) 08/30/21 05:15 Neut % (Auto) 76.3 % (42.0-75.0) H 08/30/21 05:15 Lymph % (Auto) 16.4 % (21.0-51.0) L 08/30/21 05:15 [place] % (Auto) 6.7 % (0.0-13.0) 08/30/21 05:15 Eos % (Auto) 0.3 % (0.9-2.9) L 08/30/21 05:15 Baso % (Auto) 0.3 % (0.2-1.0) 08/30/21 05:15 Neut # (Auto) 12.5 x10^3/uL (2.2-4.8) H 08/30/21 05:15 Lymph # (Auto) 2.7 X10^3/uL (1.3-2.9) 08/30/21 05:15 [place] # (Auto) 1.1 x10^3/uL (0.3-0.8) H 08/30/21 05:15 Eos # (Auto) 0.0 x10^3/uL (0.0-0.2) 08/30/21 05:15 Baso # (Auto) 0.0 X10^3/uL (0.0-0.1) 08/30/21 05:15 Absolute Nucleated RBC 0.1 /100WBC 08/30/21 05:15 Total Counted 100 08/24/21 05:27 Neutrophils % (Manual) 95 % (39-76) H 08/24/21 05:27 Band Neutrophils % 3 % (0-10) 08/24/21 05:27 Lymphocytes % (Manual) 1 % (13-43) L 08/24/21 05:27 Monocytes % (Manual) 1 % (4-9) L 08/24/21 05:27 Plt Morphology Comment Normal (NORMAL) 08/30/21 05:15 RBC Morphology Abnormal (NORMAL) A 08/30/21 05:15 Dimorphic RBCs Present 08/26/21 05:23 Hypochromasia Slight A 08/30/21 05:15 Anisocytosis 3+ A 08/30/21 05:15 Microcytosis Slight A 08/30/21 05:15 Target Cells Present 08/30/21 05:15 Stomatocytes Slight A 08/21/21 05:39 Sample Site Lr 08/22/21 23:39 ABG pH 7.420 (7.35-7.45) 08/22/21 23:39 ABG pCO2 61.0 mmHg (35.0-45.0) H* 08/22/21 23:39 ABG pO2 108.0 mmHg (80.0-100.0) H 08/22/21 23:39 ABG HCO3 39.6 mmol/L (22-26) H* 08/22/21 23:39 ABG O2 Saturation 98.0 % (90-100) 08/22/21 23:39 ABG Base Excess 12.7 mmol/L (-2.0-2.0) H 08/22/21 23:39 Satish Test Pos 08/22/21 23:39 A-a Gradient 529.0 mmHg 08/22/21 23:39 FiO2 100.0 08/22/21 23:39 Blood Gas Comments Jaye well ae 08/22/21 23:39 Sodium 144 mmol/L (136-145) 08/30/21 05:15 Corrected Sodium 145 mmol/L (136-145) 08/30/21 05:15 Potassium 3.9 mmol/L (3.5-5.1) 08/30/21 05:15 Chloride 101 mmol/L (98-107) 08/30/21 05:15 Carbon Dioxide 37.1 mmol/L (21-32) H 08/30/21 05:15 BUN 31 mg/dL (7-18) H 08/30/21 05:15 Creatinine 0.74 mg/dL (0.55-1.02) 08/30/21 05:15 Est GFR (MDRD) Af Amer > 60 (>60) 08/30/21 05:15 Est GFR (MDRD) Non-Af > 60 (>60) 08/30/21 05:15 Glucose 139 mg/dL (65-99) H 08/30/21 05:15 POC Glucose (mg/dL) 137 mg/dL (65-99) H 08/30/21 05:27 Lactic Acid 1.2 mmol/L (0.4-2.0) 08/14/21 18:55 Calcium 9.7 mg/dL (8.5-10.1) 08/30/21 05:15 Corrected Calcium TNP 08/30/21 05:15 Magnesium 1.3 mg/dL (1.7-2.9) L 08/25/21 05:15 Total Bilirubin 0.40 mg/dL (0.2-1.0) 08/30/21 05:15 AST 12 Units/L (15-37) L 08/30/21 05:15 ALT 21 Units/L (12-78) 08/30/21 05:15 Alkaline Phosphatase 76 Units/L (46-116) 08/30/21 05:15 Creatine Kinase 39 Units/L (26-192) 08/22/21 18:23 CK-MB (CK-2) < 1.0 ng/mL (0-4.0) 08/22/21 18:23 CK/CKMB % Calc 2.6 % (<4) 08/22/21 18:23 Troponin I High Sens 12.9 ng/L (4.0-60.0) 08/22/21 18:23 C-Reactive Protein 35.70 mg/L (0-3.0) H 08/30/21 05:15 B-Natriuretic Peptide 132 pg/mL (0-79) H 08/30/21 05:15 Total Protein 7.5 g/dL (6.4-8.2) 08/30/21 05:15 Albumin 4.8 g/dL (3.4-5.0) 08/30/21 05:15 Globulin 2.7 g/dL (2.5-4.5) 08/30/21 05:15 Albumin/Globulin Ratio 1.8 Ratio (1.1-2.1) 08/30/21 05:15 Stool Description 20g loose/mucoid brn 08/16/21 03:31 Stl Occult Blood (IFOB) Negative (NEGATIVE) 08/16/21 03:31 Stl C. diff Tox B Gene Negative (NEGATIVE) 08/22/21 11:50 Stl C. diff [id number] Presumptive negative (NEGATIVE) 08/22/21 11:50 Vancomycin Trough 30.9 ug/mL (15-20) H* 08/27/21 20:00 Random Vancomycin 21.0 ug/mL 08/28/21 05:55 Resp Viral Panel (PCR) See scanned report 08/26/21 09:30 Tissue Pathology To follow 08/19/21 14:16 Blood Type O POSITIVE 08/15/21 07:07 Antibody Screen Negative 08/15/21 07:07 Crossmatch See Detail 08/15/21 07:07 - Plan (1) Pneumonia Status: Acute Qualifiers: Pneumonia type: due to unspecified organism Laterality: bilateral Lung location: unspecified part of lung Qualified Code(s): J18.9 - Pneumonia, unspecified organism Plan: SUPPLEMENTAL OXYGEN, NORMAL SALINE AT 30 ML/HR, INVANZ 1G IV DAILY, CIPRO 400MG IV Q12H, DIFLUCAN 100MG PO DAILY, LASIX 40MG IV Q12H, SOLU-MEDROL 20MG IV Q12H, NEBULIZER TREATMENTS, ALBUMIN 25% IV DAILY. RESUMED HOME MEDICATIONS. MONITOR DAILY LABS AND CHEST XRAY (2) Urinary tract infection Status: Acute Qualifiers: Urinary tract infection type: acute cystitis Hematuria presence: with hematuria Qualified Code(s): N30.01 - Acute cystitis with hematuria (3) Sepsis due to urinary tract infection Status: Acute (4) Altered mental status Status: Resolved Qualifiers: Altered mental status type: transient alteration of awareness Qualified Code(s): R40.4 - Transient alteration of awareness (5) Hypoalbuminemia Status: Acute (6) DM II (diabetes mellitus, type II), controlled Status: Chronic Qualifiers: Diabetes mellitus assisted insulin use: with long distance billing operator use Diabetes mellitus complication status: with hyperglycemia Qualified Code(s): E11.65 - Type 2 diabetes mellitus with hyperglycemia; Z79.4 - USP (current) use of insulin (7) CHF (congestive heart failure) Status: Chronic Qualifiers: Heart failure type: unspecified Heart failure chronicity: unspecified Qualified Code(s): I50.9 - Heart failure, unspecified
[2021-08-30] MEDS: VANCOMYCIN IV *PREMIX 750 mg/150 ML BAG 750 MG/150 ML PIGGYBACK IV SCH (10:30)
[2021-08-30] MEDS: LASIX IVP SCH ×2 (11:00→23:10)
[2021-08-30] MEDS: NS 1,000 ML IV 1,000 ML IV SCH (12:13)
[2021-08-30] MEDS: GLUCOPHAGE PO SCH ×2 (12:13→17:38)
[2021-08-30] MEDS: NovoLIN R (or HumuLIN R) SUBCUT PRN (12:56)
[2021-08-30] MEDS ORDERED: GLUCOPHAGE ONE (17:25)
[2021-08-30] MEDS: ZANAFLEX PO SCH (21:10)
[2021-08-30] MEDS: SNACK - Diabetic Appropriate PO SCH (21:13)
[2021-08-30] MEDS: LOVENOX INJ 40 MG SYR SC SCH (21:15)
[2021-08-30] MEDS: LIPITOR TAB 20 MG PO SCH (21:15)
[2021-08-30] MEDS: DESYREL PO SCH (21:15)
[2021-08-30] MEDS: ALBUMIN HUMAN 25%- 100 ML 100 ML IV SCH (22:08)
[2021-08-31] MEDS: NS 1,000 ML IV 1,000 ML IV SCH (03:54)
[2021-08-31] MEDS ORDERED: GLUCOPHAGE ONE ×2 (05:11→16:33)
[2021-08-31] MEDS: CORTISPORIN OTIC SUSP RIGHT EAR SCH ×3 (05:51→21:03)
[2021-08-31] MEDS: SOLU-Medrol 40 MG VIAL IVP SCH ×2 (05:51→15:00)
[2021-08-31] MEDS: NovoLIN R (or HumuLIN R) SUBCUT PRN ×2 (05:55→11:32)
[2021-08-31] MEDS: XOPENEX 1.25 MG/3 ML NEBULE NEB SCH ×3 (05:55→20:36)
[2021-08-31 06:39] LABS: BASOPHILS % (AUTO) 0.1 % (0.2-1.0); HEMATOCRIT 28.6 % (36.0-47.0); HEMOGLOBIN 9.6 g/dL (12.0-16.0); LYMPHOCYTES # (AUTO) 1.1 X10^3/uL (1.3-2.9); LYMPHOCYTES % (AUTO) 12.4 % (21.0-51.0); MEAN CORPUSCULAR HEMOGLOBIN 26.5 pg (27.0-34.0); MEAN CORPUSCULAR HGB CONC 33.4 g/dL (33.0-35.0); MEAN CORPUSCULAR VOLUME 79.2 fL (80.0-100.0); MEAN PLATELET VOLUME 9.5 fL (7.4-11.0); MONOCYTES # (AUTO) 0.3 x10^3/uL (0.3-0.8); MONOCYTES % (AUTO) 3.2 % (0.0-13.0); NEUTROPHILS # (AUTO) 7.3 x10^3/uL (2.2-4.8); NEUTROPHILS % (AUTO) 84.3 % (42.0-75.0); RED BLOOD COUNT 3.61 X10^6/uL (3.5-5.4); RED CELL DISTRIBUTION WIDTH 26.3 % (11.6-16.5); WHITE BLOOD COUNT 8.7 X10^3/uL (3.6-10.0)
[2021-08-31 06:51] LABS: ALANINE AMINOTRANSFERASE 19 Units/L (12-78); ALBUMIN 5.5 g/dL (3.4-5.0); ALKALINE PHOSPHATASE 82 Units/L (46-116); ASPARTATE AMINO TRANSFERASE < 6 Units/L (15-37); BLOOD UREA NITROGEN 36 mg/dL (7-18); CALCIUM 9.9 mg/dL (8.5-10.1); CARBON DIOXIDE 36.3 mmol/L (21-32); CHLORIDE 94 mmol/L (98-107); COR NA(FOR HYPERGLY) 148 mmol/L (136-145); CREATININE 0.81 mg/dL (0.55-1.02); MAGNESIUM 2.1 mg/dL (1.7-2.9); SODIUM 141 mmol/L (136-145); TOTAL PROTEIN 8.3 g/dL (6.4-8.2); eGFR NON BLACK RACES > 60 (>60)
[2021-08-31 07:06] LABS: ANISOCYTOSIS 3+; HYPOCHROMASIA SLIGHT; MICROCYTOSIS SLIGHT; PLATELET MORPHOLOGY COMMENT NORMAL (NORMAL); TARGET CELLS PRESENT
--- NOTE | 2021-08-31 07:12 | RAD ---
HISTORYShortness of breathSTUDYChest AP [id number]/04/2022FINDINGSExam ination is somewhat underpenetrated. The heart remains enlarged. Diffuse bilateral alveolar infiltrates now involve all lung davila. No right pleural effusion is identified. A left pleural effusion may be present. Bony thorax is unremarkable.IMPRESSIONNo change cardiomegalyIncreasing diffuse bilateral alveolar infiltrates involving all lung fieldsSuspect left pleural effusionElectronically signed by: JOAN MARTINO (Aug 31, 2021 07:11:48)
[2021-08-31] MEDS: XANAX PO SCH ×2 (08:19→21:03)
[2021-08-31] MEDS: VSL#3 PO SCH (08:20)
[2021-08-31] MEDS: ZyrTEC TAB 10 MG PO SCH (08:20)
[2021-08-31] MEDS: DIFLUCAN PO SCH (08:21)
[2021-08-31] MEDS: ZOLOFT PO SCH (08:21)
[2021-08-31] MEDS: TAB-A-VITE PO SCH (08:21)
[2021-08-31] MEDS: PROVERA PO SCH (08:22)
[2021-08-31] MEDS: COLACE CAP 100 MG PO SCH ×2 (08:22→21:01)
[2021-08-31] MEDS: ULTRAM PO SCH ×2 (08:22→21:02)
[2021-08-31] MEDS: RisperDAL TAB 1 MG PO SCH ×3 (08:23→21:03)
[2021-08-31] MEDS: MAG-OX TAB PO SCH (08:23)
[2021-08-31] MEDS: DEPAKOTE D.R. TAB PO SCH ×2 (08:24→21:01)
[2021-08-31] MEDS: CIPRO IV 400 MG PREMIX* 400 MG/200 ML IV.SOLN. IV SCH (08:24)
[2021-08-31] MEDS: POTASSIUM CHLORIDE LIQ 20 MEQ UDC PO SCH (08:25)
[2021-08-31] MEDS: INVanz INJ 1 GRAM VIAL 1 G in NS 100 ML IV 100 ML IV SCH (08:26)
[2021-08-31] MEDS: THERMOTABS PO SCH ×4 (08:30→21:02)
[2021-08-31] MEDS: FLONASE NASAL SPRAY ENOSTRIL SCH ×2 (08:30→21:01)
[2021-08-31] MEDS: ASTELIN NASAL SPRAY ENOSTRIL SCH (08:30)
[2021-08-31] MEDS: XALATAN OP SCH ×2 (08:30→21:03)
[2021-08-31] MEDS: PULMICORT NEB TX 0.5 MG NEB SCH ×2 (08:40→20:36)
--- NOTE | 2021-08-31 08:40 | PCM.PROG ---
Progress Note - Progress Note for Day of Date of Exam: 08/30/21 - Subjective Subjective: IS CURRENTLY BEING TREATED FOR UTI, PNEUMONIA, SEPSIS, ANEMIA, AND AMS. SHE IS STATUS POST DEBRIDEMENT OF SACRAL WOUND. SHE HAS RECEIVED 1 UNIT OF PRBC SINCE ADMISSION. TODAY, SHE IS LYING IN BED WITH EYES CLOSED ON MORNING ROUNDS. SHE AWAKENS TO VERBAL STIMULI. SHE IS ORIENTED TO [place], PLACE, AND SITUATION. SHE CONTINUES WITH COMPLAINTS OF INTERMITTENT SHORTNESS OF BREATH AND WEAKNESS. SHE IS CURRENTLY UTILIZING OXYGEN VIA NASAL CANNULA AT 4 LPM. SATURATIONS HAVE BEEN IN THE 90s THIS MORNING. ON EXAMINATION, HEART IS REGULAR IN RATE AND RHYTHM. BILATERAL LUNGS NOTED WITH SCATTERED RHONCHI, DIMINISHED. ABDOMEN IS ROUND, SOFT, AND NON-TENDER WITH NORMAL BOWEL SOUNDS NOTED IN ALL QUADRANTS. THERE IS AN OPEN WOUND TO THE FOLD OF RIGHT BUTTOCK. DRESSING IS CURRENTLY DRY AND INTACT. SHE WILL REQUIRE A WOUND VAC WHEN IT IS AVAILABLE. HER VITALS THIS MORNING ARE: 98.7-82-18-94%-133/63. LABS WERE OBTAINED. ABNORMAL LAB VALUES INCLUDE THE FOLLOWING: WBC 16.4, HGB 9.0, HCT 27.9 , CARBON DIOXIDE 37.1, BUN 31, GLUCOSE 139, AST 12, CRP 35.70, BNP 132. SACRAL WOUND CULTURES REPORT GROWTH OF E.COLI AND PROTEUS MIRABILIS. LEFT HIP WOUND CULTURE IS PENDING. YEAST AND E.COLI ARE PRESENT IN URINE. A CHEST XRAY WAS OBTAINED AND REVEALED: No significant change bilateral infiltrate. SHE IS CURRENTLY RECEIVING NORMAL SALINE AT 30 ML/HR, INVANZ 1G IV DAILY, CIPRO 400MG IV Q12H, SOLU-MEDROL 40MG IV Q8H, LASIX 40MG IV BID, ALBUMIN 25% IV DAILY, XOPENEX NEBS TID, PULMICORT NEBS BID, CORTISPORIN EAR DROPS TO RIGHT TID, AND HER HOME MEDICATIONS WERE RESUMED. WE WILL ADD DIFLUCAN 100MG PO DAILY AND CONTINUE WITH CURRENT PLAN OF CARE TODAY. WE WILL CONTINUE TO RESTRICT FLUIDS TO LESS THAN 750ML/DAY. WE PLAN TO FOLLOW UP WITH AM LABS AND CHEST XRAY AND CONTINUE TO MONITOR. TIME SPENT ON CLINICAL ASSESSMENT, REVIEWING LABS AND IMAGING, DECISION MAKING, AND DOCUMENTATION GREATER THAN 45 MINUTES. - Past Medical Family Social History Past Med/Fam/Surg Hx: No changes since H&P Allergies: Allergies quetiapine [From Seroquel] Allergy (Verified 08/13/21 14:56) aripiprazole [From Abilify] Adverse Reaction (Verified 08/13/21 14:56) bupropion [From Wellbutrin] Adverse Reaction (Verified 08/13/21 14:56) donepezil [From Aricept] Adverse Reaction (Verified 08/13/21 14:56) moxifloxacin [From Avelox] Adverse Reaction (Verified 08/13/21 14:56) olanzapine [From Zyprexa] Adverse Reaction (Verified 08/13/21 14:56) promethazine [From Phenergan] Adverse Reaction (Verified 08/13/21 14:56) venlafaxine [From Effexor] Adverse Reaction (Verified 08/13/21 14:56) - Review of Systems ROS: No change since H&P - Vital Signs and I&O's Vital Signs: Temperature 97.8 F Pulse Rate [Left Brachial] 104 Pulse Rate [Right] 73 Pulse Rate 103 Respiratory Rate 21 Blood Pressure [Right Arm] 175/85 Blood Pressure [Left Arm] 167/81 Blood Pressure 173/93 O2 Sat by Pulse Oximetry 93 Intake and Output: Intake & Output 08/28/21 08/29/21 08/30/21 08/31/21 11:59 11:59 11:59 11:59 Intake Total 1760 / 1760 852 / 852 1377 / 1377 1737 / 1737 Balance 1760 / 1760 852 / 852 1377 / 1377 1737 / 1737 - Physical Exam Oriented: Person, Place Eyes: Normal Ear: Normal Nose: Normal Throat: Normal Respiratory: Diminished, Rhonchi Cardiovascular: Tachycardia : Dysuria Auscultation: Bowel Sounds: Normal Tenderness: Normal Skin: Normal, Other (decubitus ulcer Lt hip 2 x 2 cm and 2 cm deep ) Musculoskeletal: Normal Psychiatric: Anxiety, Agitation Mood Description: Anxious Affect: Anxious Speech Pattern: Appropriate - Laboratory and Diagnostics Result Diagrams: 08/31/21 05:54 08/31/21 05:54 Labs: 08/19/21 14:11 Hip - Left Wound Gram Stain - Final 08/19/21 14:11 Hip - Left Wound Culture - Final Proteus Mirabilis Kimberlee Albicans 08/13/21 15:45 Blood Blood Culture - Final 08/13/21 15:39 Blood Blood Culture - Final 08/13/21 18:47 Buttock Wound Gram Stain - Final 08/13/21 18:47 Buttock Wound Culture - Final Escherichia Coli Proteus Mirabilis Laboratory WBC 8.7 X10^3/uL (3.6-10.0) 08/31/21 05:54 RBC 3.61 X10^6/uL (3.5-5.4) 08/31/21 05:54 Hgb 9.6 g/dL (12.0-16.0) L 08/31/21 05:54 Hct 28.6 % (36.0-47.0) L 08/31/21 05:54 MCV 79.2 fL (80.0-100.0) L 08/31/21 05:54 MCH 26.5 pg (27.0-34.0) L 08/31/21 05:54 MCHC 33.4 g/dL (33.0-35.0) 08/31/21 05:54 RDW 26.3 % (11.6-16.5) H 08/31/21 05:54 Plt Count 225 X10^3/uL (150.0-450.0) 08/31/21 05:54 Plt Count Comment Adequate (ADEQUATE) 08/31/21 05:54 MPV 9.5 fL (7.4-11.0) 08/31/21 05:54 Neut % (Auto) 84.3 % (42.0-75.0) H 08/31/21 05:54 Lymph % (Auto) 12.4 % (21.0-51.0) L 08/31/21 05:54 [place] % (Auto) 3.2 % (0.0-13.0) 08/31/21 05:54 Eos % (Auto) 0.0 % (0.9-2.9) L 08/31/21 05:54 Baso % (Auto) 0.1 % (0.2-1.0) L 08/31/21 05:54 Neut # (Auto) 7.3 x10^3/uL (2.2-4.8) H 08/31/21 05:54 Lymph # (Auto) 1.1 X10^3/uL (1.3-2.9) L 08/31/21 05:54 [place] # (Auto) 0.3 x10^3/uL (0.3-0.8) 08/31/21 05:54 Eos # (Auto) 0.0 x10^3/uL (0.0-0.2) 08/31/21 05:54 Baso # (Auto) 0.0 X10^3/uL (0.0-0.1) 08/31/21 05:54 Absolute Nucleated RBC 0.1 /100WBC 08/31/21 05:54 Total Counted 100 08/24/21 05:27 Neutrophils % (Manual) 95 % (39-76) H 08/24/21 05:27 Band Neutrophils % 3 % (0-10) 08/24/21 05:27 Lymphocytes % (Manual) 1 % (13-43) L 08/24/21 05:27 Monocytes % (Manual) 1 % (4-9) L 08/24/21 05:27 Plt Morphology Comment Normal (NORMAL) 08/31/21 05:54 RBC Morphology Abnormal (NORMAL) A 08/31/21 05:54 Dimorphic RBCs Present 08/26/21 05:23 Hypochromasia Slight A 08/31/21 05:54 Anisocytosis 3+ A 08/31/21 05:54 Microcytosis Slight A 08/31/21 05:54 Target Cells Present 08/31/21 05:54 Stomatocytes Slight A 08/21/21 05:39 Sample Site Lr 08/22/21 23:39 ABG pH 7.420 (7.35-7.45) 08/22/21 23:39 ABG pCO2 61.0 mmHg (35.0-45.0) H* 08/22/21 23:39 ABG pO2 108.0 mmHg (80.0-100.0) H 08/22/21 23:39 ABG HCO3 39.6 mmol/L (22-26) H* 08/22/21 23:39 ABG O2 Saturation 98.0 % (90-100) 08/22/21 23:39 ABG Base Excess 12.7 mmol/L (-2.0-2.0) H 08/22/21 23:39 Satish Test Pos 08/22/21 23:39 A-a Gradient 529.0 mmHg 08/22/21 23:39 FiO2 100.0 08/22/21 23:39 Blood Gas Comments Jaye well ae 08/22/21 23:39 Sodium 141 mmol/L (136-145) 08/31/21 05:54 Corrected Sodium 148 mmol/L (136-145) H 08/31/21 05:54 Potassium 3.5 mmol/L (3.5-5.1) 08/31/21 05:54 Chloride 94 mmol/L (98-107) L 08/31/21 05:54 Carbon Dioxide 36.3 mmol/L (21-32) H 08/31/21 05:54 BUN 36 mg/dL (7-18) H 08/31/21 05:54 Creatinine 0.81 mg/dL (0.55-1.02) 08/31/21 05:54 Est GFR (MDRD) Af Amer > 60 (>60) 08/31/21 05:54 Est GFR (MDRD) Non-Af > 60 (>60) 08/31/21 05:54 Glucose 410 mg/dL (65-99) H 08/31/21 05:54 POC Glucose (mg/dL) 387 mg/dL (65-99) H 08/31/21 05:20 Lactic Acid 1.2 mmol/L (0.4-2.0) 08/14/21 18:55 Calcium 9.9 mg/dL (8.5-10.1) 08/31/21 05:54 Corrected Calcium TNP 08/31/21 05:54 Magnesium 2.1 mg/dL (1.7-2.9) 08/31/21 05:54 Total Bilirubin 0.50 mg/dL (0.2-1.0) 08/31/21 05:54 AST < 6 Units/L (15-37) L 08/31/21 05:54 ALT 19 Units/L (12-78) 08/31/21 05:54 Alkaline Phosphatase 82 Units/L (46-116) 08/31/21 05:54 Creatine Kinase 39 Units/L (26-192) 08/22/21 18:23 CK-MB (CK-2) < 1.0 ng/mL (0-4.0) 08/22/21 18:23 CK/CKMB % Calc 2.6 % (<4) 08/22/21 18:23 Troponin I High Sens 12.9 ng/L (4.0-60.0) 08/22/21 18:23 C-Reactive Protein 33.50 mg/L (0-3.0) H 08/31/21 05:54 B-Natriuretic Peptide 335 pg/mL (0-79) H 08/31/21 05:54 Total Protein 8.3 g/dL (6.4-8.2) H 08/31/21 05:54 Albumin 5.5 g/dL (3.4-5.0) H 08/31/21 05:54 Globulin 2.8 g/dL (2.5-4.5) 08/31/21 05:54 Albumin/Globulin Ratio 2.0 Ratio (1.1-2.1) 08/31/21 05:54 Stool Description 20g loose/mucoid brn 08/16/21 03:31 Stl Occult Blood (IFOB) Negative (NEGATIVE) 08/16/21 03:31 Stl C. diff Tox B Gene Negative (NEGATIVE) 08/22/21 11:50 Stl C. diff [id number] Presumptive negative (NEGATIVE) 08/22/21 11:50 Vancomycin Trough 30.9 ug/mL (15-20) H* 08/27/21 20:00 Random Vancomycin 21.0 ug/mL 08/28/21 05:55 Resp Viral Panel (PCR) See scanned report 08/26/21 09:30 Tissue Pathology To follow 08/19/21 14:16 Blood Type O POSITIVE 08/15/21 07:07 Antibody Screen Negative 08/15/21 07:07 Crossmatch See Detail 08/15/21 07:07 - Plan (1) Pneumonia Status: Acute Qualifiers: Pneumonia type: due to unspecified organism Laterality: bilateral Lung location: unspecified part of lung Qualified Code(s): J18.9 - Pneumonia, unspecified organism Plan: SUPPLEMENTAL OXYGEN, NORMAL SALINE AT 30 ML/HR, INVANZ 1G IV DAILY, CIPRO 400MG IV Q12H, DIFLUCAN 100MG PO DAILY, LASIX 40MG IV Q12H, SOLU-MEDROL 20MG IV Q12H, NEBULIZER TREATMENTS, ALBUMIN 25% IV DAILY. RESUMED HOME MEDICATIONS. MONITOR DAILY LABS AND CHEST XRAY (2) Urinary tract infection Status: Acute Qualifiers: Urinary tract infection type: acute cystitis Hematuria presence: with hematuria Qualified Code(s): N30.01 - Acute cystitis with hematuria Plan: ADMIT, NORMAL SALINE AT 80 ML/HR, INVANZ 1G IV DAILY, ALBUMIN 25% IV DAILY. REVIEW HOME MEDICATIONS. 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
[2021-08-31] MEDS: VANCOMYCIN IV *PREMIX 750 mg/150 ML BAG 750 MG/150 ML PIGGYBACK IV SCH (10:00)
[2021-08-31] MEDS: LASIX IVP SCH ×2 (10:30→22:13)
[2021-08-31] MEDS: GLUCOPHAGE PO SCH ×2 (11:00→16:30)
[2021-08-31] MEDS: CIPRO TAB 500 MG PO SCH ×2 (11:21→21:01)
--- NOTE | 2021-08-31 17:17 | PCM.PROG ---
Progress Note - Progress Note for Day of Date of Exam: 08/31/21 - Subjective Subjective: IS CURRENTLY BEING TREATED FOR UTI, PNEUMONIA, SEPSIS, ANEMIA, AND AMS. SHE IS STATUS POST DEBRIDEMENT OF SACRAL WOUND. SHE HAS RECEIVED 1 UNIT OF PRBC SINCE ADMISSION. TODAY, SHE IS ALERT, SITTING UP IN BED ON MORNING ROUNDS. SHE AWAKENS TO VERBAL STIMULI. SHE IS ORIENTED TO PERSON, PLACE, AND SITUATION. SHE CONTINUES WITH COMPLAINTS OF INTERMITTENT SHORTNESS OF BREATH AND WEAKNESS. SHE IS CURRENTLY UTILIZING OXYGEN VIA NASAL CANNULA AT 4 LPM. SATURATIONS HAVE BEEN IN THE 90s THIS MORNING. ON EXAMINATION, HEART IS REGULAR IN RATE AND RHYTHM. BILATERAL LUNGS NOTED WITH SCATTERED RHONCHI, DIMINISHED. ABDOMEN IS ROUND, SOFT, AND NON-TENDER WITH NORMAL BOWEL SOUNDS NOTED IN ALL QUADRANTS. THERE IS A WOUND TO THE FOLD OF RIGHT BUTTOCK. DRESSING IS CURRENTLY DRY AND INTACT. SHE WILL REQUIRE A WOUND VAC. HER VITALS THIS MORNING ARE: 97.9-82-20-99%-178/79. LABS WERE OBTAINED. ABNORMAL LAB VALUES INCLUDE THE FOLLOWING: HGB 9.6, HCT 28.6, CORRECTED SODIUM 148, CHLORIDE 94, CARBON DIOXIDE 36.3, BUN 36, GLUCOSE 410, AST <6, CRP 33.50, BNP 335, TOTAL PROTEIN 8.3, ALBUMIN 5.5. SACRAL WOUND CULTURES REPORT GROWTH OF E.COLI AND PROTEUS MIRABILIS. LEFT HIP WOUND CULTURE IS PENDING. YEAST AND E.COLI ARE PRESENT IN URINE. A CHEST XRAY WAS OBTAINED AND REVEALED: No change cardiomega ly. Increasing diffuse bilateral alveolar infiltrates involving all lung davila. Suspect left pleural effusion. SHE IS CURRENTLY RECEIVING NORMAL SALINE AT 30 ML/HR, INVANZ 1G IV DAILY, CIPRO 400MG IV Q12H, SOLU-MEDROL 40MG IV Q8H, LASIX 40MG IV BID, ALBUMIN 25% IV DAILY, XOPENEX NEBS TID, PULMICORT NEBS BID, DIFLUCAN 100MG PO DAILY, CORTISPORIN EAR DROPS TO RIGHT TID, AND HER HOME MEDICATIONS WERE RESUMED. WE WILL DISCONTINUE HER IV FLUIDS TODAY. WE WILL CHANGE IV CIPRO TO CIPRO 500MG PO BID. WE WILL DISCONTINUE THE ALBUMIN. WE WILL CONTINUE TO RESTRICT FLUIDS TO LESS THAN 750ML/DAY AND OBTAIN AN ECHO. WE WILL DECREASE OXYGEN SHE TOLERATES IT. OTHERWISE, WE PLAN TO FOLLOW UP WITH AM LABS AND CHEST XRAY AND CONTINUE TO MONITOR. TIME SPENT ON CLINICAL ASSESSMENT, REVIEWING LABS AND IMAGING, DECISION MAKING, AND DOCUMENTATION GREATER THAN 45 MINUTES. - Past Medical Family Social History Past Med/Fam/Surg Hx: No changes since H&P Allergies: Allergies quetiapine [From Seroquel] Allergy (Verified 08/13/21 14:56) aripiprazole [From Abilify] Adverse Reaction (Verified 08/13/21 14:56) bupropion [From Wellbutrin] Adverse Reaction (Verified 08/13/21 14:56) donepezil [From Aricept] Adverse Reaction (Verified 08/13/21 14:56) moxifloxacin [From Avelox] Adverse Reaction (Verified 08/13/21 14:56) olanzapine [From Zyprexa] Adverse Reaction (Verified 08/13/21 14:56) promethazine [From Phenergan] Adverse Reaction (Verified 08/13/21 14:56) venlafaxine [From Effexor] Adverse Reaction (Verified 08/13/21 14:56) - Review of Systems ROS: No change since H&P - Vital Signs and I&O's Vital Signs: Temperature 97.4 F Pulse Rate [Left Brachial] 104 Pulse Rate [Right] 98 Pulse Rate 103 Respiratory Rate 18 Blood Pressure [Right Arm] 175/85 Blood Pressure [Left Arm] 135/72 Blood Pressure 173/93 O2 Sat by Pulse Oximetry 100 Intake and Output: Intake & Output 08/29/21 08/30/21 08/31/21 09/01/21 11:59 11:59 11:59 11:59 Intake Total 852 / 852 1377 / 1377 1737 / 1737 300 / 300 Balance 852 / 852 1377 / 1377 1737 / 1737 300 / 300 - Physical Exam Oriented: Person, Place Eyes: Normal Ear: Normal Nose: Normal Throat: Normal Respiratory: Diminished, Rhonchi Cardiovascular: Tachycardia : Dysuria Auscultation: Bowel Sounds: Normal Tenderness: Normal Skin: Normal, Other (decubitus ulcer Lt hip 2 x 2 cm and 2 cm deep ) Musculoskeletal: Normal Psychiatric: Anxiety, Agitation Mood Description: Anxious Affect: Anxious Speech Pattern: Appropriate - Laboratory and Diagnostics Result Diagrams: 08/31/21 05:54 08/31/21 05:54 Labs: 08/19/21 14:11 Hip - Left Wound Gram Stain - Final 08/19/21 14:11 Hip - Left Wound Culture - Final Proteus Mirabilis Kimberlee Albicans 08/13/21 15:45 Blood Blood Culture - Final 08/13/21 15:39 Blood Blood Culture - Final 08/13/21 18:47 Buttock Wound Gram Stain - Final 08/13/21 18:47 Buttock Wound Culture - Final Escherichia Coli Proteus Mirabilis Laboratory WBC 8.7 X10^3/uL (3.6-10.0) 08/31/21 05:54 RBC 3.61 X10^6/uL (3.5-5.4) 08/31/21 05:54 Hgb 9.6 g/dL (12.0-16.0) L 08/31/21 05:54 Hct 28.6 % (36.0-47.0) L 08/31/21 05:54 MCV 79.2 fL (80.0-100.0) L 08/31/21 05:54 MCH 26.5 pg (27.0-34.0) L 08/31/21 05:54 MCHC 33.4 g/dL (33.0-35.0) 08/31/21 05:54 RDW 26.3 % (11.6-16.5) H 08/31/21 05:54 Plt Count 225 X10^3/uL (150.0-450.0) 08/31/21 05:54 Plt Count Comment Adequate (ADEQUATE) 08/31/21 05:54 MPV 9.5 fL (7.4-11.0) 08/31/21 05:54 Neut % (Auto) 84.3 % (42.0-75.0) H 08/31/21 05:54 Lymph % (Auto) 12.4 % (21.0-51.0) L 08/31/21 05:54 [place] % (Auto) 3.2 % (0.0-13.0) 08/31/21 05:54 Eos % (Auto) 0.0 % (0.9-2.9) L 08/31/21 05:54 Baso % (Auto) 0.1 % (0.2-1.0) L 08/31/21 05:54 Neut # (Auto) 7.3 x10^3/uL (2.2-4.8) H 08/31/21 05:54 Lymph # (Auto) 1.1 X10^3/uL (1.3-2.9) L 08/31/21 05:54 [place] # (Auto) 0.3 x10^3/uL (0.3-0.8) 08/31/21 05:54 Eos # (Auto) 0.0 x10^3/uL (0.0-0.2) 08/31/21 05:54 Baso # (Auto) 0.0 X10^3/uL (0.0-0.1) 08/31/21 05:54 Absolute Nucleated RBC 0.1 /100WBC 08/31/21 05:54 Total Counted 100 08/24/21 05:27 Neutrophils % (Manual) 95 % (39-76) H 08/24/21 05:27 Band Neutrophils % 3 % (0-10) 08/24/21 05:27 Lymphocytes % (Manual) 1 % (13-43) L 08/24/21 05:27 Monocytes % (Manual) 1 % (4-9) L 08/24/21 05:27 Plt Morphology Comment Normal (NORMAL) 08/31/21 05:54 RBC Morphology Abnormal (NORMAL) A 08/31/21 05:54 Dimorphic RBCs Present 08/26/21 05:23 Hypochromasia Slight A 08/31/21 05:54 Anisocytosis 3+ A 08/31/21 05:54 Microcytosis Slight A 08/31/21 05:54 Target Cells Present 08/31/21 05:54 Stomatocytes Slight A 08/21/21 05:39 Sample Site Lr 08/22/21 23:39 ABG pH 7.420 (7.35-7.45) 08/22/21 23:39 ABG pCO2 61.0 mmHg (35.0-45.0) H* 08/22/21 23:39 ABG pO2 108.0 mmHg (80.0-100.0) H 08/22/21 23:39 ABG HCO3 39.6 mmol/L (22-26) H* 08/22/21 23:39 ABG O2 Saturation 98.0 % (90-100) 08/22/21 23:39 ABG Base Excess 12.7 mmol/L (-2.0-2.0) H 08/22/21 23:39 Satish Test Pos 08/22/21 23:39 A-a Gradient 529.0 mmHg 08/22/21 23:39 FiO2 100.0 08/22/21 23:39 Blood Gas Comments Jaye well ae 08/22/21 23:39 Sodium 141 mmol/L (136-145) 08/31/21 05:54 Corrected Sodium 148 mmol/L (136-145) H 08/31/21 05:54 Potassium 3.5 mmol/L (3.5-5.1) 08/31/21 05:54 Chloride 94 mmol/L (98-107) L 08/31/21 05:54 Carbon Dioxide 36.3 mmol/L (21-32) H 08/31/21 05:54 BUN 36 mg/dL (7-18) H 08/31/21 05:54 Creatinine 0.81 mg/dL (0.55-1.02) 08/31/21 05:54 Est GFR (MDRD) Af Amer > 60 (>60) 08/31/21 05:54 Est GFR (MDRD) Non-Af > 60 (>60) 08/31/21 05:54 Glucose 410 mg/dL (65-99) H 08/31/21 05:54 POC Glucose (mg/dL) 151 mg/dL (65-99) H 08/31/21 16:39 Lactic Acid 1.2 mmol/L (0.4-2.0) 08/14/21 18:55 Calcium 9.9 mg/dL (8.5-10.1) 08/31/21 05:54 Corrected Calcium TNP 08/31/21 05:54 Magnesium 2.1 mg/dL (1.7-2.9) 08/31/21 05:54 Total Bilirubin 0.50 mg/dL (0.2-1.0) 08/31/21 05:54 AST < 6 Units/L (15-37) L 08/31/21 05:54 ALT 19 Units/L (12-78) 08/31/21 05:54 Alkaline Phosphatase 82 Units/L (46-116) 08/31/21 05:54 Creatine Kinase 39 Units/L (26-192) 08/22/21 18:23 CK-MB (CK-2) < 1.0 ng/mL (0-4.0) 08/22/21 18:23 CK/CKMB % Calc 2.6 % (<4) 08/22/21 18:23 Troponin I High Sens 12.9 ng/L (4.0-60.0) 08/22/21 18:23 C-Reactive Protein 33.50 mg/L (0-3.0) H 08/31/21 05:54 B-Natriuretic Peptide 335 pg/mL (0-79) H 08/31/21 05:54 Total Protein 8.3 g/dL (6.4-8.2) H 08/31/21 05:54 Albumin 5.5 g/dL (3.4-5.0) H 08/31/21 05:54 Globulin 2.8 g/dL (2.5-4.5) 08/31/21 05:54 Albumin/Globulin Ratio 2.0 Ratio (1.1-2.1) 08/31/21 05:54 Stool Description 20g loose/mucoid brn 08/16/21 03:31 Stl Occult Blood (IFOB) Negative (NEGATIVE) 08/16/21 03:31 Stl C. diff Tox B Gene Negative (NEGATIVE) 08/22/21 11:50 Stl C. diff [id number] Presumptive negative (NEGATIVE) 08/22/21 11:50 Vancomycin Trough 30.9 ug/mL (15-20) H* 08/27/21 20:00 Random Vancomycin 21.0 ug/mL 08/28/21 05:55 Resp Viral Panel (PCR) See scanned report 08/26/21 09:30 Tissue Pathology To follow 08/19/21 14:16 Blood Type O POSITIVE 08/15/21 07:07 Antibody Screen Negative 08/15/21 07:07 Crossmatch See Detail 08/15/21 07:07 - Plan (1) Pneumonia Status: Acute Qualifiers: Pneumonia type: due to unspecified organism Laterality: bilateral Lung location: unspecified part of lung Qualified Code(s): J18.9 - Pneumonia, unspecified organism Plan: SUPPLEMENTAL OXYGEN, INVANZ 1G IV DAILY, CIPRO 500MG PO Q12H, VANCOMYCIN IV, SOLU-MEDROL 20MG IV BID, LASIX 40MG IV BID, XOPENEX NEBS TID, PULMICORT NEBS BID, DIFLUCAN 100MG PO DAILY, CORTISPORIN EAR DROPS TO RIGHT TID, AND HER HOME MEDICATIONS WERE RESUMED. (2) Urinary tract infection Status: Acute Qualifiers: Urinary tract infection type: acute cystitis Hematuria presence: with hematuria Qualified Code(s): N30.01 - Acute cystitis with hematuria (3) Sepsis due to urinary tract infection Status: Acute (4) CHF (congestive heart failure) Status: Chronic Qualifiers: Heart failure type: unspecified Heart failure chronicity: acute on chronic Qualified Code(s): I50.9 - Heart failure, unspecified (5) Altered mental status Status: Resolved Qualifiers: Altered mental status type: transient alteration of awareness Qualified Code(s): R40.4 - Transient alteration of awareness (6) Hypoalbuminemia Status: Resolved (7) DM II (diabetes mellitus, type II), controlled Status: Chronic Qualifiers: Diabetes mellitus correction insulin use: with correction use Diabetes mellitus complication status: with hyperglycemia Qualified Code(s): E11.65 - Type 2 diabetes mellitus with hyperglycemia; 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
[2021-08-31] MEDS: SNACK - Diabetic Appropriate PO SCH (21:00)
[2021-08-31] MEDS: LOVENOX INJ 40 MG SYR SC SCH (21:01)
[2021-08-31] MEDS: DESYREL PO SCH (21:02)
[2021-08-31] MEDS: LIPITOR TAB 20 MG PO SCH (21:02)
[2021-08-31] MEDS: ZANAFLEX PO SCH (21:03)
[2021-09-01 05:24] LABS: BASOPHILS % (AUTO) 0.2 % (0.2-1.0); EOSINOPHILS % (AUTO) 0.1 % (0.9-2.9); HEMATOCRIT 29.3 % (36.0-47.0); HEMOGLOBIN 9.5 g/dL (12.0-16.0); LYMPHOCYTES # (AUTO) 1.8 X10^3/uL (1.3-2.9); LYMPHOCYTES % (AUTO) 14.9 % (21.0-51.0); MEAN CORPUSCULAR HEMOGLOBIN 25.7 pg (27.0-34.0); MEAN CORPUSCULAR HGB CONC 32.6 g/dL (33.0-35.0); MEAN CORPUSCULAR VOLUME 78.8 fL (80.0-100.0); MEAN PLATELET VOLUME 9.5 fL (7.4-11.0); MONOCYTES # (AUTO) 0.5 x10^3/uL (0.3-0.8); MONOCYTES % (AUTO) 4.4 % (0.0-13.0); NEUTROPHILS % (AUTO) 80.4 % (42.0-75.0); RED BLOOD COUNT 3.71 X10^6/uL (3.5-5.4); RED CELL DISTRIBUTION WIDTH 26.1 % (11.6-16.5); WHITE BLOOD COUNT 12.4 X10^3/uL (3.6-10.0)
[2021-09-01 05:38] LABS: ALANINE AMINOTRANSFERASE 21 Units/L (12-78); ALBUMIN 4.5 g/dL (3.4-5.0); ALKALINE PHOSPHATASE 86 Units/L (46-116); ASPARTATE AMINO TRANSFERASE 7 Units/L (15-37); BLOOD UREA NITROGEN 33 mg/dL (7-18); CALCIUM 9.8 mg/dL (8.5-10.1); CARBON DIOXIDE 36.1 mmol/L (21-32); CHLORIDE 94 mmol/L (98-107); COR NA(FOR HYPERGLY) 143 mmol/L (136-145); CREATININE 0.78 mg/dL (0.55-1.02); SODIUM 138 mmol/L (136-145); TOTAL PROTEIN 7.4 g/dL (6.4-8.2); eGFR NON BLACK RACES > 60 (>60)
[2021-09-01] MEDS: CORTISPORIN OTIC SUSP RIGHT EAR SCH ×3 (05:42→21:51)
[2021-09-01] MEDS ORDERED: GLUCOPHAGE ONE (05:46)
[2021-09-01] MEDS: NovoLIN R (or HumuLIN R) SUBCUT PRN (05:48)
[2021-09-01 05:58] LABS: ANISOCYTOSIS 2+; HYPOCHROMASIA 1+; MICROCYTOSIS SLIGHT; PLATELET MORPHOLOGY COMMENT NORMAL (NORMAL)
[2021-09-01 05:59] LABS: TARGET CELLS PRESENT
[2021-09-01] MEDS: GLUCOPHAGE PO SCH ×2 (05:59→17:55)
[2021-09-01] MEDS: XOPENEX 1.25 MG/3 ML NEBULE NEB SCH ×3 (06:17→20:30)
--- NOTE | 2021-09-01 06:20 | RAD ---
HISTORYShortness of breathSTUDYChest AP [id number] ination is somewhat better penetrated than the prior examination. The heart remains enlarged. Diffuse bilateral perihilar alveolar infiltrates are again identified and are not significantly changed. Effusion is likely present. Bony thorax is unremarkable.IMPRESSIONNo change cardiomegalyNo change diffuse bilateral alveolar infiltratesLeft pleural effusion unchangedElectronically signed by: JOAN MARTINO (Sep 01, 2021 06:19:23)
[2021-09-01] MEDS: XALATAN OP SCH ×2 (08:30→21:53)
[2021-09-01] MEDS: THERMOTABS PO SCH ×4 (08:30→21:50)
[2021-09-01] MEDS: VSL#3 PO SCH (08:33)
[2021-09-01] MEDS: COLACE CAP 100 MG PO SCH ×2 (08:34→21:48)
[2021-09-01] MEDS: PROVERA PO SCH (08:34)
[2021-09-01] MEDS: TAB-A-VITE PO SCH (08:35)
[2021-09-01] MEDS: ZyrTEC TAB 10 MG PO SCH (08:35)
[2021-09-01] MEDS: DEPAKOTE D.R. TAB PO SCH ×2 (08:35→21:49)
[2021-09-01] MEDS: ZOLOFT PO SCH (08:35)
[2021-09-01] MEDS: DIFLUCAN PO SCH (08:35)
[2021-09-01] MEDS: RisperDAL TAB 1 MG PO SCH ×3 (08:36→21:50)
[2021-09-01] MEDS: CIPRO TAB 500 MG PO SCH ×2 (08:37→21:49)
[2021-09-01] MEDS: ULTRAM PO SCH ×2 (08:37→21:47)
[2021-09-01] MEDS: MAG-OX TAB PO SCH (08:38)
[2021-09-01] MEDS: XANAX PO SCH ×2 (08:38→21:47)
[2021-09-01] MEDS: POTASSIUM CHLORIDE LIQ 20 MEQ UDC PO SCH (08:39)
[2021-09-01] MEDS: INVanz INJ 1 GRAM VIAL 1 G in NS 100 ML IV 100 ML IV SCH (08:41)
[2021-09-01] MEDS: PULMICORT NEB TX 0.5 MG NEB SCH ×2 (08:48→20:30)
[2021-09-01] MEDS: FLONASE NASAL SPRAY ENOSTRIL SCH ×2 (09:00→21:44)
[2021-09-01] MEDS: ASTELIN NASAL SPRAY ENOSTRIL SCH (09:30)
[2021-09-01] MEDS: VANCOMYCIN IV *PREMIX 750 mg/150 ML BAG 750 MG/150 ML PIGGYBACK IV SCH (10:00)
[2021-09-01] MEDS: SOLU-Medrol 40 MG VIAL IVP SCH ×2 (10:37→21:47)
[2021-09-01] MEDS: LASIX IVP SCH ×2 (10:55→22:12)
[2021-09-01] MEDS: DESYREL PO SCH (21:45)
[2021-09-01] MEDS: LOVENOX INJ 40 MG SYR SC SCH (21:45)
[2021-09-01] MEDS: ZANAFLEX PO SCH (21:46)
[2021-09-01] MEDS: LIPITOR TAB 20 MG PO SCH (21:49)
[2021-09-01] MEDS: SNACK - Diabetic Appropriate PO SCH (21:52)
--- NOTE | 2021-09-01 23:11 | PCM.PROG ---
Progress Note - Progress Note for Day of Date of Exam: 09/01/21 - Subjective Subjective: IS CURRENTLY BEING TREATED FOR UTI, PNEUMONIA, SEPSIS, ANEMIA, AND AMS. SHE IS STATUS POST DEBRIDEMENT OF SACRAL WOUND. SHE HAS RECEIVED 1 UNIT OF PRBC SINCE ADMISSION. TODAY, SHE IS ALERT, SITTING UP IN BED ON MORNING ROUNDS. SHE AWAKENS TO VERBAL STIMULI. SHE IS ORIENTED TO PERSON, PLACE, AND SITUATION. SHE CONTINUES WITH COMPLAINTS OF INTERMITTENT SHORTNESS OF BREATH AND WEAKNESS. SHE IS CURRENTLY UTILIZING OXYGEN VIA NASAL CANNULA AT 3 LPM. SATURATIONS HAVE BEEN IN THE 90s THIS MORNING. ON EXAMINATION, HEART IS REGULAR IN RATE AND RHYTHM. BILATERAL LUNGS NOTED WITH SCATTERED RHONCHI, DIMINISHED. ABDOMEN IS ROUND, SOFT, AND NON-TENDER WITH NORMAL BOWEL SOUNDS NOTED IN ALL QUADRANTS. THERE IS A WOUND TO THE FOLD OF RIGHT BUTTOCK. DRESSING IS CURRENTLY DRY AND INTACT. SHE WILL REQUIRE A WOUND VAC. HER VITALS THIS MORNING ARE: 98.0-68-20-100%-120/61. LABS WERE OBTAINED. ABNORMAL LAB VALUES INCLUDE THE FOLLOWING: WBC 12.4, HGB 9.5, HCT 29.3, CHLORIDE 94, CARBON DIOXIDE 36.1, BUN 33, GLUCOSE 319, AST 7, CRP 20.30, BNP 193. SACRAL WOUND CULTURES REPORT GROWTH OF E.COLI AND PROTEUS MIRABILIS. LEFT HIP WOUND CULTURE IS PENDING. YEAST AND E.COLI ARE PRESENT IN URINE. A CHEST XRAY WAS OBTAINED AND REVEALED: Examination is somewhat better penetrated than the prior examination. The heart remains enlarged. Diffuse bilateral perihilar alveolar infiltrates are again identified and are not significantly changed. Effusion is likely present. Bony thorax is unremarkable. SHE IS CURRENTLY RECEIVING INVANZ 1G IV DAILY, CIPRO 500MG PO BID, SOLU-MEDROL 20MG IV Q12, LASIX 40MG IV BID, XOPENEX NEBS TID, PULMICORT NEBS BID, DIFLUCAN 100MG PO DAILY, CORTISPORIN EAR DROPS TO RIGHT TID, AND HER HOME MEDICATIONS WERE RESUMED. WE WILL CONTINUE WITH CURRENT PLAN OF CARE TODAY. WE WILL CONTINUE TO RESTRICT FLUIDS TO LESS THAN 750ML/DAY. WE WILL DECREASE OXYGEN SHE TOLERATES IT. OTHERWISE, WE PLAN TO FOLLOW UP WITH AM LABS AND CHEST XRAY AND CONTINUE TO MONITOR. TIME SPENT ON CLINICAL ASSESSMENT, REVIEWING LABS AND IMAGING, DECISION MAKING, AND DOCUMENTATION GREATER THAN 45 MINUTES. - Past Medical Family Social History Past Med/Fam/Surg Hx: No changes since H&P Allergies: Allergies quetiapine [From Seroquel] Allergy (Verified 08/13/21 14:56) aripiprazole [From Abilify] Adverse Reaction (Verified 08/13/21 14:56) bupropion [From Wellbutrin] Adverse Reaction (Verified 08/13/21 14:56) donepezil [From Aricept] Adverse Reaction (Verified 08/13/21 14:56) moxifloxacin [From Avelox] Adverse Reaction (Verified 08/13/21 14:56) olanzapine [From Zyprexa] Adverse Reaction (Verified 08/13/21 14:56) promethazine [From Phenergan] Adverse Reaction (Verified 08/13/21 14:56) venlafaxine [From Effexor] Adverse Reaction (Verified 08/13/21 14:56) - Review of Systems ROS: No change since H&P - Vital Signs and I&O's Vital Signs: Temperature 97.6 F Pulse Rate [Left Brachial] 104 Pulse Rate [Right] 83 Pulse Rate 84 Respiratory Rate 20 Blood Pressure [Right Arm] 175/85 Blood Pressure [Left Arm] 111/55 Blood Pressure 173/93 O2 Sat by Pulse Oximetry 98 Intake and Output: Intake & Output 08/30/21 08/31/21 09/01/21 09/02/21 11:59 11:59 11:59 11:59 Intake Total 1377 / 1377 1737 / 1737 780 / 780 120 / 120 Balance 1377 / 1377 1737 / 1737 780 / 780 120 / 120 - Physical Exam Oriented: Person, Place Eyes: Normal Ear: Normal Nose: Normal Throat: Normal Respiratory: Diminished, Rhonchi Cardiovascular: Tachycardia : Dysuria Auscultation: Bowel Sounds: Normal Tenderness: Normal Skin: Normal, Other (decubitus ulcer Lt hip 2 x 2 cm and 2 cm deep ) Musculoskeletal: Normal Psychiatric: Anxiety, Agitation Mood Description: Anxious Affect: Anxious Speech Pattern: Appropriate - Laboratory and Diagnostics Result Diagrams: 09/01/21 04:45 09/01/21 04:45 Labs: 08/19/21 14:11 Hip - Left Wound Gram Stain - Final 08/19/21 14:11 Hip - Left Wound Culture - Final Proteus Mirabilis Kimberlee Albicans 08/13/21 15:45 Blood Blood Culture - Final 08/13/21 15:39 Blood Blood Culture - Final 08/13/21 18:47 Buttock Wound Gram Stain - Final 08/13/21 18:47 Buttock Wound Culture - Final Escherichia Coli Proteus Mirabilis Laboratory WBC 12.4 X10^3/uL (3.6-10.0) H 09/01/21 04:45 RBC 3.71 X10^6/uL (3.5-5.4) 09/01/21 04:45 Hgb 9.5 g/dL (12.0-16.0) L 09/01/21 04:45 Hct 29.3 % (36.0-47.0) L 09/01/21 04:45 MCV 78.8 fL (80.0-100.0) L 09/01/21 04:45 MCH 25.7 pg (27.0-34.0) L 09/01/21 04:45 MCHC 32.6 g/dL (33.0-35.0) L 09/01/21 04:45 RDW 26.1 % (11.6-16.5) H 09/01/21 04:45 Plt Count 234 X10^3/uL (150.0-450.0) 09/01/21 04:45 Plt Count Comment Adequate (ADEQUATE) 09/01/21 04:45 MPV 9.5 fL (7.4-11.0) 09/01/21 04:45 Neut % (Auto) 80.4 % (42.0-75.0) H 09/01/21 04:45 Lymph % (Auto) 14.9 % (21.0-51.0) L 09/01/21 04:45 [place] % (Auto) 4.4 % (0.0-13.0) 09/01/21 04:45 Eos % (Auto) 0.1 % (0.9-2.9) L 09/01/21 04:45 Baso % (Auto) 0.2 % (0.2-1.0) 09/01/21 04:45 Neut # (Auto) 10.0 x10^3/uL (2.2-4.8) H 09/01/21 04:45 Lymph # (Auto) 1.8 X10^3/uL (1.3-2.9) 09/01/21 04:45 [place] # (Auto) 0.5 x10^3/uL (0.3-0.8) 09/01/21 04:45 Eos # (Auto) 0.0 x10^3/uL (0.0-0.2) 09/01/21 04:45 Baso # (Auto) 0.0 X10^3/uL (0.0-0.1) 09/01/21 04:45 Absolute Nucleated RBC 0.0 /100WBC 09/01/21 04:45 Total Counted 100 08/24/21 05:27 Neutrophils % (Manual) 95 % (39-76) H 08/24/21 05:27 Band Neutrophils % 3 % (0-10) 08/24/21 05:27 Lymphocytes % (Manual) 1 % (13-43) L 08/24/21 05:27 Monocytes % (Manual) 1 % (4-9) L 08/24/21 05:27 Plt Morphology Comment Normal (NORMAL) 09/01/21 04:45 RBC Morphology Abnormal (NORMAL) A 09/01/21 04:45 Dimorphic RBCs Present 09/01/21 04:45 Hypochromasia 1+ A 09/01/21 04:45 Anisocytosis 2+ A 09/01/21 04:45 Microcytosis Slight A 09/01/21 04:45 Target Cells Present 09/01/21 04:45 Stomatocytes Slight A 08/21/21 05:39 Sample Site Lr 08/22/21 23:39 ABG pH 7.420 (7.35-7.45) 08/22/21 23:39 ABG pCO2 61.0 mmHg (35.0-45.0) H* 08/22/21 23:39 ABG pO2 108.0 mmHg (80.0-100.0) H 08/22/21 23:39 ABG HCO3 39.6 mmol/L (22-26) H* 08/22/21 23:39 ABG O2 Saturation 98.0 % (90-100) 08/22/21 23:39 ABG Base Excess 12.7 mmol/L (-2.0-2.0) H 08/22/21 23:39 Satish Test Pos 08/22/21 23:39 A-a Gradient 529.0 mmHg 08/22/21 23:39 FiO2 100.0 08/22/21 23:39 Blood Gas Comments Jaye well ae 08/22/21 23:39 Sodium 138 mmol/L (136-145) 09/01/21 04:45 Corrected Sodium 143 mmol/L (136-145) 09/01/21 04:45 Potassium 3.6 mmol/L (3.5-5.1) 09/01/21 04:45 Chloride 94 mmol/L (98-107) L 09/01/21 04:45 Carbon Dioxide 36.1 mmol/L (21-32) H 09/01/21 04:45 BUN 33 mg/dL (7-18) H 09/01/21 04:45 Creatinine 0.78 mg/dL (0.55-1.02) 09/01/21 04:45 Est GFR (MDRD) Af Amer > 60 (>60) 09/01/21 04:45 Est GFR (MDRD) Non-Af > 60 (>60) 09/01/21 04:45 Glucose 319 mg/dL (65-99) H 09/01/21 04:45 POC Glucose (mg/dL) 204 mg/dL (65-99) H 09/01/21 21:57 Lactic Acid 1.2 mmol/L (0.4-2.0) 08/14/21 18:55 Calcium 9.8 mg/dL (8.5-10.1) 09/01/21 04:45 Corrected Calcium TNP 09/01/21 04:45 Magnesium 2.1 mg/dL (1.7-2.9) 08/31/21 05:54 Total Bilirubin 0.40 mg/dL (0.2-1.0) 09/01/21 04:45 AST 7 Units/L (15-37) L 09/01/21 04:45 ALT 21 Units/L (12-78) 09/01/21 04:45 Alkaline Phosphatase 86 Units/L (46-116) 09/01/21 04:45 Creatine Kinase 39 Units/L (26-192) 08/22/21 18:23 CK-MB (CK-2) < 1.0 ng/mL (0-4.0) 08/22/21 18:23 CK/CKMB % Calc 2.6 % (<4) 08/22/21 18:23 Troponin I High Sens 12.9 ng/L (4.0-60.0) 08/22/21 18:23 C-Reactive Protein 20.30 mg/L (0-3.0) H 09/01/21 04:45 B-Natriuretic Peptide 193 pg/mL (0-79) H 09/01/21 04:45 Total Protein 7.4 g/dL (6.4-8.2) 09/01/21 04:45 Albumin 4.5 g/dL (3.4-5.0) 09/01/21 04:45 Globulin 2.9 g/dL (2.5-4.5) 09/01/21 04:45 Albumin/Globulin Ratio 1.6 Ratio (1.1-2.1) 09/01/21 04:45 Stool Description 20g loose/mucoid brn 08/16/21 03:31 Stl Occult Blood (IFOB) Negative (NEGATIVE) 08/16/21 03:31 Stl C. diff Tox B Gene Negative (NEGATIVE) 08/22/21 11:50 Stl C. diff [id number] Presumptive negative (NEGATIVE) 08/22/21 11:50 Vancomycin Trough 30.9 ug/mL (15-20) H* 08/27/21 20:00 Random Vancomycin 21.0 ug/mL 08/28/21 05:55 Resp Viral Panel (PCR) See scanned report 08/26/21 09:30 Tissue Pathology To follow 08/19/21 14:16 Blood Type O POSITIVE 08/15/21 07:07 Antibody Screen Negative 08/15/21 07:07 Crossmatch See Detail 08/15/21 07:07 - Plan (1) Pneumonia Status: Acute Qualifiers: Pneumonia type: due to unspecified organism Laterality: bilateral Lung location: unspecified part of lung Qualified Code(s): J18.9 - Pneumonia, unspecified organism Plan: SUPPLEMENTAL OXYGEN, INVANZ 1G IV DAILY, CIPRO 500MG PO Q12H, VANCOMYCIN IV, SOLU-MEDROL 20MG IV BID, LASIX 40MG IV BID, XOPENEX NEBS TID, PULMICORT NEBS BID, DIFLUCAN 100MG PO DAILY, CORTISPORIN EAR DROPS TO RIGHT TID, AND HER HOME MEDICATIONS WERE RESUMED. (2) Urinary tract infection Status: Acute Qualifiers: Urinary tract infection type: acute cystitis Hematuria presence: with hematuria Qualified Code(s): N30.01 - Acute cystitis with hematuria Plan: ADMIT, NORMAL SALINE AT 80 ML/HR, INVANZ 1G IV DAILY, ALBUMIN 25% IV D AILY. REVIEW HOME MEDICATIONS. MONITOR DAILY LABS (3) Sepsis due to urinary tract infection Status: Acute (4) CHF (congestive heart failure) Status: Chronic Qualifiers: Heart failure type: unspecified Heart failure chronicity: acute on chronic Qualified Code(s): I50.9 - Heart failure, unspecified (5) Altered mental status Status: Resolved Qualifiers: Altered mental status type: transient alteration of awareness Qualified Code(s): R40.4 - Transient alteration of awareness (6) Hypoalbuminemia Status: Resolved (7) DM II (diabetes mellitus, type II), controlled Status: Chronic Qualifiers: Diabetes mellitus alf insulin use: with alf use Diabetes mellitus complication status: with hyperglycemia Qualified Code(s): E11.65 - Type 2 diabetes mellitus with hyperglycemia; 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
[2021-09-02] MEDS: TORADOL 30 MG VIAL IVP PRN (03:38)
[2021-09-02] MEDS: XOPENEX 1.25 MG/3 ML NEBULE NEB SCH ×2 (05:55→13:35)
[2021-09-02] MEDS ORDERED: GLUCOPHAGE ONE (05:58)
[2021-09-02] MEDS: CORTISPORIN OTIC SUSP RIGHT EAR SCH (06:03)
[2021-09-02 06:12] LABS: BASOPHILS % (AUTO) 0 % (0.2-1.0); EOSINOPHILS % (AUTO) 0.2 % (0.9-2.9); HEMATOCRIT 30.9 % (36.0-47.0); HEMOGLOBIN 10.2 g/dL (12.0-16.0); LYMPHOCYTES # (AUTO) 0.9 X10^3/uL (1.3-2.9); LYMPHOCYTES % (AUTO) 8.6 % (21.0-51.0); MEAN CORPUSCULAR HEMOGLOBIN 26.1 pg (27.0-34.0); MEAN CORPUSCULAR HGB CONC 32.9 g/dL (33.0-35.0); MEAN CORPUSCULAR VOLUME 79.3 fL (80.0-100.0); MEAN PLATELET VOLUME 9.7 fL (7.4-11.0); MONOCYTES # (AUTO) 0.1 x10^3/uL (0.3-0.8); MONOCYTES % (AUTO) 1.3 % (0.0-13.0); NEUTROPHILS # (AUTO) 9.7 x10^3/uL (2.2-4.8); NEUTROPHILS % (AUTO) 89.9 % (42.0-75.0); RED CELL DISTRIBUTION WIDTH 26.7 % (11.6-16.5); WHITE BLOOD COUNT 10.8 X10^3/uL (3.6-10.0)
--- NOTE | 2021-09-02 06:13 | RAD ---
HISTORYShortness of breathSTUDYChest AP [id number]/06/2022FINDINGSThe heart remains mildly enlarged. There has been improvement in the bilateral perihilar alveolar infiltrates when compared to the prior examination particularly on the left. Significant residual infiltrate remains. Left pleural effusion is unchanged. Bony thorax is unremarkable.IMPRESSIONNo change mild cardiomegalySome improvement diffuse bilateral alveolar infiltrates particularly on the left however significant infiltrate remainsLeft pleural effusion unchangedElectronically signed by: JOAN MARTINO (Sep 02, 2021 06:13:19)
[2021-09-02] MEDS: GLUCOPHAGE PO SCH (06:21)
[2021-09-02 06:22] LABS: ALANINE AMINOTRANSFERASE 18 Units/L (12-78); ALBUMIN 4.4 g/dL (3.4-5.0); ALKALINE PHOSPHATASE 86 Units/L (46-116); ASPARTATE AMINO TRANSFERASE 9 Units/L (15-37); BLOOD UREA NITROGEN 33 mg/dL (7-18); CALCIUM 9.4 mg/dL (8.5-10.1); CARBON DIOXIDE 36.7 mmol/L (21-32); CHLORIDE 96 mmol/L (98-107); COR NA(FOR HYPERGLY) 144 mmol/L (136-145); CREATININE 0.69 mg/dL (0.55-1.02); SODIUM 139 mmol/L (136-145); TOTAL PROTEIN 7.3 g/dL (6.4-8.2); eGFR NON BLACK RACES > 60 (>60)
[2021-09-02] MEDS: NovoLIN R (or HumuLIN R) SUBCUT PRN (06:22)
[2021-09-02] MEDS ORDERED: NovoLIN R (or HumuLIN R) ONE (06:28)
[2021-09-02 07:20] LABS: ANISOCYTOSIS 3+; PLATELET MORPHOLOGY COMMENT NORMAL (NORMAL)
[2021-09-02 07:21] LABS: HYPOCHROMASIA SLIGHT; TARGET CELLS PRESENT
[2021-09-02 07:22] LABS: MICROCYTOSIS SLIGHT
[2021-09-02] MEDS ORDERED: PHARMACY COMMENT IV NR (08:30)
[2021-09-02] MEDS: PULMICORT NEB TX 0.5 MG NEB SCH (09:25)
[2021-09-02] MEDS: ASTELIN NASAL SPRAY ENOSTRIL SCH (09:27)
[2021-09-02] MEDS: DEPAKOTE D.R. TAB PO SCH (09:28)
[2021-09-02] MEDS: CIPRO TAB 500 MG PO SCH (09:28)
[2021-09-02] MEDS: DIFLUCAN PO SCH (09:28)
[2021-09-02] MEDS: COLACE CAP 100 MG PO SCH (09:28)
[2021-09-02] MEDS: ZOLOFT PO SCH (09:29)
[2021-09-02] MEDS: THERMOTABS PO SCH ×2 (09:29→14:12)
[2021-09-02] MEDS: ZyrTEC TAB 10 MG PO SCH (09:29)
[2021-09-02] MEDS: XANAX PO SCH (09:29)
[2021-09-02] MEDS: MAG-OX TAB PO SCH (09:30)
[2021-09-02] MEDS: SOLU-Medrol 40 MG VIAL IVP SCH (09:30)
[2021-09-02] MEDS: INVanz INJ 1 GRAM VIAL 1 G in NS 100 ML IV 100 ML IV SCH (09:30)
[2021-09-02] MEDS: PROVERA PO SCH (09:31)
[2021-09-02] MEDS: VANCOMYCIN IV *PREMIX 750 mg/150 ML BAG 750 MG/150 ML PIGGYBACK IV SCH ×2 (09:31→09:33)
[2021-09-02] MEDS: VSL#3 PO SCH (09:31)
[2021-09-02] MEDS: TAB-A-VITE PO SCH (09:31)
[2021-09-02] MEDS: ULTRAM PO SCH (09:32)
[2021-09-02] MEDS: XALATAN OP SCH (09:32)
[2021-09-02] MEDS: POTASSIUM CHLORIDE LIQ 20 MEQ UDC PO SCH (09:32)
[2021-09-02] MEDS: FLONASE NASAL SPRAY ENOSTRIL SCH (09:32)
[2021-09-02] MEDS: RisperDAL TAB 1 MG PO SCH ×2 (09:34→14:12)
[2021-09-02] MEDS: LASIX IVP SCH (14:11)
[2021-09-02 15:14] VITALS: BP 133/70
== END 2021-09-02 14:20 | DRG 853 ==
LOC: LTCLAB 09:09 → MED/SURG 09:09
PROVIDERS: ADMIT Internal Medicine; ATTEND Internal Medicine

== ENCOUNTER 2021-09-06 09:37 | Inpatient (IN) ==
[2021-09-06] MEDS ORDERED: NS 500 ML IV 500 ML IV ONE ×2 (09:59→10:03)
--- NOTE | 2021-09-06 10:03 | DR.SOBA ---
HPI Time Seen Time Seen by Provider: 09/06/21 09:58 Complaints Chief Complaint Doctors Comments: 51 y/o [place] for evaluation. Reportedly passed out this am, was c/o dyspnea. On chronic O2. Pt not a good historian. Denies any pain or problems at present. Per NH, pt being treated for pneumonia, witih O2 and IM rocephin, since 09/02. 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 Family History Family Medical History: Hypertension Social History Do you use any recreational Drugs:: No Travel Risk Coronavirus risk:travel/contact w/high risk person: No Has patient experienced Coronavirus symptoms: No ROS Review of Systems Constitutional: No Symptoms Reported Eyes: No Symptoms Reported ENTM: No Symptoms Reported Respiratoy: No Symptoms Reported Cardiovascular: No Symptoms Reported Gastrointestinal/Abdominal: No Symptoms Reported Genitourinary: No Symptoms Reported Neurological: No Symptoms Reported Musculoskeletal: No Symptoms Reported Integumentary: No Symptoms Reported Hematologic/Lymphatic: No Symptoms Reported Psychiatric: No Symptoms Reported All Other Systems: Reviewed and Negative PE Vital Signs Vitals: Temperature 97.8 F Pulse Rate 97 Respiratory Rate 31 Blood Pressure [Right Arm] 175/85 Blood Pressure [Left Arm] 133/70 Blood Pressure 114/57 O2 Sat by Pulse Oximetry 97 General Limitations: No Limitations General Appearance: Alert and In No Apparent Distress Head Head Exam: Normal Inspection Eyes Eye exam: PERRL and EOMI ENT ENT Exam: Mucous Membranes Moist Neck Neck Exam: Normal Inspection Respiratory Respiratory Exam: Normal Lung Sounds Bilat; negative Accessory Muscle Use and Respiratory Distress Respiratory Exam: Bilateral: Clear to Auscultation Cardiovascular Cardiovascular Exam: Regular Rate, Normal Rhythm, Tachycardia (mild) and Normal Heart Sounds Abdominal Exam Abdominal Exam: Normal Bowel Sounds and Soft; negative Tenderness Extremities Extremities Exam: Other (+ weakness of lower exts) Neurologic Neurological Exam: Alert and Oriented X3 Psychiatric Psychiatric Exam: Flat Affect Skin Skin Exam: Warm and Dry MDM Differential Diagnosis Differential Diagnosis: CHF and Pneumonia Differential Diagnosis Comment:: cardiac arrhythmia, hypotension COURSE Treatment Treatment: 51 y/o female sent [place] [facility], after having low O2 and a syncopal episode this am. Poor historian, in no distress. + good pulse ox on O2. W/u initiated. 1242 - + bilateral infiltrates on CXR. Labs overall acceptable. Remaining stable here. Has been on IM rocephin and PO cipro x 4 days for pneumonia. ROR Labs Reviewed Laboratory Results Reviewed?: Yes Result Diagrams: 09/06/21 10:15 09/06/21 10:15 Laboratory: WBC 12.8 X10^3/uL (3.6-10.0) H 09/06/21 10:15 RBC 4.14 X10^6/uL (3.5-5.4) 09/06/21 10:15 Hgb 10.6 g/dL (12.0-16.0) L 09/06/21 10:15 Hct 32.6 % (36.0-47.0) L 09/06/21 10:15 MCV 78.8 fL (80.0-100.0) L 09/06/21 10:15 MCH 25.6 pg (27.0-34.0) L 09/06/21 10:15 MCHC 32.5 g/dL (33.0-35.0) L 09/06/21 10:15 RDW 26.9 % (11.6-16.5) H 09/06/21 10:15 Plt Count 161 X10^3/uL (150.0-450.0) 09/06/21 10:15 Plt Count Comment Adequate (ADEQUATE) 09/06/21 10:15 MPV 9.9 fL (7.4-11.0) 09/06/21 10:15 Neut % (Auto) 78.1 % (42.0-75.0) H 09/06/21 10:15 Lymph % (Auto) 13.8 % (21.0-51.0) L 09/06/21 10:15 [place] % (Auto) 4.5 % (0.0-13.0) 09/06/21 10:15 Eos % (Auto) 3.2 % (0.9-2.9) H 09/06/21 10:15 Baso % (Auto) 0.4 % (0.2-1.0) 09/06/21 10:15 Neut # (Auto) 10.0 x10^3/uL (2.2-4.8) H 09/06/21 10:15 Lymph # (Auto) 1.8 X10^3/uL (1.3-2.9) 09/06/21 10:15 [place] # (Auto) 0.6 x10^3/uL (0.3-0.8) 09/06/21 10:15 Eos # (Auto) 0.4 x10^3/uL (0.0-0.2) H 09/06/21 10:15 Baso # (Auto) 0.1 X10^3/uL (0.0-0.1) 09/06/21 10:15 Absolute Nucleated RBC 0.1 /100WBC 09/06/21 10:15 Plt Morphology Comment Normal (NORMAL) 09/06/21 10:15 RBC Morphology Abnormal (NORMAL) A 09/06/21 10:15 Anisocytosis 2+ A 09/06/21 10:15 Target Cells Few 09/06/21 10:15 Sodium 144 mmol/L (136-145) 09/06/21 10:15 Corrected Sodium 145 mmol/L (136-145) 09/06/21 10:15 Potassium 3.4 mmol/L (3.5-5.1) L 09/06/21 10:15 Chloride 102 mmol/L (98-107) 09/06/21 10:15 Carbon Dioxide 29.7 mmol/L (21-32) 09/06/21 10:15 BUN 24 mg/dL (7-18) H 09/06/21 10:15 Creatinine 0.62 mg/dL (0.55-1.02) 09/06/21 10:15 Est GFR (MDRD) Af Amer > 60 (>60) 09/06/21 10:15 Est GFR (MDRD) Non-Af > 60 (>60) 09/06/21 10:15 Glucose 150 mg/dL (65-99) H 09/06/21 10:15 Calcium 9.4 mg/dL (8.5-10.1) 09/06/21 10:15 Corrected Calcium TNP 09/06/21 10:15 Total Bilirubin 0.30 mg/dL (0.2-1.0) 09/06/21 10:15 AST 9 Units/L (15-37) L 09/06/21 10:15 ALT 12 Units/L (12-78) 09/06/21 10:15 Alkaline Phosphatase 92 Units/L (46-116) 09/06/21 10:15 Creatine Kinase 16 Units/L (26-192) L 09/06/21 10:15 CK-MB (CK-2) < 1.0 ng/mL (0-4.0) 09/06/21 10:15 CK/CKMB % Calc 6.3 % (<4) 09/06/21 10:15 Troponin I High Sens 7.4 ng/L (4.0-60.0) 09/06/21 10:15 B-Natriuretic Peptide 106 pg/mL (0-79) H 09/06/21 10:15 Total Protein 7.6 g/dL (6.4-8.2) 09/06/21 10:15 Albumin 3.6 g/dL (3.4-5.0) 09/06/21 10:15 Globulin 4.0 g/dL (2.5-4.5) 09/06/21 10:15 Albumin/Globulin Ratio 0.9 Ratio (1.1-2.1) L 09/06/21 10:15 Specimen Type Catherized urine 09/06/21 10:42 Urine Color Yellow (YELLOW) 09/06/21 10:42 Urine Appearance Clear (CLEAR) 09/06/21 10:42 Urine pH 5.0 (5.0 - 8.0) 09/06/21 10:42 Ur Specific [place] 1.010 (1.000-1.030) 09/06/21 10:42 Urine Protein 1+ (NEGATIVE) 09/06/21 10:42 Urine Glucose (UA) Negative (NEGATIVE) 09/06/21 10:42 Urine Ketones Negative (NEGATIVE) 09/06/21 10:42 Urine Blood 1+ (NEGATIVE) 09/06/21 10:42 Urine Nitrite Negative (NEGATIVE) 09/06/21 10:42 Urine Bilirubin Negative (NEGATIVE) 09/06/21 10:42 Urine Urobilinogen Normal (NORMAL) 09/06/21 10:42 Ur Leukocyte Esterase Negative (NEGATIVE) 09/06/21 10:42 Urine RBC None seen /HPF (0-3) 09/06/21 10:42 Urine WBC 0-2 /HPF (0-5) 09/06/21 10:42 Ur Squamous Epith Cells Rare /HPF (NEGATIVE) 09/06/21 10:42 Urine Bacteria Negative /HPF (NEGATIVE) 09/06/21 10:42 Hyaline Casts Rare /LPF (NEGATIVE) 09/06/21 10:42 Ur Culture Indicated? No/not indicated 09/06/21 10:42 EKG Rate: 112 [place]: LAD Rhythm: ST Block: None Hypertrophy: LAE and LVH ST: Nonsp Opioid Opioid Risk Tool Age (Al box if 16-45): No History of Preadolescent Sexual Abuse: No Total: 0 Total Score Risk Category: Low Risk Copyright: Dakota LOCKETT predicting aberrant behaviors Diagnosis Discharge Problem: Pneumonia of both lungs Qualifiers: Pneumonia type: due to unspecified organism Lung location: unspecified part of lung Qualified Code(s): J18.9 - Pneumonia, unspecified organism
[2021-09-06 10:42] LABS: BASOPHILS # (AUTO) 0.1 X10^3/uL (0.0-0.1); BASOPHILS % (AUTO) 0.4 % (0.2-1.0); EOSINOPHILS # (AUTO) 0.4 x10^3/uL (0.0-0.2); EOSINOPHILS % (AUTO) 3.2 % (0.9-2.9); HEMATOCRIT 32.6 % (36.0-47.0); HEMOGLOBIN 10.6 g/dL (12.0-16.0); LYMPHOCYTES # (AUTO) 1.8 X10^3/uL (1.3-2.9); LYMPHOCYTES % (AUTO) 13.8 % (21.0-51.0); MEAN CORPUSCULAR HEMOGLOBIN 25.6 pg (27.0-34.0); MEAN CORPUSCULAR HGB CONC 32.5 g/dL (33.0-35.0); MEAN CORPUSCULAR VOLUME 78.8 fL (80.0-100.0); MEAN PLATELET VOLUME 9.9 fL (7.4-11.0); MONOCYTES # (AUTO) 0.6 x10^3/uL (0.3-0.8); MONOCYTES % (AUTO) 4.5 % (0.0-13.0); NEUTROPHILS % (AUTO) 78.1 % (42.0-75.0); RED BLOOD COUNT 4.14 X10^6/uL (3.5-5.4); RED CELL DISTRIBUTION WIDTH 26.9 % (11.6-16.5); WHITE BLOOD COUNT 12.8 X10^3/uL (3.6-10.0)
[2021-09-06 10:52] LABS: BILIRUBIN,URINE NEGATIVE (NEGATIVE); BLOOD/HEMOGLOBIN,URINE 1+ (NEGATIVE); GLUCOSE, URINE NEGATIVE (NEGATIVE); KETONES,URINE NEGATIVE (NEGATIVE); LEUKOCYTE ESTERASE ,URINE NEGATIVE (NEGATIVE); NITRITES,URINE NEGATIVE (NEGATIVE); PROTEIN,URINE 1+ (NEGATIVE); UROBILINOGEN,URINE NORMAL (NORMAL)
[2021-09-06 11:07] LABS: ALANINE AMINOTRANSFERASE 12 Units/L (12-78); ALBUMIN 3.6 g/dL (3.4-5.0); ALKALINE PHOSPHATASE 92 Units/L (46-116); ASPARTATE AMINO TRANSFERASE 9 Units/L (15-37); BLOOD UREA NITROGEN 24 mg/dL (7-18); CALCIUM 9.4 mg/dL (8.5-10.1); CARBON DIOXIDE 29.7 mmol/L (21-32); CHLORIDE 102 mmol/L (98-107); CKMB % 6.3 % (<4); COR NA(FOR HYPERGLY) 145 mmol/L (136-145); CREATINE KINASE 16 Units/L (26-192); CREATINE KINASE MB < 1.0 ng/mL (0-4.0); CREATININE 0.62 mg/dL (0.55-1.02); SODIUM 144 mmol/L (136-145); TOTAL PROTEIN 7.6 g/dL (6.4-8.2); eGFR NON BLACK RACES > 60 (>60)
[2021-09-06 11:18] LABS: APPEARANCE,URINE CLEAR (CLEAR); COLOR,URINE YELLOW (YELLOW)
[2021-09-06 11:20] LABS: BACTERIA,URINE NEGATIVE /HPF (NEGATIVE); HYALINE CASTS, URINE RARE /LPF (NEGATIVE); RBC,URINE NONE SEEN /HPF (0-3); SQUAMOUS EPITHELIAL CELL,UR RARE /HPF (NEGATIVE)
[2021-09-06 11:40] LABS: PLATELET MORPHOLOGY COMMENT NORMAL (NORMAL)
[2021-09-06 11:41] LABS: ANISOCYTOSIS 2+; TARGET CELLS FEW
--- NOTE | 2021-09-06 12:53 | RAD ---
HISTORYSOBSTUDYAP chestCOMPARISONApril 2021FINDINGSExtensive bilateral airspace disease is noted, essentially similar and stable in the left lower lobe but slightly increased in the right lung. No mass formation, pneumothorax or other complication is noted.IMPRESSIONPersistent bilateral infiltrates consistent with pneumonia, slight interval progression in the right lung since prior exam.Electronically signed by: JC ORTIZ (Sep 06, 2021 12:51:06)
[2021-09-06] MEDS ORDERED: LEVAQUIN PREMIX IV 750 MG 750 MG/150 ML BAG IV ONE ×2 (13:51→14:12)
[2021-09-06] MEDS ORDERED: NovoLIN R (or HumuLIN R) SC SCH (16:43)
[2021-09-06 17:11] VITALS: BMI 23.7
[2021-09-06] MEDS ORDERED: PHARMACY CONSULT LTC MEDICATIONS XX SCH (18:00)
[2021-09-06] MEDS: NS 1,000 ML IV 1,000 ML IV SCH (18:26)
[2021-09-06] MEDS: SNACK - Diabetic Appropriate PO SCH (19:30)
[2021-09-06] MEDS ORDERED: XOPENEX 1.25 MG/3 ML NEBULE NEB ONE (19:33)
[2021-09-06] MEDS ORDERED: PULMICORT NEB TX 0.5 MG NEB ONE (19:33)
[2021-09-06] MEDS ORDERED: GLUCOPHAGE ONE (20:15)
[2021-09-06] MEDS: XOPENEX 1.25 MG/3 ML NEBULE NEB SCH (20:25)
[2021-09-06] MEDS: PULMICORT NEB TX 0.5 MG NEB SCH (20:25)
[2021-09-06] MEDS ORDERED: DIVALPROEX 125 MG PO SCH (21:00)
[2021-09-06] MEDS ORDERED: AMINO ACIDS PROTEIN HYDROLYS PO SCH (21:00)
[2021-09-06] MEDS ORDERED: PATIENT'S HOME MEDICATION (Alprazolam [Xanax] 0.5 mg Tablet) PO SCH (21:00)
[2021-09-06] MEDS: COLACE CAP 100 MG PO SCH (21:05)
[2021-09-06] MEDS: DEPAKOTE D.R. TAB PO SCH (21:06)
[2021-09-06] MEDS: LASIX PO SCH (21:07)
[2021-09-06] MEDS: GLUCOPHAGE PO SCH (21:07)
[2021-09-06] MEDS: LIPITOR TAB 20 MG PO SCH (21:09)
[2021-09-06] MEDS: RisperDAL TAB 1 MG PO SCH (21:10)
[2021-09-06] MEDS: ULTRAM PO SCH (21:11)
[2021-09-06] MEDS: XANAX PO SCH (21:12)
[2021-09-06] MEDS: XARELTO PO SCH (21:13)
[2021-09-06] MEDS: ZANAFLEX PO SCH (21:14)
[2021-09-06] MEDS: FLONASE NASAL SPRAY ENOSTRIL SCH (21:15)
[2021-09-06] MEDS: XALATAN OP SCH (21:16)
[2021-09-07] MEDS ORDERED: ULTRAM PO ONE (04:00)
[2021-09-07] MEDS: NS 1,000 ML IV 1,000 ML IV SCH (05:08)
[2021-09-07 05:56] LABS: BASOPHILS % (AUTO) 0.2 % (0.2-1.0); EOSINOPHILS # (AUTO) 0.2 x10^3/uL (0.0-0.2); HEMATOCRIT 27.9 % (36.0-47.0); HEMOGLOBIN 9.2 g/dL (12.0-16.0); LYMPHOCYTES # (AUTO) 2.2 X10^3/uL (1.3-2.9); LYMPHOCYTES % (AUTO) 19.2 % (21.0-51.0); MEAN CORPUSCULAR HEMOGLOBIN 25.8 pg (27.0-34.0); MEAN CORPUSCULAR VOLUME 78.1 fL (80.0-100.0); MEAN PLATELET VOLUME 9.8 fL (7.4-11.0); MONOCYTES # (AUTO) 0.8 x10^3/uL (0.3-0.8); MONOCYTES % (AUTO) 7.3 % (0.0-13.0); NEUTROPHILS # (AUTO) 8.2 x10^3/uL (2.2-4.8); NEUTROPHILS % (AUTO) 71.3 % (42.0-75.0); RED BLOOD COUNT 3.57 X10^6/uL (3.5-5.4); RED CELL DISTRIBUTION WIDTH 26.9 % (11.6-16.5); WHITE BLOOD COUNT 11.5 X10^3/uL (3.6-10.0)
[2021-09-07] MEDS: RisperDAL TAB 1 MG PO SCH ×3 (06:00→21:43)
[2021-09-07 06:10] LABS: ALANINE AMINOTRANSFERASE 10 Units/L (12-78); ALBUMIN 2.5 g/dL (3.4-5.0); ALKALINE PHOSPHATASE 75 Units/L (46-116); ASPARTATE AMINO TRANSFERASE 10 Units/L (15-37); BLOOD UREA NITROGEN 16 mg/dL (7-18); CALCIUM 8.1 mg/dL (8.5-10.1); CARBON DIOXIDE 27.9 mmol/L (21-32); CHLORIDE 102 mmol/L (98-107); COR CA(FOR HYPOALB) 9.3 mg/dL (8.5-10.1); COR NA(FOR HYPERGLY) 142 mmol/L (136-145); CREATININE 0.57 mg/dL (0.55-1.02); MAGNESIUM 1.3 mg/dL (1.7-2.9); PLATELET MORPHOLOGY COMMENT NORMAL (NORMAL); SODIUM 139 mmol/L (136-145); TOTAL PROTEIN 5.8 g/dL (6.4-8.2); eGFR NON BLACK RACES > 60 (>60)
[2021-09-07 06:12] LABS: HYPOCHROMASIA SLIGHT
[2021-09-07 06:13] LABS: ANISOCYTOSIS 3+; MICROCYTOSIS SLIGHT; TARGET CELLS PRESENT
[2021-09-07] MEDS: XOPENEX 1.25 MG/3 ML NEBULE NEB SCH ×3 (06:24→20:16)
--- NOTE | 2021-09-07 06:52 | RAD ---
HISTORYShortness of breathSTUDYChest AP [id number]/11/2022FINDINGSHear t remains mildly enlarged. Bilateral perihilar alveolar infiltrates are present unchanged from the prior examination. Left pleural effusion is likely. Bony thorax is unremarkable.IMPRESSIONNo change mild cardiomegalyNo change bilateral infiltratesLeft pleural effusion is likely present and unchangedElectronically signed by: JOAN MARTINO (Sep 07, 2021 06:51:23)
[2021-09-07] MEDS ORDERED: GLUCOPHAGE ONE ×2 (07:49→20:06)
[2021-09-07] MEDS: PULMICORT NEB TX 0.5 MG NEB SCH ×2 (08:42→20:15)
[2021-09-07] MEDS ORDERED: ZINC SULFATE PO SCH (09:00)
[2021-09-07] MEDS ORDERED: NUTRITIONAL SUPPLEMENTS PO SCH (09:00)
[2021-09-07] MEDS ORDERED: LEVAQUIN PREMIX IV 750 MG 750 MG/150 ML BAG IV SCH (09:00)
[2021-09-07] MEDS ORDERED: PATIENT'S HOME MEDICATION (Nut.Tx.Gluc.Intol,Lac-Free,Soy [Glucerna] Liquid) PO SCH (09:00)
[2021-09-07] MEDS: XARELTO PO SCH ×2 (09:33→21:44)
[2021-09-07] MEDS: GLUCOPHAGE PO SCH ×2 (09:34→21:42)
[2021-09-07] MEDS: XANAX PO SCH ×2 (09:34→21:44)
[2021-09-07] MEDS: LASIX PO SCH ×2 (09:34→21:42)
[2021-09-07] MEDS: ULTRAM PO SCH ×2 (09:35→21:43)
[2021-09-07] MEDS: COLACE CAP 100 MG PO SCH ×2 (09:35→21:40)
[2021-09-07] MEDS: DEPAKOTE D.R. TAB PO SCH ×2 (09:36→21:41)
[2021-09-07] MEDS: DESYREL PO SCH (09:48)
[2021-09-07] MEDS: ZINC SULFATE PO SCH (09:49)
[2021-09-07] MEDS: ZyrTEC TAB 10 MG PO SCH (09:49)
[2021-09-07] MEDS: ZOLOFT PO SCH (09:49)
[2021-09-07] MEDS: VITAMIN C PO SCH (09:49)
[2021-09-07] MEDS: PROVERA PO SCH (09:49)
[2021-09-07] MEDS: ASTELIN NASAL SPRAY ENOSTRIL SCH (09:51)
[2021-09-07] MEDS: POTASSIUM CHLORIDE LIQ 20 MEQ UDC PO SCH (09:51)
[2021-09-07] MEDS: XALATAN OP SCH ×2 (09:51→21:43)
[2021-09-07] MEDS: FLONASE NASAL SPRAY ENOSTRIL SCH ×2 (09:51→21:41)
[2021-09-07] MEDS: VSL#3 PO SCH (13:02)
--- NOTE | 2021-09-07 13:11 | DR.UPDATE ---
H&P Update History and Physical Update: History and Physical reviewed and patient examined. Changes noted: Yes with the following: IS A 51 YEAR OLD PATIENT OF OURS. SHE IS A RESIDENT AT [facility]. SHE WAS RECENTLY HOSPITALIZED FROM 08/13-09/02/21 FOR TREATMENT OF PNEUMONIA, UTI, CHF, AND INFECTED SACRAL WOUND ULCER. SHE WAS DISCHARGED HOME ON CIPRO 500MG PO BID AND ROCEPHIN 1G IV DAILY. SHE RETURNED TO THE ER ON 09/06 WITH [facility] STAFF REPORTING THAT PATIENT HAS HAD INCREASED SHORTNESS OF BREATH AND LOW OXYGEN SATURATIONS. THEY REPORTED THAT HER OXYGEN SATURATIONS WERE 83% ON 3 LITERS OF OXYGEN VIA NASAL CANNULA. THEY REPORT THAT PATIEN HAS A SYNCOPAL EPISODE PRIOR TO ARRIVAL. ON ARRIVAL TO THE ER, PATIENT DID REPORT SHORTNESS OF BREATH AND WEAKNESS. AUSCULTATION OF LUNG SPICER REVEALED DIMINISHED LUNG SOUNDS THROUGHOUT. SHE WAS CURRENTLY UTILIZING OXYGEN VIA NASAL CANNULA AT 2 LPM. HER VITALS ON ARRIVAL WERE 97.8-100-20-98%-129/72. LABS WERE OBTAINED. WBC 12.8, HGB 10.6, HCT 32.6, SODIUM 144, POTASSIUM 3.4, BUN 24, CREATININE 0.62, GLUCOSE 150, CALCIUM 9.4, AST 9, ALT 12, ALK PHOS 92, BNP 106, TOTAL PROTEIN 7.6, ALBUMIN 3.6. CARDIAC ENZYMES WERE WITHIN NORMAL LIMITS. A EPPERSON CATHETER WAS INSERTED AND URINALYSIS OBTAINED. IT REVEALED WBC 0-2, OCCULT BLOOD 1+, PROTEIN 1+. A CHEST XRAY WAS OBTAINED AND REVEALED: Persistent bilateral infiltrates consistent with pneumonia, slight interval progression in the right lung since prior exam. EKG REVEALED: SINUS TACHYCARDIA WITH HR 112. IN THE ER, SHE WAS GIVEN A NORMAL SALINE BOLUS, LEVAQUIN 750MG IV X 1 DOSE, ULTRAM 50MG PO X 1 DOSE. SHE WAS ADMITTED TO THE HOSPITAL FOR FURTHER EVALUATION AND TREATMENT OF BILATERAL PNEUMONIA. SHE WAS STARTED ON NORMAL SALINE AT 80 ML/HR, INVANZ 1G IV DAILY, CIPRO 500MG PO BID, XOPENEX NEBS TID, PULMICORT NEBS BID, OTBS ACHS, HUMULIN R SLIDING SCALE, AND HER HOME MEDICATIONS WERE RESUMED. WE PLAN TO OBTAIN A URINE CULTURE TODAY. OTHERWISE, WE WILL FOLLOW UP WITH AM LABS AND CHEST XRAY AND CONTINUE TO MONITOR. TIME SPENT ON CLINICAL ASSESSMENT, REVIEWING LABS AND IMAGING, DECISION MAKING, AND DOCUMENTATION GREATER THAN 75 MINUTES. Prescription drug monitoring program results: PDMP reviewed and no concerns identified H&P Reviewed: Yes Patient was examined?: Yes
[2021-09-07] MEDS: CIPRO TAB 500 MG PO SCH ×2 (14:00→21:40)
[2021-09-07] MEDS: DIFLUCAN PO SCH (14:00)
[2021-09-07] MEDS: INVanz INJ 1 GRAM VIAL 1 G in NS 100 ML IV 100 ML IV SCH (15:00)
[2021-09-07] MEDS ORDERED: KLOR-CON PO PRN (17:41)
[2021-09-07] MEDS ORDERED: POTASSIUM CHLORIDE LIQ 20 MEQ UDC PO PRN (17:41)
[2021-09-07] MEDS ORDERED: MICRO K EXTEN CAP 10 MEQ PO PRN (17:41)
[2021-09-07] MEDS ORDERED: K-DUR TAB 20 MEQ PO PRN (17:41)
[2021-09-07] MEDS ORDERED: POTASSIUM CHL 40 MEQ/NS 0.45% 500 ML IV PRN (17:41)
[2021-09-07] MEDS ORDERED: K-RIDER 10 MEQ/NS 100 ML 10 MEQ/100 ML BAG IV PRN (17:41)
[2021-09-07] MEDS ORDERED: POTASSIUM CHL 60 MEQ/NS 0.45% 500 ML IV PRN (17:41)
[2021-09-07] MEDS: MAGNESIUM SULFATE 1 GRAM/100 mL PREMIX 1 G/100 ML BAG IV PRN ×2 (18:15→22:03)
[2021-09-07] MEDS: SNACK - Diabetic Appropriate PO SCH (21:39)
[2021-09-07] MEDS: LIPITOR TAB 20 MG PO SCH (21:42)
[2021-09-07] MEDS: ZANAFLEX PO SCH (21:44)
[2021-09-08] MEDS: MAGNESIUM SULFATE 1 GRAM/100 mL PREMIX 1 G/100 ML BAG IV PRN ×2 (01:56→03:05)
[2021-09-08] MEDS: XOPENEX 1.25 MG/3 ML NEBULE NEB SCH (05:21)
[2021-09-08 05:41] LABS: BASOPHILS % (AUTO) 0.4 % (0.2-1.0); EOSINOPHILS # (AUTO) 0.4 x10^3/uL (0.0-0.2); EOSINOPHILS % (AUTO) 3.7 % (0.9-2.9); HEMATOCRIT 28.6 % (36.0-47.0); HEMOGLOBIN 9.5 g/dL (12.0-16.0); LYMPHOCYTES # (AUTO) 1.1 X10^3/uL (1.3-2.9); LYMPHOCYTES % (AUTO) 10.7 % (21.0-51.0); MEAN CORPUSCULAR HEMOGLOBIN 26.3 pg (27.0-34.0); MEAN CORPUSCULAR HGB CONC 33.4 g/dL (33.0-35.0); MEAN CORPUSCULAR VOLUME 78.7 fL (80.0-100.0); MEAN PLATELET VOLUME 9.6 fL (7.4-11.0); MONOCYTES # (AUTO) 0.9 x10^3/uL (0.3-0.8); MONOCYTES % (AUTO) 8.7 % (0.0-13.0); NEUTROPHILS # (AUTO) 7.7 x10^3/uL (2.2-4.8); NEUTROPHILS % (AUTO) 76.5 % (42.0-75.0); RED BLOOD COUNT 3.64 X10^6/uL (3.5-5.4); RED CELL DISTRIBUTION WIDTH 27.1 % (11.6-16.5)
[2021-09-08 05:48] LABS: ALANINE AMINOTRANSFERASE 11 Units/L (12-78); ALBUMIN 2.8 g/dL (3.4-5.0); ALKALINE PHOSPHATASE 77 Units/L (46-116); ASPARTATE AMINO TRANSFERASE 12 Units/L (15-37); BLOOD UREA NITROGEN 8 mg/dL (7-18); CALCIUM 8.7 mg/dL (8.5-10.1); CARBON DIOXIDE 24.2 mmol/L (21-32); CHLORIDE 100 mmol/L (98-107); COR CA(FOR HYPOALB) 9.7 mg/dL (8.5-10.1); COR NA(FOR HYPERGLY) 138 mmol/L (136-145); CREATININE 0.55 mg/dL (0.55-1.02); MAGNESIUM 2.9 mg/dL (1.7-2.9); SODIUM 134 mmol/L (136-145); TOTAL PROTEIN 6.3 g/dL (6.4-8.2); eGFR NON BLACK RACES > 60 (>60)
[2021-09-08] MEDS: NovoLIN R (or HumuLIN R) SC SCH ×2 (05:50→11:59)
[2021-09-08] MEDS: RisperDAL TAB 1 MG PO SCH (06:17)
--- NOTE | 2021-09-08 06:17 | RAD ---
HISTORYShortness of breathSTUDYChest AP [id number]/12/2022FINDINGSPati ent is rotated to the left. Heart is mildly enlarged. Bilateral perihilar alveolar infiltrates are again identified unchanged from the prior examination. Increased density in the retrocardiac area of the left lower lobe again identified. It could be due to pleural effusion, atelectasis, consolidation or a combination. Bony thorax is unremarkable.IMPRESSIONNo change bilateral infiltratesNo change cardiomegalyNo change persistent increased density retrocardiac area of the left lower lobe. Differential diagnosis as aboveLikely no change left pleural effusionElectronically signed by: JOAN MARTINO (Sep 08, 2021 06:16:28)
[2021-09-08 06:21] LABS: PLATELET MORPHOLOGY COMMENT NORMAL (NORMAL)
[2021-09-08 06:22] LABS: HYPOCHROMASIA SLIGHT; MICROCYTOSIS SLIGHT
[2021-09-08 06:23] LABS: ANISOCYTOSIS 3+; TARGET CELLS PRESENT
[2021-09-08] MEDS ORDERED: GLUCOPHAGE ONE (07:18)
[2021-09-08] MEDS: NS 1,000 ML IV 1,000 ML IV SCH (07:45)
[2021-09-08] MEDS: PULMICORT NEB TX 0.5 MG NEB SCH (08:38)
[2021-09-08] MEDS ORDERED: TAB-A-VITE PO SCH (09:00)
[2021-09-08] MEDS: XALATAN OP SCH (09:30)
[2021-09-08] MEDS: FLONASE NASAL SPRAY ENOSTRIL SCH (09:30)
[2021-09-08] MEDS: ULTRAM PO SCH (09:45)
[2021-09-08] MEDS: INVanz INJ 1 GRAM VIAL 1 G in NS 100 ML IV 100 ML IV SCH (09:50)
[2021-09-08] MEDS: VSL#3 PO SCH (09:50)
[2021-09-08] MEDS: VITAMIN C PO SCH (09:51)
[2021-09-08] MEDS: ZOLOFT PO SCH (09:52)
[2021-09-08] MEDS: CIPRO TAB 500 MG PO SCH (09:52)
[2021-09-08] MEDS: DESYREL PO SCH (09:52)
[2021-09-08] MEDS: COLACE CAP 100 MG PO SCH (09:52)
[2021-09-08] MEDS: XARELTO PO SCH (09:54)
[2021-09-08] MEDS: LASIX PO SCH (09:54)
[2021-09-08] MEDS: ZINC SULFATE PO SCH (09:54)
[2021-09-08] MEDS: XANAX PO SCH (09:55)
[2021-09-08] MEDS: ZyrTEC TAB 10 MG PO SCH (09:56)
[2021-09-08] MEDS: DEPAKOTE D.R. TAB PO SCH (09:57)
[2021-09-08] MEDS: PROVERA PO SCH (09:57)
[2021-09-08] MEDS: POTASSIUM CHLORIDE LIQ 20 MEQ UDC PO SCH (09:57)
[2021-09-08] MEDS: DIFLUCAN PO SCH (09:58)
[2021-09-08] MEDS: ASTELIN NASAL SPRAY ENOSTRIL SCH (09:58)
[2021-09-08] MEDS: GLUCOPHAGE PO SCH (11:58)
[2021-09-08 14:01] VITALS: BP 110/55
== END 2021-09-08 13:35 | DRG 195 ==
LOC: ER 09:37 → MED/SURG 14:30
PROVIDERS: ADMIT Internal Medicine; ATTEND Internal Medicine

== ENCOUNTER 2021-11-09 08:15 | Inpatient (IN) ==
--- NOTE | 2021-11-09 09:01 | DR.AMS ---
HPI Time Seen Time Seen by Provider: 11/09/21 08:58 Complaint Cheif Complaint Doctors Comments: PATIENT WASSENT OVER FROMNURSING HOME FOR VANCOMYCIN INFUSION AND AFTER EVALUATION THE NURSES STATED THAT SHE APPEARED LETHARGIC AND HER SACRAL DECUBITI SEEMED MORE PRONOUNCED AND THEY FELT SHE SHOULD BE EVALUATED IN ER FOR FURTHER TREATMENT. 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 Family History Family Medical History: Hypertension Social History Do you use any recreational Drugs:: No ROS Review of Systems Constitutional: Malaise Eyes: No Symptoms Reported ENTM: No Symptoms Reported Respiratoy: No Symptoms Reported Cardiovascular: No Symptoms Reported Gastrointestinal/Abdominal: No Symptoms Reported Genitourinary: No Symptoms Reported Neurological: No Symptoms Reported Musculoskeletal: No Symptoms Reported Integumentary: Other (SACRALDECUBITI) Hematologic/Lymphatic: No Symptoms Reported Endocrine: No Symptoms Reported Psychiatric: No Symptoms Reported All Other Systems: Reviewed and Negative PE Vitals Vital Signs: Temp Pulse Resp BP BP BP Pulse Ox 11/09/21 12:00 94 H 108/59 100 11/09/21 11:45 91 H 100 11/09/21 11:30 91 H 105/58 100 11/09/21 11:29 91 H 100 11/09/21 11:15 92 H 100 11/09/21 11:00 93 H 112/57 100 11/09/21 10:45 96 H 100 11/09/21 10:30 99 H 107/57 100 11/09/21 10:15 98 H 100 11/09/21 10:00 112 H 112/56 99 11/09/21 09:45 101 H 99 11/09/21 09:30 104 H 119/68 100 11/09/21 09:15 105 H 99 11/09/21 09:00 98 H 110/58 100 11/09/21 08:51 98.0 F 102 H 18 102/59 100 11/09/21 08:46 99 H 100 10/31/21 15:12 112/58 08/27/21 16:00 175/85 General Limitations: Language Barrier General Appearance: Lethargic Head Head Exam: Normal Inspection Eyes Eye exam: Normal Appearance ENT ENT Exam: Normal Exam External Ear Exam: Normal External Inspection Nose Exam: Normal Nose Exam Mouth Exam: Normal Inspection Throat Exam: Normal Inspection Neck Neck Exam: Normal Inspection Chest Chest Inspection: Normal Inspection Respiratory Respiratory Exam: Normal Lung Sounds Bilat Cardiovascular Cardiovascular Exam: Regular Rate and Normal Rhythm Abdominal Exam Abdominal Exam: Normal Inspection, Normal Bowel Sounds and Soft Extremities Extremities Exam: Normal Inspection Back Back Exam: Normal Inspection Neurological Neurological Exam: Alert and Oriented X3 Psychological Psychiatric Exam: Normal Affect and Normal Mood Skin Skin Exam: Warm, Dry, Intact and Normal Color MDM Additional Information Obtained Findings: STAGE 4 SACRAL DECUBITI,LETHATGIC,SEPSIS Differential Diagnosis Metabolic: Dehydration Infectious: Sepsis COURSE Treatment Treatment: PATIENT REMAINED STABLE DURING ER EVALUATION. HAD LABS DONE THAT SHOWED LACTIC ACID LEVEL OF 3.2 AND WITH STAGE 4 ULCER IT WAS DETERMINED THAT THE PATIENT IS SEPTIC. SPOKE TH HER BCP DR MALONE AND HE STATED TO ADMIT THE PATIENT TO OBSERVATION,BUT WHEN UTILIZATION REVIEW WAS CALLED THEY STATED THAT THE PATIENT MET CRITERIA FOR FULL ADMISSION. WILL GET SURGEON TO PUT IN CENTRAL LINE. ROR Labs Reviewed Laboratory Results Reviewed?: Yes Result Diagrams: 11/09/21 09:20 11/09/21 09:20 Laboratory: 11/09/21 09:38 Sacral Wound Gram Stain - Final 11/09/21 09:38 Buttock Wound Gram Stain - Final WBC 10.1 X10^3/uL (3.6-10.0) H 11/09/21 09:20 RBC 3.33 X10^6/uL (3.5-5.4) L 11/09/21 09:20 Hgb 9.6 g/dL (12.0-16.0) L 11/09/21 09:20 Hct 29.0 % (36.0-47.0) L 11/09/21 09:20 MCV 87.2 fL (80.0-100.0) 11/09/21 09:20 MCH 28.8 pg (27.0-34.0) 11/09/21 09:20 MCHC 33.1 g/dL (33.0-35.0) 11/09/21 09:20 RDW 19.0 % (11.6-16.5) H 11/09/21 09:20 Plt Count 284 X10^3/uL (150.0-450.0) 11/09/21 09:20 Plt Count Comment Adequate (ADEQUATE) 11/09/21 09:20 MPV 9.0 fL (7.4-11.0) 11/09/21 09:20 Neut % (Auto) 53.7 % (42.0-75.0) 11/09/21 09:20 Lymph % (Auto) 33.4 % (21.0-51.0) 11/09/21 09:20 [place] % (Auto) 10.8 % (0.0-13.0) 11/09/21 09:20 Eos % (Auto) 1.0 % (0.9-2.9) 11/09/21 09:20 Baso % (Auto) 1.1 % (0.2-1.0) H 11/09/21 09:20 Neut # (Auto) 5.4 x10^3/uL (2.2-4.8) H 11/09/21 09:20 Lymph # (Auto) 3.4 X10^3/uL (1.3-2.9) H 11/09/21 09:20 [place] # (Auto) 1.1 x10^3/uL (0.3-0.8) H 11/09/21 09:20 Eos # (Auto) 0.1 x10^3/uL (0.0-0.2) 11/09/21 09:20 Baso # (Auto) 0.1 X10^3/uL (0.0-0.1) 11/09/21 09:20 Absolute Nucleated RBC 0.0 /100WBC 11/09/21 09:20 Plt Morphology Comment Normal (NORMAL) 11/09/21 09:20 RBC Morphology Abnormal (NORMAL) A 11/09/21 09:20 Hypochromasia Slight A 11/09/21 09:20 Anisocytosis 2+ A 11/09/21 09:20 Microcytosis Slight A 11/09/21 09:20 Target Cells Rare 11/09/21 09:20 Schistocytes Slight A 11/09/21 09:20 Sodium 134 mmol/L (136-145) L 11/09/21 09:20 Corrected Sodium TNP 11/09/21 09:20 Potassium 4.0 mmol/L (3.5-5.1) 11/09/21 09:20 Chloride 97 mmol/L (98-107) L 11/09/21 09:20 Carbon Dioxide 25.5 mmol/L (21-32) 11/09/21 09:20 BUN 31 mg/dL (7-18) H 11/09/21 09:20 Creatinine 1.04 mg/dL (0.55-1.02) H 11/09/21 09:20 Est GFR (MDRD) Af Amer > 60 (>60) 11/09/21 09:20 Est GFR (MDRD) Non-Af 59 (>60) 11/09/21 09:20 Glucose 105 mg/dL (65-99) H 11/09/21 09:20 Lactic Acid 3.2 mmol/L (0.4-2.0) H 11/09/21 09:20 Calcium 9.0 mg/dL (8.5-10.1) 11/09/21 09:20 Corrected Calcium 10.6 mg/dL (8.5-10.1) H 11/09/21 09:20 Total Bilirubin 0.20 mg/dL (0.2-1.0) 11/09/21 09:20 AST 17 Units/L (15-37) 11/09/21 09:20 ALT 14 Units/L (12-78) 11/09/21 09:20 Alkaline Phosphatase 92 Units/L (46-116) 11/09/21 09:20 Total Protein 7.0 g/dL (6.4-8.2) 11/09/21 09:20 Albumin 2.0 g/dL (3.4-5.0) L 11/09/21 09:20 Globulin 5.0 g/dL (2.5-4.5) H 11/09/21 09:20 Albumin/Globulin Ratio 0.4 Ratio (1.1-2.1) L 11/09/21 09:20 Opioid Opioid Risk Tool Age (Al box if 16-45): No History of Preadolescent Sexual Abuse: No Total: 0 Total Score Risk Category: Low Risk Copyright: Dakota LOCKETT predicting aberrant behaviors Diagnosis Discharge Problem: Decubitus ulcer of sacral region, stage 4 Sepsis Qualifiers: Qualified Code(s): A41.9 - Sepsis, unspecified organism Instructions Forms: Precautions for COVID19 [facility] Social Distancing
[2021-11-09 09:40] LABS: BASOPHILS # (AUTO) 0.1 X10^3/uL (0.0-0.1); BASOPHILS % (AUTO) 1.1 % (0.2-1.0); EOSINOPHILS # (AUTO) 0.1 x10^3/uL (0.0-0.2); HEMOGLOBIN 9.6 g/dL (12.0-16.0); LYMPHOCYTES # (AUTO) 3.4 X10^3/uL (1.3-2.9); LYMPHOCYTES % (AUTO) 33.4 % (21.0-51.0); MEAN CORPUSCULAR HEMOGLOBIN 28.8 pg (27.0-34.0); MEAN CORPUSCULAR HGB CONC 33.1 g/dL (33.0-35.0); MEAN CORPUSCULAR VOLUME 87.2 fL (80.0-100.0); MONOCYTES # (AUTO) 1.1 x10^3/uL (0.3-0.8); MONOCYTES % (AUTO) 10.8 % (0.0-13.0); NEUTROPHILS # (AUTO) 5.4 x10^3/uL (2.2-4.8); NEUTROPHILS % (AUTO) 53.7 % (42.0-75.0); RED BLOOD COUNT 3.33 X10^6/uL (3.5-5.4); WHITE BLOOD COUNT 10.1 X10^3/uL (3.6-10.0)
[2021-11-09 09:50] LABS: ALANINE AMINOTRANSFERASE 14 Units/L (12-78); ALKALINE PHOSPHATASE 92 Units/L (46-116); ASPARTATE AMINO TRANSFERASE 17 Units/L (15-37); BLOOD UREA NITROGEN 31 mg/dL (7-18); CARBON DIOXIDE 25.5 mmol/L (21-32); CHLORIDE 97 mmol/L (98-107); COR CA(FOR HYPOALB) 10.6 mg/dL (8.5-10.1); CREATININE 1.04 mg/dL (0.55-1.02); SODIUM 134 mmol/L (136-145); eGFR NON BLACK RACES 59 (>60)
[2021-11-09 09:54] LABS: LACTIC ACID 3.2 mmol/L (0.4-2.0)
[2021-11-09 10:00] LABS: ANISOCYTOSIS 2+; HYPOCHROMASIA SLIGHT; MICROCYTOSIS SLIGHT; PLATELET MORPHOLOGY COMMENT NORMAL (NORMAL); SCHISTOCYTES SLIGHT; TARGET CELLS RARE
[2021-11-09] MEDS ORDERED: NS 1,000 ML IV 1,000 ML IV ONE (11:19)
--- NOTE | 2021-11-09 11:25 | RAD ---
Chest AP portableIndication: Lethargy. Wound infectionComparison September 06, 2021 radiographFINDINGSPrevious pulmonary opacities of improved. There is no pneumothorax, effusion or new dense consolidation seen. Heart size upper limits of normalIMPRESSIONImproved pulmonary opacities with compared to the prior.Electronically signed by: LOBITO DELANEY (Nov 09, 2021 11:23:50)
[2021-11-09] MEDS ORDERED: PHARMACY CONSULT - VANCOMYCIN XX SCH (13:00)
[2021-11-09] MEDS ORDERED: [UNRECOGNIZED DRUG - OTHER] PO SCH (15:15)
[2021-11-09] MEDS ORDERED: ARGININE GLUTAMINE CALCIUM HMB PO SCH (15:15)
[2021-11-09] MEDS ORDERED: NovoLIN R (or HumuLIN R) SC SCH (16:00)
[2021-11-09] MEDS: THERMOTABS PO SCH ×2 (16:51→21:27)
[2021-11-09] MEDS: VSL#3 PO SCH (16:51)
[2021-11-09] MEDS: VITAMIN C PO SCH (16:52)
[2021-11-09] MEDS: PROVERA PO SCH (16:52)
[2021-11-09] MEDS: ZyrTEC TAB 10 MG PO SCH (16:52)
[2021-11-09] MEDS: POTASSIUM CHLORIDE LIQ 20 MEQ UDC PO SCH (16:53)
[2021-11-09] MEDS: DESYREL PO SCH (16:53)
[2021-11-09] MEDS: PHARMACY CONSULT LTC MEDICATIONS XX SCH (16:53)
[2021-11-09] MEDS: ZOLOFT PO SCH (16:54)
[2021-11-09] MEDS ORDERED: XYLOCAINE 1 % (PLAIN) ONE (18:00)
--- NOTE | 2021-11-09 18:32 | DR.UPDATE ---
H&P Update History and Physical Update: History and Physical reviewed and patient examined. Changes noted: NO Yes with the following:will place central line H&P Reviewed: Yes Patient was examined?: Yes Procedures (ALL) - Central Line Placement PCM.CLCO: written consent Time out performed: Yes Patient placed pm monitor/pulse ox: Yes MD prep: mask, gown, gloves, other Centrial line prep: povidone-iodine 1%, chlorhexidine scrub, sterile drapes applied Local anesthsia used: lidocane 1% Ultrasound used for placement: Yes Central line lumen ininserted: triple Post procedure: sutured in place, good blood return, all ports aspirated, flushed,capped, sterile dressing applied Post procedure xray: other (femoral. no cxr) Patient tolerated procedure: Yes Complications: none (LUE picc attempted. unable to pass wire after blood return. Unable to canulate R IJ with U/S. R fem TLC placed w U/s guidance.)
[2021-11-09 19:23] LABS: ALANINE AMINOTRANSFERASE 14 Units/L (12-78); ALBUMIN 1.8 g/dL (3.4-5.0); ALKALINE PHOSPHATASE 82 Units/L (46-116); AMYLASE 14 Units/L (25-115); ASPARTATE AMINO TRANSFERASE 14 Units/L (15-37); BLOOD UREA NITROGEN 29 mg/dL (7-18); CALCIUM 8.5 mg/dL (8.5-10.1); CARBON DIOXIDE 28.3 mmol/L (21-32); CHLORIDE 100 mmol/L (98-107); COR CA(FOR HYPOALB) 10.3 mg/dL (8.5-10.1); COR NA(FOR HYPERGLY) 140 mmol/L (136-145); CREATININE 1.05 mg/dL (0.55-1.02); LIPASE 37 Units/L (73-393); MAGNESIUM 1.1 mg/dL (1.7-2.9); SODIUM 136 mmol/L (136-145); TOTAL PROTEIN 6.4 g/dL (6.4-8.2); eGFR NON BLACK RACES 59 (>60)
[2021-11-09] MEDS: SNACK - Diabetic Appropriate PO SCH (20:26)
[2021-11-09] MEDS ORDERED: AMINO ACIDS PROTEIN HYDROLYS PO SCH (21:00)
[2021-11-09] MEDS ORDERED: PATIENT'S HOME MEDICATION (Nut.Tx.Gluc.Intol,Lac-Free,Soy [Glucerna] Liquid) PO SCH (21:00)
[2021-11-09] MEDS ORDERED: LASIX PO SCH (21:00)
[2021-11-09] MEDS ORDERED: GLUCOPHAGE ONE (21:05)
[2021-11-09] MEDS: COLACE CAP 100 MG PO SCH (21:22)
[2021-11-09] MEDS: LIPITOR TAB 20 MG PO SCH (21:22)
[2021-11-09] MEDS: XANAX PO SCH (21:22)
[2021-11-09] MEDS: XARELTO PO SCH (21:22)
[2021-11-09] MEDS: CIPRO TAB 500 MG PO SCH (21:22)
[2021-11-09] MEDS: DEPAKOTE D.R. TAB PO SCH (21:23)
[2021-11-09] MEDS: ZANAFLEX PO SCH (21:23)
[2021-11-09] MEDS: FLONASE NASAL SPRAY ENOSTRIL SCH (21:24)
[2021-11-09] MEDS: NS 1,000 ML IV 1,000 ML IV SCH ×2 (21:24→23:26)
[2021-11-09] MEDS: RisperDAL TAB 1 MG PO SCH (21:25)
[2021-11-09] MEDS: MEGACE PO SCH (21:25)
[2021-11-09] MEDS: XALATAN OP SCH (21:25)
[2021-11-09] MEDS: VANCOMYCIN IV *PREMIX 750 mg/150 ML BAG 750 MG/150 ML PIGGYBACK IV SCH ×2 (21:28→23:27)
[2021-11-09] MEDS: GLUCOPHAGE PO SCH (21:29)
[2021-11-09 21:55] LABS: BILIRUBIN,URINE NEGATIVE (NEGATIVE); BLOOD/HEMOGLOBIN,URINE 2+ (NEGATIVE); GLUCOSE, URINE 2+ (NEGATIVE); KETONES,URINE 1+ (NEGATIVE); LEUKOCYTE ESTERASE ,URINE 2+ (NEGATIVE); NITRITES,URINE NEGATIVE (NEGATIVE); PROTEIN,URINE 2+ (NEGATIVE); UROBILINOGEN,URINE NORMAL (NORMAL)
[2021-11-09 22:05] LABS: APPEARANCE,URINE CLEAR (CLEAR); BACTERIA,URINE 1+ /HPF (NEGATIVE); COLOR,URINE YELLOW (YELLOW); SQUAMOUS EPITHELIAL CELL,UR RARE /HPF (NEGATIVE)
[2021-11-09] MEDS: MAGNESIUM SULFATE 1 GRAM/100 mL PREMIX 1 G/100 ML BAG IV PRN (23:45)
[2021-11-10] MEDS: MAGNESIUM SULFATE 1 GRAM/100 mL PREMIX 1 G/100 ML BAG IV PRN ×3 (00:50→03:28)
[2021-11-10] MEDS: NS 1,000 ML IV 1,000 ML IV SCH ×3 (04:51→20:09)
[2021-11-10 05:08] LABS: BASOPHILS # (AUTO) 0.1 X10^3/uL (0.0-0.1); BASOPHILS % (AUTO) 0.6 % (0.2-1.0); EOSINOPHILS % (AUTO) 0.5 % (0.9-2.9); HEMATOCRIT 22.3 % (36.0-47.0); LYMPHOCYTES # (AUTO) 2.4 X10^3/uL (1.3-2.9); LYMPHOCYTES % (AUTO) 26.6 % (21.0-51.0); MEAN CORPUSCULAR HEMOGLOBIN 28.6 pg (27.0-34.0); MEAN CORPUSCULAR HGB CONC 32.7 g/dL (33.0-35.0); MEAN CORPUSCULAR VOLUME 87.7 fL (80.0-100.0); MEAN PLATELET VOLUME 8.4 fL (7.4-11.0); MONOCYTES # (AUTO) 0.9 x10^3/uL (0.3-0.8); MONOCYTES % (AUTO) 9.5 % (0.0-13.0); NEUTROPHILS # (AUTO) 5.6 x10^3/uL (2.2-4.8); NEUTROPHILS % (AUTO) 62.8 % (42.0-75.0); RED BLOOD COUNT 2.55 X10^6/uL (3.5-5.4)
[2021-11-10 05:14] LABS: LACTIC ACID 2.6 mmol/L (0.4-2.0)
[2021-11-10 05:15] LABS: ALANINE AMINOTRANSFERASE 11 Units/L (12-78); ALBUMIN 1.7 g/dL (3.4-5.0); ALKALINE PHOSPHATASE 75 Units/L (46-116); ASPARTATE AMINO TRANSFERASE 14 Units/L (15-37); BLOOD UREA NITROGEN 19 mg/dL (7-18); CALCIUM 8.2 mg/dL (8.5-10.1); CARBON DIOXIDE 22.7 mmol/L (21-32); CHLORIDE 99 mmol/L (98-107); COR NA(FOR HYPERGLY) 134 mmol/L (136-145); CREATININE 0.79 mg/dL (0.55-1.02); SODIUM 131 mmol/L (136-145); TOTAL PROTEIN 5.9 g/dL (6.4-8.2); eGFR NON BLACK RACES > 60 (>60)
[2021-11-10 05:18] LABS: HEMOGLOBIN 7.3 g/dL (12.0-16.0)
[2021-11-10] MEDS ORDERED: GLUCOPHAGE ONE ×2 (08:06→20:03)
[2021-11-10] MEDS: CIPRO TAB 500 MG PO SCH ×2 (08:53→21:04)
[2021-11-10] MEDS: GLUCOPHAGE PO SCH ×2 (08:53→21:03)
[2021-11-10] MEDS: COLACE CAP 100 MG PO SCH ×2 (08:54→21:04)
[2021-11-10] MEDS: DEPAKOTE D.R. TAB PO SCH ×2 (08:54→21:04)
[2021-11-10] MEDS: DESYREL PO SCH ×2 (08:55→21:03)
[2021-11-10] MEDS: FLONASE NASAL SPRAY ENOSTRIL SCH ×2 (08:56→21:35)
[2021-11-10] MEDS: MEGACE PO SCH ×2 (08:58→21:04)
[2021-11-10] MEDS: PROVERA PO SCH (08:59)
[2021-11-10] MEDS: ZINC SULFATE PO SCH (08:59)
[2021-11-10] MEDS: POTASSIUM CHLORIDE LIQ 20 MEQ UDC PO SCH (08:59)
[2021-11-10] MEDS: ZOLOFT PO SCH (08:59)
[2021-11-10] MEDS: VITAMIN C PO SCH (08:59)
[2021-11-10] MEDS: THERMOTABS PO SCH ×4 (09:00→21:35)
[2021-11-10] MEDS: XANAX PO SCH ×2 (09:00→21:02)
[2021-11-10] MEDS: TAB-A-VITE PO SCH (09:00)
[2021-11-10] MEDS: ZyrTEC TAB 10 MG PO SCH (09:00)
[2021-11-10] MEDS: VSL#3 PO SCH (09:01)
[2021-11-10] MEDS: VANCOMYCIN IV *PREMIX 750 mg/150 ML BAG 750 MG/150 ML PIGGYBACK IV SCH ×2 (09:01→23:15)
[2021-11-10] MEDS: XALATAN OP SCH ×2 (09:02→21:20)
[2021-11-10] MEDS: RisperDAL TAB 1 MG PO SCH ×3 (09:07→21:30)
[2021-11-10 09:11] VITALS: BMI 24.5
[2021-11-10] MEDS: XARELTO PO SCH (10:43)
[2021-11-10] MEDS: ALBUMIN HUMAN 25%- 100 ML 100 ML IV SCH (10:48)
[2021-11-10 13:17] LABS: HEMATOCRIT 20.5 % (36.0-47.0)
[2021-11-10 13:19] LABS: HEMOGLOBIN 6.9 g/dL (12.0-16.0)
--- NOTE | 2021-11-10 14:17 | DR.H&P ---
H&P - History & Physical for Day of: H&P Date: 11/09/21 - Chief Complaint Chief Complaint: INFECTED DECUBITUS ULCER, WEAKNESS, LETHARGY, UTI - History of Present Illness History of Present Illness: IS A 51 YEAR OLD PATIENT OF OURS. SHE IS A RESIDENT AT [employer]. SHE HAS BEEN RECEIVING OUTPATIENT IV VANCOMYCIN FOR TREATMENT OF AN INFECTED STAGE 4 DECUBITUS ULCER. SHE HAS ALSO BEEN RECEIVING CIPRO 500MG PO BID FOR TREATMENT OF UTI. SHE HAS ALSO BEEN SEEN AT THE WOUND CARE CLINIC IN [place] ONCE A WEEK. WHEN RECEIVING HER IV VANCOMYOCIN, PATIENT WAS NOTED TO BE LETHARGIC, THEREFORE, SHE WAS CHECKED INTO THE ER FOR EVALUATION. ON EXAMINATION, PATIENT WAS NOTED TO BE DROWSY. SHE OPENED EYES TO VERBAL STIMULI, BUT RESPONSES WERE SLUGGISH. LT BUTTOCKS WOUND IS NOTED TO BE TUNNELING AT 9 O'CLOCK @ 2CM, 12 O'CLOCK @2CM. ON ARRIVAL, HER VITALS WERE: 98.1-136-98-100%-102/59. LABS WERE OBTAINED. WBC 10.1, RBC 3.33, HGB 9.6, HCT 29.0, INR 1.48, PTT 46.6, SODIUM 134, POTASSIUM 4.0, CHLORIDE 97, BUN 31, CREATININE 1.04, GLUCOSE 105, LACTIC ACID 3.2, TOTAL BILI 0.20, AST 17, ALT 14, ALK PHOS 92, TOTAL PROTEIN 7.0, ALBUMIN 2.0. A EPPERSON CATHETER WAS INSERTED IN THE ER. URINALYSIS WAS OBTAINED. WBC 10-20, RBC 3-5, BACTERIA 1+, LEUKOCYTES 2+, BLOOD 2+. WOUND, BLOOD, AND URINE CULTURES WERE SET UP. AN EKG WAS OBTAINED AND REVEALED: SINUS RHYTHM WITH HR 99. A CHEST XRAY WAS OBTAINED AND REVEALED: IMPROVED PULMONARY OPACITIES WITH COMPARED TO THE PRIOR. IN THE ER, SHE WAS GIVEN A NORMAL SALINE BOLUS. SHE WAS ADMITTED TO THE HOSPITAL FOR FURTHER EVALUATION AND TREAMTENT OF SEPSIS, INFECTED STAGE 4 DECUBITUS. A INNA TRAL LINE WAS PLACED DUE TO POOR IV ACCESS. SHE WAS STARTED ON NORMAL SALINE AT 75 ML/HR, ALBUMIN 25% IV DAILY, VANCOMYCIN 750MG IV Q12H, CIPRO 500MG PO BID, THE MAGNESIUM PROTOCOL, AND HER HOME MEDICATIONS WERE RESUMED. WE WILL CONSULT , GENERAL SURGEON, TO EVALUATE WOUND. OTHERWISE, WE PLAN TO FOLLOW-UP WITH AM LABS AND CONTINUE TO MONITOR. TIME SPENT ON CLINICAL ASSESSMENT, REVIEWING LABS AND IMAGING, DECISION MAKING, AND DOCUMENTATION GREATER THAN 75 MINUTES. 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 - Family History Family Medical History: Hypertension - Social History Does patient currently use any type of tobacco product: No Have you used tobacco products in the last 12 months: No Type of Tobacco Use: None Does any household member use tobacco: No Alcohol Use: None Drug Use: None - Medications Home Medications: quetiapine [From Seroquel] Allergy (Verified 08/13/21 14:56) aripiprazole [From Abilify] Adverse Reaction (Verified 08/13/21 14:56) bupropion [From Wellbutrin] Adverse Reaction (Verified 08/13/21 14:56) donepezil [From Aricept] Adverse Reaction (Verified 08/13/21 14:56) moxifloxacin [From Avelox] Adverse Reaction (Verified 08/13/21 14:56) olanzapine [From Zyprexa] Adverse Reaction (Verified 08/13/21 14:56) promethazine [From Phenergan] Adverse Reaction (Verified 08/13/21 14:56) venlafaxine [From Effexor] Adverse Reaction (Verified 08/13/21 14:56) CONTINUE taking the following medications [id number] HMB [Maurice] 1 ea PO DAILY 11/09/21 [History] ciprofloxacin HCl 500 mg PO BID 11/09/21 [History] megestrol 20 mg PO BID 11/09/21 [History] - Review of Systems Constitutional: Weakness Eyes: No Symptoms Reported ENT: No Symptoms Reported Respiratory: No Symptoms Reported Cardiovascular: No Symptoms Reported Gastrointestinal: No Symptoms Reported Musculoskeletal: No Symptoms Reported Skin: Wound (LEFT BUTTOCKS DECUBITUS ULCER ) Neurological: Weakness - Physical Exam Vital Signs: Temperature 97.5 F Pulse Rate [Right Brachial] 120 Pulse Rate 97 Respiratory Rate 20 Blood Pressure [Right Arm] 150/67 Blood Pressure [Left Arm] 112/58 Blood Pressure 114/58 O2 Sat by Pulse Oximetry 100 Oriented: Normal Eyes: Normal Ear: Normal Nose: Normal Throat: Normal Respiratory: Diminished Throughout Cardiovascular: Normal : Normal, 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) Tenderness: Normal Skin: Wound (LEFT BUTTOCK, STAGE 4 DECUBITUS ULCER. TUNNELING AND DRAINAGE NOTED) Musculoskeletal: Normal Psychiatric: Normal Mood Description: Calm Affect: Normal Speech Pattern: Clear - Assessment/Plan (1) Sepsis Qualifiers: Sepsis type: sepsis due to unspecified organism Sepsis acute organ dysfunction status: unspecified Qualified Code(s): A41.9 - Sepsis, unspecified organism Status: Acute Plan: ADMIT, NORMAL SALINE AT 75 ML/HR, ALBUMIN 25% IV DAILY, VANCOMYCIN 750MG IV Q12H, CIPRO 500MG PO BID, THE MAGNESIUM PROTOCOL, AND HER HOME MEDICATIONS WERE RESUMED. CONSULT FOR WOUND (2) Decubitus ulcer, stage 4 with infection Status: Acute (3) Urinary tract infection Qualifiers: Urinary tract infection type: acute cystitis Hematuria presence: with h ematuria Qualified Code(s): N30.01 - Acute cystitis with hematuria Status: Acute (4) CHF (congestive heart failure) Qualifiers: Heart failure type: unspecified Heart failure chronicity: acute on chronic Qualified Code(s): I50.9 - Heart failure, unspecified Status: Chronic (5) Spina bifida Qualifiers: Spinal region: unspecified Presence of hydrocephalus: unspecified hydrocephalus presence Qualified Code(s): Q05.9 - Spina bifida, unspecified Status: Chronic (6) Hypoalbuminemia Status: Resolved (7) DM II (diabetes mellitus, type II), controlled Qualifiers: Diabetes mellitus door slinger insulin use: with detention use Diabetes mellitus complication status: with hyperglycemia Qualified Code(s): E11.65 - Type 2 diabetes mellitus with hyperglycemia; Z79.4 - [facility] (current) use of insulin Status: Chronic - Allergies Allergies/Adverse Reactions: Allergies Allergy/AdvReac Type Severity Reaction Status Date / Time quetiapine [From Seroquel] Allergy Verified 08/13/21 14:56 aripiprazole [From Abilify] AdvReac Verified 08/13/21 14:56 bupropion [From Wellbutrin] AdvReac Verified 08/13/21 14:56 donepezil [From Aricept] AdvReac Verified 08/13/21 14:56 moxifloxacin [From Avelox] AdvReac Verified 08/13/21 14:56 olanzapine [From Zyprexa] AdvReac Verified 08/13/21 14:56 promethazine [From Phenergan] AdvReac Verified 08/13/21 14:56 venlafaxine [From Effexor] AdvReac Verified 08/13/21 14:56
[2021-11-10] MEDS: PHARMACY CONSULT LTC MEDICATIONS XX SCH (15:22)
[2021-11-10] MEDS: ULTRAM PO PRN (17:49)
[2021-11-10 19:32] LABS: HEMATOCRIT 27.2 % (36.0-47.0)
[2021-11-10 19:51] LABS: HEMOGLOBIN 9.4 g/dL (12.0-16.0)
[2021-11-10] MEDS ORDERED: PHARMACY COMMENT IV NR (20:30)
[2021-11-10] MEDS: SNACK - Diabetic Appropriate PO SCH (20:58)
[2021-11-10] MEDS: LIPITOR TAB 20 MG PO SCH (21:03)
[2021-11-10] MEDS: ZANAFLEX PO SCH (21:04)
[2021-11-10 22:56] LABS: CREATININE 0.65 mg/dL (0.55-1.02)
[2021-11-10 23:01] LABS: VANCOMYCIN,TROUGH 31.1 ug/mL (15-20)
[2021-11-11] MEDS: NS 1,000 ML IV 1,000 ML IV SCH ×4 (04:09→21:56)
[2021-11-11 04:35] LABS: BASOPHILS % (AUTO) 0.6 % (0.2-1.0); EOSINOPHILS % (AUTO) 0.5 % (0.9-2.9); HEMATOCRIT 25.9 % (36.0-47.0); HEMOGLOBIN 8.9 g/dL (12.0-16.0); LYMPHOCYTES # (AUTO) 2.5 X10^3/uL (1.3-2.9); LYMPHOCYTES % (AUTO) 33.3 % (21.0-51.0); MEAN CORPUSCULAR HEMOGLOBIN 29.7 pg (27.0-34.0); MEAN CORPUSCULAR HGB CONC 34.4 g/dL (33.0-35.0); MEAN CORPUSCULAR VOLUME 86.2 fL (80.0-100.0); MEAN PLATELET VOLUME 8.3 fL (7.4-11.0); MONOCYTES # (AUTO) 0.8 x10^3/uL (0.3-0.8); MONOCYTES % (AUTO) 10.2 % (0.0-13.0); NEUTROPHILS # (AUTO) 4.2 x10^3/uL (2.2-4.8); NEUTROPHILS % (AUTO) 55.4 % (42.0-75.0); RED CELL DISTRIBUTION WIDTH 19.5 % (11.6-16.5); WHITE BLOOD COUNT 7.5 X10^3/uL (3.6-10.0)
[2021-11-11 04:44] LABS: ALANINE AMINOTRANSFERASE 12 Units/L (12-78); ALBUMIN 2.2 g/dL (3.4-5.0); ALKALINE PHOSPHATASE 60 Units/L (46-116); ASPARTATE AMINO TRANSFERASE 14 Units/L (15-37); BLOOD UREA NITROGEN 10 mg/dL (7-18); CALCIUM 8.5 mg/dL (8.5-10.1); CARBON DIOXIDE 20.4 mmol/L (21-32); CHLORIDE 109 mmol/L (98-107); COR CA(FOR HYPOALB) 9.9 mg/dL (8.5-10.1); CREATININE 0.62 mg/dL (0.55-1.02); SODIUM 140 mmol/L (136-145); TOTAL PROTEIN 5.9 g/dL (6.4-8.2); eGFR NON BLACK RACES > 60 (>60)
--- NOTE | 2021-11-11 06:17 | RAD ---
HISTORYSOBSTUDYCHEST, 1 [id number]/2022.TECHNIQUEAP view of the chestFINDINGSCardiac and mediastinal contours are within normal limits. Similar appearance of mild scattered bilateral hazy and interstitial pulmonary opacities. No definite pleural effusion or pneumothorax.IMPRESSIONNo significant change compared to prior chest radiograph.Electronically signed by: Ariel Dejesus (Nov 11, 2021 06:15:52)
[2021-11-11] MEDS ORDERED: PHARMACY COMMENT IV NR (09:00)
[2021-11-11 09:58] LABS: CREATININE 0.72 mg/dL (0.55-1.02)
[2021-11-11 10:00] LABS: VANCOMYCIN,TROUGH 23.4 ug/mL (15-20)
[2021-11-11] MEDS ORDERED: GLUCOPHAGE ONE ×2 (10:17→20:58)
[2021-11-11] MEDS: ALBUMIN HUMAN 25%- 100 ML 100 ML IV SCH (10:29)
[2021-11-11] MEDS: MERREM VIAL 1 G in NS 100 ML IV 100 ML IV SCH ×3 (10:29→21:57)
[2021-11-11] MEDS: ZyrTEC TAB 10 MG PO SCH (10:30)
[2021-11-11] MEDS: ZOLOFT PO SCH (10:30)
[2021-11-11] MEDS: XANAX PO SCH ×2 (10:31→21:59)
[2021-11-11] MEDS: ZINC SULFATE PO SCH (10:31)
[2021-11-11] MEDS: VSL#3 PO SCH (10:31)
[2021-11-11] MEDS: VITAMIN C PO SCH (10:32)
[2021-11-11] MEDS: PROVERA PO SCH (10:33)
[2021-11-11] MEDS: POTASSIUM CHLORIDE LIQ 20 MEQ UDC PO SCH (10:33)
[2021-11-11] MEDS: TAB-A-VITE PO SCH (10:33)
[2021-11-11] MEDS: MEGACE PO SCH ×2 (10:34→21:58)
[2021-11-11] MEDS: GLUCOPHAGE PO SCH ×2 (10:34→22:00)
[2021-11-11] MEDS: COLACE CAP 100 MG PO SCH ×2 (10:35→21:59)
[2021-11-11] MEDS: DEPAKOTE D.R. TAB PO SCH ×2 (10:36→22:00)
[2021-11-11] MEDS: FLONASE NASAL SPRAY ENOSTRIL SCH ×2 (10:36→21:58)
[2021-11-11] MEDS: XALATAN OP SCH ×2 (10:37→22:00)
[2021-11-11] MEDS: RisperDAL TAB 1 MG PO SCH ×3 (10:40→21:58)
[2021-11-11] MEDS: THERMOTABS PO SCH ×4 (10:40→22:02)
[2021-11-11] MEDS ORDERED: DEXTROSE 10% 1,000 ML IV PRN (14:18)
[2021-11-11] MEDS ORDERED: CLINIMIX 5 %/20 % 1,000 ML with MVI INJ (ADULT) 10 ML, TPN ELECTROLYTES 20 ML, TRACE EL... IV SCH ×4 (15:00)
[2021-11-11] MEDS ORDERED: DRUG FILTER EXTENSION SET ONE (15:07)
[2021-11-11] MEDS: ULTRAM PO PRN (16:34)
[2021-11-11] MEDS ORDERED: LANOXIN INJ IVP ONE (17:55)
[2021-11-11] MEDS ORDERED: XANAX PO ONE (17:56)
[2021-11-11] MEDS ORDERED: XANAX ONE (18:01)
[2021-11-11] MEDS ORDERED: LANOXIN INJ ONE (18:02)
[2021-11-11] MEDS: NovoLIN R (or HumuLIN R) SUBCUT PRN (21:53)
[2021-11-11] MEDS: SNACK - Diabetic Appropriate PO SCH (21:54)
[2021-11-11] MEDS: DESYREL PO SCH (21:59)
[2021-11-11] MEDS: ZANAFLEX PO SCH (22:00)
[2021-11-11] MEDS: LIPITOR TAB 20 MG PO SCH (22:00)
[2021-11-12] MEDS ORDERED: TYLENOL 325 MG TAB PO PRN (02:42)
[2021-11-12] MEDS: NovoLIN R (or HumuLIN R) SUBCUT PRN ×3 (03:04→21:42)
[2021-11-12] MEDS: NS 1,000 ML IV 1,000 ML IV SCH (04:00)
[2021-11-12 05:13] LABS: BASOPHILS # (AUTO) 0.1 X10^3/uL (0.0-0.1); BASOPHILS % (AUTO) 0.4 % (0.2-1.0); EOSINOPHILS % (AUTO) 0.1 % (0.9-2.9); HEMATOCRIT 27.8 % (36.0-47.0); HEMOGLOBIN 9.3 g/dL (12.0-16.0); LYMPHOCYTES % (AUTO) 6.2 % (21.0-51.0); MEAN CORPUSCULAR HEMOGLOBIN 29.9 pg (27.0-34.0); MEAN CORPUSCULAR HGB CONC 33.4 g/dL (33.0-35.0); MEAN CORPUSCULAR VOLUME 89.4 fL (80.0-100.0); MEAN PLATELET VOLUME 8.8 fL (7.4-11.0); MONOCYTES # (AUTO) 1.2 x10^3/uL (0.3-0.8); MONOCYTES % (AUTO) 7.8 % (0.0-13.0); NEUTROPHILS # (AUTO) 13.3 x10^3/uL (2.2-4.8); NEUTROPHILS % (AUTO) 85.5 % (42.0-75.0); RED BLOOD COUNT 3.11 X10^6/uL (3.5-5.4); RED CELL DISTRIBUTION WIDTH 19.7 % (11.6-16.5)
[2021-11-12 05:33] LABS: ALANINE AMINOTRANSFERASE 16 Units/L (12-78); ALBUMIN 2.8 g/dL (3.4-5.0); ALKALINE PHOSPHATASE 77 Units/L (46-116); ASPARTATE AMINO TRANSFERASE 15 Units/L (15-37); BLOOD UREA NITROGEN 14 mg/dL (7-18); CALCIUM 8.6 mg/dL (8.5-10.1); CHLORIDE 109 mmol/L (98-107); COR CA(FOR HYPOALB) 9.6 mg/dL (8.5-10.1); COR NA(FOR HYPERGLY) 144 mmol/L (136-145); MAGNESIUM 1.4 mg/dL (1.7-2.9); SODIUM 140 mmol/L (136-145); TOTAL PROTEIN 6.7 g/dL (6.4-8.2); TRIGLYCERIDES 58 mg/dL (0-150); eGFR NON BLACK RACES > 60 (>60)
[2021-11-12 05:50] LABS: WHITE BLOOD COUNT 15.6 X10^3/uL (3.6-10.0)
[2021-11-12] MEDS: MERREM VIAL 1 G in NS 100 ML IV 100 ML IV SCH ×3 (06:27→21:42)
--- NOTE | 2021-11-12 06:31 | RAD ---
HISTORYSOBSTUDYCHEST, 1 VIEWCOMPARISONOne day prior.TECHNIQUEAP view of the chestFINDINGSCardiac and mediastinal contours are within normal limits. Interval worsening of now diffuse bilateral airspace opacities. No definite pleural effusion or pneumothorax.IMPRESSIONBilateral airspace opacities appear worse than prior and may represent pulmonary edema or pneumonia.Electronically signed by: Ariel Dejesus (Nov 12, 2021 06:29:27)
[2021-11-12] MEDS: ALBUMIN HUMAN 25%- 100 ML 100 ML IV SCH (08:07)
[2021-11-12] MEDS: CLINIMIX 5 %/20 % 1,000 ML with MVI INJ (ADULT) 10 ML, TPN ELECTROLYTES 20 ML, TRACE EL... IV SCH ×12 (08:08→14:00)
[2021-11-12] MEDS: XALATAN OP SCH ×2 (08:37→21:46)
[2021-11-12] MEDS ORDERED: PHARMACY COMMENT IV NR (09:00)
[2021-11-12] MEDS: RisperDAL TAB 1 MG PO SCH ×3 (10:00→21:44)
[2021-11-12] MEDS: DEPAKOTE D.R. TAB PO SCH ×2 (10:00→21:43)
[2021-11-12] MEDS: LANOXIN or DIGITEK PO SCH (10:01)
[2021-11-12] MEDS: ZOLOFT PO SCH (10:01)
[2021-11-12] MEDS: FLONASE NASAL SPRAY ENOSTRIL SCH ×2 (10:39→21:39)
[2021-11-12] MEDS: LASIX IVP SCH ×2 (10:55→21:40)
[2021-11-12] MEDS ORDERED: POLYMYXIN B SULFATE ONE (11:22)
[2021-11-12] MEDS ORDERED: BETADINE SOLN ONE (11:23)
[2021-11-12] MEDS ORDERED: VERSED ONE (12:04)
[2021-11-12] MEDS ORDERED: FENTANYL VIAL INJ 100 mcg ONE (12:04)
[2021-11-12] MEDS ORDERED: DIPRIVAN VIAL 20 ML ONE (12:05)
[2021-11-12] MEDS ORDERED: NS 100 ML IV 0 ML ONE (12:21)
[2021-11-12] MEDS ORDERED: XYLOCAINE 1 % (PLAIN) ONE ×2 (12:21→12:22)
[2021-11-12] MEDS ORDERED: ANCEF VIAL 1 GRAM ONE (12:21)
--- NOTE | 2021-11-12 13:46 | PCM.PROG ---
Progress Note - Progress Note for Day of Date of Exam: 11/11/21 - Subjective Subjective: WAS ADMITTED FOR TREAMENT OF SEPSIS, MULTIPLE INFECTED DECUBITUS ULCERS, AND A URINARY TRACT INFECTION. TODAY, SHE IS ALERT AND ORIENTED, LYING IN BED ON MORNING ROUNDS. SHE COMPLAINS OF WEAKNESS, MILD SUPRAPUBIC PAIN, AND PAIN TO BUTTOCKS THIS MORNING. ON EXAMINATION, HEART IS REGULAR IN RATE AND RHYTHM. BILATERAL LUNGS ARE NOTED WITH DIMINISHED LUNG SOUNDS THROUGHOUT. ABDOMEN IS ROUND, SOFT, AND NON-TENDER WITH NORMAL BOWEL SOUNDS NOTED IN ALL QUADRANTS. EPPERSON CATHETER NOTED TO BEDSIDE DRAINAGE. DRESSING NOTED TO WOUND ON SACRUM. DRESSING IS DRY AND INTACT. NO UPPER OR LOWER EXTREMITY NOTED. A CENTRAL LINE IS NOTED TO FEMORAL ARTERY. HER VITALS THIS MORNING ARE: 99.0-101-24-96%-117/61. LABS WERE OBTAINED. WBC 9.0, RBC 2.55, HGB 6.9, HGB 22.3, SODIUM 131, POTASSIUM 3.7, BUN 19, CREATININE 0.79, GLUCOSE 215, MAGNESIUM 2.6, CALCIUM 8.2, TOTAL PROTEIN 5.9, ALBUMIN 1.7. BLOOD CULTURES ARE PENDING. WOUND AND URINE CULTURES REVEAL GROWTH OF E.COLI. HAS CONSULTED WITH PATIENT AND PLANS FOR DEBRIDEMENT OF WOUNDS. SHE IS CURRENTLY RECEIVING NORMAL SALINE AT 75 ML/HR, ALBUMIN 25% IV DAILY, VANCOMYCIN 750MG IV Q12H, CIPRO 500MG PO BID, THE MAGNESIUM PROTOCOL, AND HER HOME MEDICATIONS WERE RESUMED. WE WILL CONTINUE WITH CURRENT PLAN OF CARE TODAY. TODAY, WE PLAN TO DISCONTINUE THE VANCOMYCIN AND CIPRO. WE WILL ADD MEROPENEM 1G IV Q8H AND TPN. OTHERWISE, WE PLAN TO FOLLOW-UP WITH AM LABS AND CHEST XRAY AND CONTINUE TO MONITOR. TIME SPENT ON CLINICAL ASSESSMENT, REVIEWING LABS AND IMAGING, DECISION MAKING, AND DOCUMENTATION GREATER THAN 45 MINUTES. - Past Medical Family Social History Past Med/Fam/Surg Hx: No changes since H&P Allergies: Allergies quetiapine [From Seroquel] Allergy (Verified 08/13/21 14:56) aripiprazole [From Abilify] Adverse Reaction (Verified 08/13/21 14:56) bupropion [From Wellbutrin] Adverse Reaction (Verified 08/13/21 14:56) donepezil [From Aricept] Adverse Reaction (Verified 08/13/21 14:56) moxifloxacin [From Avelox] Adverse Reaction (Verified 08/13/21 14:56) olanzapine [From Zyprexa] Adverse Reaction (Verified 08/13/21 14:56) promethazine [From Phenergan] Adverse Reaction (Verified 08/13/21 14:56) venlafaxine [From Effexor] Adverse Reaction (Verified 08/13/21 14:56) - Review of Systems ROS: No change since H&P - Vital Signs and I&O's Vital Signs: Temperature 98.4 F Pulse Rate [Right Brachial] 118 Pulse Rate 122 Respiratory Rate 22 Blood Pressure [Right Arm] 188/94 Blood Pressure [Left Arm] 126/79 Blood Pressure 148/90 O2 Sat by Pulse Oximetry 97 Intake and Output: Intake & Output 11/10/21 11/11/21 11/12/21 11/13/21 11:59 11:59 11:59 11:59 Intake Total 3213 / 3213 3136 / 3136 3215 / 3215 2475 / 2475 Output Total 1530 / 1530 2650 / 2650 1775 / 1775 1279 / 1279 Balance 1683 / 1683 486 / 486 1440 / 1440 1196 / 1196 - Physical Exam Oriented: Normal Eyes: Normal Ear: Normal Nose: Normal Throat: Normal Respiratory: Diminished Cardiovascular: Normal : Normal, 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) Palpation: Normal Tenderness: Normal Skin: Wound (LEFT BUTTOCK, STAGE 4 DECUBITUS ULCER. TUNNELING AND DRAINAGE NOTED) Musculoskeletal: Normal Psychiatric: Normal Mood Description: Calm Affect: Normal Speech Pattern: Clear, Appropriate - Laboratory and Diagnostics Result Diagrams: 11/12/21 04:19 11/12/21 04:19 Labs: 11/09/21 09:20 Blood Blood Culture - Preliminary 11/09/21 09:10 Blood Blood Culture - Preliminary 11/09/21 21:20 Urine,Catheterized Urine Culture - Final Escherichia Coli 11/09/21 09:38 Buttock Wound Gram Stain - Final 11/09/21 09:38 Buttock Wound Culture - Final Pseudomonas Aeruginosa 11/09/21 09:38 Sacral Wound Gram Stain - Final 11/09/21 09:38 Sacral Wound Culture - Final Escherichia Coli Laboratory WBC 15.6 X10^3/uL (3.6-10.0) H D 11/12/21 04:19 RBC 3.11 X10^6/uL (3.5-5.4) L 11/12/21 04:19 Hgb 9.3 g/dL (12.0-16.0) L 11/12/21 04:19 Hct 27.8 % (36.0-47.0) L 11/12/21 04:19 MCV 89.4 fL (80.0-100.0) 11/12/21 04:19 MCH 29.9 pg (27.0-34.0) 11/12/21 04:19 MCHC 33.4 g/dL (33.0-35.0) 11/12/21 04:19 RDW 19.7 % (11.6-16.5) H 11/12/21 04:19 Plt Count 317 X10^3/uL (150.0-450.0) 11/12/21 04:19 Plt Count Comment Adequate (ADEQUATE) 11/09/21 09:20 MPV 8.8 fL (7.4-11.0) 11/12/21 04:19 Neut % (Auto) 85.5 % (42.0-75.0) H 11/12/21 04:19 Lymph % (Auto) 6.2 % (21.0-51.0) L 11/12/21 04:19 Ritchie % (Auto) 7.8 % (0.0-13.0) 11/12/21 04:19 Eos % (Auto) 0.1 % (0.9-2.9) L 11/12/21 04:19 Baso % (Auto) 0.4 % (0.2-1.0) 11/12/21 04:19 Neut # (Auto) 13.3 x10^3/uL (2.2-4.8) H 11/12/21 04:19 Lymph # (Auto) 1.0 X10^3/uL (1.3-2.9) L 11/12/21 04:19 Ritchie # (Auto) 1.2 x10^3/uL (0.3-0.8) H 11/12/21 04:19 Eos # (Auto) 0.0 x10^3/uL (0.0-0.2) 11/12/21 04:19 Baso # (Auto) 0.1 X10^3/uL (0.0-0.1) 11/12/21 04:19 Absolute Nucleated RBC 0.1 /100WBC 11/12/21 04:19 Plt Morphology Comment Normal (NORMAL) 11/09/21 09:20 RBC Morphology Abnormal (NORMAL) A 11/09/21 09:20 Hypochromasia Slight A 11/09/21 09:20 Anisocytosis 2+ A 11/09/21 09:20 Microcytosis Slight A 11/09/21 09:20 Target Cells Rare 11/09/21 09:20 Schistocytes Slight A 11/09/21 09:20 PT 17.4 SECONDS (11.8-14.3) 11/09/21 18:53 INR Target Range - 11/09/21 18:53 INR 1.48 (0.8-1.3) H 11/09/21 18:53 APTT 46.6 SECONDS (22.9-36.5) H 11/09/21 18:53 PTT Comment - 11/09/21 18:53 Sodium 140 mmol/L (136-145) 11/12/21 04:19 Corrected Sodium 144 mmol/L (136-145) 11/12/21 04:19 Potassium 4.0 mmol/L (3.5-5.1) 11/12/21 04:19 Chloride 109 mmol/L (98-107) H 11/12/21 04:19 Carbon Dioxide 20.0 mmol/L (21-32) L 11/12/21 04:19 BUN 14 mg/dL (7-18) 11/12/21 04:19 Creatinine 0.70 mg/dL (0.55-1.02) 11/12/21 04:19 Est GFR (MDRD) Af Amer > 60 (>60) 11/12/21 04:19 Est GFR (MDRD) Non-Af > 60 (>60) 11/12/21 04:19 Glucose 271 mg/dL (65-99) H 11/12/21 04:19 POC Glucose (mg/dL) 281 mg/dL (65-99) H 11/12/21 02:38 Lactic Acid 2.6 mmol/L (0.4-2.0) H 11/10/21 04:50 Calcium 8.6 mg/dL (8.5-10.1) 11/12/21 04:19 Corrected Calcium 9.6 mg/dL (8.5-10.1) 11/12/21 04:19 Phosphorus 3.0 mg/dL (2.6-4.7) 11/12/21 04:19 Magnesium 1.4 mg/dL (1.7-2.9) L 11/12/21 04:19 Total Bilirubin 0.30 mg/dL (0.2-1.0) 11/12/21 04:19 AST 15 Units/L (15-37) 11/12/21 04:19 ALT 16 Units/L (12-78) 11/12/21 04:19 Alkaline Phosphatase 77 Units/L (46-116) 11/12/21 04:19 B-Natriuretic Peptide 1910 pg/mL (0-79) H* 11/12/21 04:19 Total Protein 6.7 g/dL (6.4-8.2) 11/12/21 04:19 Albumin 2.8 g/dL (3.4-5.0) L 11/12/21 04:19 Globulin 3.9 g/dL (2.5-4.5) 11/12/21 04:19 Albumin/Globulin Ratio 0.7 Ratio (1.1-2.1) L 11/12/21 04:19 Prealbumin 15.0 mg/dL (18-35.7) L 11/12/21 04:19 Triglycerides 58 mg/dL (0-150) 11/12/21 04:19 Amylase 14 Units/L (25-115) L 11/09/21 18:53 Lipase 37 Units/L (73-393) L 11/09/21 18:53 Cortisol 12.9 ug/dL 11/09/21 18:53 Specimen Type Catherized urine 11/09/21 21:20 Urine Color Yellow (YELLOW) 11/09/21 21:20 Urine Appearance Clear (CLEAR) 11/09/21 21:20 Urine pH 5.0 (5.0 - 8.0) 11/09/21 21:20 Ur Specific Kimberly 1.010 (1.000-1.030) 11/09/21 21:20 Urine Protein 2+ (NEGATIVE) 11/09/21 21:20 Urine Glucose (UA) 2+ (NEGATIVE) 11/09/21 21:20 Urine Ketones 1+ (NEGATIVE) 11/09/21 21:20 Urine Blood 2+ (NEGATIVE) 11/09/21 21:20 Urine Nitrite Negative (NEGATIVE) 11/09/21 21:20 Urine Bilirubin Negative (NEGATIVE) 11/09/21 21:20 Urine Urobilinogen Normal (NORMAL) 11/09/21 21:20 Ur Leukocyte Esterase 2+ (NEGATIVE) 11/09/21 21:20 Urine RBC 3-5 /HPF (0-3) A 11/09/21 21:20 Urine WBC 10-20 /HPF (0-5) A 11/09/21 21:20 Ur Squamous Epith Cells Rare /HPF (NEGATIVE) 11/09/21 21:20 Urine Bacteria 1+ /HPF (NEGATIVE) 11/09/21 21:20 Ur Culture Indicated? Yes/culture set up 11/09/21 21:20 Stool Description 10g unformed brown 11/10/21 11:00 Stl Occult Blood (IFOB) Negative (NEGATIVE) 11/10/21 11:00 Vancomycin Trough 23.4 ug/mL (15-20) H* 11/11/21 09:20 SARS-CoV-2 (PCR) Negative (NEGATIVE) 11/09/21 11:36 Blood Type O POSITIVE 11/10/21 09:44 Antibody Screen Negative 11/10/21 09:44 Crossmatch See Detail 11/10/21 09:44 - Plan (1) Sepsis Status: Acute Qualifiers: Sepsis type: sepsis due to unspecified organism Sepsis acute organ dysfunction status: unspecified Qualified Code(s): A41.9 - Sepsis, unspecified organism Plan: ADMIT, NORMAL SALINE AT 75 ML/HR, ALBUMIN 25% IV DAILY, VANCOMYCIN 750MG IV Q12H, CIPRO 500MG PO BID, THE MAGNESIUM PROTOCOL, AND HER HOME MEDICATIONS WERE RESUMED. CONSULT FOR WOUND (2) Decubitus ulcer, stage 4 with infection Status: Acute (3) Urinary tract infection Status: Acute Qualifiers: Urinary tract infection type: acute cystitis Hematuria presence: with hematuria Qualified Code(s): N30.01 - Acute cystitis with hematuria (4) Hypoalbuminemia Status: Acute (5) CHF (congestive heart failure) Status: Chronic Qualifiers: Heart failure type: unspecified Heart failure chronicity: acute on chronic Qualified Code(s): I50.9 - Heart failure, unspecified (6) Spina bifida Status: Chronic Qualifiers: Spinal region: unspecified Presence of hydrocephalus: unspecified hydrocephalus presence Qualified Code(s): Q05.9 - Spina bifida, unspecified (7) DM II (diabetes mellitus, type II), controlled Status: Chronic Qualifiers: Diabetes mellitus chcf insulin use: with chcf use Diabetes mellitus complication status: with hyperglycemia Qualified Code(s): E11.65 - Type 2 diabetes mellitus with hyperglycemia; Z79.4 - skilled nursing (current) use of insulin
[2021-11-12] MEDS: GLUCOPHAGE PO SCH ×2 (14:31→21:45)
[2021-11-12] MEDS: COLACE CAP 100 MG PO SCH ×2 (14:31→21:45)
[2021-11-12] MEDS: THERMOTABS PO SCH ×4 (14:32→21:46)
[2021-11-12] MEDS: MEGACE PO SCH ×2 (14:32→21:44)
--- NOTE | 2021-11-12 14:51 | PCM.PROG ---
Progress Note - Progress Note for Day of Date of Exam: 11/12/21 - Subjective Subjective: WAS ADMITTED FOR TREAMENT OF SEPSIS, MULTIPLE INFECTED DECUBITUS ULCERS, ANEMIA, AND A URINARY TRACT INFECTION. TODAY, SHE IS ALERT AND ORIENTED, LYING IN BED ON MORNING ROUNDS. SHE COMPLAINS OF WEAKNESS, MILD SUPRAPUBIC PAIN, AND PAIN TO BUTTOCKS THIS MORNING. SHE ALSO HAS NEW COMPLAINTS OF SHORNTESS OF BREATH AND ANXIETY. YESTERDAY, PATIENTS HEARTRATE INCREASED TO THE 120S-150S. SHE WAS GIVEN A DOSE OF DIGOXIN AND HR DECREASED TO 100-110. ON EXAMINATION TODAY, SHE IS TACHYCARDIC WITH HR IN THE 120s. SINUS TACHYCARDIA NOTED ON TELEMETRY. BILATERAL LUNGS ARE NOTED WITH RHONCHI THROUGHOUTS. ABDOMEN IS ROUND, SOFT, AND NON-TENDER WITH NORMAL BOWEL SOUNDS NOTED IN ALL QUADRANTS. EPPERSON CATHETER NOTED TO BEDSIDE DRAINAGE. DRESSING NOTED TO WOUNDS ON SACRUM. DRESSINGS ARE DRY AND INTACT. NO UPPER OR LOWER EXTREMITY NOTED. A CENTRAL LINE IS NOTED TO FEMORAL ARTERY. HER VITALS THIS MORNING ARE: 99.0-128-24-96%-178/86. LABS WERE OBTAINED. WBC 15.6, RBC 3.11, HGB 9.3, HCT 27.8, SODIUM 140, POTASSIUM 4.0, CHLORIDE 109, CARBON DIOXIDE 20.0, BUN 14, CREATININE 0.70, GLUCOSE 271, CALCIUM 8.6, MAGNESIUM 1.4, AST 15, ALT 16, ALK PHOS 77, BNP 1910, ALBUMIN 2.8. BLOOD CULTURES ARE PENDING. WOUND CULTURES REVEAL GROWTH OF E.COLI AND PSEUDOMONAS AERUGINOSA. URINE CULTURES REVEAL GROWTH OF E.COLI. A CHEST XRAY WAS OBTAINED THIS MORNING AND REVEALED: Bilateral airspace opacities appear worse than prior and may represent pulmonary edema or pneumonia. HAS CONSULTED WITH PATIENT AND PLANS FOR DEBRIDEMENT OF WOUNDS TODAY. SHE IS CURRENTLY RECEIVING TPN AT 50ML/HR, ALBUMIN 25% IV DAILY, MEROPENEM 1G IV Q8H, THE MAGNESIUM PROTOCOL, AND HER HOME MEDICATIONS WERE RESUMED. WE WILL ADMINISTER FUROSEMIDE 20MG IV BID X 2 DOSES, DIGOXIN 0.125MG PO DAILY, ATIVAN 0.5MG PO BID. WE WILL DISCONTINUE THE XANAX. OTHERWISE, WE WILL CONTINUE WITH CURRENT PLAN OF CARE TODAY. WE PLAN TO FOLLOW-UP WITH AM LABS AND CHEST XRAY AND CONTINUE TO MONITOR. TIME SPENT ON CLINICAL ASSESSMENT, REVIEWING LABS AND IMAGING, DECISION MAKING, AND DOCUMENTATION GREATER THAN 45 MINUTES. - Past Medical Family Social History Past Med/Fam/Surg Hx: No changes since H&P Allergies: Allergies quetiapine [From Seroquel] Allergy (Verified 08/13/21 14:56) aripiprazole [From Abilify] Adverse Reaction (Verified 08/13/21 14:56) bupropion [From Wellbutrin] Adverse Reaction (Verified 08/13/21 14:56) donepezil [From Aricept] Adverse Reaction (Verified 08/13/21 14:56) moxifloxacin [From Avelox] Adverse Reaction (Verified 08/13/21 14:56) olanzapine [From Zyprexa] Adverse Reaction (Verified 08/13/21 14:56) promethazine [From Phenergan] Adverse Reaction (Verified 08/13/21 14:56) venlafaxine [From Effexor] Adverse Reaction (Verified 08/13/21 14:56) - Review of Systems ROS: No change since H&P - Vital Signs and I&O's Vital Signs: Temperature 98.4 F Pulse Rate [Right Brachial] 118 Pulse Rate 122 Respiratory Rate 22 Blood Pressure [Right Arm] 188/94 Blood Pressure [Left Arm] 126/79 Blood Pressure 148/90 O2 Sat by Pulse Oximetry 97 Intake and Output: Intake & Output 11/10/21 11/11/21 11/12/21 11/13/21 11:59 11:59 11:59 11:59 Intake Total 3213 / 3213 3136 / 3136 3215 / 3215 2475 / 2475 Output Total 1530 / 1530 2650 / 2650 1775 / 1775 1279 / 1279 Balance 1683 / 1683 486 / 486 1440 / 1440 1196 / 1196 - Physical Exam Oriented: Normal Eyes: Normal Ear: Normal Nose: Normal Throat: Normal Respiratory: Generalized, Diminished, Rhonchi Cardiovascular: Tachycardia : Normal, 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) Auscultation: Bowel Sounds: Normal Palpation: Normal Tenderness: Normal Skin: Wound (MULTIPLE DECUBITUS ULCERS TO BUTTOCKS) Musculoskeletal: Normal Psychiatric: Normal Mood Description: Calm Affect: Normal Speech Pattern: Clear, Appropriate - Laboratory and Diagnostics Result Diagrams: 11/12/21 04:19 11/12/21 04:19 Labs: 11/12/21 12:30 Hip - Left Wound Gram Stain - Final 11/12/21 12:31 Sacral Wound Gram Stain - Final 11/09/21 09:20 Blood Blood Culture - Preliminary 11/09/21 09:10 Blood Blood Culture - Preliminary 11/09/21 21:20 Urine,Catheterized Urine Culture - Final Escherichia Coli 11/09/21 09:38 Buttock Wound Gram Stain - Final 11/09/21 09:38 Buttock Wound Culture - Final Pseudomonas Aeruginosa 11/09/21 09:38 Sacral Wound Gram Stain - Final 11/09/21 09:38 Sacral Wound Culture - Final Escherichia Coli Laboratory WBC 15.6 X10^3/uL (3.6-10.0) H D 11/12/21 04:19 RBC 3.11 X10^6/uL (3.5-5.4) L 11/12/21 04:19 Hgb 9.3 g/dL (12.0-16.0) L 11/12/21 04:19 Hct 27.8 % (36.0-47.0) L 11/12/21 04:19 MCV 89.4 fL (80.0-100.0) 11/12/21 04:19 MCH 29.9 pg (27.0-34.0) 11/12/21 04:19 MCHC 33.4 g/dL (33.0-35.0) 11/12/21 04:19 RDW 19.7 % (11.6-16.5) H 11/12/21 04:19 Plt Count 317 X10^3/uL (150.0-450.0) 11/12/21 04:19 Plt Count Comment Adequate (ADEQUATE) 11/09/21 09:20 MPV 8.8 fL (7.4-11.0) 11/12/21 04:19 Neut % (Auto) 85.5 % (42.0-75.0) H 11/12/21 04:19 Lymph % (Auto) 6.2 % (21.0-51.0) L 11/12/21 04:19 [place]well % (Auto) 7.8 % (0.0-13.0) 11/12/21 04:19 Eos % (Auto) 0.1 % (0.9-2.9) L 11/12/21 04:19 Baso % (Auto) 0.4 % (0.2-1.0) 11/12/21 04:19 Neut # (Auto) 13.3 x10^3/uL (2.2-4.8) H 11/12/21 04:19 Lymph # (Auto) 1.0 X10^3/uL (1.3-2.9) L 11/12/21 04:19 [place]well # (Auto) 1.2 x10^3/uL (0.3-0.8) H 11/12/21 04:19 Eos # (Auto) 0.0 x10^3/uL (0.0-0.2) 11/12/21 04:19 Baso # (Auto) 0.1 X10^3/uL (0.0-0.1) 11/12/21 04:19 Absolute Nucleated RBC 0.1 /100WBC 11/12/21 04:19 Plt Morphology Comment Normal (NORMAL) 11/09/21 09:20 RBC Morphology Abnormal (NORMAL) A 11/09/21 09:20 Hypochromasia Slight A 11/09/21 09:20 Anisocytosis 2+ A 11/09/21 09:20 Microcytosis Slight A 11/09/21 09:20 Target Cells Rare 11/09/21 09:20 Schistocytes Slight A 11/09/21 09:20 PT 17.4 SECONDS (11.8-14.3) 11/09/21 18:53 INR Target Range - 11/09/21 18:53 INR 1.48 (0.8-1.3) H 11/09/21 18:53 APTT 46.6 SECONDS (22.9-36.5) H 11/09/21 18:53 PTT Comment - 11/09/21 18:53 Sodium 140 mmol/L (136-145) 11/12/21 04:19 Corrected Sodium 144 mmol/L (136-145) 11/12/21 04:19 Potassium 4.0 mmol/L (3.5-5.1) 11/12/21 04:19 Chloride 109 mmol/L (98-107) H 11/12/21 04:19 Carbon Dioxide 20.0 mmol/L (21-32) L 11/12/21 04:19 BUN 14 mg/dL (7-18) 11/12/21 04:19 Creatinine 0.70 mg/dL (0.55-1.02) 11/12/21 04:19 Est GFR (MDRD) Af Amer > 60 (>60) 11/12/21 04:19 Est GFR (MDRD) Non-Af > 60 (>60) 11/12/21 04:19 Glucose 271 mg/dL (65-99) H 11/12/21 04:19 POC Glucose (mg/dL) 281 mg/dL (65-99) H 11/12/21 02:38 Lactic Acid 2.6 mmol/L (0.4-2.0) H 11/10/21 04:50 Calcium 8.6 mg/dL (8.5-10.1) 11/12/21 04:19 Corrected Calcium 9.6 mg/dL (8.5-10.1) 11/12/21 04:19 Phosphorus 3.0 mg/dL (2.6-4.7) 11/12/21 04:19 Magnesium 1.4 mg/dL (1.7-2.9) L 11/12/21 04:19 Total Bilirubin 0.30 mg/dL (0.2-1.0) 11/12/21 04:19 AST 15 Units/L (15-37) 11/12/21 04:19 ALT 16 Units/L (12-78) 11/12/21 04:19 Alkaline Phosphatase 77 Units/L (46-116) 11/12/21 04:19 B-Natriuretic Peptide 1910 pg/mL (0-79) H* 11/12/21 04:19 Total Protein 6.7 g/dL (6.4-8.2) 11/12/21 04:19 Albumin 2.8 g/dL (3.4-5.0) L 11/12/21 04:19 Globulin 3.9 g/dL (2.5-4.5) 11/12/21 04:19 Albumin/Globulin Ratio 0.7 Ratio (1.1-2.1) L 11/12/21 04:19 Prealbumin 15.0 mg/dL (18-35.7) L 11/12/21 04:19 Triglycerides 58 mg/dL (0-150) 11/12/21 04:19 Amylase 14 Units/L (25-115) L 11/09/21 18:53 Lipase 37 Units/L (73-393) L 11/09/21 18:53 Cortisol 12.9 ug/dL 11/09/21 18:53 Specimen Type Catherized urine 11/09/21 21:20 Urine Color Yellow (YELLOW) 11/09/21 21:20 Urine Appearance Clear (CLEAR) 11/09/21 21:20 Urine pH 5.0 (5.0 - 8.0) 11/09/21 21:20 Ur Specific [place] 1.010 (1.000-1.030) 11/09/21 21:20 Urine Protein 2+ (NEGATIVE) 11/09/21 21:20 Urine Glucose (UA) 2+ (NEGATIVE) 11/09/21 21:20 Urine Ketones 1+ (NEGATIVE) 11/09/21 21:20 Urine Blood 2+ (NEGATIVE) 11/09/21 21:20 Urine Nitrite Negative (NEGATIVE) 11/09/21 21:20 Urine Bilirubin Negative (NEGATIVE) 11/09/21 21:20 Urine Urobilinogen Normal (NORMAL) 11/09/21 21:20 Ur Leukocyte Esterase 2+ (NEGATIVE) 11/09/21 21:20 Urine RBC 3-5 /HPF (0-3) A 11/09/21 21:20 Urine WBC 10-20 /HPF (0-5) A 11/09/21 21:20 Ur Squamous Epith Cells Rare /HPF (NEGATIVE) 11/09/21 21:20 Urine Bacteria 1+ /HPF (NEGATIVE) 11/09/21 21:20 Ur Culture Indicated? Yes/culture set up 11/09/21 21:20 Stool Description 10g unformed brown 11/10/21 11:00 Stl Occult Blood (IFOB) Negative (NEGATIVE) 11/10/21 11:00 Vancomycin Trough 23.4 ug/mL (15-20) H* 11/11/21 09:20 SARS-CoV-2 (PCR) Negative (NEGATIVE) 11/09/21 11:36 Tissue Pathology To follow 11/12/21 12:32 Blood Type O POSITIVE 11/10/21 09:44 Antibody Screen Negative 11/10/21 09:44 Crossmatch See Detail 11/10/21 09:44 - Plan (1) Sepsis Status: Acute Qualifiers: Sepsis type: sepsis due to unspecified organism Sepsis acute organ dysfunction status: unspecified Qualified Code(s): A41.9 - Sepsis, unspecified organism Plan: TPN, ALBUMIN 25% IV DAILY, MEROPENEM 1G IV Q8H, DIGOXIN 0.125MG DAILY, ATIVAN 0.5MG PO BID, THE MAGNESIUM PROTOCOL, AND HER HOME MEDICATIONS WERE RESUMED. CONSULT FOR WOUND. LASIX 20MG IV BID X 2 DOSES (2) Decubitus ulcer, stage 4 with infection Status: Acute (3) Urinary tract infection Status: Acute Qualifiers: Urinary tract infection type: acute cystitis Hematuria presence: with hematuria Qualified Code(s): N30.01 - Acute cystitis with hematuria (4) Hypoalbuminemia Status: Acute (5) CHF (congestive heart failure) Status: Chronic Qualifiers: Heart failure type: unspecified Heart failure chronicity: acute on chronic Qualified Code(s): I50.9 - Heart failure, unspecified (6) Spina bifida Status: Chronic Qualifiers: Spinal region: unspecified Presence of hydrocephalus: unspecified hydrocephalus presence Qualified Code(s): Q05.9 - Spina bifida, unspecified (7) DM II (diabetes mellitus, type II), controlled Status: Chronic Qualifiers: Diabetes mellitus long lines operator insulin use: with [facility] use Diabetes jason litus complication status: with hyperglycemia Qualified Code(s): E11.65 - Type 2 diabetes mellitus with hyperglycemia; Z79.4 - medical assembler (current) use of insulin
[2021-11-12] MEDS: ATIVAN TAB 0.5 MG PO SCH ×2 (15:15→21:45)
[2021-11-12] MEDS: POTASSIUM CHLORIDE LIQ 20 MEQ UDC PO SCH (16:13)
[2021-11-12] MEDS: PROVERA PO SCH (16:13)
[2021-11-12] MEDS: VITAMIN C PO SCH (16:14)
[2021-11-12] MEDS: TAB-A-VITE PO SCH (16:14)
[2021-11-12] MEDS: VSL#3 PO SCH (16:14)
[2021-11-12] MEDS: ZyrTEC TAB 10 MG PO SCH (16:15)
[2021-11-12] MEDS: ZINC SULFATE PO SCH (16:15)
[2021-11-12] MEDS: ULTRAM PO PRN (17:55)
[2021-11-12] MEDS ORDERED: LABETALOL HCL IVP ONE (18:10)
[2021-11-12] MEDS ORDERED: NORMODYNE INJ 100 MG VIAL ONE (18:24)
[2021-11-12] MEDS: MORPHINE SULFATE INJ 2 MG INJ IVP PRN (18:25)
[2021-11-12] MEDS: SNACK - Diabetic Appropriate PO SCH (21:28)
[2021-11-12] MEDS ORDERED: GLUCOPHAGE ONE (21:33)
[2021-11-12] MEDS: DESYREL PO SCH (21:44)
[2021-11-12] MEDS: LIPITOR TAB 20 MG PO SCH (21:46)
[2021-11-12] MEDS: ZANAFLEX PO SCH (21:46)
[2021-11-12 23:24] LABS: ABG BASE EXCESS -4.5 mmol/L (-2.0-2.0); ABG HCO3 22.9 mmol/L (22-26)
[2021-11-12 23:27] LABS: ABG ALLEN TEST POS
--- NOTE | 2021-11-13 00:55 | RAD ---
HISTORYRESPIRATORY DISTRESSSTUDYCHEST, 1 VIEWCOMPARISONJune 2021.TECHNIQUEA single frontal view of the chest was obtained.FINDINGSThere are multiple EKG leads and wires seen overlying the patient. The heart is normal in size. There are diffuse alveolar infiltrates noted throughout both lungs with dense alveolar infiltrates seen of the left lung extending to the periphery. There is no effusion. There is no pneumothorax. The osseous structures are intact.IMPRESSIONDiffuse alveolar infiltrates noted throughout both lungs. The findings have worsened in comparison with the previous study.Electronically signed by: Lakshmi Mcmahon (Nov 13, 2021 00:53:58)
[2021-11-13 01:08] LABS: ABG ALLEN TEST POS
[2021-11-13] MEDS: MORPHINE SULFATE INJ 2 MG INJ IVP PRN ×2 (03:12→17:11)
[2021-11-13] MEDS: XOPENEX 1.25 MG/3 ML NEBULE NEB SCH ×4 (05:50→21:17)
[2021-11-13] MEDS: CLINIMIX 5 %/20 % 1,000 ML with MVI INJ (ADULT) 10 ML, TPN ELECTROLYTES 20 ML, TRACE EL... IV SCH ×12 (06:01→15:11)
[2021-11-13 06:03] LABS: BASOPHILS # (AUTO) 0.1 X10^3/uL (0.0-0.1); BASOPHILS % (AUTO) 0.3 % (0.2-1.0); HEMATOCRIT 27.4 % (36.0-47.0); LYMPHOCYTES % (AUTO) 5.7 % (21.0-51.0); MEAN CORPUSCULAR HEMOGLOBIN 28.4 pg (27.0-34.0); MEAN CORPUSCULAR HGB CONC 32.7 g/dL (33.0-35.0); MEAN CORPUSCULAR VOLUME 86.7 fL (80.0-100.0); MEAN PLATELET VOLUME 8.5 fL (7.4-11.0); MONOCYTES # (AUTO) 1.4 x10^3/uL (0.3-0.8); MONOCYTES % (AUTO) 7.8 % (0.0-13.0); NEUTROPHILS # (AUTO) 15.2 x10^3/uL (2.2-4.8); NEUTROPHILS % (AUTO) 86.2 % (42.0-75.0); RED BLOOD COUNT 3.17 X10^6/uL (3.5-5.4); RED CELL DISTRIBUTION WIDTH 19.2 % (11.6-16.5); WHITE BLOOD COUNT 17.6 X10^3/uL (3.6-10.0)
[2021-11-13] MEDS: NovoLIN R (or HumuLIN R) SUBCUT PRN (06:06)
[2021-11-13] MEDS: MERREM VIAL 1 G in NS 100 ML IV 100 ML IV SCH ×3 (06:07→22:12)
[2021-11-13 06:18] LABS: ALANINE AMINOTRANSFERASE 18 Units/L (12-78); ALBUMIN 3.3 g/dL (3.4-5.0); ALKALINE PHOSPHATASE 75 Units/L (46-116); ASPARTATE AMINO TRANSFERASE 13 Units/L (15-37); BLOOD UREA NITROGEN 20 mg/dL (7-18); CALCIUM 9.2 mg/dL (8.5-10.1); CARBON DIOXIDE 24.8 mmol/L (21-32); CHLORIDE 109 mmol/L (98-107); COR CA(FOR HYPOALB) 9.8 mg/dL (8.5-10.1); COR NA(FOR HYPERGLY) 147 mmol/L (136-145); CREATININE 0.64 mg/dL (0.55-1.02); DIGOXIN 0.38 ng/mL (0.9-2); SODIUM 140 mmol/L (136-145); TOTAL PROTEIN 7.1 g/dL (6.4-8.2); eGFR NON BLACK RACES > 60 (>60)
[2021-11-13] MEDS: PULMICORT NEB TX 0.5 MG NEB SCH ×2 (08:23→21:17)
[2021-11-13] MEDS ORDERED: LASIX IVP ONE ×2 (09:51→10:08)
[2021-11-13] MEDS ORDERED: LOPRESSOR INJ 5 MG AMP IVP ONE (09:51)
--- NOTE | 2021-11-13 10:01 | DR.PROGNOT ---
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 much better this am .. awake and calm .. - Past Medical Family Social History Past Med/Fam/Surg Hx: No changes since H&P Allergies: Allergies quetiapine [From Seroquel] Allergy (Verified 08/13/21 14:56) aripiprazole [From Abilify] Adverse Reaction (Verified 08/13/21 14:56) bupropion [From Wellbutrin] Adverse Reaction (Verified 08/13/21 14:56) donepezil [From Aricept] Adverse Reaction (Verified 08/13/21 14:56) moxifloxacin [From Avelox] Adverse Reaction (Verified 08/13/21 14:56) olanzapine [From Zyprexa] Adverse Reaction (Verified 08/13/21 14:56) promethazine [From Phenergan] Adverse Reaction (Verified 08/13/21 14:56) venlafaxine [From Effexor] Adverse Reaction (Verified 08/13/21 14:56) - Review Of Systems ROS: No change since H&P - Vital Signs Vital Signs: Temperature 98.0 F Pulse Rate [Right Brachial] 122 Pulse Rate 136 Respiratory Rate 20 Blood Pressure [Right Arm] 189/100 Blood Pressure [Left Arm] 168/98 Blood Pressure 148/90 O2 Sat by Pulse Oximetry 97 - Physical Exam Oriented: Normal Eyes: Normal Ear: Normal Nose: Normal Throat: Normal Respiratory: Generalized, Diminished, Rhonchi Cardiovascular: 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 : Normal, 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) GI:Auscultation: Normal GI:Palpation: Normal GI: Tenderness: Normal Skin: Wound (MULTIPLE DECUBITUS ULCERS TO BUTTOCKS) Musculoskeletal: Normal Psychiatric: Normal Mood Description: Calm Affect: Normal Speech Pattern: Clear, Appropriate - Laboratory and Diagnostics Result Diagrams: 11/13/21 05:31 11/13/21 05:31 Labs: 11/12/21 12:31 Sacral Wound Gram Stain - Final 11/12/21 12:31 Sacral Wound Culture - Preliminary 11/12/21 12:30 Hip - Left Wound Gram Stain - Final 11/12/21 12:30 Hip - Left Wound Culture - Preliminary 11/09/21 09:20 Blood Blood Culture - Preliminary 11/09/21 09:10 Blood Blood Culture - Preliminary 11/09/21 21:20 Urine,Catheterized Urine Culture - Final Escherichia Coli 11/09/21 09:38 Buttock Wound Gram Stain - Final 11/09/21 09:38 Buttock Wound Culture - Final Pseudomonas Aeruginosa 11/09/21 09:38 Sacral Wound Gram Stain - Final 11/09/21 09:38 Sacral Wound Culture - Final Escherichia Coli Laboratory WBC 17.6 X10^3/uL (3.6-10.0) H 11/13/21 05:31 RBC 3.17 X10^6/uL (3.5-5.4) L 11/13/21 05:31 Hgb 9.0 g/dL (12.0-16.0) L 11/13/21 05:31 Hct 27.4 % (36.0-47.0) L 11/13/21 05:31 MCV 86.7 fL (80.0-100.0) 11/13/21 05:31 MCH 28.4 pg (27.0-34.0) 11/13/21 05:31 MCHC 32.7 g/dL (33.0-35.0) L 11/13/21 05:31 RDW 19.2 % (11.6-16.5) H 11/13/21 05:31 Plt Count 327 X10^3/uL (150.0-450.0) 11/13/21 05:31 Plt Count Comment Adequate (ADEQUATE) 11/09/21 09:20 MPV 8.5 fL (7.4-11.0) 11/13/21 05:31 Neut % (Auto) 86.2 % (42.0-75.0) H 11/13/21 05:31 Lymph % (Auto) 5.7 % (21.0-51.0) L 11/13/21 05:31 [place] % (Auto) 7.8 % (0.0-13.0) 11/13/21 05:31 Eos % (Auto) 0.0 % (0.9-2.9) L 11/13/21 05:31 Baso % (Auto) 0.3 % (0.2-1.0) 11/13/21 05:31 Neut # (Auto) 15.2 x10^3/uL (2.2-4.8) H 11/13/21 05:31 Lymph # (Auto) 1.0 X10^3/uL (1.3-2.9) L 11/13/21 05:31 [place] # (Auto) 1.4 x10^3/uL (0.3-0.8) H 11/13/21 05:31 Eos # (Auto) 0.0 x10^3/uL (0.0-0.2) 11/13/21 05:31 Baso # (Auto) 0.1 X10^3/uL (0.0-0.1) 11/13/21 05:31 Absolute Nucleated RBC 0.0 /100WBC 11/13/21 05:31 Plt Morphology Comment Normal (NORMAL) 11/09/21 09:20 RBC Morphology Abnormal (NORMAL) A 11/09/21 09:20 Hypochromasia Slight A 11/09/21 09:20 Anisocytosis 2+ A 11/09/21 09:20 Microcytosis Slight A 11/09/21 09:20 Target Cells Rare 11/09/21 09:20 Schistocytes Slight A 11/09/21 09:20 PT 17.4 SECONDS (11.8-14.3) 11/09/21 18:53 INR Target Range - 11/09/21 18:53 INR 1.48 (0.8-1.3) H 11/09/21 18:53 APTT 46.6 SECONDS (22.9-36.5) H 11/09/21 18:53 PTT Comment - 11/09/21 18:53 Sample Site Lrad 11/13/21 01:05 ABG pH 7.240 (7.35-7.45) L 11/13/21 01:05 ABG pCO2 56.0 mmHg (35.0-45.0) H* 11/13/21 01:05 ABG pO2 136.0 mmHg (80.0-100.0) H 11/13/21 01:05 ABG HCO3 24.0 mmol/L (22-26) 11/13/21 01:05 ABG O2 Saturation 99.0 % (90-100) 11/13/21 01:05 ABG Base Excess -4.0 mmol/L (-2.0-2.0) L 11/13/21 01:05 Satish Test Pos 11/13/21 01:05 A-a Gradient 507.0 mmHg 11/13/21 01:05 FiO2 100.0 11/13/21 01:05 Blood Gas Comments Jaye abg well-mtf 11/13/21 01:05 Sodium 140 mmol/L (136-145) 11/13/21 05:31 Corrected Sodium 147 mmol/L (136-145) H 11/13/21 05:31 Potassium 4.1 mmol/L (3.5-5.1) 11/13/21 05:31 Chloride 109 mmol/L (98-107) H 11/13/21 05:31 Carbon Dioxide 24.8 mmol/L (21-32) 11/13/21 05:31 BUN 20 mg/dL (7-18) H 11/13/21 05:31 Creatinine 0.64 mg/dL (0.55-1.02) 11/13/21 05:31 Est GFR (MDRD) Af Amer > 60 (>60) 11/13/21 05:31 Est GFR (MDRD) Non-Af > 60 (>60) 11/13/21 05:31 Glucose 375 mg/dL (65-99) H 11/13/21 05:31 POC Glucose (mg/dL) 322 mg/dL (65-99) H 11/13/21 05:31 Lactic Acid 2.6 mmol/L (0.4-2.0) H 11/10/21 04:50 Calcium 9.2 mg/dL (8.5-10.1) 11/13/21 05:31 Corrected Calcium 9.8 mg/dL (8.5-10.1) 11/13/21 05:31 Phosphorus 3.0 mg/dL (2.6-4.7) 11/12/21 04:19 Magnesium 1.4 mg/dL (1.7-2.9) L 11/12/21 04:19 Total Bilirubin 0.20 mg/dL (0.2-1.0) 11/13/21 05:31 AST 13 Units/L (15-37) L 11/13/21 05:31 ALT 18 Units/L (12-78) 11/13/21 05:31 Alkaline Phosphatase 75 Units/L (46-116) 11/13/21 05:31 B-Natriuretic Peptide 2230 pg/mL (0-79) H* 11/13/21 05:31 Total Protein 7.1 g/dL (6.4-8.2) 11/13/21 05:31 Albumin 3.3 g/dL (3.4-5.0) L 11/13/21 05:31 Globulin 3.8 g/dL (2.5-4.5) 11/13/21 05:31 Albumin/Globulin Ratio 0.9 Ratio (1.1-2.1) L 11/13/21 05:31 Prealbumin 15.0 mg/dL (18-35.7) L 11/12/21 04:19 Triglycerides 58 mg/dL (0-150) 11/12/21 04:19 Amylase 14 Units/L (25-115) L 11/09/21 18:53 Lipase 37 Units/L (73-393) L 11/09/21 18:53 Cortisol 12.9 ug/dL 11/09/21 18:53 Specimen Type Catherized urine 11/09/21 21:20 Urine Color Yellow (YELLOW) 11/09/21 21:20 Urine Appearance Clear (CLEAR) 11/09/21 21:20 Urine pH 5.0 (5.0 - 8.0) 11/09/21 21:20 Ur Specific [place] 1.010 (1.000-1.030) 11/09/21 21:20 Urine Protein 2+ (NEGATIVE) 11/09/21 21:20 Urine Glucose (UA) 2+ (NEGATIVE) 11/09/21 21:20 Urine Ketones 1+ (NEGATIVE) 11/09/21 21:20 Urine Blood 2+ (NEGATIVE) 11/09/21 21:20 Urine Nitrite Negative (NEGATIVE) 11/09/21 21:20 Urine Bilirubin Negative (NEGATIVE) 11/09/21 21:20 Urine Urobilinogen Normal (NORMAL) 11/09/21 21:20 Ur Leukocyte Esterase 2+ (NEGATIVE) 11/09/21 21:20 Urine RBC 3-5 /HPF (0-3) A 11/09/21 21:20 Urine WBC 10-20 /HPF (0-5) A 11/09/21 21:20 Ur Squamous Epith Cells Rare /HPF (NEGATIVE) 11/09/21 21:20 Urine Bacteria 1+ /HPF (NEGATIVE) 11/09/21 21:20 Ur Culture Indicated? Yes/culture set up 11/09/21 21:20 Stool Description 10g unformed brown 11/10/21 11:00 Stl Occult Blood (IFOB) Negative (NEGATIVE) 11/10/21 11:00 Vancomycin Trough 23.4 ug/mL (15-20) H* 11/11/21 09:20 Digoxin 0.38 ng/mL (0.9-2) L 11/13/21 05:31 SARS-CoV-2 (PCR) Negative (NEGATIVE) 11/09/21 11:36 Tissue Pathology To follow 11/12/21 12:32 Blood Type O POSITIVE 11/10/21 09:44 Antibody Screen Negative 11/10/21 09:44 Crossmatch See Detail 11/10/21 09:44 - Assessment and Plan 1: s/p debridement of sacral and Lt hip ulcers . respirartory distress and acidosis ( improved .). same local care of the sacral ulcers . - Problem Patient Problems: Patient Problems Hypoalbuminemia (Acute) E88.09 Sepsis (Acute) A41.9 Decubitus ulcer of sacral region, stage 4 (Acute) L89.154 Decubitus ulcer, stage 4 with infection (Acute) L89.94, L08.9 CHF (congestive heart failure) (Chronic) I50.9 Spina bifida (Chronic) Q05.9 DM II (diabetes mellitus, type II), controlled (Chronic) E11.9 Urinary tract infection (Acute) N39.0
[2021-11-13] MEDS ORDERED: GLUCOPHAGE ONE ×2 (10:08→22:03)
[2021-11-13] MEDS ORDERED: LOPRESSOR INJ 5 MG AMP ONE (10:09)
[2021-11-13] MEDS: ATIVAN TAB 0.5 MG PO SCH ×2 (10:18→22:11)
[2021-11-13] MEDS: ALBUMIN HUMAN 25%- 100 ML 100 ML IV SCH (10:18)
[2021-11-13] MEDS: DEPAKOTE D.R. TAB PO SCH ×2 (10:19→22:10)
[2021-11-13] MEDS: GLUCOPHAGE PO SCH ×2 (10:20→22:11)
[2021-11-13] MEDS: LANOXIN or DIGITEK PO SCH (10:21)
[2021-11-13] MEDS: MEGACE PO SCH ×2 (10:22→22:10)
[2021-11-13] MEDS: POTASSIUM CHLORIDE LIQ 20 MEQ UDC PO SCH (10:23)
[2021-11-13] MEDS: PROVERA PO SCH (10:23)
[2021-11-13] MEDS: TAB-A-VITE PO SCH (10:24)
[2021-11-13] MEDS: VITAMIN C PO SCH (10:26)
[2021-11-13] MEDS: VSL#3 PO SCH (10:26)
[2021-11-13] MEDS: ZOLOFT PO SCH (10:27)
[2021-11-13] MEDS: ZINC SULFATE PO SCH (10:27)
[2021-11-13] MEDS: ZyrTEC TAB 10 MG PO SCH (10:28)
[2021-11-13] MEDS: XALATAN OP SCH ×2 (10:50→22:11)
[2021-11-13] MEDS: FLONASE NASAL SPRAY ENOSTRIL SCH ×2 (10:50→22:08)
[2021-11-13] MEDS: RisperDAL TAB 1 MG PO SCH ×3 (10:50→22:10)
[2021-11-13] MEDS: COLACE CAP 100 MG PO SCH ×2 (11:34→22:10)
[2021-11-13] MEDS: THERMOTABS PO SCH ×4 (11:37→22:09)
--- NOTE | 2021-11-13 11:43 | PCM.PROG ---
Progress Note Progress Note for Day of Date of Exam: 11/13/21 Subjective Subjective: Patient seen at bedside, overnight patient was noted to have worsening respiratory status so was placed on BiPAP. She was noted to have low O2 sats in the 50s and was pale and clammy. CXR showed worsening diffuse alveolar infiltrates. ABG at night showed O2 29 and CO2 51. She was placed on B iPAP FiO2 50%. She remains on BiPAP this morning. Her ABG has improved today and FiO2 weaned down to 50%. Patient appears to be more alert and awake today. She is getting aggitated with the mask. Her HR and BP have been elevated. She was given IV labetalol yesterday. She was also started on PO Digoxin yesterday morning. Her HR remains in 140s. Labs/imaging reviewed AB.24/56/136/24 sats 99% Labs: WBC 17.6 Hgb 9.0 Glucose 375 BNP 2230 Wound Cx: Pseudomonas Urine Cx E.coli Plan: wean BiPaP as tolerated to keep sats > 92%, can transition to HHFNC as per RT. Will give one dose of lasix IV and metoprolol 5 mg IV now. Continue IV antibiotics, follow Cx. Continue pain control and anxiety medications. Patient's BP and HR elevated when patient is anxious. Wound care management per Dr Azar and nursing staff. Patient is s/p I&D for sacral and hip pressure ulcers. Monitor AM labs/imaging. Discussed treatment plan with family at bedside. Time spent for clinical assessment, physical exam, reviewing labs/imaging, decision making and documentation greater than 75 mins. Past Medical Family Social History Past Med/Fam/Surg Hx: No changes since H&P Allergies: Allergies quetiapine [From Seroquel] Allergy (Verified 08/13/21 14:56) aripiprazole [From Abilify] Adverse Reaction (Verified 08/13/21 14:56) bupropion [From Wellbutrin] Adverse Reaction (Verified 08/13/21 14:56) donepezil [From Aricept] Adverse Reaction (Verified 08/13/21 14:56) moxifloxacin [From Avelox] Adverse Reaction (Verified 08/13/21 14:56) olanzapine [From Zyprexa] Adverse Reaction (Verified 08/13/21 14:56) promethazine [From Phenergan] Adverse Reaction (Verified 08/13/21 14:56) venlafaxine [From Effexor] Adverse Reaction (Verified 08/13/21 14:56) Review of Systems ROS: No change since H&P Vital Signs and I&O's Vital Signs: Temperature 98.0 F Pulse Rate [Right Brachial] 122 Pulse Rate 134 Respiratory Rate 20 Blood Pressure [Right Arm] 189/100 Blood Pressure [Left Arm] 168/98 Blood Pressure 173/96 O2 Sat by Pulse Oximetry 97 Intake and Output: Intake & Output 11/10/21 11/11/21 11/12/21 11/13/21 23:59 23:59 23:59 23:59 Intake Total 3463 / 3463 2685 / 2685 4920 / 4920 930 / 930 Output Total 2580 / 2580 1875 / 1875 2829 / 2829 1900 / 1900 Balance 883 / 883 810 / 810 2091 / 2091 -970 / -970 Physical Exam Oriented: Unable to test Eyes: Normal Ear: Normal Nose: Normal Throat: Normal Respiratory: Generalized and Diminished Cardiovascular: 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) Auscultation: Bowel Sounds: Normal Tenderness: Normal Skin: Wound (MULTIPLE DECUBITUS ULCERS TO BUTTOCKS) Psychiatric: Anxiety Mood Description: Anxious Affect: Anxious Speech Pattern: Artificially Ventilated (on Bipap ) Laboratory and Diagnostics Result Diagrams: 11/13/21 05:31 11/13/21 05:31 Labs: 11/12/21 12:31 Sacral Wound Gram Stain - Final 11/12/21 12:31 Sacral Wound Culture - Preliminary 11/12/21 12:30 Hip - Left Wound Gram Stain - Final 11/12/21 12:30 Hip - Left Wound Culture - Preliminary 11/09/21 09:20 Blood Blood Culture - Preliminary 11/09/21 09:10 Blood Blood Culture - Preliminary 11/09/21 21:20 Urine,Catheterized Urine Culture - Final Escherichia Coli 11/09/21 09:38 Buttock Wound Gram Stain - Final 11/09/21 09:38 Buttock Wound Culture - Final Pseudomonas Aeruginosa 11/09/21 09:38 Sacral Wound Gram Stain - Final 11/09/21 09:38 Sacral Wound Culture - Final Escherichia Coli Laboratory WBC 17.6 X10^3/uL (3.6-10.0) H 11/13/21 05:31 RBC 3.17 X10^6/uL (3.5-5.4) L 11/13/21 05:31 Hgb 9.0 g/dL (12.0-16.0) L 11/13/21 05:31 Hct 27.4 % (36.0-47.0) L 11/13/21 05:31 MCV 86.7 fL (80.0-100.0) 11/13/21 05:31 MCH 28.4 pg (27.0-34.0) 11/13/21 05:31 MCHC 32.7 g/dL (33.0-35.0) L 11/13/21 05:31 RDW 19.2 % (11.6-16.5) H 11/13/21 05:31 Plt Count 327 X10^3/uL (150.0-450.0) 11/13/21 05:31 Plt Count Comment Adequate (ADEQUATE) 11/09/21 09:20 MPV 8.5 fL (7.4-11.0) 11/13/21 05:31 Neut % (Auto) 86.2 % (42.0-75.0) H 11/13/21 05:31 Lymph % (Auto) 5.7 % (21.0-51.0) L 11/13/21 05:31 [place] % (Auto) 7.8 % (0.0-13.0) 11/13/21 05:31 Eos % (Auto) 0.0 % (0.9-2.9) L 11/13/21 05:31 Baso % (Auto) 0.3 % (0.2-1.0) 11/13/21 05:31 Neut # (Auto) 15.2 x10^3/uL (2.2-4.8) H 11/13/21 05:31 Lymph # (Auto) 1.0 X10^3/uL (1.3-2.9) L 11/13/21 05:31 [place] # (Auto) 1.4 x10^3/uL (0.3-0.8) H 11/13/21 05:31 Eos # (Auto) 0.0 x10^3/uL (0.0-0.2) 11/13/21 05:31 Baso # (Auto) 0.1 X10^3/uL (0.0-0.1) 11/13/21 05:31 Absolute Nucleated RBC 0.0 /100WBC 11/13/21 05:31 Plt Morphology Comment Normal (NORMAL) 11/09/21 09:20 RBC Morphology Abnormal (NORMAL) A 11/09/21 09:20 Hypochromasia Slight A 11/09/21 09:20 Anisocytosis 2+ A 11/09/21 09:20 Microcytosis Slight A 11/09/21 09:20 Target Cells Rare 11/09/21 09:20 Schistocytes Slight A 11/09/21 09:20 PT 17.4 SECONDS (11.8-14.3) 11/09/21 18:53 INR Target Range - 11/09/21 18:53 INR 1.48 (0.8-1.3) H 11/09/21 18:53 APTT 46.6 SECONDS (22.9-36.5) H 11/09/21 18:53 PTT Comment - 11/09/21 18:53 Sample Site Lrad 11/13/21 01:05 ABG pH 7.240 (7.35-7.45) L 11/13/21 01:05 ABG pCO2 56.0 mmHg (35.0-45.0) H* 11/13/21 01:05 ABG pO2 136.0 mmHg (80.0-100.0) H 11/13/21 01:05 ABG HCO3 24.0 mmol/L (22-26) 11/13/21 01:05 ABG O2 Saturation 99.0 % (90-100) 11/13/21 01:05 ABG Base Excess -4.0 mmol/L (-2.0-2.0) L 11/13/21 01:05 Satish Test Pos 11/13/21 01:05 A-a Gradient 507.0 mmHg 11/13/21 01:05 FiO2 100.0 11/13/21 01:05 Blood Gas Comments Jaye abg well-mtf 11/13/21 01:05 Sodium 140 mmol/L (136-145) 11/13/21 05:31 Corrected Sodium 147 mmol/L (136-145) H 11/13/21 05:31 Potassium 4.1 mmol/L (3.5-5.1) 11/13/21 05:31 Chloride 109 mmol/L (98-107) H 11/13/21 05:31 Carbon Dioxide 24.8 mmol/L (21-32) 11/13/21 05:31 BUN 20 mg/dL (7-18) H 11/13/21 05:31 Creatinine 0.64 mg/dL (0.55-1.02) 11/13/21 05:31 Est GFR (MDRD) Af Amer > 60 (>60) 11/13/21 05:31 Est GFR (MDRD) Non-Af > 60 (>60) 11/13/21 05:31 Glucose 375 mg/dL (65-99) H 11/13/21 05:31 POC Glucose (mg/dL) 228 mg/dL (65-99) H 11/13/21 11:27 Lactic Acid 2.6 mmol/L (0.4-2.0) H 11/10/21 04:50 Calcium 9.2 mg/dL (8.5-10.1) 11/13/21 05:31 Corrected Calcium 9.8 mg/dL (8.5-10.1) 11/13/21 05:31 Phosphorus 3.0 mg/dL (2.6-4.7) 11/12/21 04:19 Magnesium 1.4 mg/dL (1.7-2.9) L 11/12/21 04:19 Total Bilirubin 0.20 mg/dL (0.2-1.0) 11/13/21 05:31 AST 13 Units/L (15-37) L 11/13/21 05:31 ALT 18 Units/L (12-78) 11/13/21 05:31 Alkaline Phosphatase 75 Units/L (46-116) 11/13/21 05:31 B-Natriuretic Peptide 2230 pg/mL (0-79) H* 11/13/21 05:31 Total Protein 7.1 g/dL (6.4-8.2) 11/13/21 05:31 Albumin 3.3 g/dL (3.4-5.0) L 11/13/21 05:31 Globulin 3.8 g/dL (2.5-4.5) 11/13/21 05:31 Albumin/Globulin Ratio 0.9 Ratio (1.1-2.1) L 11/13/21 05:31 Prealbumin 15.0 mg/dL (18-35.7) L 11/12/21 04:19 Triglycerides 58 mg/dL (0-150) 11/12/21 04:19 Amylase 14 Units/L (25-115) L 11/09/21 18:53 Lipase 37 Units/L (73-393) L 11/09/21 18:53 Cortisol 12.9 ug/dL 11/09/21 18:53 Specimen Type Catherized urine 11/09/21 21:20 Urine Color Yellow (YELLOW) 11/09/21 21:20 Urine Appearance Clear (CLEAR) 11/09/21 21:20 Urine pH 5.0 (5.0 - 8.0) 11/09/21 21:20 Ur Specific [place] 1.010 (1.000-1.030) 11/09/21 21:20 Urine Protein 2+ (NEGATIVE) 11/09/21 21:20 Urine Glucose (UA) 2+ (NEGATIVE) 11/09/21 21:20 Urine Ketones 1+ (NEGATIVE) 11/09/21 21:20 Urine Blood 2+ (NEGATIVE) 11/09/21 21:20 Urine Nitrite Negative (NEGATIVE) 11/09/21 21:20 Urine Bilirubin Negative (NEGATIVE) 11/09/21 21:20 Urine Urobilinogen Normal (NORMAL) 11/09/21 21:20 Ur Leukocyte Esterase 2+ (NEGATIVE) 11/09/21 21:20 Urine RBC 3-5 /HPF (0-3) A 11/09/21 21:20 Urine WBC 10-20 /HPF (0-5) A 11/09/21 21:20 Ur Squamous Epith Cells Rare /HPF (NEGATIVE) 11/09/21 21:20 Urine Bacteria 1+ /HPF (NEGATIVE) 11/09/21 21:20 Ur Culture Indicated? Yes/culture set up 11/09/21 21:20 Stool Description 10g unformed brown 11/10/21 11:00 Stl Occult Blood (IFOB) Negative (NEGATIVE) 11/10/21 11:00 Vancomycin Trough 23.4 ug/mL (15-20) H* 11/11/21 09:20 Digoxin 0.38 ng/mL (0.9-2) L 11/13/21 05:31 SARS-CoV-2 (PCR) Negative (NEGATIVE) 11/09/21 11:36 Tissue Pathology To follow 11/12/21 12:32 Blood Type O POSITIVE 11/10/21 09:44 Antibody Screen Negative 11/10/21 09:44 Crossmatch See Detail 11/10/21 09:44 Plan (1) Acute respiratory failure with hypoxia: Status: Acute (2) Pneumonia: Status: Acute Qualifiers: Laterality: bilateral Lung location: unspecified part of lung Pneumoni a type: due to unspecified organism Qualified Code(s): J18.9 - Pneumonia, unspecified organism (3) Acute exacerbation of CHF (congestive heart failure): Status: Acute Qualifiers: Heart failure type: unspecified Qualified Code(s): I50.9 - Heart failure, unspecified (4) Sepsis: Status: Acute Qualifiers: Sepsis acute organ dysfunction status: unspecified Sepsis type: sepsis due to unspecified organism Qualified Code(s): A41.9 - Sepsis, unspecified organism (5) Decubitus ulcer, stage 4 with infection: Status: Acute (6) Urinary tract infection: Status: Acute Qualifiers: Hematuria presence: with hematuria Urinary tract infection type: acute cystitis Qualified Code(s): N30.01 - Acute cystitis with hematuria (7) Hypoalbuminemia: Status: Acute (8) Spina bifida: Status: Chronic Qualifiers: Presence of hydrocephalus: unspecified hydrocephalus presence Spinal region: unspecified Qualified Code(s): Q05.9 - Spina bifida, unspecified (9) DM II (diabetes mellitus, type II), controlled: Status: Chronic Qualifiers: Diabetes mellitus complication status: with hyperglycemia Diabetes mellitus longterm insulin use: with roasterman use Qualified Code(s): E11.65 - Type 2 diabetes mellitus with hyperglycemia; Z79.4 - jail (current) use of insulin
[2021-11-13] MEDS ORDERED: PHARMACY CONSULT - VANCOMYCIN XX SCH (19:00)
[2021-11-13] MEDS ORDERED: VANCOMYCIN IV *PREMIX 1 G/200 ML BAG 1 G/200 ML PIGGYBACK IV SCH (20:00)
[2021-11-13] MEDS: SNACK - Diabetic Appropriate PO SCH (20:20)
[2021-11-13] MEDS: DESYREL PO SCH (22:09)
[2021-11-13] MEDS: LIPITOR TAB 20 MG PO SCH (22:09)
[2021-11-13] MEDS: ZANAFLEX PO SCH (22:11)
[2021-11-14] MEDS: CLINIMIX 5 %/20 % 1,000 ML with MVI INJ (ADULT) 10 ML, TPN ELECTROLYTES 20 ML, TRACE EL... IV SCH ×12 (04:58→11:19)
[2021-11-14] MEDS: XOPENEX 1.25 MG/3 ML NEBULE NEB SCH ×3 (05:52→21:00)
[2021-11-14 05:59] LABS: BASOPHILS # (AUTO) 0.1 X10^3/uL (0.0-0.1); BASOPHILS % (AUTO) 0.8 % (0.2-1.0); EOSINOPHILS # (AUTO) 0.2 x10^3/uL (0.0-0.2); HEMOGLOBIN 8.3 g/dL (12.0-16.0); LYMPHOCYTES # (AUTO) 1.9 X10^3/uL (1.3-2.9); LYMPHOCYTES % (AUTO) 11.9 % (21.0-51.0); MEAN CORPUSCULAR HEMOGLOBIN 28.9 pg (27.0-34.0); MEAN CORPUSCULAR HGB CONC 33.4 g/dL (33.0-35.0); MEAN CORPUSCULAR VOLUME 86.5 fL (80.0-100.0); MEAN PLATELET VOLUME 8.4 fL (7.4-11.0); MONOCYTES # (AUTO) 1.5 x10^3/uL (0.3-0.8); MONOCYTES % (AUTO) 9.3 % (0.0-13.0); NEUTROPHILS # (AUTO) 12.5 x10^3/uL (2.2-4.8); RED BLOOD COUNT 2.89 X10^6/uL (3.5-5.4); RED CELL DISTRIBUTION WIDTH 18.9 % (11.6-16.5); WHITE BLOOD COUNT 16.2 X10^3/uL (3.6-10.0)
--- NOTE | 2021-11-14 06:02 | RAD ---
PROCEDURE: Chest X-ray 1 View .HISTORY: Dyspnea.TECHNIQUE: AP view .COMPARISON: 11/13/2021.TECHNICAL QUALITY: Satisfactory .FINDINGS:Unremarkable cardio mediastinal silhouette and normal central vascularity.Improved patchy pneumonia in the left lung field and unchanged on the right. Small effusions at the bases.IMPRESSION:Improved pneumonia on the left and unchanged on the right with small bibasilar effusions.Electronically signed by: John Harp (Nov 14, 2021 06:01:16)
[2021-11-14 06:11] LABS: ALANINE AMINOTRANSFERASE 33 Units/L (12-78); ALBUMIN 3.2 g/dL (3.4-5.0); ALKALINE PHOSPHATASE 75 Units/L (46-116); ASPARTATE AMINO TRANSFERASE 33 Units/L (15-37); BLOOD UREA NITROGEN 24 mg/dL (7-18); CALCIUM 9.7 mg/dL (8.5-10.1); CARBON DIOXIDE 26.1 mmol/L (21-32); CHLORIDE 109 mmol/L (98-107); COR CA(FOR HYPOALB) 10.3 mg/dL (8.5-10.1); COR NA(FOR HYPERGLY) 145 mmol/L (136-145); CREATININE 0.51 mg/dL (0.55-1.02); DIGOXIN 0.56 ng/mL (0.9-2); SODIUM 143 mmol/L (136-145); eGFR NON BLACK RACES > 60 (>60)
[2021-11-14] MEDS ORDERED: K-RIDER 10 MEQ/NS 100 ML 10 MEQ/100 ML BAG IV PRN (06:22)
[2021-11-14] MEDS: MERREM VIAL 1 G in NS 100 ML IV 100 ML IV SCH ×3 (06:25→21:48)
[2021-11-14] MEDS: MORPHINE SULFATE INJ 2 MG INJ IVP PRN ×2 (06:34→12:55)
[2021-11-14] MEDS: PULMICORT NEB TX 0.5 MG NEB SCH ×2 (08:27→21:00)
[2021-11-14] MEDS ORDERED: GLUCOPHAGE ONE ×2 (09:35→19:33)
[2021-11-14] MEDS: THERMOTABS PO SCH ×4 (09:38→21:46)
[2021-11-14] MEDS: ALBUMIN HUMAN 25%- 100 ML 100 ML IV SCH (09:39)
[2021-11-14] MEDS: ATIVAN TAB 0.5 MG PO SCH (09:40)
[2021-11-14] MEDS: DEPAKOTE D.R. TAB PO SCH ×2 (09:40→21:46)
[2021-11-14] MEDS: COLACE CAP 100 MG PO SCH ×2 (09:40→21:47)
[2021-11-14] MEDS: LANOXIN or DIGITEK PO SCH (09:41)
[2021-11-14] MEDS: FLONASE NASAL SPRAY ENOSTRIL SCH ×2 (09:41→21:50)
[2021-11-14] MEDS: GLUCOPHAGE PO SCH ×2 (09:41→21:47)
[2021-11-14] MEDS: PROVERA PO SCH (09:42)
[2021-11-14] MEDS: POTASSIUM CHLORIDE LIQ 20 MEQ UDC PO SCH (09:42)
[2021-11-14] MEDS: MEGACE PO SCH ×2 (09:42→21:49)
[2021-11-14] MEDS: TAB-A-VITE PO SCH (09:43)
[2021-11-14] MEDS: VITAMIN C PO SCH (09:43)
[2021-11-14] MEDS: RisperDAL TAB 1 MG PO SCH ×3 (09:43→21:48)
[2021-11-14] MEDS: ZOLOFT PO SCH (09:44)
[2021-11-14] MEDS: XALATAN OP SCH ×2 (09:44→21:49)
[2021-11-14] MEDS: VSL#3 PO SCH (09:44)
[2021-11-14] MEDS: ZINC SULFATE PO SCH (09:44)
[2021-11-14] MEDS: ZyrTEC TAB 10 MG PO SCH (09:45)
[2021-11-14] MEDS: LOVENOX INJ 30 MG SYR SC SCH (10:38)
[2021-11-14] MEDS: ZYVOX TAB 600 MG PO SCH ×2 (10:38→21:48)
--- NOTE | 2021-11-14 11:46 | PCM.PROG ---
Progress Note Progress Note for Day of Date of Exam: 11/14/21 Subjective Subjective: Patient seen at bedside, no acute events overnight. She has been on Bipap, currently on FiO2 40%. CXR does show some improvement of pneumonia in the left lung. Wound Cx is growing Enterococcus faecium, sensitive to Linezolid. Labs/imaging reviewed Plan: wean BiPaP as tolerated to keep sats > 92%, can transition to HHFNC as per RT. Continue IV meropenem, DC vancomycin and start Linezolid. Continue pain control and anxiety medications. Patient's BP and HR elevated when patient is a nxious. Wound care management per Dr Azar and nursing staff. Patient is s/p I&D for sacral and hip pressure ulcers. Monitor AM labs/imaging. Discussed treatment plan with family at bedside. Time spent for clinical assessment, physical exam, reviewing labs/imaging, decision making and documentation greater than 45 mins. Past Medical Family Social History Past Med/Fam/Surg Hx: No changes since H&P Allergies: Allergies quetiapine [From Seroquel] Allergy (Verified 08/13/21 14:56) aripiprazole [From Abilify] Adverse Reaction (Verified 08/13/21 14:56) bupropion [From Wellbutrin] Adverse Reaction (Verified 08/13/21 14:56) donepezil [From Aricept] Adverse Reaction (Verified 08/13/21 14:56) moxifloxacin [From Avelox] Adverse Reaction (Verified 08/13/21 14:56) olanzapine [From Zyprexa] Adverse Reaction (Verified 08/13/21 14:56) promethazine [From Phenergan] Adverse Reaction (Verified 08/13/21 14:56) venlafaxine [From Effexor] Adverse Reaction (Verified 08/13/21 14:56) Review of Systems ROS: No change since H&P Vital Signs and I&O's Vital Signs: Temperature 98.4 F Pulse Rate [Right Brachial] 129 Pulse Rate 129 Respiratory Rate 22 Blood Pressure [Right Arm] 189/100 Blood Pressure [Left Arm] 142/77 Blood Pressure 173/96 O2 Sat by Pulse Oximetry 100 Intake and Output: Intake & Output 11/11/21 11/12/21 11/13/21 11/14/21 23:59 23:59 23:59 23:59 Intake Total 2685 / 2685 4920 / 4920 2091 0 / 0 Output Total 1875 / 1875 2829 / 2829 3450 / 3450 225 / 225 Balance 810 / 810 2090 -1358 / -1358 -225 / -225 Physical Exam Oriented: Unable to test Eyes: Normal Ear: Normal Nose: Normal Throat: Normal Respiratory: Generalized and Diminished Cardiovascular: 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) Auscultation: Bowel Sounds: Normal Tenderness: Normal Skin: Wound (MULTIPLE DECUBITUS ULCERS TO BUTTOCKS) Psychiatric: Normal Mood Description: Anxious Affect: Anxious Speech Pattern: Unclear and Artificially Ventilated (on Bipap ) Laboratory and Diagnostics Result Diagrams: 11/14/21 05:30 11/14/21 05:30 Labs: 11/09/21 09:20 Blood Blood Culture - Final 11/09/21 09:10 Blood Blood Culture - Final 11/12/21 12:31 Sacral Wound Gram Stain - Final 11/12/21 12:31 Sacral Wound Culture - Final Enterococcus Faecium 11/12/21 12:30 Hip - Left Wound Gram Stain - Final 11/12/21 12:30 Hip - Left Wound Culture - Final Enterococcus Faecium 11/09/21 21:20 Urine,Catheterized Urine Culture - Final Escherichia Coli 11/09/21 09:38 Buttock Wound Gram Stain - Final 11/09/21 09:38 Buttock Wound Culture - Final Pseudomonas Aeruginosa 11/09/21 09:38 Sacral Wound Gram Stain - Final 11/09/21 09:38 Sacral Wound Culture - Final Escherichia Coli Laboratory WBC 16.2 X10^3/uL (3.6-10.0) H 11/14/21 05:30 RBC 2.89 X10^6/uL (3.5-5.4) L 11/14/21 05:30 Hgb 8.3 g/dL (12.0-16.0) L 11/14/21 05:30 Hct 25.0 % (36.0-47.0) L 11/14/21 05:30 MCV 86.5 fL (80.0-100.0) 11/14/21 05:30 MCH 28.9 pg (27.0-34.0) 11/14/21 05:30 MCHC 33.4 g/dL (33.0-35.0) 11/14/21 05:30 RDW 18.9 % (11.6-16.5) H 11/14/21 05:30 Plt Count 334 X10^3/uL (150.0-450.0) 11/14/21 05:30 Plt Count Comment Adequate (ADEQUATE) 11/09/21 09:20 MPV 8.4 fL (7.4-11.0) 11/14/21 05:30 Neut % (Auto) 77.0 % (42.0-75.0) H 11/14/21 05:30 Lymph % (Auto) 11.9 % (21.0-51.0) L 11/14/21 05:30 [place] % (Auto) 9.3 % (0.0-13.0) 11/14/21 05:30 Eos % (Auto) 1.0 % (0.9-2.9) 11/14/21 05:30 Baso % (Auto) 0.8 % (0.2-1.0) 11/14/21 05:30 Neut # (Auto) 12.5 x10^3/uL (2.2-4.8) H 11/14/21 05:30 Lymph # (Auto) 1.9 X10^3/uL (1.3-2.9) 11/14/21 05:30 [place] # (Auto) 1.5 x10^3/uL (0.3-0.8) H 11/14/21 05:30 Eos # (Auto) 0.2 x10^3/uL (0.0-0.2) 11/14/21 05:30 Baso # (Auto) 0.1 X10^3/uL (0.0-0.1) 11/14/21 05:30 Absolute Nucleated RBC 0.0 /100WBC 11/14/21 05:30 Plt Morphology Comment Normal (NORMAL) 11/09/21 09:20 RBC Morphology Abnormal (NORMAL) A 11/09/21 09:20 Hypochromasia Slight A 11/09/21 09:20 Anisocytosis 2+ A 11/09/21 09:20 Microcytosis Slight A 11/09/21 09:20 Target Cells Rare 11/09/21 09:20 Schistocytes Slight A 11/09/21 09:20 PT 17.4 SECONDS (11.8-14.3) 11/09/21 18:53 INR Target Range - 11/09/21 18:53 INR 1.48 (0.8-1.3) H 11/09/21 18:53 APTT 46.6 SECONDS (22.9-36.5) H 11/09/21 18:53 PTT Comment - 11/09/21 18:53 Sample Site Lrad 11/13/21 01:05 ABG pH 7.240 (7.35-7.45) L 11/13/21 01:05 ABG pCO2 56.0 mmHg (35.0-45.0) H* 11/13/21 01:05 ABG pO2 136.0 mmHg (80.0-100.0) H 11/13/21 01:05 ABG HCO3 24.0 mmol/L (22-26) 11/13/21 01:05 ABG O2 Saturation 99.0 % (90-100) 11/13/21 01:05 ABG Base Excess -4.0 mmol/L (-2.0-2.0) L 11/13/21 01:05 Satish Test Pos 11/13/21 01:05 A-a Gradient 507.0 mmHg 11/13/21 01:05 FiO2 100.0 11/13/21 01:05 Blood Gas Comments Jaye abg well-mtf 11/13/21 01:05 Sodium 143 mmol/L (136-145) 11/14/21 05:30 Corrected Sodium 145 mmol/L (136-145) 11/14/21 05:30 Potassium 3.5 mmol/L (3.5-5.1) 11/14/21 05:30 Chloride 109 mmol/L (98-107) H 11/14/21 05:30 Carbon Dioxide 26.1 mmol/L (21-32) 11/14/21 05:30 BUN 24 mg/dL (7-18) H 11/14/21 05:30 Creatinine 0.51 mg/dL (0.55-1.02) L 11/14/21 05:30 Est GFR (MDRD) Af Amer > 60 (>60) 11/14/21 05:30 Est GFR (MDRD) Non-Af > 60 (>60) 11/14/21 05:30 Glucose 187 mg/dL (65-99) H 11/14/21 05:30 POC Glucose (mg/dL) 142 mg/dL (65-99) H 11/14/21 05:39 Lactic Acid 2.6 mmol/L (0.4-2.0) H 11/10/21 04:50 Calcium 9.7 mg/dL (8.5-10.1) 11/14/21 05:30 Corrected Calcium 10.3 mg/dL (8.5-10.1) H 11/14/21 05:30 Phosphorus 3.0 mg/dL (2.6-4.7) 11/12/21 04:19 Magnesium 2.0 mg/dL (1.7-2.9) 11/14/21 05:30 Total Bilirubin 0.30 mg/dL (0.2-1.0) 11/14/21 05:30 AST 33 Units/L (15-37) 11/14/21 05:30 ALT 33 Units/L (12-78) 11/14/21 05:30 Alkaline Phosphatase 75 Units/L (46-116) 11/14/21 05:30 B-Natriuretic Peptide 2230 pg/mL (0-79) H* 11/13/21 05:31 Total Protein 7.0 g/dL (6.4-8.2) 11/14/21 05:30 Albumin 3.2 g/dL (3.4-5.0) L 11/14/21 05:30 Globulin 3.8 g/dL (2.5-4.5) 11/14/21 05:30 Albumin/Globulin Ratio 0.8 Ratio (1.1-2.1) L 11/14/21 05:30 Prealbumin 15.0 mg/dL (18-35.7) L 11/12/21 04:19 Triglycerides 58 mg/dL (0-150) 11/12/21 04:19 Amylase 14 Units/L (25-115) L 11/09/21 18:53 Lipase 37 Units/L (73-393) L 11/09/21 18:53 Cortisol 12.9 ug/dL 11/09/21 18:53 Specimen Type Catherized urine 11/09/21 21:20 Urine Color Yellow (YELLOW) 11/09/21 21:20 Urine Appearance Clear (CLEAR) 11/09/21 21:20 Urine pH 5.0 (5.0 - 8.0) 11/09/21 21:20 Ur Specific [place] 1.010 (1.000-1.030) 11/09/21 21:20 Urine Protein 2+ (NEGATIVE) 11/09/21 21:20 Urine Glucose (UA) 2+ (NEGATIVE) 11/09/21 21:20 Urine Ketones 1+ (NEGATIVE) 11/09/21 21:20 Urine Blood 2+ (NEGATIVE) 11/09/21 21:20 Urine Nitrite Negative (NEGATIVE) 11/09/21 21:20 Urine Bilirubin Negative (NEGATIVE) 11/09/21 21:20 Urine Urobilinogen Normal (NORMAL) 11/09/21 21:20 Ur Leukocyte Esterase 2+ (NEGATIVE) 11/09/21 21:20 Urine RBC 3-5 /HPF (0-3) A 11/09/21 21:20 Urine WBC 10-20 /HPF (0-5) A 11/09/21 21:20 Ur Squamous Epith Cells Rare /HPF (NEGATIVE) 11/09/21 21:20 Urine Bacteria 1+ /HPF (NEGATIVE) 11/09/21 21:20 Ur Culture Indicated? Yes/culture set up 11/09/21 21:20 Stool Description 10g unformed brown 11/10/21 11:00 Stl Occult Blood (IFOB) Negative (NEGATIVE) 11/10/21 11:00 Vancomycin Trough 23.4 ug/mL (15-20) H* 11/11/21 09:20 Digoxin 0.56 ng/mL (0.9-2) L 11/14/21 05:30 SARS-CoV-2 (PCR) Negative (NEGATIVE) 11/09/21 11:36 Tissue Pathology To follow 11/12/21 12:32 Blood Type O POSITIVE 11/10/21 09:44 Antibody Screen Negative 11/10/21 09:44 Crossmatch See Detail 11/10/21 09:44 Plan (1) Acute respiratory failure with hypoxia: Status: Acute (2) Pneumonia: Status: Acute Qualifiers: Laterality: bilateral Lung location: unspecified part of lung Pneumonia type: due to unspecified organism Qualified Code(s): J18.9 - Pneumonia, unspecified organism (3) Acute exacerbation of CHF (congestive heart failure): Status: Acute Qualifiers: Heart failure type: unspecified Qualified Code(s): I50.9 - Heart failure, unspecified (4) Sepsis: Status: Acute Qualifiers: Sepsis acute organ dysfunction status: unspecified Sepsis type: sepsis due to unspecified organism Qualified Code(s): A41.9 - Sepsis, unspecified organism (5) Decubitus ulcer, stage 4 with infection: Status: Acute (6) Urinary tract infection: Status: Acute Qualifiers: Hematuria presence: with hematuria Urinary tract infection type: acute cystitis Qualified Code(s): N30.01 - Acute cystitis with hematuria (7) Hypoalbuminemia: Status: Acute (8) Spina bifida: Status: Chronic Qualifiers: Presence of hydrocephalus: unspecified hydrocephalus presence Spinal region: unspecified Qualified Code(s): Q05.9 - Spina bifida, unspecified (9) DM II (diabetes mellitus, type II), controlled: Status: Chronic Qualifiers: Diabetes mellitus complication status: with hyperglycemia Diabetes mellitus buttermaker continuous churn insulin use: with buttermaker continuous churn use Qualified Code(s): E11.65 - Type 2 diabetes mellitus with hyperglycemia; 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
[2021-11-14] MEDS ORDERED: NORMODYNE INJ 100 MG VIAL IVP ONE (13:14)
[2021-11-14] MEDS ORDERED: XANAX PO PRN (14:00)
[2021-11-14] MEDS ORDERED: LOPRESSOR TAB 25 MG PO ONE (15:14)
[2021-11-14] MEDS ORDERED: LOPRESSOR TAB 25 MG ONE (19:32)
[2021-11-14] MEDS ORDERED: XANAX ONE (19:32)
[2021-11-14] MEDS: SNACK - Diabetic Appropriate PO SCH (20:45)
[2021-11-14] MEDS: XANAX PO SCH (21:46)
[2021-11-14] MEDS: ZANAFLEX PO SCH (21:46)
[2021-11-14] MEDS: DESYREL PO SCH (21:47)
[2021-11-14] MEDS: LOPRESSOR TAB 25 MG PO SCH (21:49)
[2021-11-14] MEDS: LIPITOR TAB 20 MG PO SCH (21:50)
[2021-11-14] MEDS ORDERED: NS 250 ML IV 250 ML IV ONE (22:15)
[2021-11-15] MEDS: MORPHINE SULFATE INJ 2 MG INJ IVP PRN ×3 (02:35→20:21)
[2021-11-15] MEDS: CLINIMIX 5 %/20 % 1,000 ML with MVI INJ (ADULT) 10 ML, TPN ELECTROLYTES 20 ML, TRACE EL... IV SCH ×12 (04:07→11:00)
[2021-11-15] MEDS: NS 250 ML IV 250 ML IV PRN (05:06)
[2021-11-15] MEDS: MERREM VIAL 1 G in NS 100 ML IV 100 ML IV SCH ×3 (05:07→21:23)
[2021-11-15] MEDS: XANAX PO SCH ×3 (05:08→21:24)
[2021-11-15] MEDS: XOPENEX 1.25 MG/3 ML NEBULE NEB SCH ×3 (05:39→20:10)
[2021-11-15 06:20] LABS: BASOPHILS % (AUTO) 0.4 % (0.2-1.0); EOSINOPHILS # (AUTO) 0.1 x10^3/uL (0.0-0.2); EOSINOPHILS % (AUTO) 0.8 % (0.9-2.9); HEMOGLOBIN 7.6 g/dL (12.0-16.0); LYMPHOCYTES # (AUTO) 1.3 X10^3/uL (1.3-2.9); LYMPHOCYTES % (AUTO) 12.4 % (21.0-51.0); MEAN CORPUSCULAR HEMOGLOBIN 28.9 pg (27.0-34.0); MEAN CORPUSCULAR HGB CONC 33.2 g/dL (33.0-35.0); MEAN CORPUSCULAR VOLUME 87.1 fL (80.0-100.0); MEAN PLATELET VOLUME 8.5 fL (7.4-11.0); MONOCYTES # (AUTO) 1.1 x10^3/uL (0.3-0.8); MONOCYTES % (AUTO) 10.4 % (0.0-13.0); NEUTROPHILS # (AUTO) 8.1 x10^3/uL (2.2-4.8); RED BLOOD COUNT 2.64 X10^6/uL (3.5-5.4); WHITE BLOOD COUNT 10.7 X10^3/uL (3.6-10.0)
[2021-11-15 06:33] LABS: ALANINE AMINOTRANSFERASE 59 Units/L (12-78); ALBUMIN 3.1 g/dL (3.4-5.0); ALKALINE PHOSPHATASE 75 Units/L (46-116); ASPARTATE AMINO TRANSFERASE 39 Units/L (15-37); BLOOD UREA NITROGEN 26 mg/dL (7-18); CALCIUM 9.8 mg/dL (8.5-10.1); CARBON DIOXIDE 26.4 mmol/L (21-32); CHLORIDE 111 mmol/L (98-107); COR CA(FOR HYPOALB) 10.5 mg/dL (8.5-10.1); COR NA(FOR HYPERGLY) 146 mmol/L (136-145); CREATININE 0.54 mg/dL (0.55-1.02); DIGOXIN 0.78 ng/mL (0.9-2); MAGNESIUM 2.2 mg/dL (1.7-2.9); PHOSPHORUS 1.6 mg/dL (2.6-4.7); SODIUM 144 mmol/L (136-145); TOTAL PROTEIN 6.7 g/dL (6.4-8.2); TRIGLYCERIDES 33 mg/dL (0-150); eGFR NON BLACK RACES > 60 (>60)
--- NOTE | 2021-11-15 06:34 | RAD ---
HISTORYShortness of breath, sepsisSTUDYChest AP [id number] heart is enlarged. Diffuse bilateral interstitial and alveolar infiltrates are present not significantly changed from the prior examination. This could be related to congestive heart failure or bilateral pneumonia. Clinical correlation is recommended. Left pleural effusion is present likely increased when compared to the prior examination. No definite visible right pleural effusion. Bony thorax is unremarkable.IMPRESSIONCardiomegaly with bilateral interstitial and alveolar infiltrates which could be on the basis of edema or pneumonia and appears unchangedIncreasing left pleural effusionElectronically signed by: JOAN MARTINO (Nov 15, 2021 06:33:02)
[2021-11-15] MEDS ORDERED: CLINIMIX 5 %/20 % 1,000 ML with MVI INJ (ADULT) 10 ML, TPN ELECTROLYTES 20 ML, TRACE EL... IV SCH ×6 (08:00)
[2021-11-15] MEDS: PULMICORT NEB TX 0.5 MG NEB SCH ×2 (08:20→20:10)
[2021-11-15] MEDS ORDERED: GLUCOPHAGE ONE ×2 (08:26→19:22)
[2021-11-15] MEDS: VITAMIN C PO SCH (11:00)
[2021-11-15] MEDS: COLACE CAP 100 MG PO SCH ×2 (11:00→21:24)
[2021-11-15] MEDS: LANOXIN or DIGITEK PO SCH (11:00)
[2021-11-15] MEDS: FLONASE NASAL SPRAY ENOSTRIL SCH ×2 (11:00→21:29)
[2021-11-15] MEDS: ZYVOX TAB 600 MG PO SCH ×2 (11:00→21:25)
[2021-11-15] MEDS: TAB-A-VITE PO SCH (11:00)
[2021-11-15] MEDS: XALATAN OP SCH ×2 (11:00→21:25)
[2021-11-15] MEDS: ALBUMIN HUMAN 25%- 100 ML 100 ML IV SCH (11:00)
[2021-11-15] MEDS: VSL#3 PO SCH (11:00)
[2021-11-15] MEDS: ZOLOFT PO SCH (11:00)
[2021-11-15] MEDS: ZINC SULFATE PO SCH (11:00)
[2021-11-15] MEDS: THERMOTABS PO SCH ×4 (11:00→21:28)
[2021-11-15] MEDS: PROVERA PO SCH (11:00)
[2021-11-15] MEDS: RisperDAL TAB 1 MG PO SCH ×3 (11:00→21:29)
[2021-11-15] MEDS: LOPRESSOR TAB 25 MG PO SCH ×2 (11:00→21:28)
[2021-11-15] MEDS: POTASSIUM CHLORIDE LIQ 20 MEQ UDC PO SCH (11:00)
[2021-11-15] MEDS: LOVENOX INJ 30 MG SYR SC SCH (11:00)
[2021-11-15] MEDS: MEGACE PO SCH ×2 (11:00→21:29)
[2021-11-15] MEDS: GLUCOPHAGE PO SCH ×2 (11:00→21:24)
[2021-11-15] MEDS: ZyrTEC TAB 10 MG PO SCH (11:00)
[2021-11-15] MEDS: DEPAKOTE D.R. TAB PO SCH ×2 (11:00→21:24)
[2021-11-15] MEDS: LASIX IVP SCH ×2 (12:10→20:21)
--- NOTE | 2021-11-15 17:56 | PCM.PROG ---
Progress Note - Progress Note for Day of Date of Exam: 11/15/21 - Subjective Subjective: WAS ADMITTED FOR TREAMENT OF SEPSIS, MULTIPLE INFECTED DECUBITUS ULCERS, ANEMIA, AND A URINARY TRACT INFECTION. SHE IS STATUS POST DEBRIDEMENT OF WOUNDS. TODAY, SHE IS ALERT AND ORIENTED, LYING IN BED ON MORNING ROUNDS. SHE IS CURRENTLY UTILIZING THE BIPAP AT 40% FI02. SHE COMPLAINS OF GENERALIZED WEAKNESS, PAIN TO BUTTOCKS, AND SHORTNESS OF BREATH THIS MORNING. ON EXAMINATION TODAY, SHE IS TACHYCARDIC WITH HR 100-115. SINUS TACHYCARDIA NOTED ON TELEMETRY. BILATERAL LUNGS ARE NOTED WITH DIMINISHED LUNG SOUNDS THROUGHOUT. ABDOMEN IS ROUND, SOFT, AND NON-TENDER WITH NORMAL BOWEL SOUNDS NOTED IN ALL QUADRANTS. EPPERSON CATHETER NOTED TO BEDSIDE DRAINAGE. DRESSING NOTED TO WOUNDS ON SACRUM. DRESSINGS ARE DRY AND INTACT. NO UPPER OR LOWER EXTREMITY NOTED. A CENTRAL LINE IS NOTED TO FEMORAL ARTERY. HER VITALS THIS MORNING ARE: 97.6-112-20-97%-134/68. LABS WERE OBTAINED. WBC 10.7, RBC 2.64, HGB 7.6, HCT 23.0, PLT COUNT 318, SODIUM 144, POTASSIUM 3.9, CHLORIDE 111, BUN 26, CREATININE 0.54, GLUCOSE 186, PHOSPHORUS 1.6, AST 39, ALT 59, ALK PHOS 75, BNP 1190, TOTAL PROTEIN 6.7, ALBUMIN 3.1, DIGOXIN 0.78. WOUND CULTURES REVEAL GROWTH OF E.COLI, PSEUDOMONAS AERUGINOSA, AND ENTEROCOCCUS FAECIUM. URINE CULTURES REVEAL GROWTH OF E.COLI. A CHEST XRAY WAS OBTAINED THIS MORNING AND REVEALED: Cardiomegaly with bilateral interstitial and alveolar infiltrates which could be on the basis of edema or pneumonia and appears unchanged. Increasing left pleural effusion. SHE IS CURRENTLY RECEIVING TPN AT 50ML/HR, ALBUMIN 25% IV DAILY, MEROPENEM 1G IV Q8H, ZYVOXX 600MG PO Q12H, XANAX 0.5MG PO TID, LOVENOX 30MG SC DAILY, XOPENEX TID, LOPRESSOR 25MG PO BID, DIGOXIN 0.125MG PO DAILY, THE MAGNESIUM PROTOCOL, AND HER HOME MEDICATIONS WERE RESUMED. WE WILL ADMINISTER FUROSEMIDE 20MG IV BID X 2 DOSES. OTHERWISE, WE WILL CONTINUE WITH CURRENT PLAN OF CARE TODAY. WE PLAN TO FOLLOW-UP WITH AM LABS AND CHEST XRAY AND CONTINUE TO MONITOR. TIME SPENT ON CLINICAL ASSESSMENT, REVIEWING LABS AND IMAGING, DECISION MAKING, AND DOCUMENTATION GREATER THAN 45 MINUTES. - Past Medical Family Social History Past Med/Fam/Surg Hx: No changes since H&P Allergies: Allergies quetiapine [From Seroquel] Allergy (Verified 08/13/21 14:56) aripiprazole [From Abilify] Adverse Reaction (Verified 08/13/21 14:56) bupropion [From Wellbutrin] Adverse Reaction (Verified 08/13/21 14:56) donepezil [From Aricept] Adverse Reaction (Verified 08/13/21 14:56) moxifloxacin [From Avelox] Adverse Reaction (Verified 08/13/21 14:56) olanzapine [From Zyprexa] Adverse Reaction (Verified 08/13/21 14:56) promethazine [From Phenergan] Adverse Reaction (Verified 08/13/21 14:56) venlafaxine [From Effexor] Adverse Reaction (Verified 08/13/21 14:56) - Review of Systems ROS: No change since H&P - Vital Signs and I&O's Vital Signs: Temperature 98.7 F Pulse Rate [Right Brachial] 127 Pulse Rate 120 Respiratory Rate 37 Blood Pressure [Right Arm] 189/100 Blood Pressure [Left Arm] 159/75 Blood Pressure 173/96 O2 Sat by Pulse Oximetry 97 Intake and Output: Intake & Output 11/13/21 11/14/21 11/15/21 11/16/21 11:59 11:59 11:59 11:59 Intake Total 4655 / 4655 1162 / 1162 1872 / 1872 Output Total 3879 / 3879 1775 / 1775 925 / 925 Balance 776 / 776 -613 / -613 947 / 947 - Physical Exam Oriented: Normal Eyes: Normal Ear: Normal Nose: Normal Throat: Normal Respiratory: Generalized, Diminished Cardiovascular: 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) Auscultation: Bowel Sounds: Normal Palpation: Normal Tenderness: Normal Skin: Wound (MULTIPLE DECUBITUS ULCERS TO BUTTOCKS) Musculoskeletal: Normal Psychiatric: Normal Mood Description: Anxious Affect: Anxious Speech Pattern: Appropriate, Unclear - Laboratory and Diagnostics Result Diagrams: 11/15/21 05:36 11/15/21 05:36 Labs: 11/09/21 09:20 Blood Blood Culture - Final 11/09/21 09:10 Blood Blood Culture - Final 11/12/21 12:31 Sacral Wound Gram Stain - Final 11/12/21 12:31 Sacral Wound Culture - Final Enterococcus Faecium 11/12/21 12:30 Hip - Left Wound Gram Stain - Final 11/12/21 12:30 Hip - Left Wound Culture - Final Enterococcus Faecium 11/09/21 21:20 Urine,Catheterized Urine Culture - Final Escherichia Coli 11/09/21 09:38 Buttock Wound Gram Stain - Final 11/09/21 09:38 Buttock Wound Culture - Final Pseudomonas Aeruginosa 11/09/21 09:38 Sacral Wound Gram Stain - Final 11/09/21 09:38 Sacral Wound Culture - Final Escherichia Coli Laboratory WBC 10.7 X10^3/uL (3.6-10.0) H 11/15/21 05:36 RBC 2.64 X10^6/uL (3.5-5.4) L 11/15/21 05:36 Hgb 7.6 g/dL (12.0-16.0) L 11/15/21 05:36 Hct 23.0 % (36.0-47.0) L 11/15/21 05:36 MCV 87.1 fL (80.0-100.0) 11/15/21 05:36 MCH 28.9 pg (27.0-34.0) 11/15/21 05:36 MCHC 33.2 g/dL (33.0-35.0) 11/15/21 05:36 RDW 19.0 % (11.6-16.5) H 11/15/21 05:36 Plt Count 318 X10^3/uL (150.0-450.0) 11/15/21 05:36 Plt Count Comment Adequate (ADEQUATE) 11/09/21 09:20 MPV 8.5 fL (7.4-11.0) 11/15/21 05:36 Neut % (Auto) 76.0 % (42.0-75.0) H 11/15/21 05:36 Lymph % (Auto) 12.4 % (21.0-51.0) L 11/15/21 05:36 [place] % (Auto) 10.4 % (0.0-13.0) 11/15/21 05:36 Eos % (Auto) 0.8 % (0.9-2.9) L 11/15/21 05:36 Baso % (Auto) 0.4 % (0.2-1.0) 11/15/21 05:36 Neut # (Auto) 8.1 x10^3/uL (2.2-4.8) H 11/15/21 05:36 Lymph # (Auto) 1.3 X10^3/uL (1.3-2.9) 11/15/21 05:36 [place] # (Auto) 1.1 x10^3/uL (0.3-0.8) H 11/15/21 05:36 Eos # (Auto) 0.1 x10^3/uL (0.0-0.2) 11/15/21 05:36 Baso # (Auto) 0.0 X10^3/uL (0.0-0.1) 11/15/21 05:36 Absolute Nucleated RBC 0.0 /100WBC 11/15/21 05:36 Plt Morphology Comment Normal (NORMAL) 11/09/21 09:20 RBC Morphology Abnormal (NORMAL) A 11/09/21 09:20 Hypochromasia Slight A 11/09/21 09:20 Anisocytosis 2+ A 11/09/21 09:20 Microcytosis Slight A 11/09/21 09:20 Target Cells Rare 11/09/21 09:20 Schistocytes Slight A 11/09/21 09:20 PT 17.4 SECONDS (11.8-14.3) 11/09/21 18:53 INR Target Range - 11/09/21 18:53 INR 1.48 (0.8-1.3) H 11/09/21 18:53 APTT 46.6 SECONDS (22.9-36.5) H 11/09/21 18:53 PTT Comment - 11/09/21 18:53 Sample Site Lrad 11/13/21 01:05 ABG pH 7.240 (7.35-7.45) L 11/13/21 01:05 ABG pCO2 56.0 mmHg (35.0-45.0) H* 11/13/21 01:05 ABG pO2 136.0 mmHg (80.0-100.0) H 11/13/21 01:05 ABG HCO3 24.0 mmol/L (22-26) 11/13/21 01:05 ABG O2 Saturation 99.0 % (90-100) 11/13/21 01:05 ABG Base Excess -4.0 mmol/L (-2.0-2.0) L 11/13/21 01:05 Satish Test Pos 11/13/21 01:05 A-a Gradient 507.0 mmHg 11/13/21 01:05 FiO2 100.0 11/13/21 01:05 Blood Gas Comments Jaye abg well-mtf 11/13/21 01:05 Sodium 144 mmol/L (136-145) 11/15/21 05:36 Corrected Sodium 146 mmol/L (136-145) H 11/15/21 05:36 Potassium 3.9 mmol/L (3.5-5.1) 11/15/21 05:36 Chloride 111 mmol/L (98-107) H 11/15/21 05:36 Carbon Dioxide 26.4 mmol/L (21-32) 11/15/21 05:36 BUN 26 mg/dL (7-18) H 11/15/21 05:36 Creatinine 0.54 mg/dL (0.55-1.02) L 11/15/21 05:36 Est GFR (MDRD) Af Amer > 60 (>60) 11/15/21 05:36 Est GFR (MDRD) Non-Af > 60 (>60) 11/15/21 05:36 Glucose 186 mg/dL (65-99) H 11/15/21 05:36 POC Glucose (mg/dL) 213 mg/dL (65-99) H 11/15/21 16:41 Lactic Acid 2.6 mmol/L (0.4-2.0) H 11/10/21 04:50 Calcium 9.8 mg/dL (8.5-10.1) 11/15/21 05:36 Corrected Calcium 10.5 mg/dL (8.5-10.1) H 11/15/21 05:36 Phosphorus 1.6 mg/dL (2.6-4.7) L 11/15/21 05:36 Magnesium 2.2 mg/dL (1.7-2.9) 11/15/21 05:36 Total Bilirubin 0.20 mg/dL (0.2-1.0) 11/15/21 05:36 AST 39 Units/L (15-37) H 11/15/21 05:36 ALT 59 Units/L (12-78) 11/15/21 05:36 Alkaline Phosphatase 75 Units/L (46-116) 11/15/21 05:36 B-Natriuretic Peptide 1190 pg/mL (0-79) H* 11/15/21 05:36 Total Protein 6.7 g/dL (6.4-8.2) 11/15/21 05:36 Albumin 3.1 g/dL (3.4-5.0) L 11/15/21 05:36 Globulin 3.6 g/dL (2.5-4.5) 11/15/21 05:36 Albumin/Globulin Ratio 0.9 Ratio (1.1-2.1) L 11/15/21 05:36 Prealbumin 15.0 mg/dL (18-35.7) L 11/12/21 04:19 Triglycerides 33 mg/dL (0-150) 11/15/21 05:36 Amylase 14 Units/L (25-115) L 11/09/21 18:53 Lipase 37 Units/L (73-393) L 11/09/21 18:53 Cortisol 12.9 ug/dL 11/09/21 18:53 Specimen Type Catherized urine 11/09/21 21:20 Urine Color Yellow (YELLOW) 11/09/21 21:20 Urine Appearance Clear (CLEAR) 11/09/21 21:20 Urine pH 5.0 (5.0 - 8.0) 11/09/21 21:20 Ur Specific [place] 1.010 (1.000-1.030) 11/09/21 21:20 Urine Protein 2+ (NEGATIVE) 11/09/21 21:20 Urine Glucose (UA) 2+ (NEGATIVE) 11/09/21 21:20 Urine Ketones 1+ (NEGATIVE) 11/09/21 21:20 Urine Blood 2+ (NEGATIVE) 11/09/21 21:20 Urine Nitrite Negative (NEGATIVE) 11/09/21 21:20 Urine Bilirubin Negative (NEGATIVE) 11/09/21 21:20 Urine Urobilinogen Normal (NORMAL) 11/09/21 21:20 Ur Leukocyte Esterase 2+ (NEGATIVE) 11/09/21 21:20 Urine RBC 3-5 /HPF (0-3) A 11/09/21 21:20 Urine WBC 10-20 /HPF (0-5) A 11/09/21 21:20 Ur Squamous Epith Cells Rare /HPF (NEGATIVE) 11/09/21 21:20 Urine Bacteria 1+ /HPF (NEGATIVE) 11/09/21 21:20 Ur Culture Indicated? Yes/culture set up 11/09/21 21:20 Stool Description 10g unformed brown 11/10/21 11:00 Stl Occult Blood (IFOB) Negative (NEGATIVE) 11/10/21 11:00 Vancomycin Trough 23.4 ug/mL (15-20) H* 11/11/21 09:20 Digoxin 0.78 ng/mL (0.9-2) L 11/15/21 05:36 SARS-CoV-2 (PCR) Negative (NEGATIVE) 11/09/21 11:36 Tissue Pathology To follow 11/12/21 12:32 Blood Type O POSITIVE 11/10/21 09:44 Antibody Screen Negative 11/10/21 09:44 Crossmatch See Detail 11/10/21 09:44 - Plan (1) Sepsis Status: Acute Qualifiers: Sepsis type: Pseudomonas Sepsis acute organ dysfunction status: unspecified Qualified Code(s): A41.52 - Sepsis due to Pseudomonas Plan: TPN AT 50ML/HR, ALBUMIN 25% IV DAILY, MEROPENEM 1G IV Q8H, ZYVOXX 600MG PO Q12H, XANAX 0.5MG PO TID, LOVENOX 30MG SC DAILY, XOPENEX TID, LOPRESSOR 25MG PO BID, DIGOXIN 0.125MG PO DAILY, THE MAGNESIUM PROTOCOL, AND HER HOME MEDICATIONS WERE RESUMED. LASIX 20MG IV BID X 2 DOSES (2) Decubitus ulcer, stage 4 with infection Status: Acute (3) Urinary tract infection Status: Acute Qualifiers: Urinary tract infection type: acute cystitis Hematuria presence: with hematuria Qualified Code(s): N30.01 - Acute cystitis with hematuria (4) Hypoalbuminemia Status: Acute (5) CHF (congestive heart failure) Status: Chronic Qualifiers: Heart failure type: unspecified Heart failure chronicity: acute on chronic Qualified Code(s): I50.9 - Heart failure, unspecified (6) Spina bifida Status: Chronic Qualifiers: Spinal region: unspecified Presence of hydrocephalus: unspecified hydrocephalus presence Qualified Code(s): Q05.9 - Spina bifida, unspecified (7) DM II (diabetes mellitus, type II), controlled Status: Chronic Qualifiers: Diabetes mellitus termite helper insulin use: with senior care use Diabetes mellitus complication status: with hyperglycemia Qualified Code(s): E11.65 - Type 2 diabetes mellitus with hyperglycemia; Z79.4 - penitentiary (current) use of insulin
[2021-11-15] MEDS: SNACK - Diabetic Appropriate PO SCH (21:00)
[2021-11-15] MEDS: DESYREL PO SCH (21:24)
[2021-11-15] MEDS: LIPITOR TAB 20 MG PO SCH (21:24)
[2021-11-15] MEDS: ZANAFLEX PO SCH (21:25)
[2021-11-16] MEDS: MORPHINE SULFATE INJ 2 MG INJ IVP PRN ×3 (04:17→20:32)
[2021-11-16] MEDS: XOPENEX 1.25 MG/3 ML NEBULE NEB SCH ×3 (05:00→21:35)
[2021-11-16 05:21] LABS: BASOPHILS # (AUTO) 0.1 X10^3/uL (0.0-0.1); BASOPHILS % (AUTO) 0.6 % (0.2-1.0); EOSINOPHILS # (AUTO) 0.1 x10^3/uL (0.0-0.2); EOSINOPHILS % (AUTO) 1.5 % (0.9-2.9); HEMATOCRIT 22.1 % (36.0-47.0); HEMOGLOBIN 7.5 g/dL (12.0-16.0); LYMPHOCYTES # (AUTO) 1.7 X10^3/uL (1.3-2.9); LYMPHOCYTES % (AUTO) 18.9 % (21.0-51.0); MEAN CORPUSCULAR HEMOGLOBIN 29.1 pg (27.0-34.0); MEAN CORPUSCULAR HGB CONC 33.7 g/dL (33.0-35.0); MEAN CORPUSCULAR VOLUME 86.2 fL (80.0-100.0); MEAN PLATELET VOLUME 8.2 fL (7.4-11.0); MONOCYTES # (AUTO) 1.1 x10^3/uL (0.3-0.8); MONOCYTES % (AUTO) 12.4 % (0.0-13.0); NEUTROPHILS % (AUTO) 66.6 % (42.0-75.0); RED BLOOD COUNT 2.57 X10^6/uL (3.5-5.4); RED CELL DISTRIBUTION WIDTH 19.1 % (11.6-16.5)
[2021-11-16] MEDS: MERREM VIAL 1 G in NS 100 ML IV 100 ML IV SCH ×3 (05:35→22:47)
[2021-11-16] MEDS: XANAX PO SCH ×3 (05:36→22:47)
[2021-11-16 05:39] LABS: ALANINE AMINOTRANSFERASE 69 Units/L (12-78); ALBUMIN 3.2 g/dL (3.4-5.0); ALKALINE PHOSPHATASE 77 Units/L (46-116); ASPARTATE AMINO TRANSFERASE 41 Units/L (15-37); BLOOD UREA NITROGEN 25 mg/dL (7-18); CALCIUM 9.7 mg/dL (8.5-10.1); CARBON DIOXIDE 30.1 mmol/L (21-32); CHLORIDE 110 mmol/L (98-107); COR CA(FOR HYPOALB) 10.3 mg/dL (8.5-10.1); COR NA(FOR HYPERGLY) 145 mmol/L (136-145); CREATININE 0.54 mg/dL (0.55-1.02); DIGOXIN 0.97 ng/mL (0.9-2); SODIUM 144 mmol/L (136-145); TOTAL PROTEIN 6.8 g/dL (6.4-8.2); eGFR NON BLACK RACES > 60 (>60)
--- NOTE | 2021-11-16 05:55 | RAD ---
PROCEDURE: Chest X-ray 1 View .HISTORY: Dyspnea and sepsis.TECHNIQUE: AP portable done at 5:26 a.m..COMPARISON: 11/15/2021.TECHNICAL QUALITY: Satisfactory .FINDINGS:Normal size heart .Mediastinum and hilar regions show no masses or lymphadenopathy .Normal central vascularity .Continued patchy consolidation throughout both lung davila consistent with pneumonia similar to previous study. No pleural fluid or pneumothorax.No acute bony abnormality .IMPRESSION:Unchanged bilateral pneumonia.Electronically signed by: John Harp (Nov 16, 2021 05:53:16)
[2021-11-16] MEDS: CLINIMIX 5 %/20 % 1,000 ML with MVI INJ (ADULT) 10 ML, TPN ELECTROLYTES 20 ML, TRACE EL... IV SCH ×6 (06:30)
[2021-11-16] MEDS ORDERED: GLUCOPHAGE ONE ×2 (08:56→19:11)
[2021-11-16] MEDS: PULMICORT NEB TX 0.5 MG NEB SCH ×2 (09:00→21:35)
[2021-11-16] MEDS: ALBUMIN HUMAN 25%- 100 ML 100 ML IV SCH (09:14)
[2021-11-16] MEDS: GLUCOPHAGE PO SCH ×2 (09:14→20:28)
[2021-11-16] MEDS: DEPAKOTE D.R. TAB PO SCH ×2 (09:15→20:27)
[2021-11-16] MEDS: LANOXIN or DIGITEK PO SCH (09:16)
[2021-11-16] MEDS: FLONASE NASAL SPRAY ENOSTRIL SCH ×2 (09:16→20:31)
[2021-11-16] MEDS: LOPRESSOR TAB 25 MG PO SCH ×2 (09:17→20:31)
[2021-11-16] MEDS: LASIX IVP SCH ×2 (09:17→16:17)
[2021-11-16] MEDS: LOVENOX INJ 30 MG SYR SC SCH (09:17)
[2021-11-16] MEDS: COLACE CAP 100 MG PO SCH ×2 (09:17→20:26)
[2021-11-16] MEDS: MEGACE PO SCH ×2 (09:18→20:31)
[2021-11-16] MEDS: POTASSIUM CHLORIDE LIQ 20 MEQ UDC PO SCH (09:18)
[2021-11-16] MEDS: TAB-A-VITE PO SCH (09:19)
[2021-11-16] MEDS: PROVERA PO SCH (09:19)
[2021-11-16] MEDS: VSL#3 PO SCH (09:20)
[2021-11-16] MEDS: VITAMIN C PO SCH (09:20)
[2021-11-16] MEDS: XALATAN OP SCH ×2 (09:20→20:29)
[2021-11-16] MEDS: ZyrTEC TAB 10 MG PO SCH (09:21)
[2021-11-16] MEDS: ZOLOFT PO SCH (09:21)
[2021-11-16] MEDS: ZINC SULFATE PO SCH (09:21)
[2021-11-16] MEDS: ZYVOX TAB 600 MG PO SCH ×2 (09:22→20:29)
[2021-11-16] MEDS: THERMOTABS PO SCH ×4 (09:23→20:30)
[2021-11-16] MEDS: RisperDAL TAB 1 MG PO SCH ×3 (09:23→20:27)
[2021-11-16 15:13] LABS: HEMATOCRIT 21.9 % (36.0-47.0); HEMOGLOBIN 7.3 g/dL (12.0-16.0)
[2021-11-16] MEDS ORDERED: PHARMACY COMMENT IV NR (19:00)
[2021-11-16] MEDS: SNACK - Diabetic Appropriate PO SCH (20:25)
[2021-11-16] MEDS: ZANAFLEX PO SCH (20:26)
[2021-11-16] MEDS: DESYREL PO SCH (20:28)
[2021-11-16] MEDS: LIPITOR TAB 20 MG PO SCH (20:29)
--- NOTE | 2021-11-16 21:47 | RAD ---
HISTORYabdominal distention Relevant Clinical [id number]/12/2021. FINDINGSThere is a catheter in the right groin extending up into the area of the IVC. There is gas in the stomach and small and large bowel in a nonspecific, nonobstructive pattern. No free air is detected. There are no urinary tract calcifications. There is no worrisome bone marrow lesion.IMPRESSIONNonspecific bowel gas pattern.Electronically signed by: Kaleb Deluna (Nov 16, 2021 21:45:29)
[2021-11-17] MEDS: MORPHINE SULFATE INJ 2 MG INJ IVP PRN (04:33)
[2021-11-17] MEDS: CLINIMIX 5 %/20 % 1,000 ML with MVI INJ (ADULT) 10 ML, TPN ELECTROLYTES 20 ML, TRACE EL... IV SCH ×6 (05:07)
[2021-11-17] MEDS: XOPENEX 1.25 MG/3 ML NEBULE NEB SCH ×4 (05:30→21:10)
[2021-11-17] MEDS: MERREM VIAL 1 G in NS 100 ML IV 100 ML IV SCH ×3 (05:47→21:08)
[2021-11-17] MEDS: XANAX PO SCH ×3 (05:49→21:08)
--- NOTE | 2021-11-17 05:49 | RAD ---
PROCEDURE: Chest X-ray 1 View .HISTORY: Dyspnea and sepsis.TECHNIQUE: AP portable done at 5:09 a.m..COMPARISON: 11/16/2021.TECHNICAL QUALITY: Satisfactory .FINDINGS:Unremarkable cardio mediastinal silhouette and normal central vascularity.Moderate consolidation throughout both lung davila slightly increased on the left and unchanged on the right. No pleural fluid or pneumothorax.IMPRESSION:Increase pneumonia on the left and unchanged on the right.Electronically signed by: John Harp (Nov 17, 2021 05:47:47)
[2021-11-17 06:10] LABS: BASOPHILS # (AUTO) 0.1 X10^3/uL (0.0-0.1); BASOPHILS % (AUTO) 0.9 % (0.2-1.0); EOSINOPHILS # (AUTO) 0.2 x10^3/uL (0.0-0.2); EOSINOPHILS % (AUTO) 2.7 % (0.9-2.9); HEMATOCRIT 21.3 % (36.0-47.0); HEMOGLOBIN 7.2 g/dL (12.0-16.0); LYMPHOCYTES # (AUTO) 1.8 X10^3/uL (1.3-2.9); LYMPHOCYTES % (AUTO) 22.2 % (21.0-51.0); MEAN CORPUSCULAR HEMOGLOBIN 29.6 pg (27.0-34.0); MEAN CORPUSCULAR HGB CONC 33.8 g/dL (33.0-35.0); MEAN CORPUSCULAR VOLUME 87.7 fL (80.0-100.0); MEAN PLATELET VOLUME 8.7 fL (7.4-11.0); MONOCYTES # (AUTO) 0.9 x10^3/uL (0.3-0.8); MONOCYTES % (AUTO) 11.4 % (0.0-13.0); NEUTROPHILS # (AUTO) 5.1 x10^3/uL (2.2-4.8); NEUTROPHILS % (AUTO) 62.8 % (42.0-75.0); RED BLOOD COUNT 2.43 X10^6/uL (3.5-5.4); RED CELL DISTRIBUTION WIDTH 18.3 % (11.6-16.5); WHITE BLOOD COUNT 8.2 X10^3/uL (3.6-10.0)
[2021-11-17 06:58] LABS: ALANINE AMINOTRANSFERASE 109 Units/L (12-78); ALBUMIN 3.2 g/dL (3.4-5.0); ALKALINE PHOSPHATASE 77 Units/L (46-116); ASPARTATE AMINO TRANSFERASE 77 Units/L (15-37); BLOOD UREA NITROGEN 31 mg/dL (7-18); CALCIUM 9.8 mg/dL (8.5-10.1); CARBON DIOXIDE 31.5 mmol/L (21-32); CHLORIDE 108 mmol/L (98-107); COR CA(FOR HYPOALB) 10.4 mg/dL (8.5-10.1); CREATININE 0.61 mg/dL (0.55-1.02); DIGOXIN 0.99 ng/mL (0.9-2); SODIUM 144 mmol/L (136-145); TOTAL PROTEIN 6.8 g/dL (6.4-8.2); eGFR NON BLACK RACES > 60 (>60)
[2021-11-17] MEDS: PULMICORT NEB TX 0.5 MG NEB SCH ×2 (08:05→21:10)
[2021-11-17] MEDS ORDERED: GLUCOPHAGE ONE ×2 (08:51→19:56)
[2021-11-17] MEDS ORDERED: LASIX IVP SCH (09:00)
[2021-11-17] MEDS: ALBUMIN HUMAN 25%- 100 ML 100 ML IV SCH (09:07)
[2021-11-17] MEDS: LOVENOX INJ 30 MG SYR SC SCH (09:09)
[2021-11-17] MEDS: VSL#3 PO SCH (09:09)
[2021-11-17] MEDS: ZYVOX TAB 600 MG PO SCH ×2 (09:10→21:07)
[2021-11-17] MEDS: LANOXIN or DIGITEK PO SCH (09:10)
[2021-11-17] MEDS: PROVERA PO SCH (09:10)
[2021-11-17] MEDS: ZINC SULFATE PO SCH (09:10)
[2021-11-17] MEDS: VITAMIN C PO SCH (09:10)
[2021-11-17] MEDS: ZyrTEC TAB 10 MG PO SCH (09:11)
[2021-11-17] MEDS: FLONASE NASAL SPRAY ENOSTRIL SCH ×2 (09:11→21:05)
[2021-11-17] MEDS: ZOLOFT PO SCH (09:12)
[2021-11-17] MEDS: GLUCOPHAGE PO SCH ×2 (09:12→21:04)
[2021-11-17] MEDS: DEPAKOTE D.R. TAB PO SCH ×2 (09:12→21:05)
[2021-11-17] MEDS: TAB-A-VITE PO SCH (09:12)
[2021-11-17] MEDS: COLACE CAP 100 MG PO SCH ×2 (09:12→21:04)
[2021-11-17] MEDS: MEGACE PO SCH ×2 (09:13→21:05)
[2021-11-17] MEDS: LOPRESSOR TAB 25 MG PO SCH ×2 (09:13→21:05)
[2021-11-17] MEDS: RisperDAL TAB 1 MG PO SCH ×3 (09:13→21:06)
[2021-11-17] MEDS: XALATAN OP SCH ×2 (09:13→21:06)
[2021-11-17] MEDS: POTASSIUM CHLORIDE LIQ 20 MEQ UDC PO SCH (09:13)
[2021-11-17] MEDS: THERMOTABS PO SCH ×4 (09:37→21:06)
[2021-11-17] MEDS ORDERED: NS 250 ML IV 250 ML IV ONE (14:16)
[2021-11-17] MEDS: NS 250 ML IV 250 ML IV PRN (14:40)
[2021-11-17] MEDS ORDERED: LASIX IVP ONE (15:46)
[2021-11-17 15:57] LABS: BILIRUBIN,URINE NEGATIVE (NEGATIVE); BLOOD/HEMOGLOBIN,URINE 3+ (NEGATIVE); GLUCOSE, URINE NEGATIVE (NEGATIVE); KETONES,URINE NEGATIVE (NEGATIVE); LEUKOCYTE ESTERASE ,URINE 1+ (NEGATIVE); NITRITES,URINE NEGATIVE (NEGATIVE); PROTEIN,URINE 3+ (NEGATIVE); UROBILINOGEN,URINE NORMAL (NORMAL)
[2021-11-17 16:10] LABS: APPEARANCE,URINE SLIGHTLY HAZY (CLEAR); COLOR,URINE YELLOW (YELLOW)
--- NOTE | 2021-11-17 16:10 | PCM.PROG ---
Progress Note - Progress Note for Day of Date of Exam: 11/16/21 - Subjective Subjective: WAS ADMITTED FOR TREAMENT OF SEPSIS, MULTIPLE INFECTED DECUBITUS ULCERS, ANEMIA, AND A URINARY TRACT INFECTION. SHE IS STATUS POST DEBRIDEMENT OF WOUNDS. TODAY, SHE IS ALERT AND ORIENTED, LYING IN BED ON MORNING ROUNDS. SHE IS CURRENTLY UTILIZING THE BIPAP AT 40% FI02. SHE COMPLAINS OF GENERALIZED WEAKNESS, PAIN TO BUTTOCKS, AND SHORTNESS OF BREATH THIS MORNING. SHE DENIES SIGNIFICANT IMPROVEMENT IN SYMPTOMS SINCE YESTERDAY. ON EXAMINATION, SHE IS TACHYCARDIC WITH HR 100-115. SINUS TACHYCARDIA NOTED ON TELEMETRY. BILATERAL LUNGS ARE NOTED WITH DIMINISHED LUNG SOUNDS THROUGHOUT. ABDOMEN IS ROUND, SOFT, AND NON-TENDER WITH NORMAL BOWEL SOUNDS NOTED IN ALL QUADRANTS. EPPERSON CATHETER NOTED TO BEDSIDE DRAINAGE. DRESSING NOTED TO WOUNDS ON SACRUM. DRESSINGS ARE DRY AND INTACT. NO UPPER OR LOWER EXTREMITY NOTED. A CENTRAL LINE IS NOTED TO FEMORAL ARTERY. HER VITALS THIS MORNING ARE: 98.6-112-18-97%-135/60. LABS WERE OBTAINED. WBC 9.0, RBC 2.57, HGB 7.5, HCT 22.1, PLT OCUNT 319, SODIUM 144, POTASSIUM 4.1, CHLORIDE 110, BUN 25, CREATININE 0.54, GLUCOSE 162, CALCIUM 9.7, AST 41, BNP 961, TOTAL PROTEIN 6.8, ALBUMIN 3.2. WOUND CULTURES REVEAL GROWTH OF E.COLI, PSEUDOMONAS AERUGINOSA, AND ENTEROCOCCUS FAECIUM. URINE CULTURES REVEAL GROWTH OF E.COLI. A CHEST XRAY WAS OBTAINED THIS MORNING AND REVEALED: Unchanged bilateral pneumonia. SHE IS CURRENTLY RECEIVING TPN AT 50ML/HR, ALBUMIN 25% IV DAILY, MEROPENEM 1G IV Q8H, ZYVOXX 600MG PO Q12H, XANAX 0.5MG PO TID, LOVENOX 30MG SC DAILY, XOPENEX TID, LOPRESSOR 25MG PO BID, DIGOXIN 0.125MG PO DAILY, THE MAGNESIUM PROTOCOL, AND HER HOME MEDICATIONS WERE RESUMED. WE WILL ADMINISTER FUROSEMIDE 20MG IV BID X 2 DOSES. OTHERWISE, WE WILL CONTINUE WITH CURRENT PLAN OF CARE TODAY AND RECHECK HER H&H AT 1400. WE PLAN TO FOLLOW- UP WITH AM LABS AND CHEST XRAY AND CONTINUE TO MONITOR. TIME SPENT ON CLINICAL ASSESSMENT, REVIEWING LABS AND IMAGING, DECISION MAKING, AND DOCUMENTATION GREATER THAN 45 MINUTES. - Past Medical Family Social History Past Med/Fam/Surg Hx: No changes since H&P Allergies: Allergies quetiapine [From Seroquel] Allergy (Verified 08/13/21 14:56) aripiprazole [From Abilify] Adverse Reaction (Verified 08/13/21 14:56) bupropion [From Wellbutrin] Adverse Reaction (Verified 08/13/21 14:56) donepezil [From Aricept] Adverse Reaction (Verified 08/13/21 14:56) moxifloxacin [From Avelox] Adverse Reaction (Verified 08/13/21 14:56) olanzapine [From Zyprexa] Adverse Reaction (Verified 08/13/21 14:56) promethazine [From Phenergan] Adverse Reaction (Verified 08/13/21 14:56) venlafaxine [From Effexor] Adverse Reaction (Verified 08/13/21 14:56) - Review of Systems ROS: No change since H&P - Vital Signs and I&O's Vital Signs: Temperature 99.2 F Pulse Rate [Right Brachial] 113 Pulse Rate 102 Respiratory Rate 18 Blood Pressure [Right Arm] 155/72 Blood Pressure [Left Arm] 146/67 Blood Pressure 173/96 O2 Sat by Pulse Oximetry 95 Intake and Output: Intake & Output 11/15/21 11/16/21 11/17/21 11/18/21 11:59 11:59 11:59 11:59 Intake Total 1872 / 1872 1290 / 1290 961 / 961 Output Total 925 / 925 1850 / 1850 1800 / 1800 Balance 947 / 947 -560 / -560 -839 / -839 - Physical Exam Oriented: Normal Eyes: Normal Ear: Normal Nose: Normal Throat: Normal Respiratory: Generalized, Diminished Cardiovascular: 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) Auscultation: Bowel Sounds: Normal Palpation: Normal Tenderness: Normal Skin: Wound (MULTIPLE DECUBITUS ULCERS TO BUTTOCKS) Musculoskeletal: Normal Psychiatric: Normal Mood Description: Anxious Affect: Anxious Speech Pattern: Appropriate, Unclear - Laboratory and Diagnostics Result Diagrams: 11/17/21 05:18 11/17/21 05:18 Labs: 11/09/21 09:20 Blood Blood Culture - Final 11/09/21 09:10 Blood Blood Culture - Final 11/12/21 12:31 Sacral Wound Gram Stain - Final 11/12/21 12:31 Sacral Wound Culture - Final Enterococcus Faecium 11/12/21 12:30 Hip - Left Wound Gram Stain - Final 11/12/21 12:30 Hip - Left Wound Culture - Final Enterococcus Faecium 11/09/21 21:20 Urine,Catheterized Urine Culture - Final Escherichia Coli 11/09/21 09:38 Buttock Wound Gram Stain - Final 11/09/21 09:38 Buttock Wound Culture - Final Pseudomonas Aeruginosa 11/09/21 09:38 Sacral Wound Gram Stain - Final 11/09/21 09:38 Sacral Wound Culture - Final Escherichia Coli Laboratory WBC 8.2 X10^3/uL (3.6-10.0) 11/17/21 05:18 RBC 2.43 X10^6/uL (3.5-5.4) L 11/17/21 05:18 Hgb 7.2 g/dL (12.0-16.0) L 11/17/21 05:18 Hct 21.3 % (36.0-47.0) L 11/17/21 05:18 MCV 87.7 fL (80.0-100.0) 11/17/21 05:18 MCH 29.6 pg (27.0-34.0) 11/17/21 05:18 MCHC 33.8 g/dL (33.0-35.0) 11/17/21 05:18 RDW 18.3 % (11.6-16.5) H 11/17/21 05:18 Plt Count 296 X10^3/uL (150.0-450.0) 11/17/21 05:18 Plt Count Comment Adequate (ADEQUATE) 11/09/21 09:20 MPV 8.7 fL (7.4-11.0) 11/17/21 05:18 Neut % (Auto) 62.8 % (42.0-75.0) 11/17/21 05:18 Lymph % (Auto) 22.2 % (21.0-51.0) 11/17/21 05:18 [place] % (Auto) 11.4 % (0.0-13.0) 11/17/21 05:18 Eos % (Auto) 2.7 % (0.9-2.9) 11/17/21 05:18 Baso % (Auto) 0.9 % (0.2-1.0) 11/17/21 05:18 Neut # (Auto) 5.1 x10^3/uL (2.2-4.8) H 11/17/21 05:18 Lymph # (Auto) 1.8 X10^3/uL (1.3-2.9) 11/17/21 05:18 [place] # (Auto) 0.9 x10^3/uL (0.3-0.8) H 11/17/21 05:18 Eos # (Auto) 0.2 x10^3/uL (0.0-0.2) 11/17/21 05:18 Baso # (Auto) 0.1 X10^3/uL (0.0-0.1) 11/17/21 05:18 Absolute Nucleated RBC 0.0 /100WBC 11/17/21 05:18 Plt Morphology Comment Normal (NORMAL) 11/09/21 09:20 RBC Morphology Abnormal (NORMAL) A 11/09/21 09:20 Hypochromasia Slight A 11/09/21 09:20 Anisocytosis 2+ A 11/09/21 09:20 Microcytosis Slight A 11/09/21 09:20 Target Cells Rare 11/09/21 09:20 Schistocytes Slight A 11/09/21 09:20 PT 17.4 SECONDS (11.8-14.3) 11/09/21 18:53 INR Target Range - 11/09/21 18:53 INR 1.48 (0.8-1.3) H 11/09/21 18:53 APTT 46.6 SECONDS (22.9-36.5) H 11/09/21 18:53 PTT Comment - 11/09/21 18:53 Sample Site Lrad 11/13/21 01:05 ABG pH 7.240 (7.35-7.45) L 11/13/21 01:05 ABG pCO2 56.0 mmHg (35.0-45.0) H* 11/13/21 01:05 ABG pO2 136.0 mmHg (80.0-100.0) H 11/13/21 01:05 ABG HCO3 24.0 mmol/L (22-26) 11/13/21 01:05 ABG O2 Saturation 99.0 % (90-100) 11/13/21 01:05 ABG Base Excess -4.0 mmol/L (-2.0-2.0) L 11/13/21 01:05 Satish Test Pos 11/13/21 01:05 A-a Gradient 507.0 mmHg 11/13/21 01:05 FiO2 100.0 11/13/21 01:05 Blood Gas Comments Jaye abg well-mtf 11/13/21 01:05 Sodium 144 mmol/L (136-145) 11/17/21 05:18 Corrected Sodium TNP 11/17/21 05:18 Potassium 4.7 mmol/L (3.5-5.1) 11/17/21 05:18 Chloride 108 mmol/L (98-107) H 11/17/21 05:18 Carbon Dioxide 31.5 mmol/L (21-32) 11/17/21 05:18 BUN 31 mg/dL (7-18) H 11/17/21 05:18 Creatinine 0.61 mg/dL (0.55-1.02) 11/17/21 05:18 Est GFR (MDRD) Af Amer > 60 (>60) 11/17/21 05:18 Est GFR (MDRD) Non-Af > 60 (>60) 11/17/21 05:18 Glucose 91 mg/dL (65-99) 11/17/21 05:18 POC Glucose (mg/dL) 180 mg/dL (65-99) H 11/17/21 15:12 Lactic Acid 2.6 mmol/L (0.4-2.0) H 11/10/21 04:50 Calcium 9.8 mg/dL (8.5-10.1) 11/17/21 05:18 Corrected Calcium 10.4 mg/dL (8.5-10.1) H 11/17/21 05:18 Phosphorus 1.6 mg/dL (2.6-4.7) L 11/15/21 05:36 Magnesium 2.2 mg/dL (1.7-2.9) 11/15/21 05:36 Total Bilirubin 0.20 mg/dL (0.2-1.0) 11/17/21 05:18 AST 77 Units/L (15-37) H 11/17/21 05:18 ALT 109 Units/L (12-78) H 11/17/21 05:18 Alkaline Phosphatase 77 Units/L (46-116) 11/17/21 05:18 B-Natriuretic Peptide 569 pg/mL (0-79) H* 11/17/21 05:18 Total Protein 6.8 g/dL (6.4-8.2) 11/17/21 05:18 Albumin 3.2 g/dL (3.4-5.0) L 11/17/21 05:18 Globulin 3.6 g/dL (2.5-4.5) 11/17/21 05:18 Albumin/Globulin Ratio 0.9 Ratio (1.1-2.1) L 11/17/21 05:18 Prealbumin 15.0 mg/dL (18-35.7) L 11/12/21 04:19 Triglycerides 33 mg/dL (0-150) 11/15/21 05:36 Amylase 14 Units/L (25-115) L 11/09/21 18:53 Lipase 37 Units/L (73-393) L 11/09/21 18:53 Cortisol 12.9 ug/dL 11/09/21 18:53 Specimen Type Catherized urine 11/09/21 21:20 Urine Color Yellow (YELLOW) 11/09/21 21:20 Urine Appearance Clear (CLEAR) 11/09/21 21:20 Urine pH 5.0 (5.0 - 8.0) 11/09/21 21:20 Ur Specific [place] 1.010 (1.000-1.030) 11/09/21 21:20 Urine Protein 2+ (NEGATIVE) 11/09/21 21:20 Urine Glucose (UA) 2+ (NEGATIVE) 11/09/21 21:20 Urine Ketones 1+ (NEGATIVE) 11/09/21 21:20 Urine Blood 2+ (NEGATIVE) 11/09/21 21:20 Urine Nitrite Negative (NEGATIVE) 11/09/21 21:20 Urine Bilirubin Negative (NEGATIVE) 11/09/21 21:20 Urine Urobilinogen Normal (NORMAL) 11/09/21 21:20 Ur Leukocyte Esterase 2+ (NEGATIVE) 11/09/21 21:20 Urine RBC 3-5 /HPF (0-3) A 11/09/21 21:20 Urine WBC 10-20 /HPF (0-5) A 11/09/21 21:20 Ur Squamous Epith Cells Rare /HPF (NEGATIVE) 11/09/21 21:20 Urine Bacteria 1+ /HPF (NEGATIVE) 11/09/21 21:20 Ur Culture Indicated? Yes/culture set up 11/09/21 21:20 Stool Description 10g unformed brown 11/10/21 11:00 Stl Occult Blood (IFOB) Negative (NEGATIVE) 11/10/21 11:00 Vancomycin Trough 23.4 ug/mL (15-20) H* 11/11/21 09:20 Digoxin 0.99 ng/mL (0.9-2) 11/17/21 05:18 SARS-CoV-2 (PCR) Negative (NEGATIVE) 11/09/21 11:36 Tissue Pathology To follow 11/12/21 12:32 Blood Type O POSITIVE 11/17/21 09:40 Antibody Screen Negative 11/17/21 09:40 Crossmatch See Detail 11/17/21 09:40 - Plan (1) Sepsis Status: Acute Qualifiers: Sepsis type: Pseudomonas Sepsis acute organ dysfunction status: unspecified Qualified Code(s): A41.52 - Sepsis due to Pseudomonas Plan: TPN AT 50ML/HR, ALBUMIN 25% IV DAILY, MEROPENEM 1G IV Q8H, ZYVOXX 600MG PO Q12H, XANAX 0.5MG PO TID, LOVENOX 30MG SC DAILY, XOPENEX TID, LOPRESSOR 25MG PO BID, DIGOXIN 0.125MG PO DAILY, THE MAGNESIUM PROTOCOL, AND HER HOME MEDICATIONS WERE RESUMED. LASIX 20MG IV BID X 2 DOSES (2) Decubitus ulcer, stage 4 with infection Status: Acute (3) Urinary tract infection Status: Acute Qualifiers: Urinary tract infection type: acute cystitis Hematuria presence: with hematuria Qualified Code(s): N30.01 - Acute cystitis with hematuria (4) Hypoalbuminemia Status: Acute (5) CHF (congestive heart failure) Status: Chronic Qualifiers: Heart failure type: unspecified Heart failure chronicity: acute on chronic Qualified Code(s): I50.9 - Heart failure, unspecified (6) Spina bifida Status: Chronic Qualifiers: Spinal region: unspecified Presence of hydrocephalus: unspecified hydrocephalus presence Qualified Code(s): Q05.9 - Spina bifida, unspecified (7) DM II (diabetes mellitus, type II), controlled Status: Chronic Qualifiers: Diabetes mellitus halfway insulin use: with long distance operator use Diabetes mellitus complication status: with hyperglycemia Qualified Code(s): E11.65 - Type 2 diabetes mellitus with hyperglycemia; Z79.4 - terminal makeup operator (current) use of insulin
[2021-11-17 16:24] LABS: BACTERIA,URINE 1+ /HPF (NEGATIVE); CALCIUM OXALATE CRYSTALS,UR RARE /HPF (NEGATIVE); GRANULAR CASTS,URINE FEW /LPF (NEGATIVE); SQUAMOUS EPITHELIAL CELL,UR RARE /HPF (NEGATIVE)
[2021-11-17 16:25] LABS: YEAST,URINE FEW /HPF (NEGATIVE)
[2021-11-17 16:28] LABS: CKMB % 7.5 % (<4); CREATINE KINASE MB 1.2 ng/mL (0-4.0)
[2021-11-17] MEDS: SNACK - Diabetic Appropriate PO SCH (21:04)
[2021-11-17] MEDS: DESYREL PO SCH (21:05)
[2021-11-17] MEDS: LIPITOR TAB 20 MG PO SCH (21:05)
[2021-11-17] MEDS: ZANAFLEX PO SCH (21:06)
[2021-11-17 22:26] LABS: CKMB % 9.3 % (<4); CREATINE KINASE MB 1.4 ng/mL (0-4.0)
[2021-11-17] MEDS: NovoLIN R (or HumuLIN R) SUBCUT PRN (23:43)
[2021-11-18 04:13] LABS: PREALBUMIN 15.6 mg/dL (18-35.7)
[2021-11-18 04:19] LABS: BASOPHILS # (AUTO) 0.1 X10^3/uL (0.0-0.1); BASOPHILS % (AUTO) 0.2 % (0.2-1.0); HEMATOCRIT 23.5 % (36.0-47.0); HEMOGLOBIN 7.7 g/dL (12.0-16.0); LYMPHOCYTES # (AUTO) 0.6 X10^3/uL (1.3-2.9); LYMPHOCYTES % (AUTO) 1.9 % (21.0-51.0); MEAN CORPUSCULAR HEMOGLOBIN 28.5 pg (27.0-34.0); MEAN CORPUSCULAR HGB CONC 32.7 g/dL (33.0-35.0); MEAN CORPUSCULAR VOLUME 87.2 fL (80.0-100.0); MONOCYTES # (AUTO) 2.2 x10^3/uL (0.3-0.8); MONOCYTES % (AUTO) 7.1 % (0.0-13.0); NEUTROPHILS # (AUTO) 27.7 x10^3/uL (2.2-4.8); NEUTROPHILS % (AUTO) 90.8 % (42.0-75.0); RED BLOOD COUNT 2.69 X10^6/uL (3.5-5.4); RED CELL DISTRIBUTION WIDTH 17.7 % (11.6-16.5)
[2021-11-18 04:25] LABS: ALANINE AMINOTRANSFERASE 128 Units/L (12-78); ALBUMIN 3.9 g/dL (3.4-5.0); ALKALINE PHOSPHATASE 103 Units/L (46-116); ASPARTATE AMINO TRANSFERASE 49 Units/L (15-37); BLOOD UREA NITROGEN 34 mg/dL (7-18); CALCIUM 9.5 mg/dL (8.5-10.1); CARBON DIOXIDE 31.4 mmol/L (21-32); CHLORIDE 103 mmol/L (98-107); CKMB % 10.8 % (<4); COR NA(FOR HYPERGLY) 145 mmol/L (136-145); CREATINE KINASE 13 Units/L (26-192); CREATINE KINASE MB 1.4 ng/mL (0-4.0); CREATININE 0.72 mg/dL (0.55-1.02); SODIUM 140 mmol/L (136-145); TOTAL PROTEIN 7.6 g/dL (6.4-8.2); eGFR NON BLACK RACES > 60 (>60)
[2021-11-18 04:33] LABS: WHITE BLOOD COUNT 30.5 X10^3/uL (3.6-10.0)
[2021-11-18 04:35] LABS: BAND NEUTROPHILS % 2 % (0-10); HYPOCHROMASIA 1+; PLATELET MORPHOLOGY COMMENT NORMAL (NORMAL); STOMATOCYTES PRESENT; TARGET CELLS PRESENT
[2021-11-18] MEDS: CLINIMIX 5 %/20 % 1,000 ML with MVI INJ (ADULT) 10 ML, TPN ELECTROLYTES 20 ML, TRACE EL... IV SCH ×12 (04:35→09:53)
[2021-11-18 04:36] LABS: ROULEAUX PRESENT
[2021-11-18] MEDS: MERREM VIAL 1 G in NS 100 ML IV 100 ML IV SCH ×3 (05:04→21:11)
[2021-11-18] MEDS: XANAX PO SCH ×3 (05:05→21:04)
[2021-11-18] MEDS: NovoLIN R (or HumuLIN R) SUBCUT PRN (05:05)
[2021-11-18] MEDS: XOPENEX 1.25 MG/3 ML NEBULE NEB SCH ×3 (05:27→20:26)
--- NOTE | 2021-11-18 06:34 | RAD ---
HISTORYShortness of breath, sepsisSTUDYChest AP [id number] t remains enlarged. Diffuse bilateral predominantly alveolar filling is present somewhat improved when compared with the prior examination. Findings could be consistent with improving bilateral pneumonia or improving edema. No definite pleural effusions visualized on this examination. Bony thorax is unremarkable.IMPRESSIONDiffuse bilateral alveolar filling somewhat improved when compared with the prior examinationNo definite pleural effusions on today's examinationElectronically signed by: JOAN MARTINO (Nov 18, 2021 06:32:58)
[2021-11-18] MEDS: PULMICORT NEB TX 0.5 MG NEB SCH ×2 (08:49→20:25)
[2021-11-18] MEDS ORDERED: GLUCOPHAGE ONE ×2 (09:02→20:26)
[2021-11-18] MEDS: ALBUMIN HUMAN 25%- 100 ML 100 ML IV SCH (09:13)
[2021-11-18] MEDS: ZINC SULFATE PO SCH (09:14)
[2021-11-18] MEDS: PROVERA PO SCH (09:15)
[2021-11-18] MEDS: ZYVOX TAB 600 MG PO SCH ×2 (09:15→21:19)
[2021-11-18] MEDS: LOPRESSOR TAB 25 MG PO SCH ×2 (09:16→21:05)
[2021-11-18] MEDS: TAB-A-VITE PO SCH (09:16)
[2021-11-18] MEDS: VSL#3 PO SCH (09:17)
[2021-11-18] MEDS: MEGACE PO SCH ×2 (09:17→21:07)
[2021-11-18] MEDS: DEPAKOTE D.R. TAB PO SCH ×2 (09:17→21:19)
[2021-11-18] MEDS: GLUCOPHAGE PO SCH ×2 (09:18→21:03)
[2021-11-18] MEDS: VITAMIN C PO SCH (09:18)
[2021-11-18] MEDS: RisperDAL TAB 1 MG PO SCH ×3 (09:18→21:06)
[2021-11-18] MEDS: COLACE CAP 100 MG PO SCH ×2 (09:18→21:04)
[2021-11-18] MEDS: FLONASE NASAL SPRAY ENOSTRIL SCH ×2 (09:28→21:14)
[2021-11-18] MEDS: LOVENOX INJ 30 MG SYR SC SCH (09:34)
[2021-11-18] MEDS: ZyrTEC TAB 10 MG PO SCH (09:35)
[2021-11-18] MEDS: POTASSIUM CHLORIDE LIQ 20 MEQ UDC PO SCH (09:35)
[2021-11-18] MEDS: THERMOTABS PO SCH ×4 (09:36→21:11)
[2021-11-18] MEDS: LANOXIN or DIGITEK PO SCH (09:53)
[2021-11-18] MEDS: LASIX IVP SCH ×2 (10:02→18:01)
[2021-11-18] MEDS: ZOLOFT PO SCH (10:02)
[2021-11-18] MEDS: XALATAN OP SCH ×2 (10:02→21:18)
--- NOTE | 2021-11-18 10:18 | PCM.PROG ---
Progress Note - Progress Note for Day of Date of Exam: 11/17/21 - Subjective Subjective: WAS ADMITTED FOR TREAMENT OF SEPSIS, MULTIPLE INFECTED DECUBITUS ULCERS, ANEMIA, AND A URINARY TRACT INFECTION. SHE IS STATUS POST DEBRIDEMENT OF WOUNDS. TODAY, SHE IS ALERT, LYING IN BED ON MORNING ROUNDS. SHE IS CURRENTLY UTILIZING OXYGEN VIA NASAL CANNULA AT 2 LPM. TODAY, PATIENT REPORTS INCREASED WEAKNESS AND FATIGUE. HER FAMILY MEMBER IS AT BEDSIDE AND REPORTS THAT PATIENT HAS HAD A DECREASED APPETITE SINCE YESTERDAY. ON EXAMINATION, SHE IS TACHYCARDIC WITH HR 100-110. SINUS TACHYCARDIA NOTED ON TELEMETRY. BILATERAL LUNGS ARE NOTED WITH DIMINISHED LUNG SOUNDS THROUGHOUT. ABDOMEN IS ROUND, SOFT, AND NON-TENDER WITH NORMAL BOWEL SOUNDS NOTED IN ALL QUADRANTS. EPPERSON CATHETER NOTED TO BEDSIDE DRAINAGE. WOUND VAC NOTED TO WOUNDS ON SACRUM. NO UPPER OR LOWER EXTREMITY NOTED. A CENTRAL LINE IS NOTED TO FEMORAL ARTERY. HER VITALS THIS MORNING ARE: 98.8-374-23-100%-123/64. LABS WERE OBTAINED. WBC 8.2, RBC 2.43, HGB 7.2, HCT 21.3, PLT COUNT 296, SODIUM 144, POTASSIUM 4.7, CHLORIDE 108, BUN 31, CREATININE 0.61, GLUCOSE 91, CALCIUM 9.8, AST 77, ALT 109, ALK PHOS 77, BNP 569, TOTAL PROTEIN 6.8, ALBUMIN 3.2. WOUND CULTURES REVEAL GROWTH OF E.COLI, PSEUDOMONAS AERUGINOSA, AND ENTEROCOCCUS FAECIUM. URINE CULTURES REVEAL GROWTH OF E.COLI. A CHEST XRAY WAS OBTAINED THIS MORNING AND REVEALED: Increase pneumonia on the left and unchanged on the right. SHE IS CURRENTLY RECEIVING TPN AT 50ML/HR, ALBUMIN 25% IV DAILY, MEROPENEM 1G IV Q8H, ZYVOXX 600MG PO Q12H, XANAX 0.5MG PO TID, LOVENOX 30MG SC DAILY, XOPENEX TID, LOPRESSOR 25MG PO BID, DIGOXIN 0.125MG PO DAILY, THE MAGNESIUM PROTOCOL, AND HER HOME MEDICATIONS WERE RESUMED. WE WILL ADMINISTER FUROSEMIDE 20MG IV BID X 2 DOSES. WE WILL ALSO TRANSFUSE TWO UNITS OF PACKED RED BLOOD CELLS. OTHERWISE, WE WILL CONTINUE WITH CURRENT PLAN OF CARE TODAY. WE PLAN TO FOLLOW-UP WITH AM LABS AND CHEST XRAY AND CONTINUE TO MONITOR. TIME SPENT ON CLINICAL ASSESSMENT, REVIEWING LABS AND IMAGING, DECISION MAKING, AND DOCUMENTATION GREATER THAN 45 MINUTES. - Past Medical Family Social History Past Med/Fam/Surg Hx: No changes since H&P Allergies: Allergies quetiapine [From Seroquel] Allergy (Verified 08/13/21 14:56) aripiprazole [From Abilify] Adverse Reaction (Verified 08/13/21 14:56) bupropion [From Wellbutrin] Adverse Reaction (Verified 08/13/21 14:56) donepezil [From Aricept] Adverse Reaction (Verified 08/13/21 14:56) moxifloxacin [From Avelox] Adverse Reaction (Verified 08/13/21 14:56) olanzapine [From Zyprexa] Adverse Reaction (Verified 08/13/21 14:56) promethazine [From Phenergan] Adverse Reaction (Verified 08/13/21 14:56) venlafaxine [From Effexor] Adverse Reaction (Verified 08/13/21 14:56) - Review of Systems ROS: No change since H&P - Vital Signs and I&O's Vital Signs: Temperature 99.1 F Pulse Rate [Right Brachial] 113 Pulse Rate 130 Respiratory Rate 12 Blood Pressure [Right Arm] 155/72 Blood Pressure [Left Arm] 146/67 Blood Pressure 142/65 O2 Sat by Pulse Oximetry 100 Intake and Output: Intake & Output 11/15/21 11/16/21 11/17/21 11/18/21 11:59 11:59 11:59 11:59 Intake Total 1872 / 1872 1290 / 1290 961 / 961 976 / 976 Output Total 925 / 925 1850 / 1850 1800 / 1800 2100 / 2100 Balance 947 / 947 -560 / -560 -839 / -839 -1124 / -1124 - Physical Exam Oriented: Normal Eyes: Normal Ear: Normal Nose: Normal Throat: Normal Respiratory: Generalized, Diminished Cardiovascular: 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) Auscultation: Bowel Sounds: Normal Palpation: Normal Tenderness: Normal Skin: Wound (MULTIPLE DECUBITUS ULCERS TO BUTTOCKS) Musculoskeletal: Normal Psychiatric: Normal Mood Description: Anxious Affect: Anxious Speech Pattern: Appropriate, Unclear - Laboratory and Diagnostics Result Diagrams: 11/18/21 03:40 11/18/21 03:40 Labs: 11/09/21 09:20 Blood Blood Culture - Final 11/09/21 09:10 Blood Blood Culture - Final 11/12/21 12:31 Sacral Wound Gram Stain - Final 11/12/21 12:31 Sacral Wound Culture - Final Enterococcus Faecium 11/12/21 12:30 Hip - Left Wound Gram Stain - Final 11/12/21 12:30 Hip - Left Wound Culture - Final Enterococcus Faecium 11/09/21 21:20 Urine,Catheterized Urine Culture - Final Escherichia Coli 11/09/21 09:38 Buttock Wound Gram Stain - Final 11/09/21 09:38 Buttock Wound Culture - Final Pseudomonas Aeruginosa 11/09/21 09:38 Sacral Wound Gram Stain - Final 11/09/21 09:38 Sacral Wound Culture - Final Escherichia Coli Laboratory WBC 30.5 X10^3/uL (3.6-10.0) H* D 11/18/21 03:40 RBC 2.69 X10^6/uL (3.5-5.4) L 11/18/21 03:40 Hgb 7.7 g/dL (12.0-16.0) L 11/18/21 03:40 Hct 23.5 % (36.0-47.0) L 11/18/21 03:40 MCV 87.2 fL (80.0-100.0) 11/18/21 03:40 MCH 28.5 pg (27.0-34.0) 11/18/21 03:40 MCHC 32.7 g/dL (33.0-35.0) L 11/18/21 03:40 RDW 17.7 % (11.6-16.5) H 11/18/21 03:40 Plt Count 346 X10^3/uL (150.0-450.0) 11/18/21 03:40 Plt Count Comment Adequate (ADEQUATE) 11/18/21 03:40 MPV 9.0 fL (7.4-11.0) 11/18/21 03:40 Neut % (Auto) 90.8 % (42.0-75.0) H 11/18/21 03:40 Lymph % (Auto) 1.9 % (21.0-51.0) L 11/18/21 03:40 [place] % (Auto) 7.1 % (0.0-13.0) 11/18/21 03:40 Eos % (Auto) 0.0 % (0.9-2.9) L 11/18/21 03:40 Baso % (Auto) 0.2 % (0.2-1.0) 11/18/21 03:40 Neut # (Auto) 27.7 x10^3/uL (2.2-4.8) H 11/18/21 03:40 Lymph # (Auto) 0.6 X10^3/uL (1.3-2.9) L 11/18/21 03:40 [place] # (Auto) 2.2 x10^3/uL (0.3-0.8) H 11/18/21 03:40 Eos # (Auto) 0.0 x10^3/uL (0.0-0.2) 11/18/21 03:40 Baso # (Auto) 0.1 X10^3/uL (0.0-0.1) 11/18/21 03:40 Absolute Nucleated RBC 0.0 /100WBC 11/18/21 03:40 Total Counted 100 11/18/21 03:40 Neutrophils % (Manual) 89 % (39-76) H 11/18/21 03:40 Band Neutrophils % 2 % (0-10) 11/18/21 03:40 Lymphocytes % (Manual) 3 % (13-43) L 11/18/21 03:40 Monocytes % (Manual) 6 % (4-9) 11/18/21 03:40 Plt Morphology Comment Normal (NORMAL) 11/18/21 03:40 RBC Morphology Abnormal (NORMAL) A 11/18/21 03:40 Hypochromasia 1+ A 11/18/21 03:40 Anisocytosis 2+ A 11/09/21 09:20 Microcytosis Slight A 11/09/21 09:20 Target Cells Present 11/18/21 03:40 Stomatocytes Present 11/18/21 03:40 [place] Present 11/18/21 03:40 Schistocytes Slight A 11/09/21 09:20 PT 17.4 SECONDS (11.8-14.3) 11/09/21 18:53 INR Target Range - 11/09/21 18:53 INR 1.48 (0.8-1.3) H 11/09/21 18:53 APTT 46.6 SECONDS (22.9-36.5) H 11/09/21 18:53 PTT Comment - 11/09/21 18:53 Sample Site Lrad 11/13/21 01:05 ABG pH 7.240 (7.35-7.45) L 11/13/21 01:05 ABG pCO2 56.0 mmHg (35.0-45.0) H* 11/13/21 01:05 ABG pO2 136.0 mmHg (80.0-100.0) H 11/13/21 01:05 ABG HCO3 24.0 mmol/L (22-26) 11/13/21 01:05 ABG O2 Saturation 99.0 % (90-100) 11/13/21 01:05 ABG Base Excess -4.0 mmol/L (-2.0-2.0) L 11/13/21 01:05 Satish Test Pos 11/13/21 01:05 A-a Gradient 507.0 mmHg 11/13/21 01:05 FiO2 100.0 11/13/21 01:05 Blood Gas Comments Jaye abg well-mtf 11/13/21 01:05 Sodium 140 mmol/L (136-145) 11/18/21 03:40 Corrected Sodium 145 mmol/L (136-145) 11/18/21 03:40 Potassium 4.6 mmol/L (3.5-5.1) 11/18/21 03:40 Chloride 103 mmol/L (98-107) 11/18/21 03:40 Carbon Dioxide 31.4 mmol/L (21-32) 11/18/21 03:40 BUN 34 mg/dL (7-18) H 11/18/21 03:40 Creatinine 0.72 mg/dL (0.55-1.02) 11/18/21 03:40 Est GFR (MDRD) Af Amer > 60 (>60) 11/18/21 03:40 Est GFR (MDRD) Non-Af > 60 (>60) 11/18/21 03:40 Glucose 312 mg/dL (65-99) H 11/18/21 03:40 POC Glucose (mg/dL) 277 mg/dL (65-99) H 11/17/21 23:28 Lactic Acid 1.0 mmol/L (0.4-2.0) 11/18/21 04:50 Calcium 9.5 mg/dL (8.5-10.1) 11/18/21 03:40 Corrected Calcium TNP 11/18/21 03:40 Phosphorus 1.6 mg/dL (2.6-4.7) L 11/15/21 05:36 Magnesium 2.2 mg/dL (1.7-2.9) 11/15/21 05:36 Total Bilirubin 0.20 mg/dL (0.2-1.0) 11/18/21 03:40 AST 49 Units/L (15-37) H 11/18/21 03:40 ALT 128 Units/L (12-78) H 11/18/21 03:40 Alkaline Phosphatase 103 Units/L (46-116) 11/18/21 03:40 Creatine Kinase 13 Units/L (26-192) L 11/18/21 03:40 CK-MB (CK-2) 1.4 ng/mL (0-4.0) 11/18/21 03:40 CK/CKMB % Calc 10.8 % (<4) 11/18/21 03:40 Troponin I High Sens 7.9 ng/L (4.0-60.0) 11/18/21 03:40 B-Natriuretic Peptide 1130 pg/mL (0-79) H* 11/18/21 03:40 Total Protein 7.6 g/dL (6.4-8.2) 11/18/21 03:40 Albumin 3.9 g/dL (3.4-5.0) 11/18/21 03:40 Globulin 3.7 g/dL (2.5-4.5) 11/18/21 03:40 Albumin/Globulin Ratio 1.1 Ratio (1.1-2.1) 11/18/21 03:40 Prealbumin 15.6 mg/dL (18-35.7) L 11/18/21 03:40 Triglycerides 33 mg/dL (0-150) 11/15/21 05:36 Amylase 14 Units/L (25-115) L 11/09/21 18:53 Lipase 37 Units/L (73-393) L 11/09/21 18:53 Cortisol 12.9 ug/dL 11/09/21 18:53 Specimen Type Catherized urine 11/17/21 15:35 Urine Color Yellow (YELLOW) 11/17/21 15:35 Urine Appearance Slightly hazy (CLEAR) 11/17/21 15:35 Urine pH 6.0 (5.0 - 8.0) 11/17/21 15:35 Ur Specific [place] 1.025 (1.000-1.030) 11/17/21 15:35 Urine Protein 3+ (NEGATIVE) 11/17/21 15:35 Urine Glucose (UA) Negative (NEGATIVE) 11/17/21 15:35 Urine Ketones Negative (NEGATIVE) 11/17/21 15:35 Urine Blood 3+ (NEGATIVE) 11/17/21 15:35 Urine Nitrite Negative (NEGATIVE) 11/17/21 15:35 Urine Bilirubin Negative (NEGATIVE) 11/17/21 15:35 Urine Urobilinogen Normal (NORMAL) 11/17/21 15:35 Ur Leukocyte Esterase 1+ (NEGATIVE) 11/17/21 15:35 Urine RBC 5-10 /HPF (0-3) A 11/17/21 15:35 Urine WBC 3-5 /HPF (0-5) 11/17/21 15:35 Ur Squamous Epith Cells Rare /HPF (NEGATIVE) 11/17/21 15:35 Calcium Oxalate Crystal Rare /HPF (NEGATIVE) 11/17/21 15:35 Amorphous Sediment 1+ /HPF (NEGATIVE) 11/17/21 15:35 Urine Bacteria 1+ /HPF (NEGATIVE) 11/17/21 15:35 Granular Casts Few /LPF (NEGATIVE) 11/17/21 15:35 Urine Yeast Few /HPF (NEGATIVE) 11/17/21 15:35 Ur Culture Indicated? No/not indicated 11/17/21 15:35 Stool Description 10g unformed brown 11/10/21 11:00 Stl Occult Blood (IFOB) Negative (NEGATIVE) 11/10/21 11:00 Vancomycin Trough 23.4 ug/mL (15-20) H* 11/11/21 09:20 Digoxin 1.15 ng/mL (0.9-2) 11/18/21 03:40 SARS-CoV-2 (PCR) Negative (NEGATIVE) 11/09/21 11:36 Tissue Pathology To follow 11/12/21 12:32 Blood Type O POSITIVE 11/17/21 15:49 Antibody Screen Negative 11/17/21 09:40 Crossmatch See Detail 11/17/21 09:40 Tx React Symptoms Diaphoretic o2 @ 70% 11/17/21 15:49 Blood Bank Comment Performed by Soni 11/17/21 15:49 - Plan (1) Sepsis Status: Acute Qualifiers: Sepsis type: Pseudomonas Sepsis acute organ dysfunction status: unspecified Qualified Code(s): A41.52 - Sepsis due to Pseudomonas Plan: TPN AT 50ML/HR, ALBUMIN 25% IV DAILY, MEROPENEM 1G IV Q8H, ZYVOXX 600MG PO Q12H, XANAX 0.5MG PO TID, LOVENOX 30MG SC DAILY, XOPENEX TID, LOPRESSOR 25MG PO BID, DIGOXIN 0.125MG PO DAILY, THE MAGNESIUM PROTOCOL, AND HER HOME MEDICATIONS WERE RESUMED. LASIX 20MG IV BID X 2 DOSES (2) Decubitus ulcer, stage 4 with infection Status: Acute (3) Anemia Status: Acute Qualifiers: Anemia type: unspecified type Qualified Code(s): D64.9 - Anemia, unspecified Plan: TRANSFUSE 2 UNITS PRBC (4) Urinary tract infection Status: Acute Qualifiers: Urinary tract infection type: acute cystitis Hematuria presence: with hematuria Qualified Code(s): N30.01 - Acute cystitis with hematuria (5) Hypoalbuminemia Status: Acute (6) CHF (congestive heart failure) Status: Chronic Qualifiers: Heart failure type: unspecified Heart failure chronicity: acute on chronic Qualified Code(s): I50.9 - Heart failure, unspecified (7) Spina bifida Status: Chronic Qualifiers: Spinal region: unspecified Presence of hydrocephalus: unspecified hydrocephalus presence Qualified Code(s): Q05.9 - Spina bifida, unspecified (8) DM II (diabetes mellitus, type II), controlled Status: Chronic Qualifiers: Diabetes mellitus terminal supervisor insulin use: with fci use Diabetes mellitus complication status: with hyperglycemia Qualified Code(s): E11.65 - Type 2 diabetes mellitus with hyperglycemia; Z79.4 - correction (current) use of insulin
[2021-11-18] MEDS: MORPHINE SULFATE INJ 2 MG INJ IVP PRN (13:39)
[2021-11-18] MEDS: ZOFRAN INJ 4 MG VIAL IVP PRN (13:47)
[2021-11-18] MEDS: DESYREL PO SCH (21:02)
[2021-11-18] MEDS: LIPITOR TAB 20 MG PO SCH (21:06)
[2021-11-18] MEDS: ZANAFLEX PO SCH (21:07)
[2021-11-18] MEDS: SNACK - Diabetic Appropriate PO SCH (21:56)
[2021-11-19 05:08] LABS: BASOPHILS % (AUTO) 0.2 % (0.2-1.0); EOSINOPHILS % (AUTO) 0.1 % (0.9-2.9); HEMATOCRIT 20.8 % (36.0-47.0); LYMPHOCYTES # (AUTO) 1.8 X10^3/uL (1.3-2.9); LYMPHOCYTES % (AUTO) 10.3 % (21.0-51.0); MEAN CORPUSCULAR HEMOGLOBIN 28.7 pg (27.0-34.0); MEAN CORPUSCULAR HGB CONC 32.4 g/dL (33.0-35.0); MEAN CORPUSCULAR VOLUME 88.5 fL (80.0-100.0); MONOCYTES # (AUTO) 1.5 x10^3/uL (0.3-0.8); NEUTROPHILS # (AUTO) 13.6 x10^3/uL (2.2-4.8); NEUTROPHILS % (AUTO) 80.4 % (42.0-75.0); RED BLOOD COUNT 2.36 X10^6/uL (3.5-5.4); RED CELL DISTRIBUTION WIDTH 18.1 % (11.6-16.5); WHITE BLOOD COUNT 16.9 X10^3/uL (3.6-10.0)
[2021-11-19 05:17] LABS: HEMOGLOBIN 6.8 g/dL (12.0-16.0)
[2021-11-19] MEDS: CLINIMIX 5 %/20 % 1,000 ML with MVI INJ (ADULT) 10 ML, TPN ELECTROLYTES 20 ML, TRACE EL... IV SCH ×12 (05:26→11:45)
[2021-11-19] MEDS: XANAX PO SCH ×3 (05:27→22:39)
[2021-11-19] MEDS: MERREM VIAL 1 G in NS 100 ML IV 100 ML IV SCH ×3 (05:27→22:40)
[2021-11-19] MEDS: XOPENEX 1.25 MG/3 ML NEBULE NEB SCH ×3 (05:30→20:54)
--- NOTE | 2021-11-19 06:12 | RAD ---
HISTORYShortness of breath, sepsisSTUDYChest AP [id number] heart remains enlarged. Diffuse bilateral alveolar filling is present unchanged when compared with the prior examination. No definite pleural effusions identified. Bony thorax is unremarkable.IMPRESSIONNo significant change from the prior examinationElectronically signed by: JOAN MARTINO (Nov 19, 2021 06:11:11)
[2021-11-19 06:19] LABS: ALANINE AMINOTRANSFERASE 80 Units/L (12-78); ALBUMIN 3.7 g/dL (3.4-5.0); ALKALINE PHOSPHATASE 105 Units/L (46-116); ASPARTATE AMINO TRANSFERASE 25 Units/L (15-37); BLOOD UREA NITROGEN 50 mg/dL (7-18); CALCIUM 9.4 mg/dL (8.5-10.1); CARBON DIOXIDE 31.4 mmol/L (21-32); CHLORIDE 104 mmol/L (98-107); COR NA(FOR HYPERGLY) 146 mmol/L (136-145); CREATININE 0.73 mg/dL (0.55-1.02); SODIUM 143 mmol/L (136-145); TOTAL PROTEIN 7.2 g/dL (6.4-8.2); eGFR NON BLACK RACES > 60 (>60)
--- NOTE | 2021-11-19 09:01 | PCM.PROG ---
Progress Note - Progress Note for Day of Date of Exam: 11/18/21 - Subjective Subjective: WAS ADMITTED FOR TREAMENT OF SEPSIS, MULTIPLE INFECTED DECUBITUS ULCERS, ANEMIA, AND A URINARY TRACT INFECTION. SHE IS STATUS POST DEBRIDEMENT OF WOUNDS. YESTERDAY, WE PLANNED TO TRANSFUSE TWO UNITS OF PRBC DUE TO A HGB OF 7.2. WITHIN 40 MINUTES OF PATIENTS FIRST TRANSFUSION, SHE HAD AN APPARENT TRANSFUSION REACTION. SHE WAS APPARENTLY NOTED WITH SATURATIONS IN THE 70S ON NASAL CANNULA AT 3LPM. SHE WAS NOTED TO BE DIAPHORETIC WITH AUDIBLE EXPIRATORY CRACKLES. TRANSFUSION WAS STOPPED AND PATIENT WAS TRANSFERRED TO THE INTENSIVE CARE UNIT AND PLACED ON THE BIPAP. A TRANSFUSION WORK-UP WAS DONE. ON THE BIPAP, HER SATURATIONS INCREASED TO THE HIGH 90s. TODAY, SHE IS LYING IN BED WITH EYES CLOSED ON MORNING ROUNDS. SHE AWAKENS TO VERBAL STIMULI. PATIENT NODS HEAD WHEN SPOKEN TO, BUT IS NOT VERY VERBAL THIS MORNING. SHE IS CURRENTLY UTILIZING THE BIPAP WITH FI02 AT 75%. ON EXAMINATION, SHE IS TACHYCARDIC WITH HR 110-130. SINUS TACHYCARDIA NOTED ON TELEMETRY. BILATERAL LUNGS ARE NOTED WITH DIMINISHED LUNG SOUNDS THROUGHOUT. ABDOMEN IS DISTENDED BUT APPEARS TO BE NON-TENDER. NORMAL BOWEL SOUNDS NOTED. EPPERSON CATHETER NOTED TO BEDSIDE DRAINAGE. WOUND VAC NOTED TO WOUNDS ON SACRUM. NO UPPER OR LOWER EXTREMITY NOTED. A CENTRAL LINE IS NOTED TO FEMORAL ARTERY. HER VITALS THIS MORNING ARE: 97.2-132-61-100-134/61. LABS WERE OBTAINED. WBC 30.5, RBC 2.69, HGB 7.7, HCT 23.5, SODIUM 140, POTASSIUM 4.6, CHLORIDE 103, BUN 34, CREATININE 0.72, GLUCOSE 312, CALCIUM 9.5, AST 49, ALT 128, ALK PHOS 103, CREATINE KINASE 13, BNP 1130, TOTAL PROTEIN 7.6, ALBUMIN 3.9. REPEAT BLOOD CULTURES ARE PENDING. A CHEST XRAY WAS OBTAINED THIS MORNING AND REVEALED: Diffuse bilateral alveolar filling somewhat improved when compared with the prior examination. No definite pleural effusions on today's examination. SHE IS CURRENTLY RECEIVING TPN AT 50ML/HR, ALBUMIN 25% IV DAILY, MEROPENEM 1G IV Q8H, ZYVOXX 600MG PO Q12H, XANAX 0.5MG PO TID, LOVENOX 30MG SC DAILY, XOPENEX TID, LOPRESSOR 25MG PO BID, DIGOXIN 0.125MG PO DAILY, THE MAGNESIUM PROTOCOL, AND HER HOME MEDICATIONS WERE RESUMED. WE WILL ADMINISTER FUROSEMIDE 20MG IV BID X 2 DOSES. OTHERWISE, WE WILL CONTINUE WITH CURRENT PLAN OF CARE TODAY. WE PLAN TO FOLLOW-UP WITH AM LABS AND CHEST XRAY AND CONTINUE TO MONITOR. TIME SPENT ON CLINICAL ASSESSMENT, REVIEWING LABS AND IMAGING, DECISION MAKING, AND DOCUMENTATION GREATER THAN 45 MINUTES. - Past Medical Family Social History Past Med/Fam/Surg Hx: No changes since H&P Allergies: Allergies quetiapine [From Seroquel] Allergy (Verified 08/13/21 14:56) aripiprazole [From Abilify] Adverse Reaction (Verified 08/13/21 14:56) bupropion [From Wellbutrin] Adverse Reaction (Verified 08/13/21 14:56) donepezil [From Aricept] Adverse Reaction (Verified 08/13/21 14:56) moxifloxacin [From Avelox] Adverse Reaction (Verified 08/13/21 14:56) olanzapine [From Zyprexa] Adverse Reaction (Verified 08/13/21 14:56) promethazine [From Phenergan] Adverse Reaction (Verified 08/13/21 14:56) venlafaxine [From Effexor] Adverse Reaction (Verified 08/13/21 14:56) - Review of Systems ROS: No change since H&P - Vital Signs and I&O's Vital Signs: Temperature 98.2 F Pulse Rate [Right Brachial] 113 Pulse Rate 115 Respiratory Rate 14 Blood Pressure [Right Arm] 155/72 Blood Pressure [Left Arm] 146/67 Blood Pressure 134/64 O2 Sat by Pulse Oximetry 100 Intake and Output: Intake & Output 11/16/21 11/17/21 11/18/21 11/19/21 11:59 11:59 11:59 11:59 Intake Total 1290 / 1290 961 / 961 976 / 976 1768 / 1768 Output Total 1850 / 1850 1800 / 1800 2100 / 2100 900 / 900 Balance -560 / -560 -839 / -839 -1124 / -1124 868 / 868 - Physical Exam Oriented: Normal Eyes: Normal Ear: Normal Nose: Normal Throat: Normal Respiratory: Generalized, Diminished Cardiovascular: 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) Auscultation: Bowel Sounds: Normal Tenderness: Normal Skin: Wound (MULTIPLE DECUBITUS ULCERS TO BUTTOCKS) Musculoskeletal: Normal Psychiatric: Normal Mood Description: Anxious Affect: Anxious Speech Pattern: Appropriate, Unclear - Laboratory and Diagnostics Result Diagrams: 11/19/21 03:40 11/19/21 03:40 Labs: 11/09/21 09:20 Blood Blood Culture - Final 11/09/21 09:10 Blood Blood Culture - Final 11/12/21 12:31 Sacral Wound Gram Stain - Final 11/12/21 12:31 Sacral Wound Culture - Final Enterococcus Faecium 11/12/21 12:30 Hip - Left Wound Gram Stain - Final 11/12/21 12:30 Hip - Left Wound Culture - Final Enterococcus Faecium 11/09/21 21:20 Urine,Catheterized Urine Culture - Final Escherichia Coli 11/09/21 09:38 Buttock Wound Gram Stain - Final 11/09/21 09:38 Buttock Wound Culture - Final Pseudomonas Aeruginosa 11/09/21 09:38 Sacral Wound Gram Stain - Final 11/09/21 09:38 Sacral Wound Culture - Final Escherichia Coli Laboratory WBC 16.9 X10^3/uL (3.6-10.0) H D 11/19/21 03:40 RBC 2.36 X10^6/uL (3.5-5.4) L 11/19/21 03:40 Hgb 6.8 g/dL (12.0-16.0) L* 11/19/21 03:40 Hct 20.8 % (36.0-47.0) L 11/19/21 03:40 MCV 88.5 fL (80.0-100.0) 11/19/21 03:40 MCH 28.7 pg (27.0-34.0) 11/19/21 03:40 MCHC 32.4 g/dL (33.0-35.0) L 11/19/21 03:40 RDW 18.1 % (11.6-16.5) H 11/19/21 03:40 Plt Count 297 X10^3/uL (150.0-450.0) 11/19/21 03:40 Plt Count Comment Adequate (ADEQUATE) 11/18/21 03:40 MPV 9.0 fL (7.4-11.0) 11/19/21 03:40 Neut % (Auto) 80.4 % (42.0-75.0) H 11/19/21 03:40 Lymph % (Auto) 10.3 % (21.0-51.0) L 11/19/21 03:40 [place] % (Auto) 9.0 % (0.0-13.0) 11/19/21 03:40 Eos % (Auto) 0.1 % (0.9-2.9) L 11/19/21 03:40 Baso % (Auto) 0.2 % (0.2-1.0) 11/19/21 03:40 Neut # (Auto) 13.6 x10^3/uL (2.2-4.8) H 11/19/21 03:40 Lymph # (Auto) 1.8 X10^3/uL (1.3-2.9) 11/19/21 03:40 [place] # (Auto) 1.5 x10^3/uL (0.3-0.8) H 11/19/21 03:40 Eos # (Auto) 0.0 x10^3/uL (0.0-0.2) 11/19/21 03:40 Baso # (Auto) 0.0 X10^3/uL (0.0-0.1) 11/19/21 03:40 Absolute Nucleated RBC 0.0 /100WBC 11/19/21 03:40 Total Counted 100 11/18/21 03:40 Neutrophils % (Manual) 89 % (39-76) H 11/18/21 03:40 Band Neutrophils % 2 % (0-10) 11/18/21 03:40 Lymphocytes % (Manual) 3 % (13-43) L 11/18/21 03:40 Monocytes % (Manual) 6 % (4-9) 11/18/21 03:40 Plt Morphology Comment Normal (NORMAL) 11/18/21 03:40 RBC Morphology Abnormal (NORMAL) A 11/18/21 03:40 Hypochromasia 1+ A 11/18/21 03:40 Anisocytosis 2+ A 11/09/21 09:20 Microcytosis Slight A 11/09/21 09:20 Target Cells Present 11/18/21 03:40 Stomatocytes Present 11/18/21 03:40 Rouleaux Present 11/18/21 03:40 Schistocytes Slight A 11/09/21 09:20 PT 17.4 SECONDS (11.8-14.3) 11/09/21 18:53 INR Target Range - 11/09/21 18:53 INR 1.48 (0.8-1.3) H 11/09/21 18:53 APTT 46.6 SECONDS (22.9-36.5) H 11/09/21 18:53 PTT Comment - 11/09/21 18:53 Sample Site [place]rad 11/13/21 01:05 ABG pH 7.240 (7.35-7.45) L 11/13/21 01:05 ABG pCO2 56.0 mmHg (35.0-45.0) H* 11/13/21 01:05 ABG pO2 136.0 mmHg (80.0-100.0) H 11/13/21 01:05 ABG HCO3 24.0 mmol/L (22-26) 11/13/21 01:05 ABG O2 Saturation 99.0 % (90-100) 11/13/21 01:05 ABG Base Excess -4.0 mmol/L (-2.0-2.0) L 11/13/21 01:05 Satish Test Pos 11/13/21 01:05 A-a Gradient 507.0 mmHg 11/13/21 01:05 FiO2 100.0 11/13/21 01:05 Blood Gas Comments Jaye abg well-mtf 11/13/21 01:05 Sodium 143 mmol/L (136-145) 11/19/21 03:40 Corrected Sodium 146 mmol/L (136-145) H 11/19/21 03:40 Potassium 4.8 mmol/L (3.5-5.1) 11/19/21 03:40 Chloride 104 mmol/L (98-107) 11/19/21 03:40 Carbon Dioxide 31.4 mmol/L (21-32) 11/19/21 03:40 BUN 50 mg/dL (7-18) H 11/19/21 03:40 Creatinine 0.73 mg/dL (0.55-1.02) 11/19/21 03:40 Est GFR (MDRD) Af Amer > 60 (>60) 11/19/21 03:40 Est GFR (MDRD) Non-Af > 60 (>60) 11/19/21 03:40 Glucose 206 mg/dL (65-99) H 11/19/21 03:40 POC Glucose (mg/dL) 238 mg/dL (65-99) H 11/18/21 21:09 Lactic Acid 1.0 mmol/L (0.4-2.0) 11/18/21 04:50 Calcium 9.4 mg/dL (8.5-10.1) 11/19/21 03:40 Corrected Calcium TNP 11/19/21 03:40 Phosphorus 1.6 mg/dL (2.6-4.7) L 11/15/21 05:36 Magnesium 2.2 mg/dL (1.7-2.9) 11/15/21 05:36 Total Bilirubin 0.20 mg/dL (0.2-1.0) 11/19/21 03:40 AST 25 Units/L (15-37) 11/19/21 03:40 ALT 80 Units/L (12-78) H 11/19/21 03:40 Alkaline Phosphatase 105 Units/L (46-116) 11/19/21 03:40 Creatine Kinase 13 Units/L (26-192) L 11/18/21 03:40 CK-MB (CK-2) 1.4 ng/mL (0-4.0) 11/18/21 03:40 CK/CKMB % Calc 10.8 % (<4) 11/18/21 03:40 Troponin I High Sens 7.9 ng/L (4.0-60.0) 11/18/21 03:40 B-Natriuretic Peptide 864 pg/mL (0-79) H* 11/19/21 03:40 Total Protein 7.2 g/dL (6.4-8.2) 11/19/21 03:40 Albumin 3.7 g/dL (3.4-5.0) 11/19/21 03:40 Globulin 3.5 g/dL (2.5-4.5) 11/19/21 03:40 Albumin/Globulin Ratio 1.1 Ratio (1.1-2.1) 11/19/21 03:40 Prealbumin 15.6 mg/dL (18-35.7) L 11/18/21 03:40 Triglycerides 33 mg/dL (0-150) 11/15/21 05:36 Amylase 14 Units/L (25-115) L 11/09/21 18:53 Lipase 37 Units/L (73-393) L 11/09/21 18:53 Cortisol 12.9 ug/dL 11/09/21 18:53 Specimen Type Catherized urine 11/17/21 15:35 Urine Color Yellow (YELLOW) 11/17/21 15:35 Urine Appearance Slightly hazy (CLEAR) 11/17/21 15:35 Urine pH 6.0 (5.0 - 8.0) 11/17/21 15:35 Ur Specific [place] 1.025 (1.000-1.030) 11/17/21 15:35 Urine Protein 3+ (NEGATIVE) 11/17/21 15:35 Urine Glucose (UA) Negative (NEGATIVE) 11/17/21 15:35 Urine Ketones Negative (NEGATIVE) 11/17/21 15:35 Urine Blood 3+ (NEGATIVE) 11/17/21 15:35 Urine Nitrite Negative (NEGATIVE) 11/17/21 15:35 Urine Bilirubin Negative (NEGATIVE) 11/17/21 15:35 Urine Urobilinogen Normal (NORMAL) 11/17/21 15:35 Ur Leukocyte Esterase 1+ (NEGATIVE) 11/17/21 15:35 Urine RBC 5-10 /HPF (0-3) A 11/17/21 15:35 Urine WBC 3-5 /HPF (0-5) 11/17/21 15:35 Ur Squamous Epith Cells Rare /HPF (NEGATIVE) 11/17/21 15:35 Calcium Oxalate Crystal Rare /HPF (NEGATIVE) 11/17/21 15:35 Amorphous Sediment 1+ /HPF (NEGATIVE) 11/17/21 15:35 Urine Bacteria 1+ /HPF (NEGATIVE) 11/17/21 15:35 Granular Casts Few /LPF (NEGATIVE) 11/17/21 15:35 Urine Yeast Few /HPF (NEGATIVE) 11/17/21 15:35 Ur Culture Indicated? No/not indicated 11/17/21 15:35 Stool Description 10g unformed brown 11/10/21 11:00 Stl Occult Blood (IFOB) Negative (NEGATIVE) 11/10/21 11:00 Vancomycin Trough 23.4 ug/mL (15-20) H* 11/11/21 09:20 Digoxin 1.15 ng/mL (0.9-2) 11/18/21 03:40 SARS-CoV-2 (PCR) Negative (NEGATIVE) 11/09/21 11:36 Tissue Pathology To follow 11/12/21 12:32 Blood Type O POSITIVE 11/17/21 15:49 Antibody Screen Negative 11/17/21 09:40 Crossmatch See Detail 11/17/21 09:40 Tx React Prelim Eval Add. study pending 11/17/21 15:49 Tx React Symptoms Diaphoretic o2 @ 70% 11/17/21 15:49 Reaction Path Interpret See comment 11/17/21 15:49 Reaction Pathol Consult Warner craven md 11/17/21 15:49 Blood Bank Comment Performed by Soni 11/17/21 15:49 - Plan (1) Sepsis Status: Acute Qualifiers: Sepsis type: Pseudomonas Sepsis acute organ dysfunction status: unspecified Qualified Code(s): A41.52 - Sepsis due to Pseudomonas Plan: TPN AT 50ML/HR, ALBUMIN 25% IV DAILY, MEROPENEM 1G IV Q8H, ZYVOXX 600MG PO Q12H, XANAX 0.5MG PO TID, LOVENOX 30MG SC DAILY, XOPENEX TID, LOPRESSOR 25MG PO BID, DIGOXIN 0.125MG PO DAILY, THE MAGNESIUM PROTOCOL, AND HER HOME MEDICATIONS WERE RESUMED. LASIX 20MG IV BID X 2 DOSES (2) Decubitus ulcer, stage 4 with infection Status: Acute (3) Anemia Status: Acute Qualifiers: Anemia type: unspecified type Qualified Code(s): D64.9 - Anemia, unspecified (4) Urinary tract infection Status: Acute Qualifiers: Urinary tract infection type: acute cystitis Hematuria presence: with hematuria Qualified Code(s): N30.01 - Acute cystitis with hematuria (5) Hypoalbuminemia Status: Acute (6) CHF (congestive heart failure) Status: Chronic Qualifiers: Heart failure type: unspecified Heart failure chronicity: acute on chronic Qualified Code(s): I50.9 - Heart failure, unspecified (7) Spina bifida Status: Chronic Qualifiers: Spinal region: unspecified Presence of hydrocephalus: unspecified hydrocephalus presence Qualified Code(s): Q05.9 - Spina bifida, unspecified (8) DM II (diabetes mellitus, type II), controlled Status: Chronic Qualifiers: Diabetes mellitus termite inspector insulin use: with longterm use Diabetes mellitus complication status: with hyperglycemia Qualified Code(s): E11.65 - Type 2 diabetes mellitus with hyperglycemia; Z79.4 - MCFP (current) use of insulin
[2021-11-19] MEDS: PULMICORT NEB TX 0.5 MG NEB SCH ×2 (09:40→20:54)
[2021-11-19] MEDS ORDERED: GLUCOPHAGE ONE ×2 (09:52→21:33)
[2021-11-19] MEDS: ALBUMIN HUMAN 25%- 100 ML 100 ML IV SCH (09:54)
[2021-11-19] MEDS: VSL#3 PO SCH (09:55)
[2021-11-19] MEDS ORDERED: PROCRIT or EPOGEN VIAL 10,000 UNITS SC ONE (09:55)
[2021-11-19] MEDS: LOVENOX INJ 30 MG SYR SC SCH (09:55)
[2021-11-19] MEDS: ZyrTEC TAB 10 MG PO SCH (09:56)
[2021-11-19] MEDS: TAB-A-VITE PO SCH (09:56)
[2021-11-19] MEDS: VITAMIN C PO SCH (09:57)
[2021-11-19] MEDS: MEGACE PO SCH ×2 (09:57→22:42)
[2021-11-19] MEDS: LOPRESSOR TAB 25 MG PO SCH ×2 (09:57→22:43)
[2021-11-19] MEDS: LANOXIN or DIGITEK PO SCH (09:57)
[2021-11-19] MEDS: RisperDAL TAB 1 MG PO SCH ×3 (09:58→22:41)
[2021-11-19] MEDS: COLACE CAP 100 MG PO SCH ×2 (09:58→22:37)
[2021-11-19] MEDS: ZINC SULFATE PO SCH (09:58)
[2021-11-19] MEDS: FLONASE NASAL SPRAY ENOSTRIL SCH ×2 (09:59→22:44)
[2021-11-19] MEDS: LASIX IVP SCH ×2 (09:59→17:57)
[2021-11-19] MEDS: GLUCOPHAGE PO SCH ×2 (09:59→22:44)
[2021-11-19] MEDS: ZOLOFT PO SCH (09:59)
[2021-11-19] MEDS: THERMOTABS PO SCH ×4 (10:00→22:42)
[2021-11-19] MEDS: XALATAN OP SCH ×2 (10:00→22:42)
[2021-11-19] MEDS: POTASSIUM CHLORIDE LIQ 20 MEQ UDC PO SCH (10:00)
[2021-11-19] MEDS: PROVERA PO SCH (10:03)
[2021-11-19] MEDS: ZYVOX TAB 600 MG PO SCH ×2 (10:03→22:40)
[2021-11-19] MEDS: DEPAKOTE D.R. TAB PO SCH ×2 (10:03→22:47)
[2021-11-19] MEDS: DESYREL PO SCH (22:39)
[2021-11-19] MEDS: ZANAFLEX PO SCH (22:41)
[2021-11-19] MEDS: LIPITOR TAB 20 MG PO SCH (22:43)
[2021-11-19] MEDS: SNACK - Diabetic Appropriate PO SCH (22:47)
[2021-11-20 04:56] LABS: BASOPHILS % (AUTO) 0.3 % (0.2-1.0); EOSINOPHILS # (AUTO) 0.1 x10^3/uL (0.0-0.2); EOSINOPHILS % (AUTO) 0.6 % (0.9-2.9); HEMATOCRIT 21.2 % (36.0-47.0); LYMPHOCYTES # (AUTO) 1.7 X10^3/uL (1.3-2.9); LYMPHOCYTES % (AUTO) 13.6 % (21.0-51.0); MEAN CORPUSCULAR HEMOGLOBIN 29.4 pg (27.0-34.0); MEAN CORPUSCULAR HGB CONC 32.9 g/dL (33.0-35.0); MEAN CORPUSCULAR VOLUME 89.3 fL (80.0-100.0); MONOCYTES % (AUTO) 7.8 % (0.0-13.0); NEUTROPHILS # (AUTO) 9.6 x10^3/uL (2.2-4.8); NEUTROPHILS % (AUTO) 77.7 % (42.0-75.0); RED BLOOD COUNT 2.37 X10^6/uL (3.5-5.4); RED CELL DISTRIBUTION WIDTH 17.9 % (11.6-16.5); WHITE BLOOD COUNT 12.4 X10^3/uL (3.6-10.0)
[2021-11-20 05:01] LABS: ALANINE AMINOTRANSFERASE 87 Units/L (12-78); ALBUMIN 3.8 g/dL (3.4-5.0); ALKALINE PHOSPHATASE 108 Units/L (46-116); ASPARTATE AMINO TRANSFERASE 36 Units/L (15-37); BLOOD UREA NITROGEN 70 mg/dL (7-18); CALCIUM 9.3 mg/dL (8.5-10.1); CARBON DIOXIDE 32.5 mmol/L (21-32); CHLORIDE 106 mmol/L (98-107); COR NA(FOR HYPERGLY) 144 mmol/L (136-145); CREATININE 0.83 mg/dL (0.55-1.02); SODIUM 143 mmol/L (136-145); TOTAL PROTEIN 7.5 g/dL (6.4-8.2); eGFR NON BLACK RACES > 60 (>60)
[2021-11-20] MEDS: XOPENEX 1.25 MG/3 ML NEBULE NEB SCH ×3 (05:22→20:15)
[2021-11-20] MEDS: XANAX PO SCH ×3 (05:49→21:45)
[2021-11-20] MEDS: MERREM VIAL 1 G in NS 100 ML IV 100 ML IV SCH ×3 (05:49→21:45)
[2021-11-20 06:09] LABS: PLATELET MORPHOLOGY COMMENT NORMAL (NORMAL)
[2021-11-20 06:10] LABS: ANISOCYTOSIS SLIGHT; HYPOCHROMASIA SLIGHT; TARGET CELLS PRESENT
--- NOTE | 2021-11-20 07:02 | RAD ---
HISTORYSOBSTUDYAP [id number] size is unchanged. There is slight apparent progression of bilateral confluent airspace disease with increasing left pleural effusion.IMPRESSIONSlight increase in pulmonary infiltrates consistent with pneumonia/edema. Increasing size and prominence of left pleural effusion.Electronically signed by: JC ORTIZ (Nov 20, 2021 07:00:57)
[2021-11-20] MEDS: PULMICORT NEB TX 0.5 MG NEB SCH ×2 (08:28→20:15)
[2021-11-20] MEDS ORDERED: PROCRIT or EPOGEN VIAL 10,000 UNITS SC ONE (08:40)
[2021-11-20] MEDS ORDERED: GLUCOPHAGE ONE ×2 (08:48→20:14)
[2021-11-20] MEDS: ALBUMIN HUMAN 25%- 100 ML 100 ML IV SCH (09:17)
[2021-11-20] MEDS: COLACE CAP 100 MG PO SCH ×2 (09:19→20:31)
[2021-11-20] MEDS: ZyrTEC TAB 10 MG PO SCH (09:20)
[2021-11-20] MEDS: ZYVOX TAB 600 MG PO SCH ×2 (09:20→20:34)
[2021-11-20] MEDS: XALATAN OP SCH ×2 (09:21→21:12)
[2021-11-20] MEDS: ZOLOFT PO SCH (09:21)
[2021-11-20] MEDS: ZINC SULFATE PO SCH (09:21)
[2021-11-20] MEDS: VITAMIN C PO SCH (09:22)
[2021-11-20] MEDS: VSL#3 PO SCH (09:22)
[2021-11-20] MEDS: THERMOTABS PO SCH ×4 (09:23→20:36)
[2021-11-20] MEDS: TAB-A-VITE PO SCH (09:23)
[2021-11-20] MEDS: POTASSIUM CHLORIDE LIQ 20 MEQ UDC PO SCH (09:24)
[2021-11-20] MEDS: PROVERA PO SCH (09:24)
[2021-11-20] MEDS: MEGACE PO SCH ×2 (09:25→20:31)
[2021-11-20] MEDS: LOVENOX INJ 30 MG SYR SC SCH (09:25)
[2021-11-20] MEDS: LANOXIN or DIGITEK PO SCH (09:26)
[2021-11-20] MEDS: LOPRESSOR TAB 25 MG PO SCH ×2 (09:26→20:34)
[2021-11-20] MEDS: LASIX IVP SCH ×2 (09:26→17:41)
[2021-11-20] MEDS: GLUCOPHAGE PO SCH ×2 (09:27→20:33)
[2021-11-20] MEDS: DEPAKOTE D.R. TAB PO SCH ×2 (09:28→20:34)
[2021-11-20] MEDS: FLONASE NASAL SPRAY ENOSTRIL SCH ×2 (09:28→21:11)
[2021-11-20] MEDS: RisperDAL TAB 1 MG PO SCH ×3 (09:41→20:33)
[2021-11-20] MEDS: ZOFRAN INJ 4 MG VIAL IVP PRN (10:30)
[2021-11-20] MEDS: MORPHINE SULFATE INJ 2 MG INJ IVP PRN ×2 (10:30→17:41)
[2021-11-20] MEDS: CLINIMIX 5 %/20 % 1,000 ML with MVI INJ (ADULT) 10 ML, TPN ELECTROLYTES 20 ML, TRACE EL... IV SCH ×6 (11:28)
[2021-11-20] MEDS ORDERED: PROCRIT or EPOGEN VIAL 10,000 UNITS ONE (11:37)
--- NOTE | 2021-11-20 12:59 | PCM.PROG ---
Progress Note - Progress Note for Day of Date of Exam: 11/19/21 - Subjective Subjective: WAS ADMITTED FOR TREAMENT OF SEPSIS, MULTIPLE INFECTED DECUBITUS ULCERS, ANEMIA, AND A URINARY TRACT INFECTION. SHE IS STATUS POST DEBRIDEMENT OF WOUNDS. ON 11/17/21, PATIENT HAD A TRANSFUSION REACTION. SHE WAS TRANSFERRED TO THE INTENSIVE CARE UNIT AND A TRANSFUSION WORK-UP WAS DONE. SHE HAS BEEN UTILIZING THE BIPAP. TODAY, FIO2 IS AT 55%. ON THE BIPAP, HER SATURATIONS ARE IN THE 90s. TODAY, SHE IS LYING IN BED WITH EYES CLOSED ON MORNING ROUNDS. SHE AWAKENS AND RESPONDS TO VERBAL STIMULI. ON EXAMINATION, SHE IS TACHYCARDIC WITH HR 110-120. SINUS TACHYCARDIA NOTED ON TELEMETRY. BILATERAL LUNGS ARE NOTED WITH DIMINISHED LUNG SOUNDS THROUGHOUT. ABDOMEN IS DISTENDED BUT APPEARS TO BE NON-TENDER. NORMAL BOWEL SOUNDS NOTED. EPPERSON CATHETER NOTED TO BEDSIDE DRAINAGE. WOUND VAC NOTED TO WOUNDS ON SACRUM. NO UPPER OR LOWER EXTREMITY NOTED. A CENTRAL LINE IS NOTED TO FEMORAL ARTERY. HER VITALS THIS MORNING ARE: 98.8-372-05-100%-141/70. LABS WERE OBTAINED. WBC 16.9, RBC 2.36, HGB 6.8, HCT 20.8, SODIUM 143, POTASSIUM 4.8, BUN 50, CREATININE 0.73, GLUCOSE 206, CALCIUM 9.4, AST 25, ALT 80, ALK PHOS 105, BNP 864, TOTAL PROTEIN 7.2, ALBUMIN 3.7. REPEAT BLOOD CULTURES ARE PENDING. A CHEST XRAY WAS OBTAINED THIS MORNING AND REVEALED: The heart remains enlarged. Diffuse bilateral alveolar filling is present unchanged when compared with the prior examination. No definite pleural effusions identified. Bony thorax is unremarkable. SHE IS CURRENTLY RECEIVING TPN AT 50ML/HR, ALBUMIN 25% IV DAILY, MEROPENEM 1G IV Q8H, ZYVOXX 600MG PO Q12H, XANAX 0.5MG PO TID, LOVENOX 30MG SC DAILY, XOPENEX TID, LOPRESSOR 25MG PO BID, DIGOXIN 0.125MG PO DAILY, THE MAGNESIUM PROTOCOL, AND HER HOME MEDICATIONS WERE RESUMED. WE WILL ADMINISTER FUROSEMIDE 20MG IV BID X 2 DOSES. WE WILL ALSO ADMINISTER PROCRIT 5,000 UNITS SC X 1 DOSE. OTHERWISE, WE WILL CONTINUE WITH CURRENT PLAN OF CARE TODAY. WE PLAN TO FOLLOW-UP WITH AM LABS AND CHEST XRAY AND CONTINUE TO MONITOR. TIME SPENT ON CLINICAL ASSESSMENT, REVIEWING LABS AND IMAGING, DECISION MAKING, AND DOCUMENTATION GREATER THAN 45 MINUTES. - Past Medical Family Social History Past Med/Fam/Surg Hx: No changes since H&P Allergies: Allergies quetiapine [From Seroquel] Allergy (Verified 08/13/21 14:56) aripiprazole [From Abilify] Adverse Reaction (Verified 08/13/21 14:56) bupropion [From Wellbutrin] Adverse Reaction (Verified 08/13/21 14:56) donepezil [From Aricept] Adverse Reaction (Verified 08/13/21 14:56) moxifloxacin [From Avelox] Adverse Reaction (Verified 08/13/21 14:56) olanzapine [From Zyprexa] Adverse Reaction (Verified 08/13/21 14:56) promethazine [From Phenergan] Adverse Reaction (Verified 08/13/21 14:56) venlafaxine [From Effexor] Adverse Reaction (Verified 08/13/21 14:56) - Review of Systems ROS: No change since H&P - Vital Signs and I&O's Vital Signs: Temperature 98.5 F Pulse Rate [Right Brachial] 113 Pulse Rate 105 Respiratory Rate 38 Blood Pressure [Right Arm] 155/72 Blood Pressure [Left Arm] 146/67 Blood Pressure 128/61 O2 Sat by Pulse Oximetry 97 Intake and Output: Intake & Output 11/18/21 11/19/21 11/20/21 11/21/21 11:59 11:59 11:59 11:59 Intake Total 976 / 976 1768 / 1768 2570 / 2570 Output Total 2100 / 2100 900 / 900 1000 / 1000 Balance -1124 / -1124 868 / 868 1570 / 1570 - Physical Exam Oriented: Normal Eyes: Normal Ear: Normal Nose: Normal Throat: Normal Respiratory: Generalized, Diminished Cardiovascular: 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) Auscultation: Bowel Sounds: Normal Palpation: Normal Tenderness: Normal Skin: Wound (MULTIPLE DECUBITUS ULCERS TO BUTTOCKS) Musculoskeletal: Normal Psychiatric: Normal Mood Description: Anxious Affect: Anxious Speech Pattern: Appropriate, Unclear - Laboratory and Diagnostics Result Diagrams: 11/20/21 03:26 11/20/21 03:26 Labs: 11/09/21 09:20 Blood Blood Culture - Final 11/09/21 09:10 Blood Blood Culture - Final 11/12/21 12:31 Sacral Wound Gram Stain - Final 11/12/21 12:31 Sacral Wound Culture - Final Enterococcus Faecium 11/12/21 12:30 Hip - Left Wound Gram Stain - Final 11/12/21 12:30 Hip - Left Wound Culture - Final Enterococcus Faecium 11/09/21 21:20 Urine,Catheterized Urine Culture - Final Escherichia Coli 11/09/21 09:38 Buttock Wound Gram Stain - Final 11/09/21 09:38 Buttock Wound Culture - Final Pseudomonas Aeruginosa 11/09/21 09:38 Sacral Wound Gram Stain - Final 11/09/21 09:38 Sacral Wound Culture - Final Escherichia Coli Laboratory WBC 12.4 X10^3/uL (3.6-10.0) H 11/20/21 03:26 RBC 2.37 X10^6/uL (3.5-5.4) L 11/20/21 03:26 Hgb 7.0 g/dL (12.0-16.0) L 11/20/21 03:26 Hct 21.2 % (36.0-47.0) L 11/20/21 03:26 MCV 89.3 fL (80.0-100.0) 11/20/21 03:26 MCH 29.4 pg (27.0-34.0) 11/20/21 03:26 MCHC 32.9 g/dL (33.0-35.0) L 11/20/21 03:26 RDW 17.9 % (11.6-16.5) H 11/20/21 03:26 Plt Count 287 X10^3/uL (150.0-450.0) 11/20/21 03:26 Plt Count Comment Adequate (ADEQUATE) 11/20/21 03:26 MPV 9.0 fL (7.4-11.0) 11/20/21 03:26 Neut % (Auto) 77.7 % (42.0-75.0) H 11/20/21 03:26 Lymph % (Auto) 13.6 % (21.0-51.0) L 11/20/21 03:26 [place] % (Auto) 7.8 % (0.0-13.0) 11/20/21 03:26 Eos % (Auto) 0.6 % (0.9-2.9) L 11/20/21 03:26 Baso % (Auto) 0.3 % (0.2-1.0) 11/20/21 03:26 Neut # (Auto) 9.6 x10^3/uL (2.2-4.8) H 11/20/21 03:26 Lymph # (Auto) 1.7 X10^3/uL (1.3-2.9) 11/20/21 03:26 [place] # (Auto) 1.0 x10^3/uL (0.3-0.8) H 11/20/21 03:26 Eos # (Auto) 0.1 x10^3/uL (0.0-0.2) 11/20/21 03:26 Baso # (Auto) 0.0 X10^3/uL (0.0-0.1) 11/20/21 03:26 Absolute Nucleated RBC 0.1 /100WBC 11/20/21 03:26 Total Counted 100 11/20/21 03:26 Neutrophils % (Manual) 81 % (39-76) H 11/20/21 03:26 Band Neutrophils % 2 % (0-10) 11/18/21 03:40 Lymphocytes % (Manual) 9 % (13-43) L 11/20/21 03:26 Monocytes % (Manual) 10 % (4-9) H 11/20/21 03:26 Plt Morphology Comment Normal (NORMAL) 11/20/21 03:26 RBC Morphology Abnormal (NORMAL) A 11/20/21 03:26 Hypochromasia Slight A 11/20/21 03:26 Anisocytosis Slight A 11/20/21 03:26 Microcytosis Slight A 11/09/21 09:20 Target Cells Present 11/20/21 03:26 Stomatocytes Present 11/18/21 03:40 Rouleaux Present 11/18/21 03:40 Schistocytes Slight A 11/09/21 09:20 PT 17.4 SECONDS (11.8-14.3) 11/09/21 18:53 INR Target Range - 11/09/21 18:53 INR 1.48 (0.8-1.3) H 11/09/21 18:53 APTT 46.6 SECONDS (22.9-36.5) H 11/09/21 18:53 PTT Comment - 11/09/21 18:53 Sample Site Lrad 11/13/21 01:05 ABG pH 7.240 (7.35-7.45) L 11/13/21 01:05 ABG pCO2 56.0 mmHg (35.0-45.0) H* 11/13/21 01:05 ABG pO2 136.0 mmHg (80.0-100.0) H 11/13/21 01:05 ABG HCO3 24.0 mmol/L (22-26) 11/13/21 01:05 ABG O2 Saturation 99.0 % (90-100) 11/13/21 01:05 ABG Base Excess -4.0 mmol/L (-2.0-2.0) L 11/13/21 01:05 Satish Test Pos 11/13/21 01:05 A-a Gradient 507.0 mmHg 11/13/21 01:05 FiO2 100.0 11/13/21 01:05 Blood Gas Comments Jaye abg well-mtf 11/13/21 01:05 Sodium 143 mmol/L (136-145) 11/20/21 03:26 Corrected Sodium 144 mmol/L (136-145) 11/20/21 03:26 Potassium 4.8 mmol/L (3.5-5.1) 11/20/21 03:26 Chloride 106 mmol/L (98-107) 11/20/21 03:26 Carbon Dioxide 32.5 mmol/L (21-32) H 11/20/21 03:26 BUN 70 mg/dL (7-18) H 11/20/21 03:26 Creatinine 0.83 mg/dL (0.55-1.02) 11/20/21 03:26 Est GFR (MDRD) Af Amer > 60 (>60) 11/20/21 03:26 Est GFR (MDRD) Non-Af > 60 (>60) 11/20/21 03:26 Glucose 142 mg/dL (65-99) H 11/20/21 03:26 POC Glucose (mg/dL) 214 mg/dL (65-99) H 11/20/21 11:45 Lactic Acid 1.0 mmol/L (0.4-2.0) 11/18/21 04:50 Calcium 9.3 mg/dL (8.5-10.1) 11/20/21 03:26 Corrected Calcium TNP 11/20/21 03:26 Phosphorus 1.6 mg/dL (2.6-4.7) L 11/15/21 05:36 Magnesium 2.2 mg/dL (1.7-2.9) 11/15/21 05:36 Total Bilirubin 0.20 mg/dL (0.2-1.0) 11/20/21 03:26 AST 36 Units/L (15-37) 11/20/21 03:26 ALT 87 Units/L (12-78) H 11/20/21 03:26 Alkaline Phosphatase 108 Units/L (46-116) 11/20/21 03:26 Creatine Kinase 13 Units/L (26-192) L 11/18/21 03:40 CK-MB (CK-2) 1.4 ng/mL (0-4.0) 11/18/21 03:40 CK/CKMB % Calc 10.8 % (<4) 11/18/21 03:40 Troponin I High Sens 7.9 ng/L (4.0-60.0) 11/18/21 03:40 B-Natriuretic Peptide 1350 pg/mL (0-79) H* 11/20/21 03:26 Total Protein 7.5 g/dL (6.4-8.2) 11/20/21 03:26 Albumin 3.8 g/dL (3.4-5.0) 11/20/21 03:26 Globulin 3.7 g/dL (2.5-4.5) 11/20/21 03:26 Albumin/Globulin Ratio 1.0 Ratio (1.1-2.1) L 11/20/21 03:26 Prealbumin 15.6 mg/dL (18-35.7) L 11/18/21 03:40 Triglycerides 33 mg/dL (0-150) 11/15/21 05:36 Amylase 14 Units/L (25-115) L 11/09/21 18:53 Lipase 37 Units/L (73-393) L 11/09/21 18:53 Cortisol 12.9 ug/dL 11/09/21 18:53 Specimen Type Catherized urine 11/17/21 15:35 Urine Color Yellow (YELLOW) 11/17/21 15:35 Urine Appearance Slightly hazy (CLEAR) 11/17/21 15:35 Urine pH 6.0 (5.0 - 8.0) 11/17/21 15:35 Ur Specific Fitzpatrick 1.025 (1.000-1.030) 11/17/21 15:35 Urine Protein 3+ (NEGATIVE) 11/17/21 15:35 Urine Glucose (UA) Negative (NEGATIVE) 11/17/21 15:35 Urine Ketones Negative (NEGATIVE) 11/17/21 15:35 Urine Blood 3+ (NEGATIVE) 11/17/21 15:35 Urine Nitrite Negative (NEGATIVE) 11/17/21 15:35 Urine Bilirubin Negative (NEGATIVE) 11/17/21 15:35 Urine Urobilinogen Normal (NORMAL) 11/17/21 15:35 Ur Leukocyte Esterase 1+ (NEGATIVE) 11/17/21 15:35 Urine RBC 5-10 /HPF (0-3) A 11/17/21 15:35 Urine WBC 3-5 /HPF (0-5) 11/17/21 15:35 Ur Squamous Epith Cells Rare /HPF (NEGATIVE) 11/17/21 15:35 Calcium Oxalate Crystal Rare /HPF (NEGATIVE) 11/17/21 15:35 Amorphous Sediment 1+ /HPF (NEGATIVE) 11/17/21 15:35 Urine Bacteria 1+ /HPF (NEGATIVE) 11/17/21 15:35 Granular Casts Few /LPF (NEGATIVE) 11/17/21 15:35 Urine Yeast Few /HPF (NEGATIVE) 11/17/21 15:35 Ur Culture Indicated? No/not indicated 11/17/21 15:35 Stool Description 10g unformed brown 11/10/21 11:00 Stl Occult Blood (IFOB) Negative (NEGATIVE) 11/10/21 11:00 Vancomycin Trough 23.4 ug/mL (15-20) H* 11/11/21 09:20 Digoxin 1.15 ng/mL (0.9-2) 11/18/21 03:40 SARS-CoV-2 (PCR) Negative (NEGATIVE) 11/09/21 11:36 Tissue Pathology To follow 11/12/21 12:32 Blood Type O POSITIVE 11/17/21 15:49 Antibody Screen Negative 11/17/21 09:40 Crossmatch See Detail 11/17/21 09:40 Tx React Prelim Eval Add. study pending 11/17/21 15:49 Tx React Symptoms Diaphoretic o2 @ 70% 11/17/21 15:49 Reaction Path Interpret See comment 11/17/21 15:49 Reaction Pathol Consult Warner craven md 11/17/21 15:49 Blood Bank Comment Performed by Soni 11/17/21 15:49 - Plan (1) Sepsis Status: Acute Qualifiers: Sepsis type: Pseudomonas Sepsis acute organ dysfunction status: unspecified Qualified Code(s): A41.52 - Sepsis due to Pseudomonas Plan: TPN AT 50ML/HR, ALBUMIN 25% IV DAILY, MEROPENEM 1G IV Q8H, ZYVOXX 600MG PO Q12H, XANAX 0.5MG PO TID, LOVENOX 30MG SC DAILY, XOPENEX TID, LOPRESSOR 25MG PO BID, DIGOXIN 0.125MG PO DAILY, THE MAGNESIUM PROTOCOL, AND HER HOME MEDICATIONS WERE RESUMED. LASIX 20MG IV BID X 2 DOSES (2) Decubitus ulcer, stage 4 with infection Status: Acute (3) Anemia Status: Acute Qualifiers: Anemia type: unspecified type Qualified Code(s): D64.9 - Anemia, unspecified Plan: PROCRIT 5,000 SC X 1 DOSE (4) Urinary tract infection Status: Acute Qualifiers: Urinary tract infection type: acute cystitis Hematuria presence: with hematuria Qualified Code(s): N30.01 - Acute cystitis with hematuria (5) Hypoalbuminemia Status: Acute (6) CHF (congestive heart failure) Status: Chronic Qualifiers: Heart failure type: unspecified Heart failure chronicity: acute on chronic Qualified Code(s): I50.9 - Heart failure, unspecified (7) Spina bifida Status: Chronic Qualifiers: Spinal region: unspecified Presence of hydrocephalus: unspecified hydrocephalus presence Qualified Code(s): Q05.9 - Spina bifida, unspecified (8) DM II (diabetes mellitus, type II), controlled Status: Chronic Qualifiers: Diabetes mellitus director long term care insulin use: with director long term care use Diabetes mellitus complication status: with hyperglycemia Qualified Code(s): E11.65 - Type 2 diabetes mellitus with hyperglycemia; Z79.4 - director long term care (current) use of insulin
--- NOTE | 2021-11-20 13:41 | PCM.PROG ---
Progress Note - Progress Note for Day of Date of Exam: 11/20/21 - Subjective Subjective: WAS ADMITTED FOR TREAMENT OF SEPSIS, MULTIPLE INFECTED DECUBITUS ULCERS, ANEMIA, AND A URINARY TRACT INFECTION. SHE IS STATUS POST DEBRIDEMENT OF WOUNDS. ON 11/17/21, PATIENT HAD A TRANSFUSION REACTION. SHE WAS TRANSFERRED TO THE INTENSIVE CARE UNIT AND A TRANSFUSION WORK-UP WAS DONE. SHE HAS BEEN UTILIZING THE BIPAP. TODAY, FIO2 IS AT 45%. ON THE BIPAP, HER SATURATIONS ARE IN THE 90s. TODAY, SHE IS LYING IN BED WITH EYES CLOSED ON MORNING ROUNDS. SHE AWAKENS AND RESPONDS TO VERBAL STIMULI. ON EXAMINATION, SHE IS TACHYCARDIC WITH HR 100-115. SINUS TACHYCARDIA NOTED ON TELEMETRY. BILATERAL LUNGS ARE NOTED WITH DIMINISHED LUNG SOUNDS THROUGHOUT. ABDOMEN IS ROUND, SOFT, AND NON-TENDER. NORMAL BOWEL SOUNDS NOTED. EPPERSON CATHETER NOTED TO BEDSIDE DRAINAGE. WOUND VAC NOTED TO WOUNDS ON SACRUM. NO UPPER OR LOWER EXTREMITY NOTED. A CENTRAL LINE IS NOTED TO FEMORAL ARTERY. HER VITALS THIS MORNING ARE: 98.2-104-26-98%-127/62. LABS WERE OBTAINED. WBC 12.4, RBC 2.37, HGB 7.0, HCT 21. 2, SODIUM 143, POTASSIUM 4.8, BUN 70, CREATININE 0.83, GLUCOSE 142, CALCIUM 9.3, AST 36, ALT 87, ALK PHOS 108, BNP 1350, TOTAL PROTEIN 7.5, ALBUMIN 3.8. REPEAT BLOOD CULTURES ARE PENDING. A CHEST XRAY WAS OBTAINED THIS MORNING AND REVEALED: Slight increase in pulmonary infiltrates consistent with pneumonia/edema. Increasing size and prominence of left pleural effusion. SHE IS CURRENTLY RECEIVING TPN AT 50ML/HR, ALBUMIN 25% IV DAILY, MEROPENEM 1G IV Q8H, ZYVOXX 600MG PO Q12H, XANAX 0.5MG PO TID, LOVENOX 30MG SC DAILY, XOPENEX TID, LOPRESSOR 25MG PO BID, DIGOXIN 0.125MG PO DAILY, THE MAGNESIUM PROTOCOL, AND HER HOME MEDICATIONS WERE RESUMED. WE WILL ADMINISTER FUROSEMIDE 20MG IV BID X 2 DOSES. WE WILL ALSO ADMINISTER PROCRIT 10,000 UNITS SC X 1 DOSE. OTHERWISE, WE WILL CONTINUE WITH CURRENT PLAN OF CARE TODAY. WE PLAN TO FOLLOW-UP WITH AM LABS AND CHEST XRAY AND CONTINUE TO MONITOR. TIME SPENT ON CLINICAL ASSESSMENT, REVIEWING LABS AND IMAGING, DECISION MAKING, AND DOCUMENTATION GREATER THAN 45 MINUTES. - Past Medical Family Social History Past Med/Fam/Surg Hx: No changes since H&P Allergies: Allergies quetiapine [From Seroquel] Allergy (Verified 08/13/21 14:56) aripiprazole [From Abilify] Adverse Reaction (Verified 08/13/21 14:56) bupropion [From Wellbutrin] Adverse Reaction (Verified 08/13/21 14:56) donepezil [From Aricept] Adverse Reaction (Verified 08/13/21 14:56) moxifloxacin [From Avelox] Adverse Reaction (Verified 08/13/21 14:56) olanzapine [From Zyprexa] Adverse Reaction (Verified 08/13/21 14:56) promethazine [From Phenergan] Adverse Reaction (Verified 08/13/21 14:56) venlafaxine [From Effexor] Adverse Reaction (Verified 08/13/21 14:56) - Review of Systems ROS: No change since H&P - Vital Signs and I&O's Vital Signs: Temperature 98.5 F Pulse Rate [Right Brachial] 113 Pulse Rate 105 Respiratory Rate 38 Blood Pressure [Right Arm] 155/72 Blood Pressure [Left Arm] 146/67 Blood Pressure 128/61 O2 Sat by Pulse Oximetry 97 Intake and Output: Intake & Output 11/18/21 11/19/21 11/20/21 11/21/21 11:59 11:59 11:59 11:59 Intake Total 976 / 976 1768 / 1768 2570 / 2570 Output Total 2100 / 2100 900 / 900 1000 / 1000 Balance -1124 / -1124 868 / 868 1570 / 1570 - Physical Exam Oriented: Normal Eyes: Normal Ear: Normal Nose: Normal Throat: Normal Respiratory: Generalized, Diminished Cardiovascular: 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) Auscultation: Bowel Sounds: Normal Palpation: Normal Tenderness: Normal Skin: Wound (MULTIPLE DECUBITUS ULCERS TO BUTTOCKS) Musculoskeletal: Normal Psychiatric: Normal Mood Description: Anxious Affect: Anxious Speech Pattern: Appropriate, Unclear - Laboratory and Diagnostics Result Diagrams: 11/20/21 03:26 11/20/21 03:26 Labs: 11/09/21 09:20 Blood Blood Culture - Final 11/09/21 09:10 Blood Blood Culture - Final 11/12/21 12:31 Sacral Wound Gram Stain - Final 11/12/21 12:31 Sacral Wound Culture - Final Enterococcus Faecium 11/12/21 12:30 Hip - Left Wound Gram Stain - Final 11/12/21 12:30 Hip - Left Wound Culture - Final Enterococcus Faecium 11/09/21 21:20 Urine,Catheterized Urine Culture - Final Escherichia Coli 11/09/21 09:38 Buttock Wound Gram Stain - Final 11/09/21 09:38 Buttock Wound Culture - Final Pseudomonas Aeruginosa 11/09/21 09:38 Sacral Wound Gram Stain - Final 11/09/21 09:38 Sacral Wound Culture - Final Escherichia Coli Laboratory WBC 12.4 X10^3/uL (3.6-10.0) H 11/20/21 03:26 RBC 2.37 X10^6/uL (3.5-5.4) L 11/20/21 03:26 Hgb 7.0 g/dL (12.0-16.0) L 11/20/21 03:26 Hct 21.2 % (36.0-47.0) L 11/20/21 03:26 MCV 89.3 fL (80.0-100.0) 11/20/21 03:26 MCH 29.4 pg (27.0-34.0) 11/20/21 03:26 MCHC 32.9 g/dL (33.0-35.0) L 11/20/21 03:26 RDW 17.9 % (11.6-16.5) H 11/20/21 03:26 Plt Count 287 X10^3/uL (150.0-450.0) 11/20/21 03:26 Plt Count Comment Adequate (ADEQUATE) 11/20/21 03:26 MPV 9.0 fL (7.4-11.0) 11/20/21 03:26 Neut % (Auto) 77.7 % (42.0-75.0) H 11/20/21 03:26 Lymph % (Auto) 13.6 % (21.0-51.0) L 11/20/21 03:26 [place] % (Auto) 7.8 % (0.0-13.0) 11/20/21 03:26 Eos % (Auto) 0.6 % (0.9-2.9) L 11/20/21 03:26 Baso % (Auto) 0.3 % (0.2-1.0) 11/20/21 03:26 Neut # (Auto) 9.6 x10^3/uL (2.2-4.8) H 11/20/21 03:26 Lymph # (Auto) 1.7 X10^3/uL (1.3-2.9) 11/20/21 03:26 [place] # (Auto) 1.0 x10^3/uL (0.3-0.8) H 11/20/21 03:26 Eos # (Auto) 0.1 x10^3/uL (0.0-0.2) 11/20/21 03:26 Baso # (Auto) 0.0 X10^3/uL (0.0-0.1) 11/20/21 03:26 Absolute Nucleated RBC 0.1 /100WBC 11/20/21 03:26 Total Counted 100 11/20/21 03:26 Neutrophils % (Manual) 81 % (39-76) H 11/20/21 03:26 Band Neutrophils % 2 % (0-10) 11/18/21 03:40 Lymphocytes % (Manual) 9 % (13-43) L 11/20/21 03:26 Monocytes % (Manual) 10 % (4-9) H 11/20/21 03:26 Plt Morphology Comment Normal (NORMAL) 11/20/21 03:26 RBC Morphology Abnormal (NORMAL) A 11/20/21 03:26 Hypochromasia Slight A 11/20/21 03:26 Anisocytosis Slight A 11/20/21 03:26 Microcytosis Slight A 11/09/21 09:20 Target Cells Present 11/20/21 03:26 Stomatocytes Present 11/18/21 03:40 Rouleaux Present 11/18/21 03:40 Schistocytes Slight A 11/09/21 09:20 PT 17.4 SECONDS (11.8-14.3) 11/09/21 18:53 INR Target Range - 11/09/21 18:53 INR 1.48 (0.8-1.3) H 11/09/21 18:53 APTT 46.6 SECONDS (22.9-36.5) H 11/09/21 18:53 PTT Comment - 11/09/21 18:53 Sample Site Lrad 11/13/21 01:05 ABG pH 7.240 (7.35-7.45) L 11/13/21 01:05 ABG pCO2 56.0 mmHg (35.0-45.0) H* 11/13/21 01:05 ABG pO2 136.0 mmHg (80.0-100.0) H 11/13/21 01:05 ABG HCO3 24.0 mmol/L (22-26) 11/13/21 01:05 ABG O2 Saturation 99.0 % (90-100) 11/13/21 01:05 ABG Base Excess -4.0 mmol/L (-2.0-2.0) L 11/13/21 01:05 Satish Test Pos 11/13/21 01:05 A-a Gradient 507.0 mmHg 11/13/21 01:05 FiO2 100.0 11/13/21 01:05 Blood Gas Comments Jaye abg well-mtf 11/13/21 01:05 Sodium 143 mmol/L (136-145) 11/20/21 03:26 Corrected Sodium 144 mmol/L (136-145) 11/20/21 03:26 Potassium 4.8 mmol/L (3.5-5.1) 11/20/21 03:26 Chloride 106 mmol/L (98-107) 11/20/21 03:26 Carbon Dioxide 32.5 mmol/L (21-32) H 11/20/21 03:26 BUN 70 mg/dL (7-18) H 11/20/21 03:26 Creatinine 0.83 mg/dL (0.55-1.02) 11/20/21 03:26 Est GFR (MDRD) Af Amer > 60 (>60) 11/20/21 03:26 Est GFR (MDRD) Non-Af > 60 (>60) 11/20/21 03:26 Glucose 142 mg/dL (65-99) H 11/20/21 03:26 POC Glucose (mg/dL) 214 mg/dL (65-99) H 11/20/21 11:45 Lactic Acid 1.0 mmol/L (0.4-2.0) 11/18/21 04:50 Calcium 9.3 mg/dL (8.5-10.1) 11/20/21 03:26 Corrected Calcium TNP 11/20/21 03:26 Phosphorus 1.6 mg/dL (2.6-4.7) L 11/15/21 05:36 Magnesium 2.2 mg/dL (1.7-2.9) 11/15/21 05:36 Total Bilirubin 0.20 mg/dL (0.2-1.0) 11/20/21 03:26 AST 36 Units/L (15-37) 11/20/21 03:26 ALT 87 Units/L (12-78) H 11/20/21 03:26 Alkaline Phosphatase 108 Units/L (46-116) 11/20/21 03:26 Creatine Kinase 13 Units/L (26-192) L 11/18/21 03:40 CK-MB (CK-2) 1.4 ng/mL (0-4.0) 11/18/21 03:40 CK/CKMB % Calc 10.8 % (<4) 11/18/21 03:40 Troponin I High Sens 7.9 ng/L (4.0-60.0) 11/18/21 03:40 B-Natriuretic Peptide 1350 pg/mL (0-79) H* 11/20/21 03:26 Total Protein 7.5 g/dL (6.4-8.2) 11/20/21 03:26 Albumin 3.8 g/dL (3.4-5.0) 11/20/21 03:26 Globulin 3.7 g/dL (2.5-4.5) 11/20/21 03:26 Albumin/Globulin Ratio 1.0 Ratio (1.1-2.1) L 11/20/21 03:26 Prealbumin 15.6 mg/dL (18-35.7) L 11/18/21 03:40 Triglycerides 33 mg/dL (0-150) 11/15/21 05:36 Amylase 14 Units/L (25-115) L 11/09/21 18:53 Lipase 37 Units/L (73-393) L 11/09/21 18:53 Cortisol 12.9 ug/dL 11/09/21 18:53 Specimen Type Catherized urine 11/17/21 15:35 Urine Color Yellow (YELLOW) 11/17/21 15:35 Urine Appearance Slightly hazy (CLEAR) 11/17/21 15:35 Urine pH 6.0 (5.0 - 8.0) 11/17/21 15:35 Ur Specific Nancy 1.025 (1.000-1.030) 11/17/21 15:35 Urine Protein 3+ (NEGATIVE) 11/17/21 15:35 Urine Glucose (UA) Negative (NEGATIVE) 11/17/21 15:35 Urine Ketones Negative (NEGATIVE) 11/17/21 15:35 Urine Blood 3+ (NEGATIVE) 11/17/21 15:35 Urine Nitrite Negative (NEGATIVE) 11/17/21 15:35 Urine Bilirubin Negative (NEGATIVE) 11/17/21 15:35 Urine Urobilinogen Normal (NORMAL) 11/17/21 15:35 Ur Leukocyte Esterase 1+ (NEGATIVE) 11/17/21 15:35 Urine RBC 5-10 /HPF (0-3) A 11/17/21 15:35 Urine WBC 3-5 /HPF (0-5) 11/17/21 15:35 Ur Squamous Epith Cells Rare /HPF (NEGATIVE) 11/17/21 15:35 Calcium Oxalate Crystal Rare /HPF (NEGATIVE) 11/17/21 15:35 Amorphous Sediment 1+ /HPF (NEGATIVE) 11/17/21 15:35 Urine Bacteria 1+ /HPF (NEGATIVE) 11/17/21 15:35 Granular Casts Few /LPF (NEGATIVE) 11/17/21 15:35 Urine Yeast Few /HPF (NEGATIVE) 11/17/21 15:35 Ur Culture Indicated? No/not indicated 11/17/21 15:35 Stool Description 10g unformed brown 11/10/21 11:00 Stl Occult Blood (IFOB) Negative (NEGATIVE) 11/10/21 11:00 Vancomycin Trough 23.4 ug/mL (15-20) H* 11/11/21 09:20 Digoxin 1.15 ng/mL (0.9-2) 11/18/21 03:40 SARS-CoV-2 (PCR) Negative (NEGATIVE) 11/09/21 11:36 Tissue Pathology To follow 11/12/21 12:32 Blood Type O POSITIVE 11/17/21 15:49 Antibody Screen Negative 11/17/21 09:40 Crossmatch See Detail 11/17/21 09:40 Tx React Prelim Eval Add. study pending 11/17/21 15:49 Tx React Symptoms Diaphoretic o2 @ 70% 11/17/21 15:49 Reaction Path Interpret See comment 11/17/21 15:49 Reaction Pathol Consult Warner craven md 11/17/21 15:49 Blood Bank Comment Performed by P2 11/17/21 15:49 - Plan (1) Sepsis Status: Acute Qualifiers: Sepsis type: Pseudomonas Sepsis acute organ dysfunction status: unspecified Qualified Code(s): A41.52 - Sepsis due to Pseudomonas Plan: TPN AT 50ML/HR, ALBUMIN 25% IV DAILY, MEROPENEM 1G IV Q8H, ZYVOXX 600MG PO Q12H, XANAX 0.5MG PO TID, LOVENOX 30MG SC DAILY, XOPENEX TID, LOPRESSOR 25MG PO BID, DIGOXIN 0.125MG PO DAILY, THE MAGNESIUM PROTOCOL, AND HER HOME MEDICATIONS WERE RESUMED. LASIX 20MG IV BID X 2 DOSES (2) Decubitus ulcer, stage 4 with infection Status: Acute (3) Anemia Status: Acute Qualifiers: Anemia type: unspecified type Qualified Code(s): D64.9 - Anemia, unspecified Plan: PROCRIT 10,000 SC X 1 DOSE (4) Urinary tract infection Status: Acute Qualifiers: Urinary tract infection type: acute cystitis Hematuria presence: with hematuria Qualified Code(s): N30.01 - Acute cystitis with hematuria (5) Hypoalbuminemia Status: Acute (6) CHF (congestive heart failure) Status: Chronic Qualifiers: Heart failure type: unspecified Heart failure chronicity: acute on chronic Qualified Code(s): I50.9 - Heart failure, unspecified (7) Spina bifida Status: Chronic Qualifiers: Spinal region: unspecified Presence of hydrocephalus: unspecified hydrocephalus presence Qualified Code(s): Q05.9 - Spina bifida, unspecified (8) DM II (diabetes mellitus, type II), controlled Status: Chronic Qualifiers: Diabetes mellitus buttermaker continuous churn insulin use: with buttermaker continuous churn use Diabetes mellitus complication status: with hyperglycemia Qualified Code(s): E11.65 - Type 2 diabetes mellitus with hyperglycemia; Z79.4 - CHCF (current) use of insulin
[2021-11-20] MEDS: NovoLIN R (or HumuLIN R) SUBCUT PRN (14:01)
[2021-11-20] MEDS: DESYREL PO SCH (20:31)
[2021-11-20] MEDS: LIPITOR TAB 20 MG PO SCH (20:35)
[2021-11-20] MEDS: ZANAFLEX PO SCH (20:35)
[2021-11-20] MEDS: SNACK - Diabetic Appropriate PO SCH (21:11)
[2021-11-20 22:41] LABS: ABG BASE EXCESS 3.5 mmol/L (-2.0-2.0)
[2021-11-20 22:42] LABS: ABG ALLEN TEST POS; ABG HCO3 33.6 mmol/L (22-26)
--- NOTE | 2021-11-20 22:50 | RAD ---
HISTORYsobSTUDYCHEST, 1 VIEWCOMPARISONJune 2021 at 5:22 a.m.[facility]QUEOhio [facility]t [facility], AP portable projection, 1 imageFINDINGSNo cardiomegaly.Complete opacification of the left thorax which has occurred since the previous exam.Perihilar airspace opacity in the right lung with diffuse increased interstitial markings; without significant change.No pneumothorax.No acute osseous abnormality.IMPRESSION1. Complete opacification of the left thorax which has occurred since the previous exam. Findings could represent worsening airspace disease and possible pleural effusion.2. Perihilar airspace opacity in the right lung with diffuse increased interstitial markings; without significant change.Electronically signed by: Simba Pendleton (Nov 20, 2021 22:49:49)
[2021-11-21] MEDS ORDERED: LASIX IVP ONE ×4 (00:06→04:18)
[2021-11-21] MEDS: MORPHINE SULFATE INJ 2 MG INJ IVP PRN (01:49)
[2021-11-21 04:49] LABS: ABG BASE EXCESS 0.2 mmol/L (-2.0-2.0)
[2021-11-21 04:50] LABS: ABG HCO3 30.6 mmol/L (22-26)
[2021-11-21 04:51] LABS: ABG ALLEN TEST POS
[2021-11-21] MEDS: XOPENEX 1.25 MG/3 ML NEBULE NEB SCH (05:13)
[2021-11-21 05:15] LABS: BASOPHILS % (AUTO) 0.1 % (0.2-1.0); EOSINOPHILS # (AUTO) 0.1 x10^3/uL (0.0-0.2); EOSINOPHILS % (AUTO) 0.6 % (0.9-2.9); HEMATOCRIT 22.1 % (36.0-47.0); HEMOGLOBIN 7.1 g/dL (12.0-16.0); LYMPHOCYTES # (AUTO) 1.4 X10^3/uL (1.3-2.9); LYMPHOCYTES % (AUTO) 8.7 % (21.0-51.0); MEAN CORPUSCULAR HEMOGLOBIN 28.3 pg (27.0-34.0); MEAN CORPUSCULAR VOLUME 88.2 fL (80.0-100.0); MEAN PLATELET VOLUME 9.2 fL (7.4-11.0); MONOCYTES # (AUTO) 1.6 x10^3/uL (0.3-0.8); MONOCYTES % (AUTO) 9.9 % (0.0-13.0); NEUTROPHILS # (AUTO) 12.8 x10^3/uL (2.2-4.8); NEUTROPHILS % (AUTO) 80.7 % (42.0-75.0); RED BLOOD COUNT 2.51 X10^6/uL (3.5-5.4); RED CELL DISTRIBUTION WIDTH 18.3 % (11.6-16.5); WHITE BLOOD COUNT 15.9 X10^3/uL (3.6-10.0)
[2021-11-21 05:19] LABS: ALANINE AMINOTRANSFERASE 61 Units/L (12-78); ALBUMIN 4.1 g/dL (3.4-5.0); ALKALINE PHOSPHATASE 98 Units/L (46-116); ASPARTATE AMINO TRANSFERASE 18 Units/L (15-37); BLOOD UREA NITROGEN 92 mg/dL (7-18); CALCIUM 9.3 mg/dL (8.5-10.1); CARBON DIOXIDE 28.1 mmol/L (21-32); CHLORIDE 107 mmol/L (98-107); COR NA(FOR HYPERGLY) 146 mmol/L (136-145); CREATININE 1.14 mg/dL (0.55-1.02); SODIUM 144 mmol/L (136-145); TOTAL PROTEIN 7.6 g/dL (6.4-8.2); eGFR NON BLACK RACES 53 (>60)
[2021-11-21] MEDS: XANAX PO SCH (05:23)
[2021-11-21] MEDS: MERREM VIAL 1 G in NS 100 ML IV 100 ML IV SCH (05:23)
[2021-11-21 05:58] LABS: ANISOCYTOSIS SLIGHT; BAND NEUTROPHILS % 6 % (0-10); HYPOCHROMASIA 1+; METAMYELOCYTES % 2; MYELOCYTES % 2; PLATELET MORPHOLOGY COMMENT NORMAL (NORMAL)
[2021-11-21 05:59] LABS: TARGET CELLS PRESENT
[2021-11-21] MEDS ORDERED: KETAMINE HCL ONE (06:04)
[2021-11-21] MEDS ORDERED: AMIDATE INJ 40 MG VIAL ONE (06:04)
[2021-11-21] MEDS ORDERED: DIPRIVAN VIAL ONE (06:04)
[2021-11-21 07:41] VITALS: BP 100/50
== END 2021-11-21 11:50 | disposition expired | DRG 853 ==
LOC: EDACCT# → ER 08:15 → MED/SURG 12:02 → ICU 11-17 15:29
PROVIDERS: ADMIT Internal Medicine; ATTEND Internal Medicine
DX: J30.9 Allergic rhinitis, unspecified; A41.52 Sepsis due to Pseudomonas; E88.09 Other disorders of plasma-protein metabolism, not elsewhere classified; F41.9 Anxiety disorder, unspecified; B96.29 Other Escherichia coli [E. coli] as the cause of diseases classified elsewhere; L03.317 Cellulitis of buttock; B96.5 Pseudomonas (aeruginosa) (mallei) (pseudomallei) as the cause of diseases classified elsewhere; E87.2 Acidosis; Q05.9 Spina bifida, unspecified; I50.9 Heart failure, unspecified; R00.0 Tachycardia, unspecified; F20.89 Other schizophrenia; R26.89 Other abnormalities of gait and mobility; Z20.822 Contact with and (suspected) exposure to COVID-19; Z46.6 Encounter for fitting and adjustment of urinary device; Z79.899 Other long term (current) drug therapy; F31.9 Bipolar disorder, unspecified; Y92.238 Other place in hospital as the place of occurrence of the external cause; J18.9 Pneumonia, unspecified organism; R15.9 Full incontinence of feces; R53.1 Weakness; I51.7 Cardiomegaly; E28.319 Asymptomatic premature menopause; D64.9 Anemia, unspecified; R10.31 Right lower quadrant pain; R53.83 Other fatigue; M19.90 Unspecified osteoarthritis, unspecified site; R79.89 Other specified abnormal findings of blood chemistry; I46.9 Cardiac arrest, cause unspecified; F79 Unspecified intellectual disabilities; Y84.8 Other medical procedures as the cause of abnormal reaction of the patient, or of later complication, without mention of misadventure at the time of the procedure; T80.89XA Other complications following infusion, transfusion and therapeutic injection, initial encounter; J90 Pleural effusion, not elsewhere classified; I87.2 Venous insufficiency (chronic) (peripheral); N30.01 Acute cystitis with hematuria; H91.90 Unspecified hearing loss, unspecified ear; B95.2 Enterococcus as the cause of diseases classified elsewhere; E78.5 Hyperlipidemia, unspecified; R10.32 Left lower quadrant pain; L89.154 Pressure ulcer of sacral region, stage 4; E11.65 Type 2 diabetes mellitus with hyperglycemia; R32 Unspecified urinary incontinence; L89.223 Pressure ulcer of left hip, stage 3; Z79.4 Long term (current) use of insulin; J96.01 Acute respiratory failure with hypoxia